=== PATIENT | male | born 1960 | race Caucasian/White ===

== ENCOUNTER → 2016-12-26 | Outpatient (CLI) | payer OTHER ==
[~2016-12-26] MED LIST: ACET325T96 PO; ASPI81TA28 PO; ATOR-26 PO; BUPR150T5 PO; DILT240C51 PO; FLM4 PO; GABA1CAP4 PO; HYDR-5688 PO; INSUINJ12 SQ; LSX40 PO; METF-384 PO; NVLGI SC; OMEP20CA9 PO; ZLF50 PO
[2016-12-26 12:32] LABS: BLOOD UREA NITROGEN 20 mg/dl (7-18); BUN/CREATININE RATIO 15.1 (10-20); CALCIUM 9.4 mg/dl (8.5-10.1); CARBON DIOXIDE 25 mmol/L (21-32); CHLORIDE 99 mmol/L (98-107); GLUCOSE 184 mg/dl (70-99); POTASSIUM 4.2 mmol/L (3.5-5.1); SODIUM 136 mmol/L (136-145)
== END | disposition home or self-care (01) ==
LOC: C.LABBFT 08:48
PROVIDERS: ATTEND Internal Medicine
DX: R79.9 Abnormal finding of blood chemistry, unspecified (principal)

== ENCOUNTER → 2017-02-21 | Outpatient (CLI) | payer OTHER ==
[2017-02-21 12:00] LABS: ESTIMATED AVERAGE GLUCOSE 200 mg/dl; HA1C FLAG Normal (Normal)
[2017-02-21 12:17] LABS: THYROID STIMULATING HORMONE 5.3 uIu/ml (0.300-4.500)
== END | disposition home or self-care (01) ==
LOC: C.LABBFT 09:45
PROVIDERS: ATTEND Internal Medicine
DX: E03.9 Hypothyroidism, unspecified (principal); E11.49 Type 2 diabetes mellitus with other diabetic neurological complication

== ENCOUNTER → 2017-05-22 | Outpatient (CLI) | payer OTHER ==
[2017-05-22 12:59] LABS: BASO % 0.2 %; BASO ABS # 0.02 K/uL (0-0.2); COMPLETE YES; EOS % 2.6 %; HEMATOCRIT 35.8 % (42-52); IG% 0.3 %; LYMPH % 21.8 %; MEAN CELL VOLUME 90.2 fL (80-100); MEAN CORPUSCULAR HGB CONC 33.2 g/dl (32-36); MEAN PLATELET VOLUME 12.1 fL (7.4-10.4); MONO % 6.1 %; PLATELET COUNT 269 K/uL (130-400); RED BLOOD COUNT 3.97 M/uL (4.7-6.1); WHITE BLOOD COUNT 9.16 K/uL (4.8-10.8)
[2017-05-22 13:20] LABS: ESTIMATED AVERAGE GLUCOSE 183 mg/dl; HA1C FLAG Normal (Normal)
[2017-05-22 13:31] LABS: ALT/SGPT 25 U/L (12-78); BLOOD UREA NITROGEN 18 mg/dl (7-18); BUN/CREATININE RATIO 12.2 (10-20); CARBON DIOXIDE 24 mmol/L (21-32); CHLORIDE 103 mmol/L (98-107); CHOLESTEROL 145 mg/dl (0-200); GLUCOSE 199 mg/dl (70-99); POTASSIUM 4.4 mmol/L (3.5-5.1); SODIUM 136 mmol/L (136-145); TRIGLYCERIDES 286 mg/dl (0-150); VERY LOW DENSITY LIPOPROT CALC 57 mg/dl
[2017-05-22 13:35] LABS: RATIO 61.6 mcg/mg (0-30.0); URINE APPEARANCE CLOUDY (CLEAR); URINE BILIRUBIN NEG (NEG); URINE COLOR YELLOW; URINE EPITHELIAL CELL AUTO >30 /lpf (0-5); URINE NITRITE NEG (NEG); URINE PH 8.5 (4.5-7.5); URINE SPECIFIC GRAVITY 1.013 (1.000-1.030); UROBILINOGEN NEG (NEG); ZZURINE CULT IF INDIC CATH YES
[2017-05-22 13:42] LABS: ALB/GLOB RATIO 0.9 (0.9-2); ALKALINE PHOSPHATASE 128 U/L (45-117); AST/SGOT 16 U/L (15-37); HDL CHOLESTEROL 29 mg/dl; LDL CHOLESTEROL CALCULATED 59 mg/dl; PROSTATE SPECIFIC ANTIGEN 0.693 ng/ml (0.000-4.000)
[2017-05-22 13:45] LABS: MANUAL MICROSCOPIC REQUIRED? NO; REVIEW REQ? YES
== END | disposition home or self-care (01) ==
LOC: C.LABBFT 09:37
PROVIDERS: ATTEND Internal Medicine
DX: E11.49 Type 2 diabetes mellitus with other diabetic neurological complication (principal); E78.5 Hyperlipidemia, unspecified; N40.1 Benign prostatic hyperplasia with lower urinary tract symptoms; E03.9 Hypothyroidism, unspecified

== ENCOUNTER → 2017-05-29 | Outpatient (CLI) | payer OTHER ==
[2017-05-29 12:32] LABS: FERRITIN 49.7 ng/ml (8.0-388.0)
--- NOTE | 2017-06-06 12:53 | CODING QUERY MEDICAL NECESSITY ---
CQSUPPORTING DIAGNOSIS NEEDED A supporting diagnosis is required for the test/procedure performed on this patient in order for us to be reimbursed by the patient's insurance. Please provide a supporting diagnosis for the following test/procedure listed below next to the test name along with your signature. *If there is no additional diagnosis for this patient that would support the following test/procedure please document that below next to the test/procedure. Test(s)/Procedure(s) that require a supporting diagnosis: DOS 05/29/17 VITAMIN B12 TEST FOLIC ACID TEST : Provider Signature: Date: Thank you [facility] Information Management Once completed, please kindly fax back to [phone] For questions please call [phone]
== END | disposition home or self-care (01) ==
LOC: C.LABBFT 10:00
PROVIDERS: ATTEND Internal Medicine
DX: D64.9 Anemia, unspecified (principal)

== ENCOUNTER → 2017-08-25 | Outpatient (CLI) | payer OTHER ==
[2017-08-25 12:11] LABS: BASO % 0.7 %; BASO ABS # 0.05 K/uL (0-0.2); COMPLETE YES; EOS % 3.2 %; HEMATOCRIT 36.5 % (42-52); IG% 0.3 %; LYMPH % 22.7 %; LYMPH ABS # 1.72 K/uL (1.2-3.4); MEAN CELL VOLUME 89.2 fL (80-100); MEAN CORPUSCULAR HEMOGLOBIN 28.9 pg (25-34); MEAN CORPUSCULAR HGB CONC 32.3 g/dl (32-36); MEAN PLATELET VOLUME 11.9 fL (7.4-10.4); MONO % 8.3 %; NEUT % 64.8 %; PLATELET COUNT 259 K/uL (130-400); RED BLOOD COUNT 4.09 M/uL (4.7-6.1); WHITE BLOOD COUNT 7.57 K/uL (4.8-10.8)
[2017-08-25 12:29] LABS: ALT/SGPT 19 U/L (12-78); AST/SGOT 10 U/L (15-37); BLOOD UREA NITROGEN 23 mg/dl (7-18); BUN/CREATININE RATIO 16.4 (10-20); CALCIUM 8.9 mg/dl (8.5-10.1); CARBON DIOXIDE 26 mmol/L (21-32); CHLORIDE 98 mmol/L (98-107); CREATININE 1.41 mg/dl (0.60-1.40); GLUCOSE 258 mg/dl (70-99); POTASSIUM 4.3 mmol/L (3.5-5.1); SODIUM 133 mmol/L (136-145)
[2017-08-25 12:32] LABS: ALKALINE PHOSPHATASE 143 U/L (45-117)
[2017-08-25 13:46] LABS: ESTIMATED AVERAGE GLUCOSE 189 mg/dl; HA1C FLAG Normal (Normal)
== END | disposition home or self-care (01) ==
LOC: C.LABBFT 08:54
PROVIDERS: ATTEND Physician Assistant Medical
DX: E11.65 Type 2 diabetes mellitus with hyperglycemia (principal); D64.9 Anemia, unspecified

== ENCOUNTER → 2018-04-30 | Outpatient (CLI) | payer OTHER ==
[~2018-04-30] MED LIST changes: +ACET-1693 PO; -ACET325T96 PO; +GABA-1219 PO; -GABA1CAP4 PO
[2018-04-30 12:35] LABS: BLOOD UREA NITROGEN 17 mg/dl (7-18); CALCIUM 9.3 mg/dl (8.5-10.1); CARBON DIOXIDE 28 mmol/L (21-32); CREATININE 1.44 mg/dl (0.60-1.40); GLUCOSE 195 mg/dl (70-99); POTASSIUM 4.5 mmol/L (3.5-5.1); SODIUM 136 mmol/L (136-145)
== END | disposition home or self-care (01) ==
LOC: C.LABBFT 09:01
PROVIDERS: ATTEND Physician Assistant Medical
DX: E11.65 Type 2 diabetes mellitus with hyperglycemia (principal)

== ENCOUNTER → 2018-05-22 | Outpatient (CLI) | payer OTHER ==
[2018-05-22 17:47] LABS: BLOOD UREA NITROGEN 17 mg/dl (7-18); CALCIUM 9.2 mg/dl (8.5-10.1); CARBON DIOXIDE 23 mmol/L (21-32); CREATININE 1.32 mg/dl (0.60-1.40); GLUCOSE 158 mg/dl (70-99); POTASSIUM 4.4 mmol/L (3.5-5.1); SODIUM 137 mmol/L (136-145)
== END | disposition home or self-care (01) ==
LOC: C.LABBFT 11:18
PROVIDERS: ATTEND Physician Assistant Medical
DX: E11.65 Type 2 diabetes mellitus with hyperglycemia (principal)

== ENCOUNTER 2019-02-03 15:23 | Inpatient (IN) ==
[2019-02-03] MEDS ORDERED: SODIUM CHLORIDE 0.9% 1000ML 1,000 ML IV SCH ×2 (16:15→22:00)
[2019-02-03 16:35] LABS: Basophils # (auto) 0.04 K/uL (0-0.2); Basophils % (auto) 0.3 %; Eosinophils # (auto) 0.23 K/uL (0-0.5); Eosinophils % (auto) 1.6 %; Hematocrit (blood only) 37.8 % (42-52); Hemoglobin 13.1 g/dL (14.0-18.0); Immature Granulocytes # (auto) 0.05 K/uL (0.00-0.02); Immature Granulocytes % (auto) 0.3 %; Lymphocytes # (auto) 1.73 K/uL (1.2-3.4); Lymphocytes % (auto) 11.9 %; Mean Corpuscular Hgb Conc 34.7 g/dL (32-36); Mean Corpuscular Volume 84.8 fL (80-100); Mean Platelet Volume 11.5 fL (7.4-10.4); Monocytes # (auto) 1.07 K/uL (0.11-0.59); Monocytes % (auto) 7.4 %; Neutrophils # (auto) 11.36 K/uL (1.4-6.5); Neutrophils % (auto) 78.5 %; Platelet Count 222 K/uL (130-400); RDW Coefficient of Variation 15.7 % (11.5-14.5); RDW Standard Deviation 48.3 fL (36.4-46.3); Red Blood Count 4.46 M/uL (4.7-6.1); White Blood Count 14.48 K/uL (4.8-10.8)
[2019-02-03 16:52] LABS: BUN Creatinine Ratio 11.1 (10-20); Calcium 9.1 mg/dl (8.5-10.1); Creatinine Clr Calc Pharmacy 94.2 ml/min; Est GFR (African American) 58.6; Est GFR (Non-African American) 50.6; Potassium 4.1 mmol/L (3.5-5.1)
--- NOTE | 2019-02-03 17:13 | CT Scan Report ---
CT SCAN OF THE ABDOMEN AND PELVIS WITHOUT IV CONTRAST CLINICAL HISTORY: Urinary retention. COMPARISON STUDY: Abdominal CT dated 07/23/2018. TECHNIQUE: CT scan of the abdomen and pelvis is performed from the lung bases to the proximal femora. Images are reviewed in the axial, sagittal, and coronal planes. IV contrast was not administered for this examination as per the referring clinician. Note that the examination was performed in suboptim al fashion without oral and IV contrast. The examination is degraded by motion artifact, as well as b y large body habitus and streak artifact from the body wall abutting the CT gantry. A dose lowering t echnique was utilized adhering to the principles of ALARA. CT DOSE: 2400.26 mGy.cm FINDINGS: Lung bases: The heart is normal in size and without pericardial effusion. There are coronary artery c alcifications. The lung bases are clear. There is a small hiatal hernia. Liver: The unenhanced liver is enlarged, measuring 23.3 cm in length. The liver is otherwise normal i n contour and attenuation. There is no intrahepatic biliary ductal dilatation. Gallbladder: There are layering calcified gallstones, with no CT evidence of acute cholecystitis. Spleen: Normal in size and attenuation. Pancreas: The unenhanced pancreas is atrophic and grossly unremarkable. Adrenal glands: Unremarkable. Kidneys: The unenhanced kidneys demonstrate cortical atrophy. There is mild fullness of the right addie al collecting system with no hydronephrosis identified. 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 Mild stranding is seen around the right ur eter as well as the right renal pelvis. There are no renal calculi identified. There is no evidence o f contour deforming renal mass lesion. Abdominal vasculature: The abdominal aorta is normal in course and caliber noting moderate to advance d atherosclerotic calcification. Bowel: There is rectosigmoid fecal retention and moderate constipation. No bowel obstruction is seen. The appendix is well-visualized and normal. Peritoneum: There is no intraperitoneal free air or abdominal ascites. There is laxity of the ventral abdominal wall with diastases of the rectus musculature. Lymphadenopathy: None. Pelvic viscera: The bladder wall is mildly thickened and there is pericystic inflammation. Gas is see n within the bladder lumen. The prostate gland is atrophic, and the seminal vesicles are normal as im aged. Skeletal structures: The skeletal structures are osteopenic. Moderate to advanced lumbar sacral spond ylosis is observed. Large hemangiomas are seen in the bodies of T12, L2, and L5. No lytic or blastic lesions are seen. IMPRESSION: 1. The bladder wall is thickened and there is pericystic inflammation. Correlate clinically and with urinalysis for evidence of cystitis. 2. There is also mild stranding identified around the right ureters and the right renal pelvis. Ascen ding urinary tract infection is not excluded. 3. Gas within the bladder lumen is nonspecific and may be related to recent instrumentation. 4. Cholelithiasis. 5. Hepatomegaly. 6. Additional findings as above. Electronically signed by: Jerome Marquez M.D. 02/03/2019 5:12 PM
[2019-02-03] MEDS ORDERED: CIPROFLOXACIN 400 MG/200 ML BAG IV STA (17:22)
[2019-02-03 18:19] LABS: Appearance Urine Cloudy (Clear); Color Urine Red; Specific Gravity Urine 1.012 (1.000-1.030)
[2019-02-03 18:20] LABS: Bacteria Urine Automated Negative (Negative); Bilirubin Urine Negative (Negative); Blood Urine 3+ (Negative); Epithelial Cell Urine Auto 20-30 /lpf (0-5); Glucose Urine UA Negative (Negative); Ketones Urine Negative (Negative); Leukocyte Esterase Urine 1+ (Negative); Nitrite Urine Negative (Negative); RBC Urine Automated >30 /hpf (0-4); Urobilinogen Urine Negative (Negative)
[2019-02-03 18:23] LABS: Protein Urine 2+ (Negative)
--- NOTE | 2019-02-03 20:19 | History & Physical Report ---
Date of Service February 03, 2019 Assessment & Plan (1) Urinary tract infection: 58 y/o M Hx DM II, PAD, PAF, morbid obesity, HTN, hypothyroidism, BPH with retention and Villasenor since 2006, recurrent UTIs. The pt has his Villasenor changed monthly by his urologist. Over the past day, he has had hematuria and his Villasenor clogged. The Villasenor was successfully replaced in the ER and his urine gradually cleared up. The pt's UA was essentially negative. He did exhibit mild renal impairment and a borderline lactic acid elevation. He has not had fevers, rigors or tachycardia. A CT of the abdomen demonstrated bladder wall thickening, pericystic inflammation, mild stranding identified around the right ureters and the right renal pelvis consistent with ascending urinary tract infection. The pt was admitted with sepsis 07/16 related to Villasenor obstruction and a UTI and was critically ill. The CT findings are new since the prior admission. 1) Urinary retention and UTI - associated with Villasenor blockage. This was replaced in the ER. As he was recently septic and considering his lab and CT findings, we will retain him overnight, treat for a UTI and consult his urologist. Repeat lactic pending following IVF. 2) PAF - Sinus on admission, anticoagulated with Apixaban - we will continue as his hematuria has resolved. Cont Diltiazem, Metoprolol for rate 3) DM - placed on a SS 4) HTN/HLD - cont ARB, Diltiazem, Lasix, Meoprolol, statin 5) Mild renal impairment - Lasix held, IVF provided overnight - trend BMP 6) Hypothyroidism - cont Synthroid Full code, Apixaban prophylaxis Total time for this admit including review of labs, meds, imaging, records - discussion with pt and ER attending - 38 min Present on Admission?: Yes (2) Urinary retention: History of Present Illness Chief Complaint: Clogged Villasenor Primary Care Provider: Joe Walker MD 58 y/o M Hx DM II, PAD, PAF, morbid obesity, HTN, hypothyroidism, BPH with retention and Villasenor since 2006, recurrent UTIs. The pt has his Villasenor changed monthly by his urologist. Over the past day, he has had hematuria and his Villasenor clogged. The Villasenor was successfully replaced in the ER and his urine gradually cleared up. The pt's UA was essentially negative. He did exhibit mild renal impairment and a borderline lactic acid elevation. He has not had fevers, rigors or tachycardia. A CT of the abdomen demonstrated bladder wall thickening, pericystic inflammation, mild stranding identified around the right ureters and the right renal pelvis consistent with ascending urinary tract infection. The pt was admitted with sepsis 07/16 related to Villasenor obstruction and a UTI and was critically ill. The CT findings are new since the prior admission. 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 8) Paroxysmal AF 9) Hypothyroidism Social: The pt does not drink or smoke Family history: Mother to to complications of DM Father at an advanced age following a CVA Allergies Allergy/AdvReac Type Severity Reaction Status Date / Time Penicillins Allergy Severe HIVES, RED Verified 02/03/19 17:10 RASH A CHILD fluticasone [From Flonase] AdvReac Intermediate FELT FUNNY Verified 02/03/19 17:10 IN THE HEAD Home Medications Home Medications Medication Instructions Recorded Confirmed Type albuterol sulfate [Ventolin HFA] 2 puff INHALATION .Q4-6HRS PRN 07/23/18 02/03/19 History atorvastatin 80 mg PO DAILY 07/23/18 02/03/19 History bupropion HCl 150 mg PO BID 07/23/18 02/03/19 History diltiazem HCl 240 mg PO DAILY 07/23/18 02/03/19 History docusate sodium [Colace] 100 mg PO DAILY PRN 07/23/18 02/03/19 History furosemide 40 mg PO DAILY 07/23/18 02/03/19 History gabapentin 300 mg PO HS 07/23/18 02/03/19 History levothyroxine 50 mcg PO DAILY 07/23/18 02/03/19 History pantoprazole 40 mg PO DAILY 07/23/18 02/03/19 History promethazine 25 mg PO Q6H PRN 07/23/18 02/03/19 History apixaban [Eliquis] 5 mg PO BID #60 tab 07/27/18 02/03/19 Rx irbesartan 150 mg PO QAM #30 tab 07/27/18 02/03/19 Rx duloxetine 60 mg PO DAILY 02/03/19 02/03/19 History insulin aspart U-100 [Novolog 50 units SUBCUT ACHS 02/03/19 02/03/19 History Flexpen U-100 Insulin] insulin detemir U-100 [Levemir 100 units SUBCUT BID 02/03/19 02/03/19 History U-100 Insulin] metoprolol tartrate 100 mg PO BID 02/03/19 02/03/19 History Past Med/Surg History Medical History Atrial flutter with rapid ventricular response Regional wall motion abnormality of heart Asthma (Chronic) GERD (gastroesophageal reflux disease) (Chronic) Urinary retention (Acute) Urinary tract infection (Acute) Acute blood loss anemia Acute kidney injury Back injury Blocked urinary catheter Cellulitis Cellulitis of left foot Constipation Diabetic foot ulcer (10/07/13) Fall at home Foot ulcer, right Gas gangrene Hypertension Hyponatremia Surgical History Hx of tonsillectomy Family History Other No pertinent family history in first degree relatives Social History Preferred Language: Irish Communication Ability: Effective Beliefs That Will Affect Care: None marital status: Single Current Living Situation: Significant Other Feels Safe at Home: Yes Smoking Status: Never smoker Hx Alcohol Use: No Hx Substance Use: No Review of Systems Review of Systems: Gen: Denies fevers, night sweats, rigors, fatigue, malaise, weight loss/gain ENT: Denies congestion, throat pain, hearing loss Eyes: Denies acute visual changes CV: Denies CP, palpitations Pulmonary: Denies SOB, cough, wheezing GI: Denies N/V, diarrhea, constipation : Hematuria and some suprapubic pain prior to Villasenor replacement Neuro: Denies acute or unilateral weakness, acute gait impairment, headache or acute visual changes Musculoskeletal: Denies joint pain, inflammation Endocrine: Denies polydipsia, polyuria Skin: Denies acute rashes or ulcers - chronic plantar erythema Physical Exam Physical Exam: General: Morbidly obese, unkempt, middle-aged male, AAO x 3, no distress ENT: No erythema or exudates, no thrush Eyes: EVAN, EOMI Head and neck: Normocephalic, atraumatic, neck is supple. Chest/heart: Nontender, S1,2, RRR, no murmurs, no gallops Lungs: CTAB, no wheezing or crackles Abdomen: Nontender, nondistended, BS+ : Urine in Villasenor bag is clear following replacement Neuro: AAO x 3, speech is clear, no unilateral weakness or loss of sensation, coordination intact Musculoskeletal: No joint inflammation, muscle tenderness, FROM Skin: No acute rashes or ulcers - plantar erythema R Extremities: BL edema - red spots and plantar erythema on R - chronic per pt Results & Data Vital Signs (Past 12 Hours) Vital Signs Temp Pulse Pulse Resp BP BP Pulse Ox 02/03/19 20:04 61 19 139/44 L 96 02/03/19 17:52 68 17 161/60 H 96 02/03/19 16:10 67 18 125/62 97 02/03/19 15:45 98.4 F 78 19 218/[address] abdomen/pelvis 1. The bladder wall is thickened and there is pericystic inflammation. Correlate clinically and with urinalysis for evidence of cystitis. 2. There is also mild stranding identified around the right ureters and the right renal pelvis. Ascending urinary tract infection is not excluded. 3. Gas within the bladder lumen is nonspecific and may be related to recent instrumentation. 4. Cholelithiasis. 5. Hepatomegaly. (1) Urinary tract infection Urinary tract infection type: catheter-associated UTI Indwelling urinary catheter type: indwelling urethral catheter Encounter type: subsequent encounter Qualified Code(s): T83.511D - Infection and inflammatory reaction due to indwelling urethral catheter, subsequent encounter; N39.0 - Urinary tract infection, site not specified
--- NOTE | 2019-02-03 22:54 | Emergency Department Note ---
Entered by Mami Campa acting as a scribe for Deejay Walsh History of Present Illness General Chief complaint: Hematuria Stated complaint: hematuria in catheter Time Seen by Provider: 02/03/19 16:03 Source: patient History of Present Illness Onset (ago): hour(s) (Less than 24) Location: pelvis (Hematuria) Severity: similar to prior episodes Pain Consistency: + other (Sudden) Maximum Pain Intensity: 8 Quality: + other (Hematuria) Associated symptoms: + other (Positive hematuria, inability to urinate. ) Treatments prior to arrival: none The patient is a 58 year old male presenting to the Emergency Department complaining of sudden hematuria starting today. The patient reports that the had a catheter put in at [facility] by a nurse earlier today. He states that since the catheter has been placed he has not been able to urinate. He explains that since his catheter has been placed he has noticed blood in his catheter. He notes that this has happened before. 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 The patient stated Take the catheter out of me. I want it out, I want it out right now! Home Medications Home Medications Medication Instructions Recorded Confirmed Type albuterol sulfate [Ventolin HFA] 2 puff INHALATION .Q4-6HRS PRN 07/23/18 02/03/19 History atorvastatin 80 mg PO DAILY 07/23/18 02/03/19 History bupropion HCl 150 mg PO BID 07/23/18 02/03/19 History diltiazem HCl 240 mg PO DAILY 07/23/18 02/03/19 History docusate sodium [Colace] 100 mg PO DAILY PRN 07/23/18 02/03/19 History furosemide 40 mg PO DAILY 07/23/18 02/03/19 History gabapentin 300 mg PO HS 07/23/18 02/03/19 History levothyroxine 50 mcg PO DAILY 07/23/18 02/03/19 History pantoprazole 40 mg PO DAILY 07/23/18 02/03/19 History promethazine 25 mg PO Q6H PRN 07/23/18 02/03/19 History apixaban [Eliquis] 5 mg PO BID #60 tab 07/27/18 02/03/19 Rx irbesartan 150 mg PO QAM #30 tab 10/29/18 05/08/19 Rx duloxetine 60 mg PO DAILY 02/03/19 02/03/19 History insulin aspart U-100 [Novolog 50 units SUBCUT ACHS 02/03/19 02/03/19 History Flexpen U-100 Insulin] insulin detemir U-100 [Levemir 100 units SUBCUT BID 02/03/19 02/03/19 History U-100 Insulin] metoprolol tartrate 100 mg PO BID 02/03/19 02/03/19 History Allergies Allergy/AdvReac Type Severity Reaction Status Date / Time Penicillins Allergy Severe HIVES, RED Verified 02/03/19 17:10 RASH A CHILD fluticasone [From Flonase] AdvReac Intermediate FELT FUNNY Verified 02/03/19 17:10 IN THE HEAD Past Med/Surg History Medical History Atrial flutter with rapid ventricular response Regional wall motion abnormality of heart Asthma (Chronic) GERD (gastroesophageal reflux disease) (Chronic) Urinary retention (Acute) Urinary tract infection (Acute) Acute blood loss anemia Acute kidney injury Back injury Blocked urinary catheter Cellulitis Cellulitis of left foot Constipation Diabetic foot ulcer (10/07/13) Fall at home Foot ulcer, right Gas gangrene Hypertension Hyponatremia Surgical History Hx of tonsillectomy Family History Other No pertinent family history in first degree relatives Social History Preferred Language: Gabonese Communication Ability: Effective Beliefs That Will Affect Care: None marital status: Single Current Living Situation: Significant Other Feels Safe at Home: Yes Smoking Status: Never smoker Hx Alcohol Use: No Hx Substance Use: No Review of Systems See HPI for pertinent positives & negatives. and A total of 10 systems reviewed and were otherwise negative Physical Exam Vital Signs Vital Signs - 24 hr 02/03/19 15:45 02/03/19 17:52 02/03/19 20:04 Temperature 36.9 C Temperature Source Oral Sepsis Recent Fever Within 48 Hours No Sepsis New/Unexplained Change in Mental Status No Sepsis Action Taken by Nursing No Action Required Pulse Rate 78 Pulse Rate [Right Finger] 68 61 Respiratory Rate 19 17 19 Respiratory Effort / Characteristics Non-Labored Spontaneous Respiratory Depth Normal Respiratory Pattern Regular Blood Pressure 218/134 H Blood Pressure [Right Arm] 161/60 H 139/44 L Blood Pressure Mean 162 Blood Pressure Mean [Right Arm] 93 75 Pulse Oximetry 96 96 96 Oxygen Delivery Method Room Air Room Air Room Air 02/03/19 21:39 Temperature Temperature Source Sepsis Recent Fever Within 48 Hours Sepsis New/Unexplained Change in Mental Status Sepsis Action Taken by Nursing Pulse Rate 62 Pulse Rate [Right Finger] Respiratory Rate 19 Respiratory Effort / Characteristics Respiratory Depth Respiratory Pattern Blood Pressure 158/66 H Blood Pressure [Right Arm] Blood Pressure Mean Blood Pressure Mean [Right Arm] Pulse Oximetry 97 Oxygen Delivery Method Room Air GENERAL: He is oriented to person, place, and time. He appears well-developed and well-nourished. He does not appear distressed. HENT: Exam performed. - Head: Normocephalic and atraumatic. - Right Ear: External ear normal. No mastoid tenderness. - Left Ear: External ear normal. No mastoid tenderness. - Mouth/Throat: The oropharynx is clear and moist. No trismus in the jaw. No dental abscesses or uvula swelling. No oropharyngeal exudate or tonsillar abscesses. EYES: Conjunctivae and EOM are normal. Pupils are equal, round, and reactive to light. Right eye exhibits no discharge. Left eye exhibits no discharge. No scleral icterus. NECK: Normal range of motion. Neck supple. No JVD present. No spinous process tenderness present. No carotid bruit present. No rigidity. No tracheal deviation and normal range of motion present. No Brudzinski's sign and no Kernig's sign noted. CV: Normal rate, regular rhythm, normal heart sounds and intact distal pulses. There is no peripheral edema. Palpable radial pulses bue. PULM/CHEST: Effort normal and breath sounds normal. No respiratory distress. No stridor. He has no wheezes. He has no rales. - Chest Wall: He exhibits no tenderness. ABD: The abdomen is soft. Bowel sounds are normal. He has no distension. No mass is present. Pain on palpation of the RLQ. There is no rebound, no guarding, no Pressley's sign and no tenderness at McBurney's point. Rovsig negative. : Villasenor catheter in place with blood coming from around it. MUSC/SKEL: Normal range of motion. There is no peripheral edema, tenderness or deformity. LYMPH: No cervical adenopathy. NEURO: He is alert and oriented to person, place, and time. He has normal strength. No cranial nerve deficit or sensory deficit. Coordination and gait normal. GCS eye subscore is 4. GCS verbal subscore is 5. GCS motor subscore is 6. Cerebellar tests wnl. SKIN: Skin is warm and dry. He is not diaphoretic. PSYCH: He has a normal mood and affect. Behavior is normal. Judgment and thought content normal. Course 1606: The patient was evaluated in room B12B, and a complete history and physical examination were performed. EMR reviewed. The patient has a history of DM, CAD, HTN, BPH with Villasenor catheter since 2006. The patient has his Villasenor catheter changed monthly by urology. The patient was seen in the ED in June 2018 for a similar episode where he developed hematuria, bladder pain, fever and high heart rate. 1745: Villasenor was replaced. Extremely bloody urine coming from Villasenor. Labs show leukocytosis at 14.8 and lactic acid of 2.1. CT of abdomen showed no nephrolithiasis. Mild streaking of right ureter and right renal pelvis concerning for pyelonephritis. Given patients history of sepsis after Villasenor catheter change, patient will be treated with IV antibiotics and admitted to hospital service. Patient was accepted by Dr. Denise MORENO hospitalist. Administered Medications Discontinued Medications Sodium Chloride (Nss 1000ml) 1,000 mls @ 125 mls/hr IV .Q8H [facility] Stop: 03/05/19 16:14 Last Admin: 02/03/19 17:55 Dose: 125 mls/hr Documented by: [id number] Ciprofloxacin (Cipro) 400 mg in 200 mls @ 200 mls/hr IV NOW STA Stop: 02/03/19 18:21 Last Infusion: 02/03/19 19:58 Dose: 0 mls/hr Documented by: [id number] Admin: 02/03/19 17:54 Dose: 200 mls/hr Documented by: [id number] Medical Decision Making Medical Records Attestation: I reviewed the patient's medical records. Home Medications Current Medication List: was personally reviewed by me Laboratory Data Attestation: I reviewed the patient's lab results. Result diagrams: 02/03/19 16:26 02/03/19 16:26 Lab Results 02/03/19 02/03/19 02/03/19 Range/Units 16:26 16:26 16:26 WBC 14.48 H (4.8-10.8) K/uL RBC 4.46 L (4.7-6.1) M/uL Hgb 13.1 L (14.0-18.0) g/dL Hct 37.8 L (42-52) % MCV 84.8 (80-100) fL MCH 29.4 (25-34) pg MCHC 34.7 (32-36) g/dL RDW Std Deviation 48.3 H (36.4-46.3) fL RDW Coeff of Adi 15.7 H (11.5-14.5) % Plt Count 222 (130-400) K/uL MPV 11.5 H (7.4-10.4) fL Immature Gran % (Auto) 0.3 % Neut % (Auto) 78.5 % Lymph % (Auto) 11.9 % [place] % (Auto) 7.4 % Eos % (Auto) 1.6 % Baso % (Auto) 0.3 % Immature Gran # (Auto) 0.05 H (0.00-0.02) K/uL Neut # (Auto) 11.36 H (1.4-6.5) K/uL Lymph # (Auto) 1.73 (1.2-3.4) K/uL [place] # (Auto) 1.07 H (0.11-0.59) K/uL Eos # (Auto) 0.23 (0-0.5) K/uL Baso # (Auto) 0.04 (0-0.2) K/uL Sodium 134 L (136-145) mmol/L Potassium 4.1 (3.5-5.1) mmol/L Chloride 99 (98-107) mmol/L Carbon Dioxide 28 (21-32) mmol/L Anion Gap 6.0 (3-11) BUN 17 (7-18) mg/dl Creatinine 1.50 H (0.6-1.4) mg/dl Est Cr Clr Drug Dosing 94.2 ml/min Est GFR ( Amer) 58.6 Est GFR (Non-Af Amer) 50.6 BUN/Creatinine Ratio 11.1 (10-20) Glucose 88 (70-99) mg/dl Lactate 2.1 H* (0.4-2.0) mmol/L Calcium 9.1 (8.5-10.1) mg/dl Urine Color Urine Appearance (Clear) Urine pH (4.5-7.5) Ur Specific [place] (1.000-1.030) Urine Protein (Negative) Urine Glucose (UA) (Negative) Urine Ketones (Negative) Urine Blood (Negative) Urine Nitrite (Negative) Urine Bilirubin (Negative) Urine Urobilinogen (Negative) Ur Leukocyte Esterase (Negative) Urine WBC (Auto) (0-5) /hpf Urine RBC (Auto) (0-4) /hpf U Hyaline Cast (Auto) (0-5) /lpf U Epithel Cells (Auto) (0-5) /lpf Urine Bacteria (Auto) (Negative) 02/03/19 02/03/19 Range/Units 17:30 20:58 WBC (4.8-10.8) K/uL RBC (4.7-6.1) M/uL Hgb (14.0-18.0) g/dL Hct (42-52) % MCV (80-100) fL MCH (25-34) pg MCHC (32-36) g/dL RDW Std Deviation (36.4-46.3) fL RDW Coeff of Adi (11.5-14.5) % Plt Count (130-400) K/uL MPV (7.4-10.4) fL Immature Gran % (Auto) % Neut % (Auto) % Lymph % (Auto) % [place] % (Auto) % Eos % (Auto) % Baso % (Auto) % Immature Gran # (Auto) (0.00-0.02) K/uL Neut # (Auto) (1.4-6.5) K/uL Lymph # (Auto) (1.2-3.4) K/uL [place] # (Auto) (0.11-0.59) K/uL Eos # (Auto) (0-0.5) K/uL Baso # (Auto) (0-0.2) K/uL Sodium (136-145) mmol/L Potassium (3.5-5.1) mmol/L Chloride (98-107) mmol/L Carbon Dioxide (21-32) mmol/L Anion Gap (3-11) BUN (7-18) mg/dl Creatinine (0.6-1.4) mg/dl Est Cr Clr Drug Dosing ml/min Est GFR ( Amer) Est GFR (Non-Af Amer) BUN/Creatinine Ratio (10-20) Glucose (70-99) mg/dl Lactate 1.2 (0.4-2.0) mmol/L Calcium (8.5-10.1) mg/dl Urine Color Red Urine Appearance Cloudy A (Clear) Urine pH 8.0 H (4.5-7.5) Ur Specific [place] 1.012 (1.000-1.030) Urine Protein 2+ H (Negative) Urine Glucose (UA) Negative (Negative) Urine Ketones Negative (Negative) Urine Blood 3+ H (Negative) Urine Nitrite Negative (Negative) Urine Bilirubin Negative (Negative) Urine Urobilinogen Negative (Negative) Ur Leukocyte Esterase 1+ H (Negative) Urine WBC (Auto) 5-10 H (0-5) /hpf Urine RBC (Auto) >30 H (0-4) /hpf U Hyaline Cast (Auto) 1-5 (0-5) /lpf U Epithel Cells (Auto) 20-30 H (0-5) /lpf Urine Bacteria (Auto) Negative (Negative) Imaging Data Radiologist's Impression: Radiology results as stated below per my review and the radiologist's interpretation: CT SCAN OF THE ABDOMEN AND PELVIS WITHOUT IV CONTRAST CLINICAL HISTORY: Urinary retention. COMPARISON STUDY: Abdominal CT dated 07/23/2018. TECHNIQUE: CT scan of the abdomen and pelvis is performed from the lung bases to the proximal femora. Images are reviewed in the axial, sagittal, and coronal planes. IV contrast was not administered for this examination as per the referring clinician. Note that the examination was performed in suboptimal fashion without oral and IV contrast. The examination is degraded by motion artifact, as well as by large body habitus and streak artifact from the body wall abutting the CT gantry. A dose lowering technique was utilized adhering to the principles of ALARA. CT DOSE: 2400.26 mGy.cm FINDINGS: Lung bases: The heart is normal in size and without pericardial effusion. There are coronary artery calcifications. The lung bases are clear. There is a small hiatal hernia. Liver: The unenhanced liver is enlarged, measuring 23.3 cm in length. The liver is otherwise normal in contour and attenuation. There is no intrahepatic biliary ductal dilatation. Gallbladder: There are layering calcified gallstones, with no CT evidence of acute cholecystitis. Spleen: Normal in size and attenuation. Pancreas: The unenhanced pancreas is atrophic and grossly unremarkable. Adrenal glands: Unremarkable. Kidneys: The unenhanced kidneys demonstrate cortical atrophy. There is mild fullness of the right renal collecting system with no hydronephrosis identified. 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 Mild stranding is seen around the right ureter as well as the right renal pelvis. There are no renal calculi identified. There is no evidence of contour deforming renal mass lesion. Abdominal vasculature: The abdominal aorta is normal in course and caliber noting moderate to advanced atherosclerotic calcification. Bowel: There is rectosigmoid fecal retention and moderate constipation. No bowel obstruction is seen. The appendix is well-visualized and normal. Peritoneum: There is no intraperitoneal free air or abdominal ascites. There is laxity of the ventral abdominal wall with diastases of the rectus musculature. Lymphadenopathy: None. Pelvic viscera: The bladder wall is mildly thickened and there is pericystic inflammation. Gas is seen within the bladder lumen. The prostate gland is atrophic, and the seminal vesicles are normal as imaged. Skeletal structures: The skeletal structures are osteopenic. Moderate to advanced lumbar sacral spondylosis is observed. Large hemangiomas are seen in the bodies of T12, L2, and L5. No lytic or blastic lesions are seen. IMPRESSION: 1. The bladder wall is thickened and there is pericystic inflammation. Correlate clinically and with urinalysis for evidence of cystitis. 2. There is also mild stranding identified around the right ureters and the right renal pelvis. Ascending urinary tract infection is not excluded. 3. Gas within the bladder lumen is nonspecific and may be related to recent instrumentation. 4. Cholelithiasis. 5. Hepatomegaly. 6. Additional findings as above. Electronically signed by: Jerome Marquez M.D. 02/03/2019 5:12 PM ECG Data Attestation: I personally reviewed and interpreted this ECG as follows: Indication: weakness Rate (beats per minute): 75 Rhythm: sinus rhythm Findings: + other (OH and QTC intervals within normal limits. QRS 136. LVH. ), + PVC and + RBBB; no ST depression and no ST elevation Blood Pressure Blood Pressure Findings: Elevated blood pressure Blood Pressure Disposition: further management by hospitalist LISA Narrative 1606: The patient was evaluated in room B12B, and a complete history and physical examination were performed. EMR reviewed. The patient has a history of DM, CAD, HTN, BPH with Ivllasenor catheter since 2006. The patient has his Villasenor catheter changed monthly by urology. The patient was seen in the ED in June 2018 for a similar episode where he developed hematuria, bladder pain, fever and high heart rate. 1745: Villasenor was replaced. Extremely bloody urine coming from Villasenor. Labs show leukocytosis at 14.8 and lactic acid of 2.1. CT of abdomen showed no nephrol ithiasis. Mild streaking of right ureter and right renal pelvis concerning for pyelonephritis. Given patients history of sepsis after Villasenor catheter change, patient will be treated with IV antibiotics and admitted to hospital service. Patient was accepted by Dr. Denise SOLANO hospitalist. Impression & Plan Pyelonephritis Discharge Plan Visit Data Chief Complaint: Hematuria Stated Complaint: hematuria in catheter ED Provider: Deejay Walsh Discharge Problem: Pyelonephritis Patient Disposition: Being Evaluated by Hospitalist Discharge Instructions Interventions: ED Discharge Assessment Last Done: 02/03/19 21:39 The scribe's documentation has been prepared under my direction and personally reviewed by me in its entirety. I confirm that the note above accurately reflects all work, treatment, procedures, and medical decision making performed by me.
[2019-02-03] MEDS ORDERED: POLYETHYLENE (MIRALAX) 17 GM PACK PO PRN (22:56)
[2019-02-03] MEDS ORDERED: MAGNESIUM HYDROXIDE SUSP 30 ML UDC PO PRN (22:56)
[2019-02-03] MEDS ORDERED: ALBUTEROL HFA 8 GM INHALER INH PRN (22:56)
[2019-02-03] MEDS ORDERED: DOCUSATE SODIUM 100 MG CAP PO PRN (22:56)
[2019-02-03] MEDS ORDERED: ZOLPIDEM TARTRATE 5 MG TAB PO PRN (22:56)
[2019-02-03] MEDS ORDERED: ONDANSETRON INJ 2 MG/ML 2 ML VIAL IV PRN (22:56)
[2019-02-03] MEDS ORDERED: ALUMINUM/MAGNESIUM SUSP 30 ML UDC PO PRN (22:56)
[2019-02-03] MEDS ORDERED: ACETAMINOPHEN 325 MG TAB PO PRN (22:56)
[2019-02-03] MEDS: CEFEPIME 1,000 MG in SYRINGE 0 ML IV SCH (22:57)
[2019-02-03] MEDS ORDERED: INSULIN DETEMIR SC SCH (23:15)
[2019-02-03] MEDS ORDERED: GLUCOSE 10 TABS/TUBE PO PRN (23:15)
[2019-02-03] MEDS ORDERED: DEXTROSE 50% 50 ML SYRINGE IV PRN (23:15)
[2019-02-03] MEDS ORDERED: GLUCOSE 40% GEL 15 GM TUBE PO PRN (23:15)
[2019-02-03] MEDS ORDERED: CARBOHYDRATES FOR HYPOGLYCEMIA PO PRN (23:15)
[2019-02-03] MEDS ORDERED: GLUCAGON FOR INJ 1 MG VIAL IM PRN (23:15)
[2019-02-04] MEDS: APIXABAN 5 MG TABLET PO SCH ×3 (00:03→20:40)
[2019-02-04] MEDS: METOPROLOL TARTRATE 100 MG TAB PO SCH ×3 (00:03→20:38)
[2019-02-04] MEDS: GABAPENTIN 300 MG CAP PO SCH ×2 (00:04→20:39)
[2019-02-04] MEDS: INSULIN DETEMIR SC SCH ×3 (00:04→20:42)
[2019-02-04] MEDS: BuPROPion SR 150 MG TABCR PO SCH ×3 (00:04→20:39)
[2019-02-04 05:51] LABS: Basophils # (auto) 0.02 K/uL (0-0.2); Basophils % (auto) 0.2 %; Eosinophils # (auto) 0.24 K/uL (0-0.5); Eosinophils % (auto) 2.2 %; Hematocrit (blood only) 34.8 % (42-52); Immature Granulocytes # (auto) 0.03 K/uL (0.00-0.02); Immature Granulocytes % (auto) 0.3 %; Lymphocytes % (auto) 15.5 %; Mean Corpuscular Hgb Conc 34.5 g/dL (32-36); Mean Corpuscular Volume 83.9 fL (80-100); Mean Platelet Volume 11.5 fL (7.4-10.4); Monocytes # (auto) 0.81 K/uL (0.11-0.59); Monocytes % (auto) 7.4 %; Neutrophils # (auto) 8.18 K/uL (1.4-6.5); Neutrophils % (auto) 74.4 %; Platelet Count 176 K/uL (130-400); RDW Coefficient of Variation 15.7 % (11.5-14.5); RDW Standard Deviation 48.1 fL (36.4-46.3); Red Blood Count 4.15 M/uL (4.7-6.1); White Blood Count 10.98 K/uL (4.8-10.8)
[2019-02-04] MEDS: CEFEPIME 1,000 MG in SYRINGE 0 ML IV SCH ×3 (06:06→21:45)
[2019-02-04] MEDS: LEVOTHYROXINE SODIUM 50 MCG TABLET PO SCH (06:08)
[2019-02-04 06:25] LABS: BUN Creatinine Ratio 11.6 (10-20); Calcium 8.5 mg/dl (8.5-10.1); Est GFR (African American) 73.8; Est GFR (Non-African American) 63.7; Potassium 4.2 mmol/L (3.5-5.1)
[2019-02-04] MEDS: ATORVASTATIN 40 MG TAB PO SCH (08:40)
[2019-02-04] MEDS: PANTOprazole 40 MG TAB PO SCH (08:40)
[2019-02-04] MEDS: DULOXETINE HCL 60 MG CAP PO SCH (08:41)
[2019-02-04] MEDS: dilTIAZem HCL 240 MG CAPCR PO SCH (08:41)
[2019-02-04] MEDS: IRBESARTAN 150 MG TAB PO SCH (08:42)
--- NOTE | 2019-02-04 19:59 | Urology Consultation ---
Date of Consultation February 04, 2019 Assessment & Plan (1) UTI (urinary tract infection) due to urinary indwelling catheter: Complicated uti due to clot retention after difficult brown cath change in urology office early sepsis responding well to iv abt will hopefully have culture results tomorrow patient motivated to go home understands he will be on abt for 1-2 weeks. plan cysto 02/15 I also asked pt and he agrees to pressure flow test to determine if he is candidate for turp surgery as I think it is dangerous for him to continue with brown. If there is any chance for return of spontaneous voiding he needs to take it. Present on Admission?: Yes (2) Septicemia: History of Present Illness Reason for Consultation: urosepsis Requesting Physician: Dr Walker Attending Physician: Najma Wallace MD History of Present Illness I am asked by Dr Walker to evaluate and treat patient for urosepsis. Patient is with long standing large volume retention who choses to live with brown rather than get workup to see if he is a candidate for turp surgery. He has had a brown for 6 years. It is changed monthly in the [facility] office. He has had increasingly difficult catheter placements including yesterday with proximal urethral resistance to brown passage. There was brisk bleeding after cath placement yesterday which seemed to have resolved prior to leaving clinic. he suffered clot retention about 3 hours after arriving home and came to ER last night in painful retention. His brown was changed and even after the first brown was removed he passed finger sized clots. He is on iv abt coverage based on his prior urosepsis event earlier this year also after a clogged catheter episode. Allergies Allergy/AdvReac Type Severity Reaction Status Date / Time Penicillins Allergy Severe HIVES, RED Verified 02/03/19 17:10 RASH A CHILD fluticasone [From Flonase] AdvReac Intermediate FELT FUNNY Verified 02/03/19 17:10 IN THE HEAD Home Medications Home Medications Medication Instructions Recorded Confirmed Type albuterol sulfate [Ventolin HFA] 2 puff INHALATION .Q4-6HRS PRN 07/23/18 02/03/19 History atorvastatin 80 mg PO DAILY 07/23/18 02/03/19 History bupropion HCl 150 mg PO BID 07/23/18 02/03/19 History diltiazem HCl 240 mg PO DAILY 07/23/18 02/03/19 History docusate sodium [Colace] 100 mg PO DAILY PRN 07/23/18 02/03/19 History furosemide 40 mg PO DAILY 07/23/18 02/03/19 History gabapentin 300 mg PO HS 07/23/18 02/03/19 History levothyroxine 50 mcg PO DAILY 07/23/18 02/03/19 History pantoprazole 40 mg PO DAILY 07/23/18 02/03/19 History promethazine 25 mg PO Q6H PRN 07/23/18 02/03/19 History apixaban [Eliquis] 5 mg PO BID #60 tab 07/27/18 02/03/19 Rx irbesartan 150 mg PO QAM #30 tab 07/27/18 02/03/19 Rx duloxetine 60 mg PO DAILY 02/03/19 02/03/19 History insulin aspart U-100 [Novolog 50 units SUBCUT ACHS 02/03/19 02/03/19 History Flexpen U-100 Insulin] insulin detemir U-100 [Levemir 100 units SUBCUT BID 02/03/19 02/03/19 History U-100 Insulin] metoprolol tartrate 100 mg PO BID 02/03/19 02/03/19 History Patient History Medical History Atrial flutter with rapid ventricular response Regional wall motion abnormality of heart Asthma (Chronic) GERD (gastroesophageal reflux disease) (Chronic) Urinary retention (Acute) Urinary tract infection (Acute) Acute blood loss anemia Acute kidney injury Back injury Blocked urinary catheter Cellulitis Cellulitis of left foot Constipation Diabetic foot ulcer (10/07/13) Fall at home Foot ulcer, right Gas gangrene Hypertension Hyponatremia Surgical History Hx of tonsillectomy Family History Other No pertinent family history in first degree relatives Social History Preferred Language: Croatian Communication Ability: Effective 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 Mom- no cancer ROS- + chills, + fever and sweats at home, no rash, no chest pain, no shortness of breath, bowle slow uses laxatives often, no nausea no emesis, no seizures Physical Exam Constitutional: WD/WN, vitals as above + obese, cooperative and comfortable Respiratory: normal respiratory effort, lungs clear to auscultation Gastrointestinal (Abdomen): Percussion/Palpation: abdomen soft and + hernia; no guarding he is tender in the suprapubic area , Genitourinary: Brown in place draining cloudy but yellow urine, no blood, buried penis Results & Data Vital Signs (Past 12 Hours) Vital Signs Temp Pulse Resp BP Pulse Ox 02/04/19 15:26 36.2 C L 69 18 144/69 H 95
--- NOTE | 2019-02-04 20:32 | Hospitalist Progress Note ---
Date of Service February 04, 2019 Assessment & Plan (1) UTI (urinary tract infection) due to urinary indwelling catheter: This patient is a 58 y/o male with a history of DM II, PAD, PAF, morbid obesity, HTN, hypothyroidism, BPH with retention and Villasenor since 2011, with recurrent UTIs. The pt has his Villasenor changed monthly by his urologist. Over the past day, he has had hematuria and his Villasenor clogged. The Villasenor was successfully replaced in the ER and his urine gradually cleared up. The pt's UA was equivocal for infection, he did exhibit mild renal impairment and a borderline lactic acid elevation. He has not had fevers, rigors or tachycardia. A CT of the abdomen demonstrated bladder wall thickening, pericystic inflammation, mild stranding identified around the right ureters and the right renal pelvis consistent with ascending urinary tract infection. The pt was admitted with septicemia 07/16 related to Villasenor obstruction and a UTI and was critically ill. The CT findings are new since the prior admission. Urinary retention and UTI - associated with Villasenor blockage. This was replaced in the ER. Repeat lactate is now normal. Urine culture collected this morning but was already started on antibiotics unclear if this will be accurate -Continue cefepime and urology recommending 7 to 14 days of antibiotics -Urology has plans for cystoscopy on 02/15 and will perform testing to see if he is a candidate for TURP which she has declined in the past (2) Urinary retention: Secondary to blood clots-now Villasenor catheter changed out and draining well (3) CKD (chronic kidney disease) stage 3, GFR 30-59 ml/min: With acute kidney injury in the setting of CKD stage III secondary to urinary obstruction Creatinine now improved from 1.50 down to 1.24 -Avoid nephrotoxins -Renally dose all medications -Maintain Villasenor catheter (4) HTN (hypertension), benign: Blood pressure stable -Cont ARB, Diltiazem, Lasix, Metoprolol (5) Hypothyroidism: TSH normal at 2.88 in 06/2018 -Continue home levothyroxine (6) DM w/o complication type II, uncontrolled: Hemoglobin A1c higher than previous at 9.3% -Continue Levemir 100 units subcu twice daily -Add on insulin NovoLog sliding scale (7) Morbid obesity: BMI 52.2-needs counseling on weight loss and dietary changes (8) Asthma: Stable, not in acute exacerbation -Continue albuterol as needed (9) GERD (gastroesophageal reflux disease): -Continue pantoprazole (10) Depression: Stable -Continue bupropion, duloxetine (11) Paroxysmal atrial fibrillation: Sinus on admission and remains regular on examination, anticoagulated with Apixaban - we will continue as his hematuria has resolved. Cont Diltiazem, Metoprolol for rate control (12) DVT prophylaxis: Eliquis Disposition-remain in hospital overnight and await urine culture results prior to discharge Subjective Patient feeling much better, no blood in the Villasenor bag. Remains afebrile. Is anxious for discharge to home tomorrow. Denies chest pain or shortness of breath Review of Systems Review of Systems: All systems reviewed & are unremarkable except as noted in HPI & below Physical Exam Constitutional: + morbidly obese; no acute distress Eyes: PERRL, conjunctivae normal, anicteric sclerae Neck: trachea midline, no thyromegaly Respiratory: normal respiratory effort, lungs clear to auscultation Cardiovascular: RRR, no murmur, no edema Gastrointestinal (Abdomen): normal bowel sounds, soft, nontender, no hepatosplenomegaly Villasenor catheter in place with clear yellow urine Musculoskeletal: Extremities: extremities normal to inspection; no cyanosis and no clubbing Skin: no rashes, warm and dry Neurologic: moves all extremities and awake; no focal motor deficits Psychiatric: A+Ox3, euthymic affect Results & Data Vital Signs (Past 12 Hours) Vital Signs Temp Pulse Resp BP Pulse Ox 02/04/19 15:26 36.2 C L 69 18 144/69 H 95 Laboratory Results 02/04/19 02/04/19 02/04/19 Range/Units 16:34 11:33 07:48 WBC (4.8-10.8) K/uL RBC (4.7-6.1) M/uL Hgb (14.0-18.0) g/dL Hct (42-52) % MCV (80-100) fL MCH (25-34) pg MCHC (32-36) g/dL RDW Std Deviation (36.4-46.3) fL RDW Coeff of Adi (11.5-14.5) % Plt Count (130-400) K/uL MPV (7.4-10.4) fL Immature Gran % (Auto) % Neut % (Auto) % Lymph % (Auto) % [place] % (Auto) % Eos % (Auto) % Baso % (Auto) % Immature Gran # (Auto) (0.00-0.02) K/uL Neut # (Auto) (1.4-6.5) K/uL Lymph # (Auto) (1.2-3.4) K/uL [place] # (Auto) (0.11-0.59) K/uL Eos # (Auto) (0-0.5) K/uL Baso # (Auto) (0-0.2) K/uL Sodium (136-145) mmol/L Potassium (3.5-5.1) mmol/L Chloride (98-107) mmol/L Carbon Dioxide (21-32) mmol/L Anion Gap (3-11) BUN (7-18) mg/dl Creatinine (0.6-1.4) mg/dl Est Cr Clr Drug Dosing ml/min Est GFR ( Amer) Est GFR (Non-Af Amer) BUN/Creatinine Ratio (10-20) Glucose (70-99) mg/dl POC Glucose 195 H 218 H 168 H (70-99) Lactate (0.4-2.0) mmol/L Calcium (8.5-10.1) mg/dl Magnesium (1.8-2.4) mg/dl 02/04/19 02/04/19 02/03/19 Range/Units 05:36 05:36 22:57 WBC 10.98 H (4.8-10.8) K/uL RBC 4.15 L (4.7-6.1) M/uL Hgb 12.0 L (14.0-18.0) g/dL Hct 34.8 L (42-52) % MCV 83.9 (80-100) fL MCH 28.9 (25-34) pg MCHC 34.5 (32-36) g/dL RDW Std Deviation 48.1 H (36.4-46.3) fL RDW Coeff of Adi 15.7 H (11.5-14.5) % Plt Count 176 (130-400) K/uL MPV 11.5 H (7.4-10.4) fL Immature Gran % (Auto) 0.3 % Neut % (Auto) 74.4 % Lymph % (Auto) 15.5 % [place] % (Auto) 7.4 % Eos % (Auto) 2.2 % Baso % (Auto) 0.2 % Immature Gran # (Auto) 0.03 H (0.00-0.02) K/uL Neut # (Auto) 8.18 H (1.4-6.5) K/uL Lymph # (Auto) 1.70 (1.2-3.4) K/uL [place] # (Auto) 0.81 H (0.11-0.59) K/uL Eos # (Auto) 0.24 (0-0.5) K/uL Baso # (Auto) 0.02 (0-0.2) K/uL Sodium 136 (136-145) mmol/L Potassium 4.2 (3.5-5.1) mmol/L Chloride 104 (98-107) mmol/L Carbon Dioxide 29 (21-32) mmol/L Anion Gap 3.0 (3-11) BUN 14 (7-18) mg/dl Creatinine 1.24 (0.6-1.4) mg/dl Est Cr Clr Drug Dosing 113.0 ml/min Est GFR ( Amer) 73.8 Est GFR (Non-Af Amer) 63.7 BUN/Creatinine Ratio 11.6 (10-20) Glucose 178 H (70-99) mg/dl POC Glucose 199 H (70-99) Lactate (0.4-2.0) mmol/L Calcium 8.5 (8.5-10.1) mg/dl Magnesium 2.0 (1.8-2.4) mg/dl 02/03/19 Range/Units 20:58 WBC (4.8-10.8) K/uL RBC (4.7-6.1) M/uL Hgb (14.0-18.0) g/dL Hct (42-52) % MCV (80-100) fL MCH (25-34) pg MCHC (32-36) g/dL RDW Std Deviation (36.4-46.3) fL RDW Coeff of Adi (11.5-14.5) % Plt Count (130-400) K/uL MPV (7.4-10.4) fL Immature Gran % (Auto) % Neut % (Auto) % Lymph % (Auto) % [place] % (Auto) % Eos % (Auto) % Baso % (Auto) % Immature Gran # (Auto) (0.00-0.02) K/uL Neut # (Auto) (1.4-6.5) K/uL Lymph # (Auto) (1.2-3.4) K/uL [place] # (Auto) (0.11-0.59) K/uL Eos # (Auto) (0-0.5) K/uL Baso # (Auto) (0-0.2) K/uL Sodium (136-145) mmol/L Potassium (3.5-5.1) mmol/L Chloride (98-107) mmol/L Carbon Dioxide (21-32) mmol/L Anion Gap (3-11) BUN (7-18) mg/dl Creatinine (0.6-1.4) mg/dl Est Cr Clr Drug Dosing ml/min Est GFR ( Amer) Est GFR (Non-Af Amer) BUN/Creatinine Ratio (10-20) Glucose (70-99) mg/dl POC Glucose (70-99) Lactate 1.2 (0.4-2.0) mmol/L Calcium (8.5-10.1) mg/dl Magnesium (1.8-2.4) mg/dl (1) Hypothyroidism Hypothyroidism type: acquired Qualified Code(s): E03.9 - Hypothyroidism, unspecified (2) DM w/o complication type II, uncontrolled Glycemic state: with hyperglycemia Qualified Code(s): E11.65 - Type 2 diabetes mellitus with hyperglycemia
[2019-02-04] MEDS: INSULIN ASPART 100 UNITS/ML 3 ML PEN SC SCH (21:43)
[2019-02-05] MEDS: CEFEPIME 1,000 MG in SYRINGE 0 ML IV SCH ×3 (05:28→22:07)
[2019-02-05] MEDS: LEVOTHYROXINE SODIUM 50 MCG TABLET PO SCH (05:30)
[2019-02-05 08:06] LABS: Basophils # (auto) 0.02 K/uL (0-0.2); Basophils % (auto) 0.2 %; Eosinophils # (auto) 0.27 K/uL (0-0.5); Eosinophils % (auto) 2.9 %; Hematocrit (blood only) 34.8 % (42-52); Immature Granulocytes # (auto) 0.02 K/uL (0.00-0.02); Immature Granulocytes % (auto) 0.2 %; Lymphocytes # (auto) 1.57 K/uL (1.2-3.4); Lymphocytes % (auto) 16.7 %; Mean Corpuscular Hgb Conc 34.5 g/dL (32-36); Mean Corpuscular Volume 84.7 fL (80-100); Mean Platelet Volume 11.6 fL (7.4-10.4); Monocytes # (auto) 1.08 K/uL (0.11-0.59); Monocytes % (auto) 11.5 %; Neutrophils # (auto) 6.43 K/uL (1.4-6.5); Neutrophils % (auto) 68.5 %; Platelet Count 172 K/uL (130-400); RDW Coefficient of Variation 15.9 % (11.5-14.5); RDW Standard Deviation 49.1 fL (36.4-46.3); Red Blood Count 4.11 M/uL (4.7-6.1); White Blood Count 9.39 K/uL (4.8-10.8)
[2019-02-05 08:30] LABS: BUN Creatinine Ratio 12.8 (10-20); Calcium 8.7 mg/dl (8.5-10.1); Creatinine Clr Calc Pharmacy 119.8 ml/min; Est GFR (African American) 79.2; Est GFR (Non-African American) 68.3; Potassium 4.2 mmol/L (3.5-5.1)
[2019-02-05] MEDS: IRBESARTAN 150 MG TAB PO SCH (08:45)
[2019-02-05] MEDS: PANTOprazole 40 MG TAB PO SCH (08:45)
[2019-02-05] MEDS: dilTIAZem HCL 240 MG CAPCR PO SCH (08:45)
[2019-02-05] MEDS: APIXABAN 5 MG TABLET PO SCH ×2 (08:45→21:05)
[2019-02-05] MEDS: DULOXETINE HCL 60 MG CAP PO SCH (08:45)
[2019-02-05] MEDS: ATORVASTATIN 40 MG TAB PO SCH (08:45)
[2019-02-05] MEDS: BuPROPion SR 150 MG TABCR PO SCH ×2 (08:45→20:58)
[2019-02-05] MEDS: METOPROLOL TARTRATE 100 MG TAB PO SCH ×2 (08:46→21:01)
[2019-02-05] MEDS: FINASTERIDE 5 MG TAB PO SCH (08:46)
[2019-02-05] MEDS: INSULIN DETEMIR SC SCH ×2 (08:49→21:01)
[2019-02-05] MEDS: INSULIN ASPART 100 UNITS/ML 3 ML PEN SC SCH ×4 (08:50→20:59)
[2019-02-05] MEDS ORDERED: POLYETHYLENE (MIRALAX) 17 GM PACK PO PRN (10:00)
[2019-02-05] MEDS: DOCUSATE SODIUM 100 MG CAP PO SCH ×2 (10:37→21:05)
--- NOTE | 2019-02-05 11:48 | Urology Progress Note ---
Date of Service February 05, 2019 Assessment & Plan (1) UTI (urinary tract infection) due to urinary indwelling catheter: Complicated uti due to clot retention after difficult brown cath change in urology office early sepsis responding well to iv abt will hopefully have culture results today patient motivated to go home but we need sensitivites to pick an oral abt understands he will be on abt for 1week. plan cysto 02/15 I also asked pt and he agrees to pressure flow test to determine if he is candidate for turp surgery as I think it is dangerous for him to continue with brown. If there is any chance for return of spontaneous voiding he needs to take it. Present on Admission?: Yes Subjective patient feels well. no fevers, no fatigue, appetite fine no blood in urine. he misses his lemon water at home. Review of Systems Review of Systems: All systems reviewed & are unremarkable except as noted in HPI & below Physical Exam Genitourinary: brown ni place with very light yellow urine with no sediment Results & Data Vital Signs (Past 12 Hours) Vital Signs Temp Pulse Resp BP Pulse Ox 02/05/19 07:54 36.6 C 60 20 173/74 H 96 02/05/19 00:06 36.7 C 61 20 148/68 H 95
--- NOTE | 2019-02-05 17:36 | Hospitalist Progress Note ---
Date of Service February 05, 2019 Assessment & Plan (1) UTI (urinary tract infection) due to urinary indwelling catheter: 58 y/o male admitted with recurrent UTIs. history of DM II, PAD, PAF, morbid obesity, HTN, hypothyroidism, BPH with retention and Villasenor since 2011, has his Villasenor changed monthly by his urologist. The Villasenor was successfully replaced in the ER and his urine gradually cleared up. Per report: A CT of the abdomen demonstrated bladder wall thickening, pericystic inflammation, mild stranding identified around the right ureters and the right renal pelvis consistent with ascending urinary tract infection. was admitted with septicemia 07/16 related to Villasenor obstruction and a UTI and was critically ill. The CT findings are new since the prior admission. Urinary retention and UTI associated with Villasenor blockage. Urine culture collected this morning but was already started on antibiotics unclear if this will be accurate have been on cefepime and urology recommending 7 to 14 days of antibiotics, 3/14 days Urology has plans for cystoscopy on 02/15 and will perform testing to see if he is a candidate for TURP which she has declined in the past Per , pt agrees to pressure flow test to determine if he is candidate for turp surgery (2) Urinary retention: Secondary to blood clots Villasenor catheter changed out and draining well (3) CKD (chronic kidney disease) stage 3, GFR 30-59 ml/min: With acute kidney injury in the setting of CKD stage III secondary to urinary obstruction Creatinine now improved from 1.50 down to 1.24, Avoid nephrotoxins, Renally dose all medications (4) HTN (hypertension), benign: Blood pressure stable, 147/66, Cont ARB, Diltiazem, Lasix, Metoprolol (5) Hypothyroidism: TSH normal at 2.88 in 06/2018, Continue home levothyroxine (6) DM w/o complication type II, uncontrolled: Hemoglobin A1c higher than previous at 9.3%, continue Levemir 100 units subcu twice daily, cont insulin NovoLog sliding scale (7) Morbid obesity: BMI 52.2-needs counseling on weight loss and dietary changes (8) Asthma: Stable, not in acute exacerbation -Continue albuterol as needed (9) GERD (gastroesophageal reflux disease): -Continue pantoprazole (10) Depression: Stable, Continue bupropion, duloxetine (11) Paroxysmal atrial fibrillation: Sinus on admission and remains regular on examination, anticoagulated with Apixaban - we will continue as his hematuria has resolved. Cont Diltiazem, Metoprolol for rate control (12) DVT prophylaxis: Eliquis Disposition-remain in hospital overnight and await urine culture results prior to discharge Subjective Doing fair, no complaint, no fever and chill, denies dysuria urgency frequency however no bowel movement for 3 days, will give Colace, Villasenor in place, with clean urine, Review of Systems Review of Systems: All systems reviewed & are unremarkable except as noted in HPI & below Physical Exam Physical Exam: General: Morbidly obese, AAO x 3, no distress ENT: No erythema or exudates, no thrush Eyes: EVAN, EOMI Head and neck: Normocephalic, atraumatic, neck is supple. Chest/heart: Nontender, S1,2, RRR, no murmurs, no gallops Lungs: CTAB, no wheezing or crackles Abdomen: Nontender, nondistended, BS+ : Urine in Villasenor bag is clear following replacement Neuro: AAO x 3, speech is clear, no unilateral weakness or loss of sensation, coordination intact Musculoskeletal: No joint inflammation, muscle tenderness, FROM Skin: No acute rashes or ulcers - plantar erythema R Extremities: BL edema - red spots and plantar erythema on R Results & Data Vital Signs (Past 12 Hours) Vital Signs Temp Pulse Resp BP BP Pulse Ox 02/05/19 15:59 36.6 C 56 L 20 147/66 H 96 02/05/19 13:46 56 L 125/71 02/05/19 07:54 36.6 C 60 20 173/74 H 96 Laboratory Results - last 24 hr 02/04/19 02/05/19 02/05/19 20:37 07:22 07:22 WBC 9.39 RBC 4.11 L Hgb 12.0 L Hct 34.8 L MCV 84.7 MCH 29.2 MCHC 34.5 RDW Std Deviation 49.1 H RDW Coeff of Adi 15.9 H Plt Count 172 MPV 11.6 H Immature Gran % (Auto) 0.2 Neut % (Auto) 68.5 Lymph % (Auto) 16.7 [place]mer[place]da % (Auto) 11.5 Eos % (Auto) 2.9 Baso % (Auto) 0.2 Immature Gran # (Auto) 0.02 Neut # (Auto) 6.43 Lymph # (Auto) 1.57 Esmeralda # (Auto) 1.08 H Eos # (Auto) 0.27 Baso # (Auto) 0.02 Sodium 138 Potassium 4.2 Chloride 105 Carbon Dioxide 26 Anion Gap 7.0 BUN 15 Creatinine 1.17 Est Cr Clr Drug Dosing 119.8 Est GFR ( Amer) 79.2 Est GFR (Non-Af Amer) 68.3 BUN/Creatinine Ratio 12.8 Glucose 136 H POC Glucose 214 H Calcium 8.7 02/05/19 02/05/19 02/05/19 07:32 11:43 16:54 WBC RBC Hgb Hct MCV MCH MCHC RDW Std Deviation RDW Coeff of Adi Plt Count MPV Immature Gran % (Auto) Neut % (Auto) Lymph % (Auto) [place]mer[place]da % (Auto) Eos % (Auto) Baso % (Auto) Immature Gran # (Auto) Neut # (Auto) Lymph # (Auto) [place]mer[place]da # (Auto) Eos # (Auto) Baso # (Auto) Sodium Potassium Chloride Carbon Dioxide Anion Gap BUN Creatinine Est Cr Clr Drug Dosing Est GFR ( Amer) Est GFR (Non-Af Amer) BUN/Creatinine Ratio Glucose POC Glucose 134 H 193 H 185 H Calcium Microbiology 02/04/19 12:15 Urine,Indwelling Cath Urine Culture - Preliminary No growth - Less than 1,000 colonies/mL, Final report to follow. (1) Hypothyroidism Hypothyroidism type: acquired Qualified Code(s): E03.9 - Hypothyroidism, unspecified (2) DM w/o complication type II, uncontrolled Glycemic state: with hyperglycemia Qualified Code(s): E11.65 - Type 2 diabetes mellitus with hyperglycemia
[2019-02-05] MEDS: GABAPENTIN 300 MG CAP PO SCH (20:58)
[2019-02-06] MEDS: CEFEPIME 1,000 MG in SYRINGE 0 ML IV SCH ×3 (06:29→23:33)
[2019-02-06] MEDS: LEVOTHYROXINE SODIUM 50 MCG TABLET PO SCH (06:29)
[2019-02-06 09:02] LABS: Basophils # (auto) 0.03 K/uL (0-0.2); Basophils % (auto) 0.3 %; Eosinophils # (auto) 0.28 K/uL (0-0.5); Hematocrit (blood only) 35.4 % (42-52); Hemoglobin 12.2 g/dL (14.0-18.0); Immature Granulocytes # (auto) 0.02 K/uL (0.00-0.02); Immature Granulocytes % (auto) 0.2 %; Lymphocytes # (auto) 1.41 K/uL (1.2-3.4); Lymphocytes % (auto) 14.9 %; Mean Corpuscular Volume 85.3 fL (80-100); Mean Platelet Volume 11.4 fL (7.4-10.4); Monocytes # (auto) 0.61 K/uL (0.11-0.59); Monocytes % (auto) 6.4 %; Neutrophils # (auto) 7.13 K/uL (1.4-6.5); Neutrophils % (auto) 75.2 %; Platelet Count 199 K/uL (130-400); RDW Coefficient of Variation 15.7 % (11.5-14.5); RDW Standard Deviation 49.5 fL (36.4-46.3); Red Blood Count 4.15 M/uL (4.7-6.1); White Blood Count 9.48 K/uL (4.8-10.8)
[2019-02-06 09:11] LABS: Mean Corpuscular Hgb Conc 34.5 g/dL (32-36)
[2019-02-06] MEDS: DULOXETINE HCL 60 MG CAP PO SCH (09:12)
[2019-02-06] MEDS: BuPROPion SR 150 MG TABCR PO SCH ×2 (09:12→21:35)
[2019-02-06] MEDS: IRBESARTAN 150 MG TAB PO SCH (09:13)
[2019-02-06] MEDS: dilTIAZem HCL 240 MG CAPCR PO SCH (09:13)
[2019-02-06] MEDS: APIXABAN 5 MG TABLET PO SCH ×2 (09:13→21:34)
[2019-02-06] MEDS: INSULIN DETEMIR SC SCH ×2 (09:13→21:34)
[2019-02-06] MEDS: ATORVASTATIN 40 MG TAB PO SCH (09:13)
[2019-02-06] MEDS: PANTOprazole 40 MG TAB PO SCH (09:13)
[2019-02-06] MEDS: METOPROLOL TARTRATE 100 MG TAB PO SCH ×2 (09:13→21:34)
[2019-02-06] MEDS: FINASTERIDE 5 MG TAB PO SCH (09:13)
[2019-02-06] MEDS: INSULIN ASPART 100 UNITS/ML 3 ML PEN SC SCH ×4 (09:15→21:40)
[2019-02-06 09:18] LABS: Albumin Level 3.1 gm/dl (3.4-5.0); BUN Creatinine Ratio 12.9 (10-20); Creatinine Clr Calc Pharmacy 111.2 ml/min; Est GFR (African American) 72.4; Est GFR (Non-African American) 62.5; Magnesium 1.9 mg/dl (1.8-2.4); Potassium 4.5 mmol/L (3.5-5.1)
[2019-02-06] MEDS: DOCUSATE SODIUM 100 MG CAP PO SCH ×2 (09:19→22:31)
[2019-02-06 09:21] LABS: Albumin Globulin Ratio 0.7 (0.9-2); Bilirubin,Total 0.4 mg/dl (0.2-1); Globulin 4.3 gm/dl (2.5-4.0); Phosphorus 3.4 mg/dl (2.5-4.9); Total Protein 7.4 gm/dl (6.4-8.2)
--- NOTE | 2019-02-06 17:22 | Hospitalist Progress Note ---
Date of Service February 06, 2019 Assessment & Plan (1) UTI (urinary tract infection) due to urinary indwelling catheter: 58 y/o male admitted with recurrent UTIs. history of DM II, PAD, PAF, morbid obesity, HTN, hypothyroidism, BPH with retention and Villasenor since 2011, has his Villasenor changed monthly by his urologist. The Villasenor was successfully replaced in the ER and his urine gradually cleared up. Per report: A CT of the abdomen demonstrated bladder wall thickening, pericystic inflammation, mild stranding identified around the right ureters and the right renal pelvis consistent with ascending urinary tract infection. was admitted with septicemia 07/16 related to Villasenor obstruction and a UTI and was critically ill. The CT findings are new since the prior admission. Urinary retention and UTI associated with Villasenor blockage. Urine culture collected In the emergency room but was already started on antibiotics , Therefore the results will not be reliable or accurate have been on cefepime and urology recommending 7 to 14 days of antibiotics, 4/14 days Urology has plans for cystoscopy on 02/15 and will perform testing to see if he is a candidate for TURP which she has declined in the past Per , pt agrees to pressure flow test to determine if he is candidate for turp surgery Patient wanted to be discharged home today, I feel uncomfortable to give him any oral antibiotic to replace of the cefepime without the results of the culture, Other options is we need to figure out to complete total day 7 of 14 days of cefepime and IV treatmentm, or We need to have infectious disease input, Patient is planning to have procedure on February 15, 2019 to do cystoscopy scope and possible TURP, which may be even less comfortable to discharge him home with unreliable oral antibiotic (2) Urinary retention: Secondary to blood clotsUpon admission Villasenor catheter changed out and draining well (3) CKD (chronic kidney disease) stage 3, GFR 30-59 ml/min: With acute kidney injury in the setting of CKD stage III secondary to urinary obstruction Creatinine now improved from 1.50 down to 1.26, Relative to stable, Avoid nephrotoxins, Renally dose all medications (4) HTN (hypertension), benign: Blood pressure stable, 161/77, Cont ARB, Diltiazem, Lasix, Metoprolol, Amlodipine,And adjust as needed (5) Hypothyroidism: TSH normal at 2.88 in 06/2018, Continue home levothyroxine (6) DM w/o complication type II, uncontrolled: Hemoglobin A1c higher than previous at 9.3%, continue Levemir 100 units subcu twice daily, cont insulin NovoLog sliding scale (7) Morbid obesity: BMI 52.2-needs counseling on weight loss and dietary changes (8) Asthma: Stable, not in acute exacerbation -Continue albuterol as needed (9) GERD (gastroesophageal reflux disease): -Continue pantoprazole (10) Depression: Stable, Continue bupropion, duloxetine (11) Paroxysmal atrial fibrillation: Sinus on admission and remains regular on examination, anticoagulated with Apixaban - we will continue as his hematuria has resolved. Cont Diltiazem, Metoprolol for rate control (12) DVT prophylaxis: Eliquis Disposition-remain in hospital overnight and await urine culture results prior to discharge Subjective Report accelerated hypertension, however no other complaint otherwise, requests to go home, Review of Systems Review of Systems: Gen: Denies fevers, night sweats, rigors, fatigue, malaise, weight loss/gain ENT: Denies congestion, throat pain, hearing loss Eyes: Denies acute visual changes CV: Denies CP, palpitations Pulmonary: Denies SOB, cough, wheezing GI: Denies N/V, diarrhea, constipation : Denies hematuria Neuro: Denies acute or unilateral weakness, acute gait impairment, headache or acute visual changes Musculoskeletal: Denies joint pain, inflammation Endocrine: Denies polydipsia, polyuria Skin: Denies acute rashes or ulcers - chronic plantar erythema Physical Exam Physical Exam: General: Morbidly obese, AAO x 3, no distress ENT: No erythema or exudates, no thrush Eyes: EVAN, EOMI Head and neck: Normocephalic, atraumatic, neck is supple. Chest/heart: Nontender, S1,2, RRR, no murmurs, no gallops Lungs: CTAB, no wheezing or crackles Abdomen: Nontender, nondistended, BS+ : Urine in Villasenor bag is clear Neuro: AAO x 3, speech is clear, no unilateral weakness or loss of sensation, coordination intact Musculoskeletal: No joint inflammation, muscle tenderness, FROM Skin: No acute rashes or ulcers - plantar erythema R Extremities: BL edema - right lower ext has red spots and plantar erythema Results & Data Vital Signs (Past 12 Hours) Vital Signs Temp Pulse Resp BP Pulse Ox 02/06/19 15:08 36.5 C 59 L 20 161/72 H 96 02/06/19 07:56 37.0 C 66 20 182/76 H 95 Laboratory Results - last 24 hr 02/05/19 02/06/19 02/06/19 20:00 07:44 08:50 WBC 9.48 RBC 4.15 L Hgb 12.2 L Hct 35.4 L MCV 85.3 MCH 29.4 MCHC 34.5 RDW Std Deviation 49.5 H RDW Coeff of Adi 15.7 H Plt Count 199 MPV 11.4 H Immature Gran % (Auto) 0.2 Neut % (Auto) 75.2 Lymph % (Auto) 14.9 [place] % (Auto) 6.4 Eos % (Auto) 3.0 Baso % (Auto) 0.3 Immature Gran # (Auto) 0.02 Neut # (Auto) 7.13 H Lymph # (Auto) 1.41 [place] # (Auto) 0.61 H Eos # (Auto) 0.28 Baso # (Auto) 0.03 Sodium Potassium Chloride Carbon Dioxide Anion Gap BUN Creatinine Est Cr Clr Drug Dosing Est GFR ( Amer) Est GFR (Non-Af Amer) BUN/Creatinine Ratio Glucose POC Glucose 227 H 185 H Calcium Phosphorus Magnesium Total Bilirubin AST ALT Alkaline Phosphatase Total Protein Albumin Globulin Albumin/Globulin Ratio 02/06/19 02/06/19 02/06/19 08:50 11:31 16:50 WBC RBC Hgb Hct MCV MCH MCHC RDW Std Deviation RDW Coeff of Adi Plt Count MPV Immature Gran % (Auto) Neut % (Auto) Lymph % (Auto) [place] % (Auto) Eos % (Auto) Baso % (Auto) Immature Gran # (Auto) Neut # (Auto) Lymph # (Auto) Travis # (Auto) Eos # (Auto) Baso # (Auto) Sodium 136 Potassium 4.5 Chloride 103 Carbon Dioxide 29 Anion Gap 4.0 BUN 16 Creatinine 1.26 Est Cr Clr Drug Dosing 111.2 Est GFR ( Amer) 72.4 Est GFR (Non-Af Amer) 62.5 BUN/Creatinine Ratio 12.9 Glucose 188 H POC Glucose 218 H 224 H Calcium 9.0 Phosphorus 3.4 Magnesium 1.9 Total Bilirubin 0.4 AST 15 ALT 21 Alkaline Phosphatase 129 H Total Protein 7.4 Albumin 3.1 L Globulin 4.3 H Albumin/Globulin Ratio 0.7 L Microbiology 02/04/19 12:15 Urine,Indwelling Cath Urine Culture - Final No growth - less than 1,000 colonies/mL. (1) Hypothyroidism Hypothyroidism type: acquired Qualified Code(s): E03.9 - Hypothyroidism, unspecified (2) DM w/o complication type II, uncontrolled Glycemic state: with hyperglycemia Qualified Code(s): E11.65 - Type 2 diabetes mellitus with hyperglycemia
[2019-02-06] MEDS: AMLODIPINE BESYLATE 5 MG TAB PO SCH (17:59)
[2019-02-06] MEDS: GABAPENTIN 300 MG CAP PO SCH (21:35)
[2019-02-07 05:51] LABS: Basophils # (auto) 0.02 K/uL (0-0.2); Basophils % (auto) 0.2 %; Eosinophils # (auto) 0.28 K/uL (0-0.5); Eosinophils % (auto) 2.9 %; Hematocrit (blood only) 36.1 % (42-52); Immature Granulocytes # (auto) 0.02 K/uL (0.00-0.02); Immature Granulocytes % (auto) 0.2 %; Lymphocytes # (auto) 1.71 K/uL (1.2-3.4); Lymphocytes % (auto) 17.9 %; Mean Corpuscular Hgb Conc 33.2 g/dL (32-36); Mean Corpuscular Volume 85.3 fL (80-100); Mean Platelet Volume 11.2 fL (7.4-10.4); Monocytes # (auto) 0.85 K/uL (0.11-0.59); Monocytes % (auto) 8.9 %; Neutrophils # (auto) 6.69 K/uL (1.4-6.5); Neutrophils % (auto) 69.9 %; Platelet Count 182 K/uL (130-400); RDW Coefficient of Variation 15.6 % (11.5-14.5); RDW Standard Deviation 48.5 fL (36.4-46.3); Red Blood Count 4.23 M/uL (4.7-6.1); White Blood Count 9.57 K/uL (4.8-10.8)
[2019-02-07] MEDS: CEFEPIME 1,000 MG in SYRINGE 0 ML IV SCH ×2 (06:10→13:50)
[2019-02-07 06:12] LABS: BUN Creatinine Ratio 15.2 (10-20); Calcium 8.7 mg/dl (8.5-10.1); Creatinine Clr Calc Pharmacy 127.4 ml/min; Est GFR (African American) 85.3; Est GFR (Non-African American) 73.6; Potassium 4.1 mmol/L (3.5-5.1)
[2019-02-07] MEDS: LEVOTHYROXINE SODIUM 50 MCG TABLET PO SCH (06:14)
[2019-02-07] MEDS: IRBESARTAN 150 MG TAB PO SCH (07:40)
[2019-02-07] MEDS: PANTOprazole 40 MG TAB PO SCH (07:40)
[2019-02-07] MEDS: dilTIAZem HCL 240 MG CAPCR PO SCH (07:41)
[2019-02-07] MEDS: FINASTERIDE 5 MG TAB PO SCH (07:41)
[2019-02-07] MEDS: AMLODIPINE BESYLATE 5 MG TAB PO SCH (07:42)
[2019-02-07] MEDS: DOCUSATE SODIUM 100 MG CAP PO SCH (07:42)
[2019-02-07] MEDS: APIXABAN 5 MG TABLET PO SCH (07:42)
[2019-02-07] MEDS: METOPROLOL TARTRATE 100 MG TAB PO SCH (07:43)
[2019-02-07] MEDS: DULOXETINE HCL 60 MG CAP PO SCH (07:44)
[2019-02-07] MEDS: ATORVASTATIN 40 MG TAB PO SCH (07:46)
[2019-02-07] MEDS: BuPROPion SR 150 MG TABCR PO SCH (08:12)
[2019-02-07] MEDS: INSULIN ASPART 100 UNITS/ML 3 ML PEN SC SCH ×2 (08:18→12:28)
[2019-02-07] MEDS: INSULIN DETEMIR SC SCH (08:19)
--- NOTE | 2019-02-07 18:18 | Discharge Summary ---
Date of Service February 07, 2019 Admission HPI Per Admitting Provider 58 y/o M Hx DM II, PAD, PAF, morbid obesity, HTN, hypothyroidism, BPH with retention and Mixon since 2006, recurrent UTIs. The pt has his Mixon changed monthly by his urologist. Over the past day, he has had hematuria and his Mixon clogged. The Mixon was successfully replaced in the ER and his urine gradually cleared up. The pt's UA was essentially negative. He did exhibit mild renal impairment and a borderline lactic acid elevation. He has not had fevers, rigors or tachycardia. A CT of the abdomen demonstrated bladder wall thickening, pericystic inflammation, mild stranding identified around the right ureters and the right renal pelvis consistent with ascending urinary tract infection. The pt was admitted with sepsis 07/16 related to Mixon obstruction and a UTI and was critically ill. The CT findings are new since the prior admission. PMH: 1) DM II 2) PAD 3) HTN 4) Morbid obesity 5) BPH - retention - Mixon since 2006 6) GERD 7) Chronic diabetic foot ulcers with amputation of L 4th and 5th toes 8) Paroxysmal AF 9) Hypothyroidism Social: The pt does not drink or smoke Family history: Mother to to complications of DM Father at an advanced age following a CVA Principal Diagnosis UTI, clogged Mixon Discharge Exam Constitutional + morbidly obese; no acute distress Eyes PERRL, conjunctivae normal, anicteric sclerae Neck trachea midline, no thyromegaly Respiratory normal respiratory effort, lungs clear to auscultation Cardiovascular RRR, no murmur, no edema Gastrointestinal (Abdomen) normal bowel sounds, soft, nontender, no hepatosplenomegaly Musculoskeletal Extremities: extremities normal to inspection; no cyanosis and no clubbing Skin no rashes, warm and dry Neurologic moves all extremities and awake; no focal motor deficits Psychiatric A+Ox3, euthymic affect Discharge Data Allergies Allergy/AdvReac Type Severity Reaction Status Date / Time Penicillins Allergy Severe HIVES, RED Verified 02/03/19 17:10 RASH A CHILD fluticasone [From Flonase] AdvReac Intermediate FELT FUNNY Verified 02/03/19 17:10 IN THE HEAD Consultations 02/03/19 17:30 ED Decision to Admit Stat Ordered Studies 02/03/19 16:09 CT abd pelvis wo con Stat Hospital Course (1) UTI (urinary tract infection) due to urinary indwelling catheter: A CT of the abdomen demonstrated bladder wall thickening, pericystic inflammation, mild stranding identified around the right ureters and the right renal pelvis consistent with ascending urinary tract infection. was admitted with septicemia 07/16 related to Mixon obstruction and a UTI and was critically ill. The CT findings are new since the prior admission. - Was on cefepime while inpatient - Switched to ciprofloxacin on discharge x 7 days. Follow up with Dr. Obrien in urology on 02/15/2019. (2) Urinary retention: Secondary to blood clots. Upon admission. Mixon catheter changed out and draining well. (3) CKD (chronic kidney disease) stage 3, GFR 30-59 ml/min: With acute kidney injury in the setting of CKD stage III secondary to urinary obstruction. Creatinine now improved from 1.50 down to 1.26, Relative to stable, Avoid nephrotoxins, Renally dose all medications (4) HTN (hypertension), benign: Blood pressure stable, 161/77,. - Continued ARB, Diltiazem, Lasix, Metoprolol, and amlodipine. (5) Hypothyroidism: TSH normal at 2.88 in 06/2018, Continued home levothyroxine (6) DM w/o complication type II, uncontrolled: Hemoglobin A1c higher than previous at 9.3%, continue Levemir 100 units subcu twice daily, cont insulin NovoLog sliding scale (7) Morbid obesity: BMI 52.2-needs counseling on weight loss and dietary changes (8) Asthma: Stable, not in acute exacerbation -Continue albuterol as needed (9) GERD (gastroesophageal reflux disease): -Continue pantoprazole (10) Depression: Stable, Continue bupropion, duloxetine (11) Paroxysmal atrial fibrillation: Sinus on admission and remains regular on examination, anticoagulated with Apixaban - we will continue as his hematuria has resolved. Cont Diltiazem, Metoprolol for rate control (12) DVT prophylaxis: Eliquis Total Time Total Time Spent Total Time Spent (In Minutes): 35 Total Time Includes: Examination of the Patient, Discharge Planning and Medication Reconciliation Discharge Plan Discharge Items Patient Disposition: Home - Self-Care Reason For Visit: UTI,HEMATURIA,BLOCKED MIXON Discharge Diagnosis: UTI, hematuria Discharge Goals: Decrease discomfort and Prevent disease Activity: Resume your previous activity Non-emergency contact: Primary Care Provider and Urologist Call non-emergency contact if: your symptoms worsen, your pain is not controlled and your temperature is above 100.5 Follow-up/Referrals: Ollie Walker MD [Primary Care Provider] - 02/16/19 3:00 pm (Please, follow up at Dr. Walker's office with his health information assistant, Massiel Spann PA-C on FridayFebruary 16 at 3:00 pm. *If you need to change this appointment, call the office at [phone].) Desiree Obrien MD [Physician] - (Please follow up with Dr. Obrien for your prostate care.) Diet: Regular Addtl Provider Instructions: Mr. Mahan, You were admitted for a urinary tract infection and a clogged Mixon. We have you on antibiotic and will keep this going for the next week until you see Dr. Obrien in her office. We will have you keep your catheter in until you see her as well to prevent any additional urinary retention. We also started a blood pressure medication called amlodipine because your blood pressure was high in the hospital. Please take it one time per day and follow up with your primary doctor, Dr. Walker for a blood pressure check. Prescriptions: New amlodipine 5 mg tablet 5 mg PO DAILY Qty: 30 RF: 0 finasteride 5 mg tablet 5 mg PO DAILY Qty: 30 RF: 0 ciprofloxacin HCl 500 mg tablet 500 mg PO Q12H Qty: 14 RF: 0 Continued metoprolol tartrate 100 mg tablet 100 mg PO BID RF: 0 duloxetine 60 mg capsule,delayed release(DR/EC) 60 mg PO DAILY RF: 0 Novolog Flexpen U-100 Insulin 100 unit/mL insulin pen 50 units SUBCUT ACHS RF: 0 Levemir U-100 Insulin 100 unit/mL solution 100 units SUBCUT BID RF: 0 furosemide 40 mg Tablet 40 mg PO DAILY RF: 0 bupropion HCl 150 mg Tablet Sustained-Release 12 Hr 150 mg PO BID RF: 0 atorvastatin 80 mg Tablet 80 mg PO DAILY RF: 0 diltiazem HCl 240 mg Capsule,Extended Release 24 Hr 240 mg PO DAILY RF: 0 levothyroxine 50 mcg Tablet 50 mcg PO DAILY RF: 0 pantoprazole 40 mg Tablet,Delayed Release (Dr/Ec) 40 mg PO DAILY RF: 0 promethazine 25 mg Tablet 25 mg PO Q6H PRN (Reason: Nausea) RF: 0 docusate sodium [Colace] 100 mg Capsule 100 mg PO DAILY PRN (Reason: Constipation) RF: 0 gabapentin 300 mg Capsule 300 mg PO HS RF: 0 albuterol sulfate [Ventolin HFA] 90 mcg/actuation Hfa Aerosol Inhaler 2 puff INHALATION .Q4-6HRS PRN (Reason: Shortness Of Breath Or Wheezing) RF: 0 Eliquis 5 mg Tablet 5 mg PO BID Qty: 60 RF: 0 irbesartan 150 mg Tablet 150 mg PO QAM Qty: 30 RF: 0 Stand-Alone Forms: [facility] Discharge Orders: Discharge Order (Routine); Ordered 02/07/19 Ordered By: Toy Chamberlain Admission Data Admit Date/Time: 02/03/19 21:04 Attending Provider: Toy Chamberlain Admit Provider: Bigg Walker Primary Care Provider: Ollie Walker Other Providers: Bigg Walker ; Najma Wallace Service: Medical Other Interventions: Discharge Summary Assessment (RN) Last Done: 02/07/19 13:27 DC Date/Time DO NOT enter until pt leaves facility: 02/07/19 14:50
== END 2019-02-07 14:50 | disposition home or self-care (01) | DRG 699 ==
LOC: ED 15:23 → 4E 21:04 → SUATTDRO 21:04 → 4E 21:39

== ENCOUNTER 2021-02-01 13:25 | Inpatient (IN) ==
[2021-02-01] MEDS ORDERED: MEROPENEM CONSULT ACITVE PRN (13:35)
--- NOTE | 2021-02-01 14:01 | Emergency Department Note ---
History of Present Illness General Chief complaint: Wound Stated complaint: FOOT WOUND Time Seen by Provider: 02/01/21 13:28 Source: patient Mode of arrival: EMS Limitations: no limitations History of Present Illness Provider complaint: Foot wound This is a 60-year-old male who presents to the ED with a chief complaint of a foot wound. The patient has had this wound for some time. He is not sure how long. The patient states that a friend saw him and told him he should come to the ED for evaluation. There is a large ulcerated foot wound in the base of the left foot. He has had previous amputation of that foot due to infection in the past. He states that he has seen Dr. Costa for this. The left portion of the foot has been amputated previously. Patient has no other complaints at this time. No fevers, nausea or vomiting. Home Medications Medication Instructions Recorded Confirmed Type docusate sodium [Colace] 100 mg PO DAILY PRN 07/23/18 02/01/21 History duloxetine 60 mg capsule,delayed 60 mg PO QAM #90 cap 02/23/20 02/01/21 Rx release promethazine 25 mg tablet 25 mg PO Q6H PRN #30 tab 03/07/20 02/01/21 Rx albuterol sulfate [Ventolin HFA] 2 puff INHALATION Q4H PRN 05/26/20 02/01/21 History finasteride 5 mg PO QAM 05/26/20 02/01/21 History insulin aspart U-100 100 unit/mL See Rx Instructions SQ TIDM #6 ml 07/03/20 02/01/21 Rx subcutaneous solution tolterodine 4 mg capsule,extended 4 mg PO DAILY PRN #90 cap 07/14/20 02/01/21 Rx release 24 hr insulin detemir U-100 100 unit/mL See Rx Instructions SUBCUT BID #80 07/19/20 02/01/21 Rx subcutaneous solution ml diltiazem HCl 240 mg capsule,24 240 mg PO QAM #30 cap 08/21/20 02/01/21 Rx hr,extended release gabapentin 300 mg capsule 300 mg PO BID #60 cap 09/06/20 02/01/21 Rx nystatin 1 applic TOPICAL BID #30 g 09/30/20 02/01/21 Rx furosemide 40 mg tablet 40 mg PO DAILY #90 tab 10/06/20 02/01/21 Rx pantoprazole 40 mg tablet,delayed 40 mg PO DAILY #90 tab 10/06/20 02/01/21 Rx release apixaban 5 mg tablet 5 mg PO BID #60 tab 10/23/20 02/01/21 Rx metoprolol tartrate 100 mg tablet 100 mg PO BID #60 tab 11/01/20 02/01/21 Rx levothyroxine 50 mcg tablet 50 mcg PO DAILYBB #60 tab 11/08/20 02/01/21 Rx atorvastatin 80 mg tablet 80 mg PO HS #90 tab 12/01/20 02/01/21 Rx bupropion HCl 150 mg 24 hr tablet, 150 mg PO BID #60 tab 12/11/20 02/01/21 Rx extended release metformin 500 mg tablet 500 mg PO BID #60 tab 01/29/21 02/01/21 Rx blood-glucose meter #1 ea 01/30/21 02/01/21 Rx Allergies Allergy/AdvReac Type Severity Reaction Status Date / Time Penicillins Allergy Severe HIVES, RED Verified 02/01/21 14:38 RASH A CHILD fluticasone [From Flonase] AdvReac Intermediate FELT FUNNY Verified 02/01/21 14:38 IN THE HEAD Past Med/Surg History Medical History (Updated 02/01/21 @ 14:32 by Eduardo Cash DO) Acute blood loss anemia Acute kidney injury Asthma Atrial flutter with rapid ventricular response Back injury Blocked urinary catheter Cellulitis Cellulitis of left foot Constipation Diabetic foot ulcer (10/07/13) Fall at home Foot ulcer, right Gas gangrene GERD (gastroesophageal reflux disease) Hypertension Hyponatremia Regional wall motion abnormality of heart Urinary retention Urinary tract infection Surgical History Hx of tonsillectomy Family History Mother Diabetes Heart disease Father Heart disease Other No pertinent family history in first degree relatives Denies family history of Ovarian cancer Prostate cancer Myocardial infarction Breast cancer Colorectal cancer Social History Smoking Status: Never smoker Second Hand Exposure: No; Hx Alcohol Use: No Hx Substance Use: No Preferred Language: Indonesian Communication Ability: Effective Career Services Manager Required: No Beliefs That Will Affect Care: None marital status: Life Partner Current Living Situation: Significant Other Feels Safe at Home: Yes Assistive Devices: Walker Review of Systems A total of 10 systems reviewed and were otherwise negative Physical Exam Vital Signs Vital Signs - 24 hr 02/01/21 13:36 02/01/21 14:11 02/01/21 14:30 Temperature 37.3 C Temperature Source Oral Pulse Rate 89 Pulse Rate [Apical] 67 Respiratory Rate 18 18 Respiratory Effort / Characteristics Non-Labored Non-Labored Respiratory Depth Normal Normal Blood Pressure 155/67 H Blood Pressure [Right Arm] 143/87 H Blood Pressure Mean 96 Blood Pressure Mean [Right Arm] 105 Pulse Oximetry 99 99 Oxygen Delivery Method Room Air Room Air Room Air Sepsis Recent Fever Within 48 Hours No Sepsis New/Unexplained Change in Mental Status No Sepsis Action Taken by Nursing No Action Required 02/01/21 14:36 Temperature Temperature Source Pulse Rate Pulse Rate [Apical] Respiratory Rate Respiratory Effort / Characteristics Non-Labored Respiratory Depth Blood Pressure Blood Pressure [Right Arm] Blood Pressure Mean Blood Pressure Mean [Right Arm] Pulse Oximetry 99 Oxygen Delivery Method Room Air Sepsis Recent Fever Within 48 Hours Sepsis New/Unexplained Change in Mental Status Sepsis Action Taken by Nursing CONSTITUTIONAL/VITAL SIGNS: Reviewed / noted above. GENERAL: Non-toxic in appearance. INTEGUMENTARY: Warm, dry, and [employer]. HEAD: Normocephalic. EYES: without scleral icterus or trauma. ENT/OROPHARYNX: clear and moist. LYMPHADENOPATHY/NECK: Is supple without lymphadenopathy or meningismus. RESPIRATORY: Lungs clear and equal. CARDIOVASCULAR: Regular rate and rhythm. GI/ABDOMEN: Soft and nontender. No organomegaly or pulsatile mass. No rebound or guarding. Normal bowel sounds. EXTREMITIES: Warm and well perfused. Left foot reveals a palm size ulceration of the entire left plantar surface with some foul smell as well as some discharge and surrounding erythema. BACK: No CVA tenderness. NEUROLOGICAL: Intact without focal deficits. PSYCHIATRIC: normal affect. MUSCULOSKELETAL: Normally developed with good muscle tone. TRIAGE NURSING DOCUMENTATION REVIEWED. Course Administered Medications Meropenem 500 mg/ Syringe 10 mls @ 2 mls/min IV Q6H [facility]; Protocol Stop: 02/03/21 13:44 Last Admin: 02/01/21 14:30 Dose: 2 mls/min Documented by: [id number] Medical Decision Making Differential Diagnosis Cellulitis, abscess, MRSA infection, DVT, necrotizing fasciitis, dermatitis, drug eruption, allergic reaction, as well as other pathologies. Medical Records Attestation: I reviewed the patient's medical records. Home Medications Current Medication List: was personally reviewed by me Laboratory Data Attestation: I reviewed the patient's lab results. Result diagrams: 02/01/21 14:03 02/01/21 14:03 Lab Results 02/01/21 02/01/21 02/01/21 Range/Units 14:03 14:03 14:03 WBC 13.03 H (4.8-10.8) K/uL RBC 3.80 L (4.7-6.1) M/uL Hgb 10.6 L (14.0-18.0) g/dL Hct 32.3 L (42-52) % MCV 85.0 (80-100) fL MCH 27.9 (25-34) pg MCHC 32.8 (32-36) g/dL RDW Std Deviation 43.0 (36.4-46.3) fL RDW Coeff of Adi 13.7 (11.5-14.5) % Plt Count 342 (130-400) K/uL MPV 10.3 (7.4-10.4) fL Immature Gran % (Auto) 0.3 % Neut % (Auto) 75.1 % Lymph % (Auto) 13.6 % Gove % (Auto) 9.5 % Eos % (Auto) 1.3 % Baso % (Auto) 0.2 % Neut # (Auto) 9.79 H (1.4-6.5) K/uL Lymph # (Auto) 1.77 (1.2-3.4) K/uL Gove # (Auto) 1.24 H (0.11-0.59) K/uL Eos # (Auto) 0.17 (0-0.5) K/uL Baso # (Auto) 0.02 (0-0.2) K/uL Immature Gran # (Auto) 0.04 H (0.00-0.02) K/uL PT 11.1 (9.0-12.0) Seconds INR 1.1 (0.9-1.1) APTT 31.4 H (21.0-31.0) Seconds PTT Ratio 1.2 Sodium 129 L (136-145) mmol/L Potassium 4.0 (3.5-5.1) mmol/L Chloride 93 L (98-107) mmol/L Carbon Dioxide 28 (21-32) mmol/L Anion Gap 8.0 (3-11) BUN 19 H (7-18) mg/dl Creatinine 1.44 H (0.6-1.4) mg/dl Est Cr Clr Drug Dosing 86.4 ml/min Est GFR ( Amer) 60.7 Est GFR (Non-Af Amer) 52.4 BUN/Creatinine Ratio 13.3 (10-20) Glucose 200 H (70-99) mg/dl Calcium 8.8 (8.5-10.1) mg/dl Total Bilirubin 0.6 (0.2-1) mg/dl AST 21 (15-37) U/L ALT 24 (12-78) U/L Alkaline Phosphatase 125 H (45-117) U/L Total Protein 7.6 (6.4-8.2) gm/dl Albumin 2.4 L (3.4-5.0) gm/dl Globulin 5.2 H (2.5-4.0) gm/dl Albumin/Globulin Ratio 0.5 L (0.9-2) COVID-19 Eval Order 02/01/21 Range/Units 14:04 WBC (4.8-10.8) K/uL RBC (4.7-6.1) M/uL Hgb (14.0-18.0) g/dL Hct (42-52) % MCV (80-100) fL MCH (25-34) pg MCHC (32-36) g/dL RDW Std Deviation (36.4-46.3) fL RDW Coeff of Adi (11.5-14.5) % Plt Count (130-400) K/uL MPV (7.4-10.4) fL Immature Gran % (Auto) % Neut % (Auto) % Lymph % (Auto) % Gove % (Auto) % Eos % (Auto) % Baso % (Auto) % Neut # (Auto) (1.4-6.5) K/uL Lymph # (Auto) (1.2-3.4) K/uL Gove # (Auto) (0.11-0.59) K/uL Eos # (Auto) (0-0.5) K/uL Baso # (Auto) (0-0.2) K/uL Immature Gran # (Auto) (0.00-0.02) K/uL PT (9.0-12.0) Seconds INR (0.9-1.1) APTT (21.0-31.0) Seconds PTT Ratio Sodium (136-145) mmol/L Potassium (3.5-5.1) mmol/L Chloride (98-107) mmol/L Carbon Dioxide (21-32) mmol/L Anion Gap (3-11) BUN (7-18) mg/dl Creatinine (0.6-1.4) mg/dl Est Cr Clr Drug Dosing ml/min Est GFR ( Amer) Est GFR (Non-Af Amer) BUN/Creatinine Ratio (10-20) Glucose (70-99) mg/dl Calcium (8.5-10.1) mg/dl Total Bilirubin (0.2-1) mg/dl AST (15-37) U/L ALT (12-78) U/L Alkaline Phosphatase (45-117) U/L Total Protein (6.4-8.2) gm/dl Albumin (3.4-5.0) gm/dl Globulin (2.5-4.0) gm/dl Albumin/Globulin Ratio (0.9-2) COVID-19 Eval Order CovFluRsv at [facility] Imaging Data Radiologist's Impression: Foot X-Ray 02/01/21 13:35 XR foot LT min 3V routine CLINICAL HISTORY: left foot infection COMPARISON: Left foot radiographs September 19, 2014. FINDINGS: Note is made of postoperative findings consistent with amputation of the fourth and fifth digits. There is extensive bony erosion of the remaining portion of the left fifth metatarsal when compared to radiographs of September 19, 2014. There is periosteal thickening of the third and fourth metatarsals. Multiple locules of soft tissue gas are present. There is extensive soft tissue swelling of the lateral left midfoot. No acute fractures identified. Moderate plantar calcaneal spurring is present. IMPRESSION: 1. Status post left fourth and fifth digit amputations. Extensive bony erosion of the remaining portion of the left fifth metatarsal highly suggestive of acute osteomyelitis. Periosteal thickening of the left third and fourth metatarsals. This also suggests osteomyelitis however may be subacute to chronic. 2. Extensive soft tissue swelling suggestive of cellulitis of the left midfoot with multiple locules of soft tissue gas. This gas could be due to open wound or gas-forming infectious process. ACT 112: Negative or not required by law. Electronically signed by: Pako Gifford M.D. 02/01/2021 2:06 PM MDM Narrative Patient presents with a left foot cellulitis as detailed above. Vital signs reveal hypertension. X-ray suggest osteomyelitis. White blood cell count of 13,000. I did speak with Faby Mancera about the patient. The patient reports that he has seen Dr. Costa in the past for his left foot after Dr. Valenzuela " messed it up". She recommends an arterial ultrasound of the foot and they will consult on the patient tomorrow. Medicine service will be consulted. The patient has been provided IV antibiotic in the form of meropenem. Chemistry panel shows a sodium of 129. Creatinine is 1.44. Impression & Plan Cellulitis and abscess of foot, Osteomyelitis of ankle and foot Discharge Plan Visit Data Chief Complaint: Wound Stated Complaint: FOOT WOUND ED Provider: Eduardo Cash Discharge Problem: Cellulitis and abscess of foot, Osteomyelitis of ankle and foot Patient Disposition: Being Evaluated by Hospitalist Forms Stand Alone Forms: My [facility] Prescriptions Prescriptions: No Action duloxetine 60 mg capsule,delayed release(DR/EC) 60 mg PO QAM Qty: 90 RF: 3 promethazine 25 mg tablet 25 mg PO Q6H PRN (Reason: Nausea) Qty: 30 RF: 3 Novolog U-100 Insulin aspart 100 unit/mL solution See Rx Instructions SQ TIDM Qty: 6 RF: 3 tolterodine 4 mg capsule,extended release 24hr 4 mg PO DAILY PRN (Reason: bladder spasms) Qty: 90 RF: 1 Levemir U-100 Insulin 100 unit/mL solution See Rx Instructions SUBCUT BID Qty: 80 RF: 11 diltiazem HCl 240 mg capsule,extended release 24 hr 240 mg PO QAM Qty: 30 RF: 5 furosemide 40 mg tablet 40 mg PO DAILY Qty: 90 RF: 3 pantoprazole 40 mg tablet,delayed release (DR/EC) 40 mg PO DAILY Qty: 90 RF: 3 Eliquis 5 mg tablet 5 mg PO BID Qty: 60 RF: 5 metoprolol tartrate 100 mg tablet 100 mg PO BID Qty: 60 RF: 5 levothyroxine 50 mcg tablet 50 mcg PO DAILYBB Qty: 60 RF: 1 atorvastatin 80 mg tablet 80 mg PO HS Qty: 90 RF: 1 bupropion HCl [Wellbutrin XL] 150 mg tablet extended release 24 hr 150 mg PO BID Qty: 60 RF: 5 metformin 500 mg tablet 500 mg PO BID Qty: 60 RF: 5 (DME) blood-glucose meter Kit See Rx Instructions .ROUTE .MEDSUPPLY Qty: 1 RF: 0 gabapentin 300 mg capsule 300 mg PO BID Qty: 60 RF: 5 docusate sodium [Colace] 100 mg Capsule 100 mg PO DAILY PRN (Reason: Constipation) RF: 0 albuterol sulfate [Ventolin HFA] 90 mcg/actuation HFA aerosol inhaler 2 puff INHALATION Q4H PRN (Reason: Shortness Of Breath Or Wheezing) RF: 0 finasteride 5 mg tablet 5 mg PO QAM RF: 0 nystatin 100,000 unit/gram cream 1 applic topical BID Qty: 30 RF: 0 Referrals Referrals: Ollie Walker MD [Primary Care Provider] -
--- NOTE | 2021-02-01 14:08 | XRay Report ---
XR foot LT min 3V routine CLINICAL HISTORY: left foot infection COMPARISON: Left foot radiographs September 19, 2014. FINDINGS: Note is made of postoperative findings consistent with amputation of the fourth and fifth digits. There is extensive bony erosion of the remaining portion of the left fifth metatarsal when co mpared to radiographs of September 19, 2014. There is periosteal thickening of the third and fourth me tatarsals. Multiple locules of soft tissue gas are present. There is extensive soft tissue swelling o f the lateral left midfoot. No acute fractures identified. Moderate plantar calcaneal spurring is pre sent. IMPRESSION: 1. Status post left fourth and fifth digit amputations. Extensive bony erosion of the remaining porti on of the left fifth metatarsal highly suggestive of acute osteomyelitis. Periosteal thickening of th e left third and fourth metatarsals. This also suggests osteomyelitis however may be subacute to washcoat wiper manas. 2. Extensive soft tissue swelling suggestive of cellulitis of the left midfoot with multiple locules of soft tissue gas. This gas could be due to open wound or gas-forming infectious process. ACT 112: Negative or not required by law. Electronically signed by: Pako Gifford M.D. 02/01/2021 2:06 PM
[2021-02-01 14:14] LABS: Basophils # (auto) 0.02 K/uL (0-0.2); Basophils % (auto) 0.2 %; Eosinophils # (auto) 0.17 K/uL (0-0.5); Eosinophils % (auto) 1.3 %; Hematocrit (blood only) 32.3 % (42-52); Hemoglobin 10.6 g/dL (14.0-18.0); Immature Granulocytes # (auto) 0.04 K/uL (0.00-0.02); Immature Granulocytes % (auto) 0.3 %; Lymphocytes # (auto) 1.77 K/uL (1.2-3.4); Lymphocytes % (auto) 13.6 %; Mean Corpuscular Hemoglobin 27.9 pg (25-34); Mean Corpuscular Hgb Conc 32.8 g/dL (32-36); Mean Platelet Volume 10.3 fL (7.4-10.4); Monocytes # (auto) 1.24 K/uL (0.11-0.59); Monocytes % (auto) 9.5 %; Neutrophils # (auto) 9.79 K/uL (1.4-6.5); Neutrophils % (auto) 75.1 %; Platelet Count 342 K/uL (130-400); RDW Coefficient of Variation 13.7 % (11.5-14.5); White Blood Count 13.03 K/uL (4.8-10.8)
[2021-02-01 14:23] LABS: INR 1.1 (0.9-1.1); Partial Thromboplastin Ratio 1.2; Partial Thromboplastin Time 31.4 Seconds (21.0-31.0); Prothrombin Time 11.1 Seconds (9.0-12.0)
[2021-02-01] MEDS: MEROPENEM 500 MG in SYRINGE 0 ML IV SCH ×2 (14:30→20:57)
[2021-02-01 14:38] LABS: Albumin Level 2.4 gm/dl (3.4-5.0); BUN Creatinine Ratio 13.3 (10-20); Calcium 8.8 mg/dl (8.5-10.1); Creatinine Clr Calc Pharmacy 86.4 ml/min; Est GFR (African American) 60.7; Est GFR (Non-African American) 52.4
[2021-02-01 14:40] LABS: Albumin Globulin Ratio 0.5 (0.9-2); Bilirubin,Total 0.6 mg/dl (0.2-1); Globulin 5.2 gm/dl (2.5-4.0); Total Protein 7.6 gm/dl (6.4-8.2)
--- NOTE | 2021-02-01 14:52 | History & Physical Report ---
Date of Service February 01, 2021 Assessment & Plan (1) Osteomyelitis of foot, acute: With evidence of OM of left foot 3rd-5th MT, with overlying cellulitis and abscess with purulent drainage ESR 96, CRP 10, afebrile, with leukocytosis With h/o DMII, previous 4th and 5th toe amputations Arterial Doppler normal and with strong pedal pulses -admit to med with tele given h/o rapid atrial flutter -continue IV abx with Meropenem, and add Dapto for MRSA coverage, check MRSA swab; add clinda for gas on xray for anti-toxin effect -pt requests Dr. Costa who did his previous amputations-consulted and discussed care with Faby Reyna PA-C on phone-recommends NPO after midnight in case can have surgery tomorrow and HOLD Eliquis -wound culture ordered and collected, BCxs pending -NPO after midnight, Vascular Surgery to see in AM and decide if can have surgery tomorrow at least for I&D if not further amputation of MT -follow CBC, CMP, ESR, CRP. 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, is at 1.44 here -Avoid nephrotoxins -renally dose meds when appropriate -follow BMP (4) Depression: stable, with some recent personal issues exacerbating his anxiety continue wellbutrin, duloxetine (5) DM w/o complication type II, uncontrolled: HgbA1C 9.7% in 04/2020, uncontrolled, with DM ulcers -continue Levemir 100 units bid and usually takes Novolog 80 units tid at home- use CF 1:10 and CR 1:4, adjust as needed here, range 110-140 as per Phrmacy recs check A1C in AM ADA diet Glycemic consult placed -hold home metformin (6) GERD (gastroesophageal reflux disease): no acute issues continue PPI (7) HTN (hypertension), benign: BPs controlled continue home metoprolol tart 100mg bid, diltaiazem 240mg daily, and lasix 40mg daily (8) Hypothyroidism: TSH normal over 1 year ago -check TSH in AM continue home LT4 for now (9) Morbid obesity: BMI 49.7, needs weight loss counseling and diet control (10) Urinary retention: chronic, with indwelling Villasenor for over 10 years overdue for recent change out of Villasenor with Urology -changed out in ER with 16F Coude on 02/01/21 -continue prn tolterodine for bladder spasms (11) Hyponatremia: Na+ corrected for hyperglycemia is 131 likely some volume overload -continue lasix check Ur Na+ and Ur Osm, Serum Osm follow BMP (12) Atrial flutter: history of paroxysmal AF, here in NSR on tele check ECG now for preop purposes no current issues HOLD Elqiuis for possible surgery continue metoprolol, diltiazem does not follow with Cardio as outpt routinely monitor on tele (13) Anemia: chronic, mild, normocytic check Fe studies, B12, folate probably chronic disease follow CBC (14) Asthma: no acute issues albuterol HFA prn (15) DVT prophylaxis: Eliquis, but on hold Dispo-admit to med with tele History of Present Illness Chief Complaint: Foot infection Primary Care Provider: Joe Walker MD This patient is a 60-year-old male with a history of urinary retention with chronic Villasenor catheter for the last 10 years, paroxysmal atrial flutter on Eliquis, HTN, uncontrolled DM2 with history of diabetic gangrenous ulcerations requiring amputation of left fourth and fifth toes, depression/anxiety, CKD stage III, GERD, dependent edema, asthma, and hypothyroidism, who presents to the ER with approximately 2 weeks of worsening left foot wound with drainage. He is vague on the history as he wasn't really aware it was present. Not much pain. He was encouraged by a friend to come into the hospital for evaluation. He denies any fever/chills, no nausea or vomiting.Has a lot of anxiety lately regarding some personal issues, but denies SOB. Has some chest pains occasi onally when he feels anxious, but nothing with exertion and typically can walk from his apartment out to the mailbox and back without difficulty with CP, but does have chronic ORTIZ. Allergies Allergy/AdvReac Type Severity Reaction Status Date / Time Penicillins Allergy Severe HIVES, RED Verified 02/01/21 14:38 RASH A CHILD fluticasone [From Flonase] AdvReac Intermediate FELT FUNNY Verified 02/01/21 14:38 IN THE HEAD Home Medications Medication Instructions Recorded Confirmed Type docusate sodium [Colace] 100 mg PO DAILY PRN 07/23/18 02/01/21 History duloxetine 60 mg capsule,delayed 60 mg PO QAM #90 cap 02/23/20 02/01/21 Rx release promethazine 25 mg tablet 25 mg PO Q6H PRN #30 tab 03/07/20 02/01/21 Rx albuterol sulfate [Ventolin HFA] 2 puff INHALATION Q4H PRN 05/26/20 02/01/21 History finasteride 5 mg PO QAM 05/26/20 02/01/21 History insulin aspart U-100 100 unit/mL See Rx Instructions SQ TIDM #6 ml 07/03/20 02/01/21 Rx subcutaneous solution tolterodine 4 mg capsule,extended 4 mg PO DAILY PRN #90 cap 07/14/20 02/01/21 Rx release 24 hr insulin detemir U-100 100 unit/mL See Rx Instructions SUBCUT BID #80 07/19/20 02/01/21 Rx subcutaneous solution ml diltiazem HCl 240 mg capsule,24 240 mg PO QAM #30 cap 08/21/20 02/01/21 Rx hr,extended release gabapentin 300 mg capsule 300 mg PO BID #60 cap 09/06/20 02/01/21 Rx nystatin 1 applic TOPICAL BID #30 g 09/30/20 02/01/21 Rx furosemide 40 mg tablet 40 mg PO DAILY #90 tab 10/06/20 02/01/21 Rx pantoprazole 40 mg tablet,delayed 40 mg PO DAILY #90 tab 10/06/20 02/01/21 Rx release apixaban 5 mg tablet 5 mg PO BID #60 tab 10/23/20 02/01/21 Rx metoprolol tartrate 100 mg tablet 100 mg PO BID #60 tab 11/01/20 02/01/21 Rx levothyroxine 50 mcg tablet 50 mcg PO DAILYBB #60 tab 11/08/20 02/01/21 Rx atorvastatin 80 mg tablet 80 mg PO HS #90 tab 12/01/20 02/01/21 Rx bupropion HCl 150 mg 24 hr tablet, 150 mg PO BID #60 tab 12/11/20 02/01/21 Rx extended release metformin 500 mg tablet 500 mg PO BID #60 tab 01/29/21 02/01/21 Rx blood-glucose meter #1 ea 01/30/21 02/01/21 Rx Past Med/Surg History Medical History (Updated 02/01/21 @ 23:00 by Najma Wallace MD) Acute kidney injury Anemia Asthma Atrial flutter Atrial flutter with rapid ventricular response Back injury Blocked urinary catheter Cellulitis Cellulitis of left foot Constipation Diabetic foot ulcer (10/07/13) Fall at home Foot ulcer, right Gas gangrene GERD (gastroesophageal reflux disease) Hypertension Hyponatremia Regional wall motion abnormality of heart Urinary retention Urinary tract infection Surgical History (Updated 02/01/21 @ 15:01 by Najma Wallace MD) History of amputation of toe Hx of tonsillectomy Family History Mother Diabetes Heart disease Father Heart disease Other No pertinent family history in first degree relatives Denies family history of Ovarian cancer Prostate cancer Myocardial infarction Breast cancer Colorectal cancer Social History Smoking Status: Never smoker Second Hand Exposure: No; Hx Alcohol Use: No Hx Substance Use: No Preferred Language: Russian Communication Ability: Effective Food Preparer Required: No Beliefs That Will Affect Care: None marital status: Life Partner Current Living Situation: Other Current Living Situation Comment: Friend Feels Safe at Home: Yes Safety Concerns: Feels Safe At This Time Assistive Devices: Walker Review of Systems Review of Systems: All systems reviewed & are unremarkable except as noted in HPI & below Physical Exam Constitutional: WD/WN, vitals as above + morbidly obese Eyes: + anicteric sclerae ENMT: external ear and nose normal, oropharynx normal Neck: trachea midline, no thyromegaly Respiratory: normal respiratory effort, lungs clear to auscultation Cardiovascular: Rate/Rhythm: regular rate and regular rhythm Heart Sounds: no murmur Vessels: dorsalis pedis pulses present (2+ bilat) Extremities: + edema (trace edema bilat legs) Chest (Breasts): Chest: normal inspection of chest Gastrointestinal (Abdomen): normal bowel sounds, soft, nontender, no hepatosplenomegaly (obese) Musculoskeletal: Extremities: + extremities abnormal to inspection (left foot with absent 4-5th toes and part of 5th MT), no cyanosis and no clubbing Skin: left foot with large amount of edema laterally with plantar lateral mid and forefoot with large ulceration approximately 5 x 6 cm, necrotic appearing, foul smelling, with purulent drainage dripping out onto the floor, mild erythema of lateral foot Neurologic: moves all extremities and awake; no focal motor deficits Psychiatric: A+Ox3, euthymic affect Genitourinary: Villasenor bag with cloudy yellow urine Results & Data Results & Data ([facility]) Vital Signs (Past 12 Hours) Vital Signs Temp Pulse Pulse Resp BP BP Pulse Ox 02/01/21 14:36 99 02/01/21 14:30 67 18 143/87 H 99 02/01/21 13:36 37.3 C 89 18 155/67 H 99 Laboratory Results 02/01/21 02/01/21 02/01/21 Range/Units 14:04 14:04 14:03 WBC (4.8-10.8) K/uL RBC (4.7-6.1) M/uL Hgb (14.0-18.0) g/dL Hct (42-52) % MCV (80-100) fL MCH (25-34) pg MCHC (32-36) g/dL RDW Std Deviation (36.4-46.3) fL RDW Coeff of Adi (11.5-14.5) % Plt Count (130-400) K/uL MPV (7.4-10.4) fL Immature Gran % (Auto) % Neut % (Auto) % Lymph % (Auto) % Forrest % (Auto) % Eos % (Auto) % Baso % (Auto) % Neut # (Auto) (1.4-6.5) K/uL Lymph # (Auto) (1.2-3.4) K/uL Forrest # (Auto) (0.11-0.59) K/uL Eos # (Auto) (0-0.5) K/uL Baso # (Auto) (0-0.2) K/uL Immature Gran # (Auto) (0.00-0.02) K/uL PT (9.0-12.0) Seconds INR (0.9-1.1) APTT (21.0-31.0) Seconds PTT Ratio Sodium 129 L (136-145) mmol/L Potassium 4.0 (3.5-5.1) mmol/L Chloride 93 L (98-107) mmol/L Carbon Dioxide 28 (21-32) mmol/L Anion Gap 8.0 (3-11) BUN 19 H (7-18) mg/dl Creatinine 1.44 H (0.6-1.4) mg/dl Est Cr Clr Drug Dosing 86.4 ml/min Est GFR ( Amer) 60.7 Est GFR (Non-Af Amer) 52.4 BUN/Creatinine Ratio 13.3 (10-20) Glucose 200 H (70-99) mg/dl Calcium 8.8 (8.5-10.1) mg/dl Total Bilirubin 0.6 (0.2-1) mg/dl AST 21 (15-37) U/L ALT 24 (12-78) U/L Alkaline Phosphatase 125 H (45-117) U/L Total Protein 7.6 (6.4-8.2) gm/dl Albumin 2.4 L (3.4-5.0) gm/dl Globulin 5.2 H (2.5-4.0) gm/dl Albumin/Globulin Ratio 0.5 L (0.9-2) Procalcitonin (0-0.5) ng/ml COVID-19 Eval Order CovFluRsv at [facility] SARS-CoV-2 (PCR) Pending Influenza Type A (PCR) Pending Influenza Type B (PCR) Pending RSV (RT-PCR) Pending 02/01/21 02/01/21 02/01/21 Range/Units 14:03 14:03 14:03 WBC 13.03 H (4.8-10.8) K/uL RBC 3.80 L (4.7-6.1) M/uL Hgb 10.6 L (14.0-18.0) g/dL Hct 32.3 L (42-52) % MCV 85.0 (80-100) fL MCH 27.9 (25-34) pg MCHC 32.8 (32-36) g/dL RDW Std Deviation 43.0 (36.4-46.3) fL RDW Coeff of Adi 13.7 (11.5-14.5) % Plt Count 342 (130-400) K/uL MPV 10.3 (7.4-10.4) fL Immature Gran % (Auto) 0.3 % Neut % (Auto) 75.1 % Lymph % (Auto) 13.6 % Forrest % (Auto) 9.5 % Eos % (Auto) 1.3 % Baso % (Auto) 0.2 % Neut # (Auto) 9.79 H (1.4-6.5) K/uL Lymph # (Auto) 1.77 (1.2-3.4) K/uL Forrest # (Auto) 1.24 H (0.11-0.59) K/uL Eos # (Auto) 0.17 (0-0.5) K/uL Baso # (Auto) 0.02 (0-0.2) K/uL Immature Gran # (Auto) 0.04 H (0.00-0.02) K/uL PT 11.1 (9.0-12.0) Seconds INR 1.1 (0.9-1.1) APTT 31.4 H (21.0-31.0) Seconds PTT Ratio 1.2 Sodium (136-145) mmol/L Potassium (3.5-5.1) mmol/L Chloride (98-107) mmol/L Carbon Dioxide (21-32) mmol/L Anion Gap (3-11) BUN (7-18) mg/dl Creatinine (0.6-1.4) mg/dl Est Cr Clr Drug Dosing ml/min Est GFR ( Amer) Est GFR (Non-Af Amer) BUN/Creatinine Ratio (10-20) Glucose (70-99) mg/dl Calcium (8.5-10.1) mg/dl Total Bilirubin (0.2-1) mg/dl AST (15-37) U/L ALT (12-78) U/L Alkaline Phosphatase (45-117) U/L Total Protein (6.4-8.2) gm/dl Albumin (3.4-5.0) gm/dl Globulin (2.5-4.0) gm/dl Albumin/Globulin Ratio (0.9-2) Procalcitonin 0.05 (0-0.5) ng/ml COVID-19 Eval Order SARS-CoV-2 (PCR) Influenza Type A (PCR) Influenza Type B (PCR) RSV (RT-PCR) Diagnostic Findings Foot X-Ray 02/01/21 13:35 XR foot LT min 3V routine CLINICAL HISTORY: left foot infection COMPARISON: Left foot radiographs September 19, 2014. FINDINGS: Note is made of postoperative findings consistent with amputation of the fourth and fifth digits. There is extensive bony erosion of the remaining portion of the left fifth metatarsal when compared to radiographs of September 19, 2014. There is periosteal thickening of the third and fourth metatarsals. Multiple locules of soft tissue gas are present. There is extensive soft tissue swelling of the lateral left midfoot. No acute fractures identified. Moderate plantar calcaneal spurring is present. IMPRESSION: 1. Status post left fourth and fifth digit amputations. Extensive bony erosion of the remaining portion of the left fifth metatarsal highly suggestive of acute osteomyelitis. Periosteal thickening of the left third and fourth metatarsals. This also suggests osteomyelitis however may be subacute to chronic. 2. Extensive soft tissue swelling suggestive of cellulitis of the left midfoot with multiple locules of soft tissue gas. This gas could be due to open wound or gas-forming infectious process. ACT 112: Negative or not required by law. Electronically signed by: Pako Gifford M.D. 02/01/2021 2:06 PM Chest X-Ray 02/01/21 13:50 XR chest 1V portable CLINICAL HISTORY: Cough and shortness of breath. Sx c/w COVID-19 COMPARISON STUDY: 07/19/2019 FINDINGS: Heart is enlarged. There is no failure. There is no focal pulmonary consolidation. There are no pleural effusions.[ IMPRESSION: Mild cardiomegaly. No acute findings. ACT 112: Negative or not required by law. Electronically signed by: Zev Tobias M.D. 02/01/2021 2:55 PM ECG Additional Comments: No ECG performed Code Status & VTE Plan Code Status FULL CODE VTE Prophylaxis Plan VTE Prophylaxis will be ordered: Yes PG Care Time/CCT Total # of Minutes Spent Total Time Spent with Patient: Total time spent is greater than 50% in coordination of care (as documented) at patient's floor/unit and/or counseling patient: Coding Level of Care Code 32521 Initial Inpt Care Lvl 3 Diagnoses Osteomyelitis of foot, acute M86.179 Cellulitis and abscess of foot L03.119; L02.619 CKD (chronic kidney disease) stage 3, GFR 30-59 ml/min N18.3 Depression F32.9 DM w/o complication type II, uncontrolled E11.65 Glycemic state: with hyperglycemia GERD (gastroesophageal reflux disease) K21.9 HTN (hypertension), benign I10 Hypothyroidism E03.9 Hypothyroidism type: acquired Morbid obesity E66.01 Urinary retention R33.9 Hyponatremia E87.1 Atrial flutter I48.92 Anemia D64.9 Asthma J45.909 DVT prophylaxis Z29.9 (1) Hypothyroidism Hypothyroidism type: acquired Qualified Code(s): E03.9 - Hypothyroidism, unspecified (2) DM w/o complication type II, uncontrolled Glycemic state: with hyperglycemia Qualified Code(s): E11.65 - Type 2 diabetes mellitus with hyperglycemia
--- NOTE | 2021-02-01 14:57 | XRay Report ---
XR chest 1V portable CLINICAL HISTORY: Cough and shortness of breath. Sx c/w COVID-19 COMPARISON STUDY: 07/19/2019 FINDINGS: Heart is enlarged. There is no failure. There is no focal pulmonary consolidation. There ar e no pleural effusions.[ IMPRESSION: Mild cardiomegaly. No acute findings. ACT 112: Negative or not required by law. Electronically signed by: Zev Tobias M.D. 02/01/2021 2:55 PM
[2021-02-01 15:08] LABS: Influenza A virus by PCR Negative (Neg); Influenza B virus by PCR Negative (Neg); RSV by PCR Negative (Neg); SARS CoV2 RNA(COVID-19) InHosp NEGATIVE (Negative)
[2021-02-01] MEDS ORDERED: PHARMACY GLYCEMIC MGMT CONSULT STA (15:18)
[2021-02-01] MEDS ORDERED: DAPTOmycin 675 MG in SYRINGE 0 ML IV ONE (15:18)
[2021-02-01 15:50] LABS: C Reactive Protein 10.4 mg/dl (0-0.29)
[2021-02-01] MEDS ORDERED: ACETAMINOPHEN 325 MG TAB PO STA ×2 (16:19→16:21)
[2021-02-01] MEDS ORDERED: INSULIN ASPART 100 UNITS/ML 3 ML PEN SC SCH (16:30)
[2021-02-01] MEDS: CLINDAMYCIN 600 MG in DEXTROSE 5% 50 ML IV SCH ×2 (17:10→23:38)
--- NOTE | 2021-02-01 17:19 | Ultrasound Report ---
LEFT LOWER EXTREMITY ARTERIAL DOPPLER ULTRASOUND CLINICAL HISTORY: osteomyelitis foot COMPARISON STUDY: Bilateral lower extremity venous Doppler ultrasound September 28, 2014. TECHNIQUE: Grayscale, color and duplex Doppler sonography of the arterial system of the left lower ex tremity was performed. Ankle to brachial indices could not be obtained due to pain. FINDINGS: Exam was compromised by suboptimal penetration. No elevated velocities were identified with in the left lower extremity. Note was made of triphasic flow within the left common femoral and super ficial femoral arteries. There is biphasic flow within the left popliteal artery. Biphasic flow was s hown within the left posterior tibial artery as well. There was biphasic flow within the left anterio r tibial and dorsalis pedis vessels. Left peroneal artery was not visualized. IMPRESSION: 1. No evidence for a hemodynamically significant stenosis within the left lower extremity. Biphasic a nd triphasic flow within the left lower extremity. 2. Nonvisualization of flow within the left peroneal artery which could be due to suboptimal penetrat ion or vessel occlusion. Evaluation of the calf vessels compromised by suboptimal penetration. ACT 112: Negative or not required by law. Electronically signed by: Pako Gifford M.D. 02/01/2021 5:18 PM
[2021-02-01] MEDS ORDERED: GLUCAGON FOR INJ 1 MG VIAL SQ PRN (18:54)
[2021-02-01] MEDS ORDERED: ALBUTEROL HFA 8 GM INHALER INH PRN (18:54)
[2021-02-01] MEDS ORDERED: TOLTERODINE TARTRATE LA 4 MG CAPCR PO PRN (18:54)
[2021-02-01] MEDS ORDERED: DOCUSATE SODIUM 100 MG CAP PO PRN (18:54)
[2021-02-01] MEDS ORDERED: ACETAMINOPHEN 325 MG TAB PO PRN (18:54)
[2021-02-01] MEDS ORDERED: CARBOHYDRATES FOR HYPOGLYCEMIA PO PRN (18:54)
[2021-02-01] MEDS ORDERED: DEXTROSE 50% 50 ML SYRINGE IV PRN (18:54)
[2021-02-01] MEDS ORDERED: ONDANSETRON INJ 2 MG/ML 2 ML VIAL IV PRN (18:54)
[2021-02-01] MEDS ORDERED: GLUCOSE 40% GEL 15 GM TUBE PO PRN (18:54)
[2021-02-01] MEDS ORDERED: GLUCOSE 10 TABS/TUBE PO PRN (18:54)
[2021-02-01] MEDS ORDERED: PHARMACY GLYCEMIC MGMT CONSULT PRN (19:23)
[2021-02-01] MEDS: buPROPion XL 150 MG TABCR PO SCH (21:00)
[2021-02-01] MEDS: GABAPENTIN 300 MG CAP PO SCH (21:00)
[2021-02-01] MEDS ORDERED: INSULIN DETEMIR SC SCH (21:00)
[2021-02-01] MEDS: NYSTATIN CR 15 GM TUBE EXT SCH (21:01)
[2021-02-01] MEDS: METOPROLOL TARTRATE 100 MG TAB PO SCH (21:01)
[2021-02-01] MEDS: INSULIN ASPART 100 UNITS/ML VIAL SC SCH (21:07)
[2021-02-02] MEDS: INSULIN ASPART 100 UNITS/ML VIAL SC SCH ×5 (00:41→20:40)
[2021-02-02] MEDS: MEROPENEM 500 MG in SYRINGE 0 ML IV SCH ×4 (02:33→20:31)
[2021-02-02] MEDS: LEVOTHYROXINE SODIUM 50 MCG TABLET PO SCH (06:31)
[2021-02-02 07:16] LABS: Basophils # (auto) 0.01 K/uL (0-0.2); Basophils % (auto) 0.1 %; Eosinophils # (auto) 0.23 K/uL (0-0.5); Eosinophils % (auto) 2.7 %; Hematocrit (blood only) 32.4 % (42-52); Hemoglobin 10.5 g/dL (14.0-18.0); Immature Granulocytes # (auto) 0.02 K/uL (0.00-0.02); Immature Granulocytes % (auto) 0.2 %; Lymphocytes # (auto) 1.25 K/uL (1.2-3.4); Lymphocytes % (auto) 14.5 %; Mean Corpuscular Hemoglobin 27.7 pg (25-34); Mean Corpuscular Hgb Conc 32.4 g/dL (32-36); Mean Corpuscular Volume 85.5 fL (80-100); Mean Platelet Volume 10.5 fL (7.4-10.4); Monocytes % (auto) 11.6 %; Neutrophils # (auto) 6.11 K/uL (1.4-6.5); Neutrophils % (auto) 70.9 %; Platelet Count 340 K/uL (130-400); RDW Coefficient of Variation 13.8 % (11.5-14.5); RDW Standard Deviation 43.4 fL (36.4-46.3); Red Blood Count 3.79 M/uL (4.7-6.1); White Blood Count 8.62 K/uL (4.8-10.8)
[2021-02-02 07:45] LABS: Albumin Level 2.4 gm/dl (3.4-5.0); BUN Creatinine Ratio 12.9 (10-20); Calcium 8.4 mg/dl (8.5-10.1); Creatinine Clr Calc Pharmacy 110.3 ml/min; Est GFR (African American) 78.9; Est GFR (Non-African American) 68.1; Potassium 3.9 mmol/L (3.5-5.1)
[2021-02-02 07:54] LABS: Albumin Globulin Ratio 0.5 (0.9-2); Bilirubin,Total 0.5 mg/dl (0.2-1); C Reactive Protein 13.6 mg/dl (0-0.29); Ferritin 205.4 ng/ml (8-388); Globulin 5.1 gm/dl (2.5-4.0); Thyroid Stimulating Hormone 2.23 uIu/ml (0.300-4.500); Total Protein 7.5 gm/dl (6.4-8.2)
[2021-02-02 07:59] LABS: Folate (Folic Acid) 10.7 ng/ml (>5.38)
[2021-02-02] MEDS: FINASTERIDE 5 MG TAB PO SCH (08:12)
[2021-02-02] MEDS: METOPROLOL TARTRATE 100 MG TAB PO SCH ×2 (08:12→20:32)
[2021-02-02] MEDS: DULoxetine HCL 60 MG CAP PO SCH (08:13)
[2021-02-02] MEDS: PANTOprazole 40 MG TAB PO SCH (08:13)
[2021-02-02] MEDS: buPROPion XL 150 MG TABCR PO SCH ×2 (08:14→20:31)
[2021-02-02] MEDS: dilTIAZem HCL 240 MG CAPCR PO SCH (08:14)
[2021-02-02] MEDS: FUROSEMIDE 40 MG TAB PO SCH (08:14)
[2021-02-02] MEDS: GABAPENTIN 300 MG CAP PO SCH ×2 (08:14→20:31)
[2021-02-02 08:43] LABS: Estimated Average Glucose 240 mg/dl
[2021-02-02] MEDS: CLINDAMYCIN 600 MG in DEXTROSE 5% 50 ML IV SCH ×3 (08:50→23:25)
--- NOTE | 2021-02-02 09:25 | Consultation ---
Date of Consultation February 02, 2021 Assessment & Plan (1) PAD (peripheral artery disease): Pt with mild PAD and easily palpable pulses in BLE. Does not require vascular surgical intervention at this time. Recommend orthopedic eval d/t severity and location of infection for possible limb salvage. Will attempt to contact primary service to discuss. History of Present Illness Reason for Consultation: L foot osteomyelitis Attending Physician: Logan Lee History of Present Illness 60 yo m with hx of atrial flutter, CKD, HTN, PAD, GERD, asthma, DMII, hypothyroidism, morbid obesity, admitted with osteomyelitis of L foot, seen in consultation for same at pt request. Pt previously known to Dr Costa for L 4th and 5th TMA back in 2014, but never had arterial intervention and was eventually lost to follow up. He states he developed this wound to L lateral foot about 2 weeks ago, and this worsened despite taking care of it at home. Denies pain. Denies claudication sx, as he does not walk much. Does admit some nausea 3 days ago, but none since. Denies fever, chest pain, SOB, chills, abd pain, N/V, rest pain, other complaints. Foot x-ray demonstrates osteomyelitis, and significant soft tissue edema with gas formation Arterial US demonstrates mild PAD without focal stenosis. Allergies Allergy/AdvReac Type Severity Reaction Status Date / Time Penicillins Allergy Severe HIVES, RED Verified 02/01/21 14:38 RASH A CHILD fluticasone [From Flonase] AdvReac Intermediate FELT FUNNY Verified 02/01/21 14:38 IN THE HEAD Home Medications Medication Instructions Recorded Confirmed Type docusate sodium [Colace] 100 mg PO DAILY PRN 07/23/18 02/01/21 History duloxetine 60 mg capsule,delayed 60 mg PO QAM #90 cap 02/23/20 02/01/21 Rx release promethazine 25 mg tablet 25 mg PO Q6H PRN #30 tab 03/07/20 02/01/21 Rx albuterol sulfate [Ventolin HFA] 2 puff INHALATION Q4H PRN 05/26/20 02/01/21 History finasteride 5 mg PO QAM 05/26/20 02/01/21 History insulin aspart U-100 100 unit/mL See Rx Instructions SQ TIDM #6 ml 07/03/20 02/01/21 Rx subcutaneous solution tolterodine 4 mg capsule,extended 4 mg PO DAILY PRN #90 cap 07/14/20 02/01/21 Rx release 24 hr insulin detemir U-100 100 unit/mL See Rx Instructions SUBCUT BID #80 07/19/20 02/01/21 Rx subcutaneous solution ml diltiazem HCl 240 mg capsule,24 240 mg PO QAM #30 cap 08/21/20 02/01/21 Rx hr,extended release gabapentin 300 mg capsule 300 mg PO BID #60 cap 09/06/20 02/01/21 Rx nystatin 1 applic TOPICAL BID #30 g 09/30/20 02/01/21 Rx furosemide 40 mg tablet 40 mg PO DAILY #90 tab 10/06/20 02/01/21 Rx pantoprazole 40 mg tablet,delayed 40 mg PO DAILY #90 tab 10/06/20 02/01/21 Rx release apixaban 5 mg tablet 5 mg PO BID #60 tab 10/23/20 02/01/21 Rx metoprolol tartrate 100 mg tablet 100 mg PO BID #60 tab 11/01/20 02/01/21 Rx levothyroxine 50 mcg tablet 50 mcg PO DAILYBB #60 tab 11/08/20 02/01/21 Rx atorvastatin 80 mg tablet 80 mg PO HS #90 tab 12/01/20 02/01/21 Rx bupropion HCl 150 mg 24 hr tablet, 150 mg PO BID #60 tab 12/11/20 02/01/21 Rx extended release metformin 500 mg tablet 500 mg PO BID #60 tab 01/29/21 02/01/21 Rx blood-glucose meter #1 ea 01/30/21 02/01/21 Rx Patient History Medical History Acute kidney injury Anemia Asthma Atrial flutter Atrial flutter with rapid ventricular response Back injury Blocked urinary catheter Cellulitis Cellulitis of left foot Constipation Diabetic foot ulcer (10/07/13) Fall at home Foot ulcer, right Gas gangrene GERD (gastroesophageal reflux disease) Hypertension Hyponatremia Regional wall motion abnormality of heart Urinary retention Urinary tract infection Surgical History History of amputation of toe Hx of tonsillectomy Family History Mother Diabetes Heart disease Father Heart disease Other No pertinent family history in first degree relatives Denies family history of Ovarian cancer Prostate cancer Myocardial infarction Breast cancer Colorectal cancer Social History Smoking Status: Never smoker Second Hand Exposure: No; Hx Alcohol Use: No Hx Substance Use: No Preferred Language: Chilean Communication Ability: Effective Section Forest Fire Warden Required: No Beliefs That Will Affect Care: None marital status: Life Partner Current Living Situation: Other Current Living Situation Comment: Friend Feels Safe at Home: Yes Safety Concerns: Feels Safe At This Time Assistive Devices: Walker Review of Systems Review of Systems: All systems reviewed & are unremarkable except as noted in HPI & below Physical Exam Constitutional: WD/WN, vitals as above + morbidly obese, + disheveled, cooperative and comfortable; not in distress Eyes: PERRL, conjunctivae normal, anicteric sclerae ENMT: Ears: no hearing impairment Neck: trachea midline Respiratory: normal respiratory effort, lungs clear to auscultation Auscultation: + diminished lung sounds Cardiovascular: Rate/Rhythm: regular rate and regular rhythm Vessels: femoral pulses present, posterior tibial pulses present (+2), dorsalis pedis pulses present (+2), brachial pulses present and radial pulses present; + abnormal peripheral pulses Extremities: normal capillary refill and + edema Gastrointestinal (Abdomen): normal bowel sounds, soft, nontender, no hepatosplenomegaly Musculoskeletal: no cyanosis or clubbing, extremities motor strength 5/5 Skin: + induration and + eschar (L foot +erythema edema purulent discharge odor) Neurologic: moves all extremities; no focal motor deficits and not confused Psychiatric: A+Ox3, euthymic affect Results & Data ([facility]) Vital Signs (Past 12 Hours) Vital Signs Temp Pulse Pulse Resp BP BP Pulse Ox 02/02/21 07:30 36.9 C 75 22 146/74 H 95 02/02/21 07:08 72 02/02/21 03:21 36.8 C 67 18 171/74 H 93 02/01/21 23:55 83 02/01/21 23:13 36.7 C 74 20 168/84 H 98
--- NOTE | 2021-02-02 09:28 | Electrocardiogram Report ---
Test Reason : Blood Pressure : / mmHG Vent. Rate : 075 BPM Atrial Rate : 075 BPM P-R Int : 132 ms QRS Dur : 136 ms QT Int : 428 ms P-R-T Axes : 009 -38 019 degrees QTc Int : 477 ms Poor data quality, interpretation may be adversely affected Sinus rhythm with Premature supraventricular complexes Left axis deviation Right bundle branch block Voltage criteria for left ventricular hypertrophy Borderline Criteria for Septal infarct Abnormal ECG When compared with ECG of 19-JUL-2019 07:17, Premature supraventricular complexes are now Present OR interval has decreased Right bundle branch block is now Present Confirmed by Paresh Hicks ([id number]) on 02/02/2021 9:28:20 AM Referred By: REFERRED SELF Confirmed By:Paresh Hicks
[2021-02-02] MEDS: INSULIN DETEMIR SC SCH ×2 (09:53→20:40)
--- NOTE | 2021-02-02 10:36 | Pharmacy Report ---
Pharmacy Glycemic Short Note 2 - Date of Service February 02, 2021 - Glycemic Short BSG Results (Last 24 hours): 02/01/21 02/01/21 02/01/21 14:03 17:51 19:27 Glucose 200 H POC Glucose 222 H 228 H 02/02/21 02/02/21 02/02/21 00:19 06:30 06:40 Glucose 181 H POC Glucose 227 H 211 H 02/02/21 07:34 Glucose POC Glucose 182 H OUTPATIENT ANTIDIABETIC REGIMEN: * Levemir 100 units SQ BID * Novolog 80 units SQ TID with meals * Metformin 500mg PO BID * HbA1c: 10% (02/02/21) ASSESSMENT: * Mr Mahan is a 60yo diabetic male admitted last evening with L foot wound/osteomyelitis/gangrene. * Pt is familiar to pharmacy glycemic service from past admission(s). * Pt is NPO currently for likely OR procedure later today, and is currently receiving Daptomycin/Meropenem/Clindamycin. * Pharmacy will continue to follow and adjust insulin regimen as required. Would prefer patient to have tight glycemic control to promote wound healing and discourage infection. PLAN FOR INPATIENT GLYCEMIC CONTROL: * Hold outpatient oral diabetes medications * Basal insulin * Levemir 100 units SQ BID * Bolus insulin * NovoLog per scale ACHS or Q6hrs while NPO * Goal Range: Low 110 mg/dL - High 140 mg/dL * Correction Factor: 8 mg/dL/unit * Nutritional / Prandial insulin per carb ratio of 1 unit per 2 grams CHO consumed PLAN FOR DISCHARGE: * A1c: 10% * This indicates sub-optimal glycemic control. Target A1c for this patient would be <7%. * Anticipate that patient may require adjustment in insulin regimen for discharge. More to follow as admission progresses. * Recommend prompt f/u with outpt provider after discharge to work toward optimizing A1c.
[2021-02-02] MEDS: NYSTATIN CR 15 GM TUBE EXT SCH ×2 (12:54→20:34)
--- NOTE | 2021-02-02 15:49 | Orthopedic Consultation ---
Date of Service February 02, 2021 Assessment & Plan (1) Osteomyelitis of foot, acute: I talked to him about diagnosis and treatment options at bedside. Oftentimes in the situation I would recommend a below-knee amputation. However, due to his large size and his ability to still ambulate, I think an amputation would result in a very high morbidity for him. He has good vascular flow all the way down to the foot. He might do well with a limb salvage procedure. His hemoglobin A1c is 10.0 and he understands he needs to work at keeping that down. I talked about this case with the hospitalist. I think would be better treated by an expert in foot and ankle or limb salvage procedures. I recommended transfer to a tertiary facility and I am happy to speak with the orthopedist there. He is currently on multiple IV antibiotics. His white blood cell count is normal and he is afebrile. He does not appear to be septic or bacteremic. History of Present Illness Reason for Consultation: Left diabetic foot infection. Requesting Physician: . Attending Physician: Logan Alas is a pleasant 60-year-old male who is an uncontrolled diabetic and deal with a left diabetic foot infection. He initially had his 2 smaller toes removed by Dr. Valenzuela in 2013. He also had a procedure done by Dr. Costa to help open up the vascular flow. He has done fairly well over the past 7 years. Unfortunately, over the last 2 weeks he began noticing redness and drainage from a wound on the plantar aspect of his left foot. He came to the emergency room and was admitted to the hospitalist service. The vascular service was initially consulted and Doppler studies showed adequate blood flow. He currently lives in a home with his female friend. It is a two-story home. He needs to be able to walk around and go up and down stairs. Orthopedics was consulted for possible salvage procedure of his left leg.. Allergies Allergy/AdvReac Type Severity Reaction Status Date / Time Penicillins Allergy Severe HIVES, RED Verified 02/01/21 14:38 RASH A CHILD fluticasone [From Flonase] AdvReac Intermediate FELT FUNNY Verified 02/01/21 14:38 IN THE HEAD Home Medications Medication Instructions Recorded Confirmed Type docusate sodium [Colace] 100 mg PO DAILY PRN 07/23/18 02/01/21 History duloxetine 60 mg capsule,delayed 60 mg PO QAM #90 cap 02/23/20 02/01/21 Rx release promethazine 25 mg tablet 25 mg PO Q6H PRN #30 tab 03/07/20 02/01/21 Rx albuterol sulfate [Ventolin HFA] 2 puff INHALATION Q4H PRN 05/26/20 02/01/21 History finasteride 5 mg PO QAM 05/26/20 02/01/21 History insulin aspart U-100 100 unit/mL See Rx Instructions SQ TIDM #6 ml 07/03/20 02/01/21 Rx subcutaneous solution tolterodine 4 mg capsule,extended 4 mg PO DAILY PRN #90 cap 07/14/20 02/01/21 Rx release 24 hr insulin detemir U-100 100 unit/mL See Rx Instructions SUBCUT BID #80 07/19/20 02/01/21 Rx subcutaneous solution ml diltiazem HCl 240 mg capsule,24 240 mg PO QAM #30 cap 08/21/20 02/01/21 Rx hr,extended release gabapentin 300 mg capsule 300 mg PO BID #60 cap 09/06/20 02/01/21 Rx nystatin 1 applic TOPICAL BID #30 g 09/30/20 02/01/21 Rx furosemide 40 mg tablet 40 mg PO DAILY #90 tab 10/06/20 02/01/21 Rx pantoprazole 40 mg tablet,delayed 40 mg PO DAILY #90 tab 10/06/20 02/01/21 Rx release apixaban 5 mg tablet 5 mg PO BID #60 tab 10/23/20 02/01/21 Rx metoprolol tartrate 100 mg tablet 100 mg PO BID #60 tab 11/01/20 02/01/21 Rx levothyroxine 50 mcg tablet 50 mcg PO DAILYBB #60 tab 11/08/20 02/01/21 Rx atorvastatin 80 mg tablet 80 mg PO HS #90 tab 12/01/20 02/01/21 Rx bupropion HCl 150 mg 24 hr tablet, 150 mg PO BID #60 tab 12/11/20 02/01/21 Rx extended release metformin 500 mg tablet 500 mg PO BID #60 tab 01/29/21 02/01/21 Rx blood-glucose meter #1 ea 01/30/21 02/01/21 Rx Past Med/Surg History Medical History Acute kidney injury Anemia Asthma Atrial flutter Atrial flutter with rapid ventricular response Back injury Blocked urinary catheter Cellulitis Cellulitis of left foot Constipation Diabetic foot ulcer (10/07/13) Fall at home Foot ulcer, right Gas gangrene GERD (gastroesophageal reflux disease) Hypertension Hyponatremia Regional wall motion abnormality of heart Urinary retention Urinary tract infection Surgical History History of amputation of toe Hx of tonsillectomy Family History Mother Diabetes Heart disease Father Heart disease Other No pertinent family history in first degree relatives Denies family history of Ovarian cancer Prostate cancer Myocardial infarction Breast cancer Colorectal cancer Social History Smoking Status: Never smoker Second Hand Exposure: No; Hx Alcohol Use: No Hx Substance Use: No Preferred Language: Mohawk Communication Ability: Effective Cytopathology Technologist Required: No Beliefs That Will Affect Care: None marital status: Life Partner Current Living Situation: Other Current Living Situation Comment: Friend Feels Safe at Home: Yes Safety Concerns: Feels Safe At This Time Assistive Devices: None Review of Systems All systems reviewed & are unremarkable except as noted in HPI & below. Physical Exam On physical examination of his left foot, there is a large plantar eschar. There is an area of erythema and some purulent discharge from a tracking fistula that goes into the lateral aspect of the foot. I do not see any tracking erythema. I do not see any signs of infection echo superior to the ankle. The rest of his leg actually looks pretty good.. Constitutional WD/WN, vitals as above Eyes PERRL, conjunctivae normal, anicteric sclerae ENMT external ear and nose normal, oropharynx normal Neck trachea midline, no thyromegaly Respiratory normal respiratory effort Cardiovascular RRR, no murmur, no edema Gastrointestinal (Abdomen) normal bowel sounds, soft, nontender, no hepatosplenomegaly Psychiatric A+Ox3, euthymic affect Results & Data Results & Data Laboratory Results . Diagnostic Findings X-rays of his foot were reviewed and there is some concern for osteomyelitis. He has a previous partial metatarsal resection of the fourth and fifth metatarsals. PG Care Time/CCT Total # of Minutes Spent Total Time Spent with Patient: Total time spent is greater than 50% in coordination of care (as documented) at patient's floor/unit and/or counseling patient: Coding Level of Care Code 38675 Inpt Consult Level 4 Diagnoses Osteomyelitis of foot, acute M86.179
[2021-02-02] MEDS ORDERED: Nursing to Pharmacy Communication SCH ×2 (16:15)
[2021-02-02] MEDS: DAPTOmycin 675 MG in SYRINGE 0 ML IV SCH (16:21)
--- NOTE | 2021-02-02 22:45 | Hospitalist Progress Note ---
Date of Service February 02, 2021 Assessment & Plan (1) Osteomyelitis of foot, acute: With evidence of OM of left foot 3rd-5th MT, with overlying cellulitis and abscess with purulent drainage ESR 96, CRP 10, afebrile, with leukocytosis With h/o DMII, previous 4th and 5th toe amputations Arterial Doppler normal and with strong pedal pulses -admit to med with tele given h/o rapid atrial flutter -continue IV abx with Meropenem, and add Dapto for MRSA coverage, check MRSA swab; add clinda for gas on xray for anti-toxin effect -pt requests Dr. Costa who did his previous amputations-consulted and discussed care with Faby Reyna PA-C on phone-recommends NPO after midnight in case can have surgery tomorrow and HOLD Eliquis -wound culture ordered and collected, BCxs pending -NPO after midnight, Vascular Surgery to see in AM and decide if can have surgery tomorrow at least for I&D if not further amputation of MT -follow CBC, CMP, ESR, CRP. Check CPOK as baseline given Dapto use On 01/03 D/W Dr. Costa who recommended ortho. D/W Ortho who recommends transfer. Called [facility] and obtained bed. Patient was agreeable to transfer. Continued antibiotics. Once bed was available at 8pm, patient refused transfer. Had extensive discussion with patient, but he wanted to discuss case with Dr. Mitchell osorio. 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.4-1.5, is at 1.44 here -Avoid nephrotoxins -renally dose meds when appropriate -follow BMP (4) Depression: stable, with some recent personal issues exacerbating his anxiety continue wellbutrin, duloxetine (5) DM w/o complication type II, uncontrolled: HgbA1C 9.7% in 04/2020, uncontrolled, with DM ulcers -continue Levemir 100 units bid and usually takes Novolog 80 units tid at home- use CF 1:10 and CR 1:4, adjust as needed here, range 110-140 as per Phrmacy recs check A1C in AM ADA diet Glycemic consult placed -hold home metformin (6) GERD (gastroesophageal reflux disease): no acute issues continue PPI (7) HTN (hypertension), benign: BPs controlled continue home metoprolol tart 100mg bid, diltaiazem 240mg daily, and lasix 40mg daily (8) Hypothyroidism: TSH normal over 1 year ago -check TSH in AM continue home LT4 for now (9) Morbid obesity: BMI 49.7, needs weight loss counseling and diet control (10) Urinary retention: chronic, with indwelling [place] for over 10 years overdue for recent change out of [place] with Urology -changed out in ER with 16F Coude on 02/01/21 -continue prn tolterodine for bladder spasms (11) Hyponatremia: Na+ corrected for hyperglycemia is 131 likely some volume overload -continue lasix check Ur Na+ and Ur Osm, Serum Osm follow BMP (12) Atrial flutter: history of paroxysmal AF, here in NSR on tele check ECG now for preop purposes no current issues HOLD Elqiuis for possible surgery continue metoprolol, diltiazem does not follow with Cardio as outpt routinely monitor on tele (13) Anemia: chronic, mild, normocytic check Fe studies, B12, folate probably chronic disease follow CBC (14) Asthma: no acute issues albuterol HFA prn (15) DVT prophylaxis: Eliquis, but on hold Dispo-admit to med with tele Admission and Anticipated Discharge Date Admission Date: February 01, 2021 Subjective Patient reports no new symptoms. Patient initally agreeable for transfer to [facility]. Later refused at 20:00 for transfer. Had extensive conversation, wants to be evaluated by Dr. Valenzuela on 02/03 Explained to patient that he should be transferred. Patient continued to refuse transfer. Review of Systems Review of Systems: All systems reviewed & are unremarkable except as noted in HPI & below Physical Exam Physical Exam: Constitutional: WD/WN, vitals as above + morbidly obese Eyes: + anicteric sclerae ENMT: external ear and nose normal, oropharynx normal Neck: trachea midline, no thyromegaly Respiratory: normal respiratory effort, lungs clear to auscultation Cardiovascular: Rate/Rhythm: regular rate and regular rhythm Heart Sounds: no murmur Vessels: dorsalis pedis pulses present (2+ bilat) Extremities: + edema (trace edema bilat legs) Chest (Breasts): Chest: normal inspection of chest Gastrointestinal (Abdomen): normal bowel sounds, soft, nontender, no hepatosplenomegaly (obese) Musculoskeletal: Extremities: + extremities abnormal to inspection (left foot with absent 4-5th toes and part of 5th MT), no cyanosis and no clubbing Skin: left foot with large amount of edema laterally with plantar lateral mid and forefoot with large ulceration approximately 5 x 6 cm, necrotic appearing, foul smelling, with purulent drainage dripping out onto the floor, mild erythema of lateral foot Neurologic: moves all extremities and awake; no focal motor deficits Psychiatric: A+Ox3, euthymic affect Results & Data Results & Data ([facility]) Vital Signs (Past 12 Hours) Vital Signs Temp Pulse Pulse Resp BP BP Pulse Ox 02/02/21 19:06 36.8 C 71 18 121/71 95 02/02/21 15:00 62 02/02/21 14:54 36.9 C 63 20 136/76 95 02/02/21 11:26 37.3 C 66 22 124/62 94 PG Care Time/CCT Total # of Minutes Spent Total Time Spent with Patient: Total time spent is greater than 50% in c oordination of care (as documented) at patient's floor/unit and/or counseling patient: Prolonged Care Time Prolonged Care Time: Yes Total Prolonged Care Time: 90 8:20 to 8:45 12:00 to 12:25 18:10 to 18:20 19:30 to 20:00 Coding Level of Care Code 45767 Subseq Hosp Care Lvl 3 Diagnoses Osteomyelitis of foot, acute M86.179 Cellulitis and abscess of foot L03.119; L02.619 CKD (chronic kidney disease) stage 3, GFR 30-59 ml/min N18.3 Depression F32.9 DM w/o complication type II, uncontrolled E11.65 Glycemic state: with hyperglycemia GERD (gastroesophageal reflux disease) K21.9 HTN (hypertension), benign I10 Hypothyroidism E03.9 Hypothyroidism type: acquired Morbid obesity E66.01 Urinary retention R33.9 Hyponatremia E87.1 Atrial flutter I48.92 Anemia D64.9 Asthma J45.909 DVT prophylaxis Z29.9 Additional Codes Prolonged Care Time - Prolonged Care Time: Yes ([id number]) Time Spent (min) 90 (1) Hypothyroidism Hypothyroidism type: acquired Qualified Code(s): E03.9 - Hypothyroidism, unspecified (2) DM w/o complication type II, uncontrolled Glycemic state: with hyperglycemia Qualified Code(s): E11.65 - Type 2 diabetes mellitus with hyperglycemia
[2021-02-03] MEDS: MEROPENEM 500 MG in SYRINGE 0 ML IV SCH ×2 (02:17→07:46)
[2021-02-03] MEDS: LEVOTHYROXINE SODIUM 50 MCG TABLET PO SCH (05:40)
[2021-02-03] MEDS: CLINDAMYCIN 600 MG in DEXTROSE 5% 50 ML IV SCH ×2 (07:44→15:04)
[2021-02-03] MEDS: INSULIN ASPART 100 UNITS/ML VIAL SC SCH ×3 (07:45→17:31)
[2021-02-03] MEDS: dilTIAZem HCL 240 MG CAPCR PO SCH (07:46)
[2021-02-03] MEDS: FUROSEMIDE 40 MG TAB PO SCH (07:48)
[2021-02-03] MEDS: METOPROLOL TARTRATE 100 MG TAB PO SCH (07:49)
[2021-02-03] MEDS: DULoxetine HCL 60 MG CAP PO SCH (08:03)
[2021-02-03] MEDS: PANTOprazole 40 MG TAB PO SCH (08:03)
[2021-02-03] MEDS: FINASTERIDE 5 MG TAB PO SCH (08:03)
[2021-02-03] MEDS: GABAPENTIN 300 MG CAP PO SCH (08:03)
[2021-02-03] MEDS: buPROPion XL 150 MG TABCR PO SCH (08:03)
--- NOTE | 2021-02-03 08:46 | Orthopedic Progress Note ---
Date of Service February 03, 2021 Assessment & Plan (1) Osteomyelitis of foot, acute: I talked about the diagnosis and treatment options with Bishop again at the bedside. He has a bad infection of his foot and he already has a partial amputation. In my hands this would be a below-knee amputation. However, given his good vascular flow and his younger age, I think it would be worth trying a limb salvage procedure. I spoke with the orthopedist at [facility] last night. They seemed willing to accept him in transfer when a bed becomes available. We do want to get an MRI of his left foot to help expedite care when he is transferred to [facility]. He is currently n.p.o. in anticipation of possible I&D later today. Subjective Bishop was seen and examined at bedside this morning. He is a foot wound seems to be stable. He is currently n.p.o. He does not have any fevers or any signs of acute illness.. Review of Systems All systems reviewed & are unremarkable except as noted in HPI & below. Physical Exam On physical examination of his left foot, it is currently wrapped. He was just recently changed by the nurse. The foot wound is essentially unchanged from where it was last night.. Results & Data Results & Data Laboratory Results . Diagnostic Findings . PG Care Time/CCT Total # of Minutes Spent Total Time Spent with Patient: Total time spent is greater than 50% in coordination of care (as documented) at patient's floor/unit and/or counseling patient: Coding Level of Care Code 96834 Subseq Hosp Care Lvl 1 Diagnoses Osteomyelitis of foot, acute M86.179
[2021-02-03] MEDS: NYSTATIN CR 15 GM TUBE EXT SCH (09:00)
[2021-02-03] MEDS ORDERED: INSULIN DETEMIR SC ONE (09:00)
[2021-02-03 09:55] LABS: Basophils # (auto) 0.02 K/uL (0-0.2); Basophils % (auto) 0.2 %; Eosinophils # (auto) 0.31 K/uL (0-0.5); Eosinophils % (auto) 3.1 %; Hematocrit (blood only) 32.7 % (42-52); Hemoglobin 10.8 g/dL (14.0-18.0); Lymphocytes # (auto) 1.56 K/uL (1.2-3.4); Lymphocytes % (auto) 15.4 %; Mean Corpuscular Hemoglobin 29.1 pg (25-34); Mean Corpuscular Volume 88.1 fL (80-100); Mean Platelet Volume 10.1 fL (7.4-10.4); Monocytes # (auto) 1.11 K/uL (0.11-0.59); Monocytes % (auto) 10.9 %; Neutrophils # (auto) 7.14 K/uL (1.4-6.5); Neutrophils % (auto) 70.4 %; Platelet Count 345 K/uL (130-400); RDW Coefficient of Variation 14.1 % (11.5-14.5); RDW Standard Deviation 45.9 fL (36.4-46.3); Red Blood Count 3.71 M/uL (4.7-6.1); White Blood Count 10.14 K/uL (4.8-10.8)
[2021-02-03 10:19] LABS: BUN Creatinine Ratio 13.2 (10-20); Calcium 8.5 mg/dl (8.5-10.1); Creatinine Clr Calc Pharmacy 94.3 ml/min; Est GFR (African American) 65.7; Est GFR (Non-African American) 56.7; Potassium 4.2 mmol/L (3.5-5.1)
[2021-02-03] MEDS ORDERED: GADOBUTROL 10ML VIAL IV ONE (11:19)
--- NOTE | 2021-02-03 11:57 | Magnetic Resonance Report ---
MR foot LT wo/w con CLINICAL HISTORY: osteomyelitis COMPARISON STUDY: MRI of the left foot September 18, 2014. Left foot radiograph February 01, 2021. TECHNIQUE: Utilizing 1.5 Danielle magnet and dedicated coil, multiplanar, multi echo imaging of the left forefoot foot was performed pre and postcontrast administration. Intravenous injection of Gadavist w as uneventful. FINDINGS: Note is made of postoperative findings consistent with amputation of the fourth and fifth d igits. Note is made of marked marrow edema with diminished T1 signal within remaining portions of the fourth and fifth metatarsals. There is associated enhancement. This is consistent with acute osteomy elitis. In addition, there is abnormal marrow signal within visualized portions of the cuboid, partia lly imaged on this exam. This is also consistent with acute osteomyelitis. There is increased fluid w ithin the articulation between the cuboid and bases of the fourth and fifth metatarsals. Note is made of an large overlying wound along the plantar lateral aspect of the left midfoot. Hypointense foci r eflect soft tissue gas. There is extensive associated enhancement consistent with cellulitis. No rim- enhancing fluid collection is identified to suggest an abscess. There is no evidence for acute osteom yelitis within the left first, second or third digits. The wound and cellulitis as well as osteomyeli tis of the cuboid are partially imaged on this examination. IMPRESSION: 1. Large wound of the plantar lateral aspect of the left midfoot with multiple locules of soft tissue gas and associated soft tissue edema and enhancement consistent with cellulitis, partially imaged on this exam. No abscess identified. 2. Adjacent extensive marrow signal abnormality within the left cuboid as well as remaining portions of the fourth and fifth metatarsals consistent with acute osteomyelitis. Suspected septic arthritis a t the articulation between the cuboid and the bases of the fourth and fifth metatarsals. ACT 112: Negative or not required by law. Electronically signed by: Pako Gifford M.D. 02/03/2021 11:55 AM
[2021-02-03] MEDS: DAPTOmycin 675 MG in SYRINGE 0 ML IV SCH (17:26)
[2021-02-03] MEDS ORDERED: INSULIN DETEMIR SC SCH (21:00)
--- NOTE | 2021-02-07 17:33 | Pharmacy Report ---
ED Pharmacist Culture FollowUP - Culture Follow Up Note Date of Service: February 07, 2021 Notes:: Received patient's blood culture from 02/01. Results updated since patient was transferred to [facility] on 02/03. Called and spoke with patient's nurse, Cuca, results were faxed per request to [phone], read back x 1, with receipt of successful fax email.
--- NOTE | 2021-02-11 10:39 | Discharge Summary ---
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 He is vague on the history as he wasn't really aware it was present. Not much pain. He was encouraged by a friend to come into the hospital for evaluation. He denies any fever/chills, no nausea or vomiting.Has a lot of anxiety lately regarding some personal issues, but denies SOB. Has some chest pains occasionally when he feels anxious, but nothing with exertion and typically can walk from his apartment out to the mailbox and back without difficulty with CP, but does have chronic ORTIZ. Principal Diagnosis Osteomyelitis of left foot Discharge Exam Constitutional: WD/WN, vitals as above + morbidly obese Eyes: + anicteric sclerae ENMT: external ear and nose normal, oropharynx normal Neck: trachea midline, no thyromegaly Respiratory: normal respiratory effort, lungs clear to auscultation Cardiovascular: Rate/Rhythm: regular rate and regular rhythm Heart Sounds: no murmur Vessels: dorsalis pedis pulses present (2+ bilat) Extremities: + edema (trace edema bilat legs) Chest (Breasts): Chest: normal inspection of chest Gastrointestinal (Abdomen): normal bowel sounds, soft, nontender, no hepatosplenomegaly (obese) Musculoskeletal: Extremities: + extremities abnormal to inspection (left foot with absent 4-5th toes and part of 5th MT), no cyanosis and no clubbing Skin: left foot with large amount of edema laterally with plantar lateral mid and forefoot with large ulceration approximately 5 x 6 cm, necrotic appearing, foul smelling, with purulent drainage dripping out onto the floor, mild erythema of lateral foot Neurologic: moves all extremities and awake; no focal motor deficits Psychiatric: A+Ox3, euthymic affect Discharge Data Allergies Allergy/AdvReac Type Severity Reaction Status Date / Time Penicillins Allergy Severe HIVES, RED Verified 02/01/21 14:38 RASH A CHILD fluticasone [From Flonase] AdvReac Intermediate FELT FUNNY Verified 02/01/21 14:38 IN THE HEAD Consultations 02/01/21 14:26 ED Decision to Admit Stat 02/01/21 15:18 Consult Vascular Surgery Routine 02/02/21 10:02 Consult Orthopedic Surgery Routine 02/02/21 19:39 Burn CD for patient Stat 02/03/21 07:35 Consult Orthopedic Surgery Routine 02/03/21 11:42 Burn CD for patient Stat Ordered Studies 02/01/21 14:39 US arterial duplex LE LT Stat 02/03/21 09:20 MR foot LT wo/w con Urgent Hospital Course (1) Osteomyelitis of foot, acute: With evidence of OM of left foot 3rd-5th MT, with overlying cellulitis and abscess with purulent drainage ESR 96, CRP 10, afebrile, with leukocytosis With h/o DMII, previous 4th and 5th toe amputations Arterial Doppler normal and with strong pedal pulses -admit to med with tele given h/o rapid atrial flutter -continue IV abx with Meropenem, and add Dapto for MRSA coverage, check MRSA swab; add clinda for gas on xray for anti-toxin effect -pt requests Dr. Costa who did his previous amputations-consulted and discussed care with Faby Reyna PA-C on phone-recommends NPO after midnight in case can have surgery tomorrow and HOLD Eliquis -wound culture ordered and collected, BCxs pending -NPO after midnight, Vascular Surgery to see in AM and decide if can have surgery tomorrow at least for I&D if not further amputation of MT -follow CBC, CMP, ESR, CRP. Check CPOK as baseline given Dapto use On 01/03 D/W Dr. Costa who recommended ortho. D/W Ortho who recommends transfer. Called [facility] and obtained bed. Patient was agreeable to transfer. Continued antibiotics. Once bed was available at 8pm, patient refused transfer. Had extensive discussion with patient, but he wanted to discuss case with Dr. Valenzuela. On 01/04 Patient is now agreeable to transfer. Will discharge today. 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.5, is at 1.44 here -Avoid nephrotoxins -renally dose meds when appropriate -follow BMP (4) Depression: stable, with some recent personal issues exacerbating his anxiety continue wellbutrin, duloxetine (5) DM w/o complication type II, uncontrolled: HgbA1C 9.7% in 04/2020, uncontrolled, with DM ulcers -continue Levemir 100 units bid and usually takes Novolog 80 units tid at home- use CF 1:10 and CR 1:4, adjust as needed here, range 110-140 as per Phrmacy recs check A1C in AM ADA diet Glycemic consult placed -hold home metformin (6) GERD (gastroesophageal reflux disease): no acute issues continue PPI (7) HTN (hypertension), benign: BPs controlled continue home metoprolol tart 100mg bid, diltaiazem 240mg daily, and lasix 40mg daily (8) Hypothyroidism: TSH normal over 1 year ago -check TSH in AM continue home LT4 for now (9) Morbid obesity: BMI 49.7, needs weight loss counseling and diet control (10) Urinary retention: chronic, with indwelling Villasenor for over 10 years overdue for recent change out of Villasenor with Urology -changed out in ER with 16F Coude on 02/01/21 -continue prn tolterodine for bladder spasms (11) Hyponatremia: Na+ corrected for hyperglycemia is 131 likely some volume overload -continue lasix check Ur Na+ and Ur Osm, Serum Osm follow BMP (12) Atrial flutter: history of paroxysmal AF, here in NSR on tele check ECG now for preop purposes no current issues HOLD [facility] for possible surgery continue metoprolol, diltiazem does not follow with Cardio as outpt routinely monitor on tele (13) Anemia: chronic, mild, normocytic check Fe studies, B12, folate probably chronic disease follow CBC (14) Asthma: no acute issues albuterol HFA prn (15) DVT prophylaxis: Eliquis, but on hold Dispo-admit to med with tele Total Time Total Time Spent Total Time Spent (In Minutes): 32 Total Time Includes: Examination of the Patient, Discharge Planning and Medication Reconciliation Discharge Plan Discharge Items Patient Disposition: Transfer Acute Care Hospital Reason For Visit: FOOT OM Discharge Diagnosis: FOOT OM Activity: As commented below Activity Comment: transferred Non-emergency contact: Primary Care Provider Call non-emergency contact if: you have any medication questions Follow-up/Referrals: Ollie Walker MD [Primary Care Provider] - Diet: Carb Consistent or DM2 Addtl Attending Provider Instructions: tranferred to [facility] Pending Studies at Discharge: No Stand-Alone Forms: My [facility] Skilled Items Patient informed of condition?: No DNR: No Discharge Level of Care: Skilled Communicable Disease: No Discharge Prognosis: Stable Lines: None Urinary Catheter: No Medications and DC Order Prescriptions: Continued duloxetine 60 mg capsule,delayed release(DR/EC) 60 mg PO QAM Qty: 90 RF: 3 promethazine 25 mg tablet 25 mg PO Q6H PRN (Reason: Nausea) Qty: 30 RF: 3 Novolog U-100 Insulin aspart 100 unit/mL solution See Rx Instructions SQ TIDM Qty: 6 RF: 3 tolterodine 4 mg capsule,extended release 24hr 4 mg PO DAILY PRN (Reason: bladder spasms) Qty: 90 RF: 1 Levemir U-100 Insulin 100 unit/mL solution See Rx Instructions SUBCUT BID Qty: 80 RF: 11 diltiazem HCl 240 mg capsule,extended release 24 hr 240 mg PO QAM Qty: 30 RF: 5 furosemide 40 mg tablet 40 mg PO DAILY Qty: 90 RF: 3 pantoprazole 40 mg tablet,delayed release (DR/EC) 40 mg PO DAILY Qty: 90 RF: 3 Eliquis 5 mg tablet 5 mg PO BID Qty: 60 RF: 5 metoprolol tartrate 100 mg tablet 100 mg PO BID Qty: 60 RF: 5 levothyroxine 50 mcg tablet 50 mcg PO DAILYBB Qty: 60 RF: 1 atorvastatin 80 mg tablet 80 mg PO HS Qty: 90 RF: 1 bupropion HCl [Wellbutrin XL] 150 mg tablet extended release 24 hr 150 mg PO BID Qty: 60 RF: 5 metformin 500 mg tablet 500 mg PO BID Qty: 60 RF: 5 (DME) blood-glucose meter Kit See Rx Instructions .ROUTE .MEDSUPPLY Qty: 1 RF: 0 gabapentin 300 mg capsule 300 mg PO BID Qty: 60 RF: 5 docusate sodium [Colace] 100 mg Capsule 100 mg PO DAILY PRN (Reason: Constipation) RF: 0 albuterol sulfate [Ventolin HFA] 90 mcg/actuation HFA aerosol inhaler 2 puff INHALATION Q4H PRN (Reason: Shortness Of Breath Or Wheezing) RF: 0 finasteride 5 mg tablet 5 mg PO QAM RF: 0 nystatin 100,000 unit/gram cream 1 applic topical BID Qty: 30 RF: 0 Discharge Orders: Discharge Order (Routine); Ordered 02/03/21 Ordered By: Logan Lee Admission Data Admit Date/Time: 02/01/21 15:18 Attending Provider: Logan Lee Admit Provider: Najma Wallace Primary Care Provider: Ollie Walker Other Providers: Brent Costa ; Najma Wallace ; Sridhar Negron ; [facility] ; Ra Valenzuela Other Interventions: Discharge Summary Assessment (RN) Last Done: 02/03/21 20:30 Coding Level of Care Code D/C Day Management >30 mins Diagnoses Osteomyelitis of foot, acute M86.179 Cellulitis and abscess of foot L03.119; L02.619 CKD (chronic kidney disease) stage 3, GFR 30-59 ml/min N18.3 Depression F32.9 DM w/o complication type II, uncontrolled E11.65 Glycemic state: with hyperglycemia GERD (gastroesophageal reflux disease) K21.9 HTN (hypertension), benign I10 Hypothyroidism E03.9 Hypothyroidism type: acquired Morbid obesity E66.01 Urinary retention R33.9 Hyponatremia E87.1 Atrial flutter I48.92 Anemia D64.9 Asthma J45.909 DVT prophylaxis Z29.9
== END 2021-02-03 20:05 | disposition short-term general hospital (02) | DRG 638 ==
LOC: ED 13:25 → 2N 15:18 → SUATTDRO 15:18 → 2N 16:47

== ENCOUNTER 2021-03-30 10:56 | Inpatient (IN) ==
--- NOTE | 2021-03-30 11:26 | Emergency Department Note ---
Impression & Plan Urinary tract infection, Weakness, Physical deconditioning, Hyponatremia ED Provider Note NAME: ENIO BLACKBURN AGE: 61 SEX: M : 1960 ARRIVES VIA: Ambulance INFORMANT: Patient, ED PROVIDER(S): Rakesh Bateman DO CHIEF COMPLAINT: Malfunctioning Villasenor catheter HPI: The patient is a 61-year-old male who presented to the emergency department with multiple complaints. The patient states he has been having decreased p.o. intake. He is having significant difficulty at home managing his ADLs. The patient also has a Villasenor catheter that has been in place for many months. He has had to come to our facility multiple times to have a Villasenor catheter change. The patient states he has no help at home. He sometimes has visiting nurses but they are unable to manage his Villasenor catheter. He has been having difficulty ambulating as well as difficulty with his ADLs. 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 The patient states he is try to be compliant with all of his outpatient medications. He denies having any fever or chills. He does complain of significant abdominal discomfort and swelling becau se of the Villasenor catheter not working. He is very concerned about being able to go home. He does not feel that he is managing his condition at home well. ROS: See above HPI for pertinent positives & negatives. A total of 10 systems reviewed and were otherwise negative. PAST MEDICAL HISTORY: See Below PAST SURGICAL HISTORY: See Below FAMILY HISTORY: See Below SOCIAL HISTORY: See Below HOME MEDICATIONS: See Below ALLERGIES: See Below VITALS: See Below PHYSICAL EXAMINATION: GENERAL: The patient is awake and alert. He appears disheveled. EYES: The conjunctivae are clear. The pupils are round and reactive. EARS, NOSE, MOUTH AND THROAT: The nose is without any evidence of any deformity. NECK: The neck is nontender and supple. RESPIRATORY: Normal respiratory effort is noted there is no evidence of wheezing rhonchi or rales CARDIOVASCULAR: Regular rate and rhythm noted there no murmurs rubs or gallops normal S1 normal S2. GASTROINTESTINAL: The abdomen is moderately distended. There is diffuse tenderness to palpation but no guarding rigidity. MUSCULOSKELETAL/EXTREMITIES: There is no evidence of gross deformity full range of motion is noted in the hips and shoulders. Wound dressing and walking boot are on the left foot. SKIN: Pedal edema was noted bilaterally. NEUROLOGIC: Patient is awake alert and oriented x3. MEDICAL DECISION MAKING: The patient is a 61-year-old male who presented to the emergency department for an evaluation of a malfunctioning Villasenor catheter. The patient has a history of sunken penis syndrome and has very difficult time with urinating. He has a chronic indwelling Villasenor. From time to time the Villasenor does not work. He presented to the emergency department in urinary retention. Villasenor catheter was replaced in the emergency department. I discussed the patient's laboratory and radiographic studies with him. He was started on an antibiotic for urinary tract infection. Ultimately the patient has very severe deconditioning and is not comfortable being managed at home by himself. I discussed this with the family preservation caseworker. We tried to have the patient [facility] but at this time they were unable to place the patient so for this reason I discussed his case with the on-call [facility] hospitalist. They have agreed to evaluate the patient in the emergency department for further management and disposition. Triage Nursing notes reviewed. Prior medical records reviewed Vital Signs: reviewed and remarkable for elevated blood pressure. Differential diagnosis: Infection, dehydration, metabolic abnormality, hypo/hyperglycemia, electrolyte disturbance, anemia, hypoxia, cardiac sources, intracerebral event, toxicologic, neurologic, as well as other pathologies. ER treatment provided: See below Diagnostics interpreted by me: ECG: none Laboratory studies: As stated above and show below. Imaging studies: See below Consultation(s): Dr. Wallace with the [facility]ist group was notified about the patient. They will evaluate the patient in the emergency department. Past Med/Surg History Medical History Acute kidney injury Anemia Asthma Atrial flutter Atrial flutter with rapid ventricular response Back injury Blocked urinary catheter Cellulitis Cellulitis of left foot Constipation Diabetic foot ulcer (10/07/13) Fall at home Foot ulcer, right Gas gangrene GERD (gastroesophageal reflux disease) Hypertension Hyponatremia Regional wall motion abnormality of heart Urinary retention Urinary tract infection Surgical History History of amputation of toe Hx of tonsillectomy Family History Mother Diabetes Heart disease Father Heart disease Other No pertinent family history in first degree relatives Denies family history of Ovarian cancer Prostate cancer Myocardial infarction Breast cancer Colorectal cancer Social History Smoking Status: Never smoker Second Hand Exposure: No; Hx Alcohol Use: No Hx Substance Use: No Preferred Language: Nepali Communication Ability: Effective Erp Specialist Required: No Beliefs That Will Affect Care: None marital status: Life Partner Current Living Situation: Other Current Living Situation Comment: Friend Feels Safe at Home: Yes Assistive Devices: Cane and Glasses Allergies Allergies Allergy/AdvReac Type Severity Reaction Status Date / Time Penicillins Allergy Severe HIVES, RED Verified 03/30/21 13:30 RASH A CHILD ferrous sulfate AdvReac Intermediate Gastrointestinal Unverified 03/30/21 13:39 Upset fluticasone [From Flonase] AdvReac Intermediate FELT FUNNY Verified 03/30/21 13:30 IN THE HEAD Home Meds Home Medications Medication Instructions Recorded Confirmed albuterol sulfate [Ventolin HFA] 2 puff INHALATION Q4H PRN 05/26/20 03/30/21 finasteride 5 mg PO QAM 05/26/20 03/30/21 docusate sodium 100 mg capsule 500 mg PO DAILY PRN cap 02/13/21 03/30/21 atorvastatin 80 mg PO QDD 03/30/21 03/30/21 furosemide 40 mg PO QAM 03/30/21 03/30/21 levothyroxine 75 mcg PO DAILYBB 03/30/21 03/30/21 pantoprazole 40 mg PO DAILYBB 03/30/21 03/30/21 polyethylene glycol 3350 [Miralax] 17 g PO BID PRN 03/30/21 03/30/21 Previous Rx's Medication Instructions Recorded duloxetine 60 mg capsule,delayed 60 mg PO QAM #90 cap 02/23/20 release gabapentin 300 mg capsule 300 mg PO BID #60 cap 09/06/20 apixaban 5 mg tablet 5 mg PO BID #60 tab 10/23/20 metoprolol tartrate 100 mg tablet 100 mg PO BID #60 tab 11/01/20 bupropion HCl 150 mg 24 hr tablet, 150 mg PO BID #60 tab 12/11/20 extended release blood-glucose meter #1 ea 01/30/21 metformin 500 mg tablet 1,000 mg PO BID #60 tab 02/13/21 promethazine 25 mg tablet 25 mg PO Q6H PRN #30 tab 03/21/21 ciprofloxacin HCl 500 mg tablet 500 mg PO Q12H #14 tab 03/26/21 diltiazem HCl 240 mg capsule,24 240 mg PO QAM #30 cap 03/26/21 hr,extended release insulin aspart U-100 100 unit/mL 80 unit SQ TIDM #6 ml 03/26/21 subcutaneous solution insulin detemir U-100 100 unit/mL 100 unit SUBCUT AMPM #80 ml 03/26/21 subcutaneous solution phenazopyridine 95 mg tablet 190 mg PO TID #12 tab 03/29/21 Results & Data (ED) Vital Signs Vital Signs - 24 hr 03/30/21 11:06 03/30/21 12:24 03/30/21 12:30 Temperature 37.4 C Temperature Source Oral Pulse Rate 71 Pulse Rate [Right Finger] 70 Respiratory Rate 16 16 Respiratory Effort / Characteristics Non-Labored Spontaneous Non-Labored Spontaneous Respiratory Depth Normal Normal Blood Pressure 168/74 H Blood Pressure [Right Arm] 138/67 Blood Pressure Mean 105 Blood Pressure Mean [Right Arm] 90 Pulse Oximetry 99 98 99 Oxygen Delivery Method Room Air Room Air Room Air Sepsis Recent Fever Within 48 Hours No Sepsis New/Unexplained Change in Mental Status No Sepsis Action Taken by Nursing No Action Required 03/30/21 15:14 03/30/21 17:28 Temperature Temperature Source Pulse Rate Pulse Rate [Right Finger] 80 82 Respiratory Rate 16 16 Respiratory Effort / Characteristics Non-Labored Spontaneous Non-Labored Spontaneous Respiratory Depth Normal Normal Blood Pressure Blood Pressure [Right Arm] 141/103 H 141/63 H Blood Pressure Mean Blood Pressure Mean [Right Arm] 115 89 Pulse Oximetry 98 98 Oxygen Delivery Method Room Air Room Air Sepsis Recent Fever Within 48 Hours Sepsis New/Unexplained Change in Mental Status Sepsis Action Taken by [facility] Medications Current Medication List: was personally reviewed by me Laboratory Data Attestation: I reviewed the patient's lab results. Result diagrams: 03/30/21 12:04 03/30/21 12:04 Lab Results 03/30/21 03/30/21 03/30/21 Range/Units 12:04 12:04 12:04 WBC 9.36 (4.8-10.8) K/uL RBC 4.66 L (4.7-6.1) M/uL Hgb 13.4 L (14.0-18.0) g/dL Hct 40.9 L (42-52) % MCV 87.8 (80-100) fL MCH 28.8 (25-34) pg MCHC 32.8 (32-36) g/dL RDW Std Deviation 50.5 H (36.4-46.3) fL RDW Coeff of Adi 15.7 H (11.5-14.5) % Plt Count 342 (130-400) K/uL MPV 10.9 H (7.4-10.4) fL Immature Gran % (Auto) 0.2 % Neut % (Auto) 69.4 % Lymph % (Auto) 15.2 % [place] % (Auto) 11.9 % Eos % (Auto) 2.9 % Baso % (Auto) 0.4 % Neut # (Auto) 6.50 (1.4-6.5) K/uL Lymph # (Auto) 1.42 (1.2-3.4) K/uL R[place] # (Auto) 1.11 H (0.11-0.59) K/uL Eos # (Auto) 0.27 (0-0.5) K/uL Baso # (Auto) 0.04 (0-0.2) K/uL Immature Gran # (Auto) 0.02 (0.00-0.02) K/uL PT 10.4 (9.0-12.0) Seconds INR 1.0 (0.9-1.1) APTT 28.0 (21.0-31.0) Seconds PTT Ratio 1.1 Sodium 129 L (136-145) mmol/L Potassium 4.3 (3.5-5.1) mmol/L Chloride 97 L (98-107) mmol/L Carbon Dioxide 28 (21-32) mmol/L Anion Gap 4.0 (3-11) BUN 13 (7-18) mg/dl Creatinine 1.15 (0.6-1.4) mg/dl Est Cr Clr Drug Dosing 105.7 ml/min Est GFR ( Amer) 79.2 ml/min Est GFR (Non-Af Amer) 68.3 ml/min BUN/Creatinine Ratio 11.0 (10-20) Glucose 207 H (70-99) mg/dl Calcium 8.8 (8.5-10.1) mg/dl Magnesium 2.0 (1.8-2.4) mg/dl Total Bilirubin 0.3 (0.2-1) mg/dl AST 15 (15-37) U/L ALT 21 (12-78) U/L Alkaline Phosphatase 143 H (45-117) U/L Total Protein 7.8 (6.4-8.2) gm/dl Albumin 3.0 L (3.4-5.0) gm/dl Globulin 4.8 H (2.5-4.0) gm/dl Albumin/Globulin Ratio 0.6 L (0.9-2) TSH 3.460 (0.300-4.500) uIu/ml Specimen Hemolysis Urine Color Urine Appearance (Clear) Urine pH (4.5-7.5) Ur Specific [place] (1.000-1.030) Urine Protein (Negative) Urine Glucose (UA) (Negative) Urine Ketones (Negative) Urine Blood (Negative) Urine Nitrite (Negative) Urine Bilirubin (Negative) Urine Urobilinogen (Negative) Ur Leukocyte Esterase (Negative) Urine WBC (Auto) (0-5) /hpf Urine RBC (Auto) (0-4) /hpf U Hyaline Cast (Auto) (0-5) /lpf U Epithel Cells (Auto) (0-5) /lpf Urine Bacteria (Auto) (Negative) Urine Yeast (None Prsent) COVID-19 Eval Order SARS-CoV-2 (PCR) (Negative) 03/30/21 03/30/21 03/30/21 Range/Units 12:04 12:04 12:04 WBC (4.8-10.8) K/uL RBC (4.7-6.1) M/uL Hgb (14.0-18.0) g/dL Hct (42-52) % MCV (80-100) fL MCH (25-34) pg MCHC (32-36) g/dL RDW Std Deviation (36.4-46.3) fL RDW Coeff of Adi (11.5-14.5) % Plt Count (130-400) K/uL MPV (7.4-10.4) fL Immature Gran % (Auto) % Neut % (Auto) % Lymph % (Auto) % [place] % (Auto) % Eos % (Auto) % Baso % (Auto) % Neut # (Auto) (1.4-6.5) K/uL Lymph # (Auto) (1.2-3.4) K/uL [place] # (Auto) (0.11-0.59) K/uL Eos # (Auto) (0-0.5) K/uL Baso # (Auto) (0-0.2) K/uL Immature Gran # (Auto) (0.00-0.02) K/uL PT (9.0-12.0) Seconds INR (0.9-1.1) APTT (21.0-31.0) Seconds PTT Ratio Sodium (136-145) mmol/L Potassium (3.5-5.1) mmol/L Chloride (98-107) mmol/L Carbon Dioxide (21-32) mmol/L Anion Gap (3-11) BUN (7-18) mg/dl Creatinine (0.6-1.4) mg/dl Est Cr Clr Drug Dosing ml/min Est GFR ( Amer) ml/min Est GFR (Non-Af Amer) ml/min BUN/Creatinine Ratio (10-20) Glucose (70-99) mg/dl Calcium (8.5-10.1) mg/dl Magnesium (1.8-2.4) mg/dl Total Bilirubin (0.2-1) mg/dl AST (15-37) U/L ALT (12-78) U/L Alkaline Phosphatase (45-117) U/L Total Protein (6.4-8.2) gm/dl Albumin (3.4-5.0) gm/dl Globulin (2.5-4.0) gm/dl Albumin/Globulin Ratio (0.9-2) TSH (0.300-4.500) uIu/ml Specimen Hemolysis Urine Color Yellow Urine Appearance Cloudy A (Clear) Urine pH 6.5 (4.5-7.5) Ur Specific [place] 1.009 (1.000-1.030) Urine Protein Trace H (Negative) Urine Glucose (UA) Trace H (Negative) Urine Ketones Negative (Negative) Urine Blood Trace H (Negative) Urine Nitrite Negative (Negative) Urine Bilirubin Negative (Negative) Urine Urobilinogen Negative (Negative) Ur Leukocyte Esterase 3+ H (Negative) Urine WBC (Auto) >30 H (0-5) /hpf Urine RBC (Auto) 0-4 (0-4) /hpf U Hyaline Cast (Auto) 5-10 H (0-5) /lpf U Epithel Cells (Auto) 0-5 (0-5) /lpf Urine Bacteria (Auto) Negative (Negative) Urine Yeast Budding w/ Hyphae A (None Prsent) COVID-19 Eval Order Covid19 at [facility] SARS-CoV-2 (PCR) POSITIVE A* (Negative) Administered Medications Discontinued Medications Cefdinir (Cefdinir 300 Mg Cap) 600 mg PO ONE STA Stop: 03/30/21 13:54 Last Admin: 03/30/21 15:06 Dose: 600 mg Documented by: [id number] Sodium Chloride (Nss) 500 mls @ 999 mls/hr IV .Q31M GEOVANNA Stop: 03/30/21 12:00 Last Admin: 03/30/21 13:23 Dose: Not Given Documented by: [id number] Imaging Data Radiologist's Impression: Chest X-Ray 03/30/21 16:07 XR chest 1V portable CLINICAL HISTORY: COVID 19 COMPARISON STUDY: Chest radiograph February 01, 2021. FINDINGS: Lung volumes are normal. Lungs are clear. There is no pneumothorax or pleural effusion. Cardiomegaly is unchanged. Mediastinal contours are normal. There is no evidence for pulmonary edema. A greenwood projects over the right chest. IMPRESSION: No acute cardiopulmonary findings. Cardiomegaly. ACT 112: Negative or not required by law. Electronically signed by: Pako Gifford M.D. 03/30/2021 4:40 PM Discharge Plan Visit Data Chief Complaint: Catheter Replacement Stated Complaint: AB PAIN, CATHETER ISSUES ED Provider: Rakesh Bateman Discharge Problem: Urinary tract infection, Weakness, Physical deconditioning, Hyponatremia Patient Disposition: Being Evaluated by Hospitalist Condition: Good Forms Stand Alone Forms: My [facility] [employer]Feeder Prescriptions Prescriptions: No Action duloxetine 60 mg capsule,delayed release(DR/EC) 60 mg PO QAM Qty: 90 RF: 3 Eliquis 5 mg tablet 5 mg PO BID Qty: 60 RF: 5 metoprolol tartrate 100 mg tablet 100 mg PO BID Qty: 60 RF: 5 bupropion HCl [Wellbutrin XL] 150 mg tablet extended release 24 hr 150 mg PO BID Qty: 60 RF: 5 (DME) blood-glucose meter Kit See Rx Instructions .ROUTE .MEDSUPPLY Qty: 1 RF: 0 docusate sodium [Colace] 100 mg capsule 500 mg PO DAILY PRN (Reason: Constipation) RF: 0 metformin 500 mg tablet 1,000 mg PO BID Qty: 60 RF: 5 promethazine 25 mg tablet 25 mg PO Q6H PRN (Reason: Nausea) Qty: 30 RF: 3 ciprofloxacin HCl [Cipro] 500 mg tablet 500 mg PO Q12H Qty: 14 RF: 0 diltiazem HCl 240 mg capsule,extended release 24 hr 240 mg PO QAM Qty: 30 RF: 5 insulin aspart U-100 [Novolog U-100 Insulin aspart] 100 unit/mL solution 80 unit SQ TIDM Qty: 6 RF: 1 Levemir U-100 Insulin 100 unit/mL solution 100 unit SUBCUT AMPM Qty: 80 RF: 3 phenazopyridine 95 mg tablet 190 mg PO TID Qty: 12 RF: 0 gabapentin 300 mg capsule 300 mg PO BID Qty: 60 RF: 5 albuterol sulfate [Ventolin HFA] 90 mcg/actuation HFA aerosol inhaler 2 puff INHALATION Q4H PRN (Reason: Shortness Of Breath Or Wheezing) RF: 0 finasteride 5 mg tablet 5 mg PO QAM RF: 0 furosemide 40 mg tablet 40 mg PO QAM RF: 0 atorvastatin 80 mg tablet 80 mg PO QDD RF: 0 polyethylene glycol 3350 [Miralax] 17 gram powder in packet 17 g PO BID PRN (Reason: Constipation) RF: 0 pantoprazole 40 mg tablet,delayed release (DR/EC) 40 mg PO DAILYBB RF: 0 levothyroxine 75 mcg capsule 75 mcg PO DAILYBB RF: 0 Referrals Referrals: Ollie Walker MD [Primary Care Provider] - Discharge Problem: Urinary tract infection Qualifiers: Urinary tract infection type: site unspecified Hematuria presence: without hematuria Qualified Code(s): N39.0 - Urinary tract infection, site not specified
[2021-03-30] MEDS ORDERED: SODIUM CHLORIDE 0.9% 500 ML IV SCH (11:30)
[2021-03-30 12:20] LABS: Basophils # (auto) 0.04 K/uL (0-0.2); Basophils % (auto) 0.4 %; Eosinophils # (auto) 0.27 K/uL (0-0.5); Eosinophils % (auto) 2.9 %; Hematocrit (blood only) 40.9 % (42-52); Hemoglobin 13.4 g/dL (14.0-18.0); Immature Granulocytes # (auto) 0.02 K/uL (0.00-0.02); Immature Granulocytes % (auto) 0.2 %; Lymphocytes # (auto) 1.42 K/uL (1.2-3.4); Lymphocytes % (auto) 15.2 %; Mean Corpuscular Hemoglobin 28.8 pg (25-34); Mean Corpuscular Hgb Conc 32.8 g/dL (32-36); Mean Corpuscular Volume 87.8 fL (80-100); Mean Platelet Volume 10.9 fL (7.4-10.4); Monocytes # (auto) 1.11 K/uL (0.11-0.59); Monocytes % (auto) 11.9 %; Neutrophils % (auto) 69.4 %; Platelet Count 342 K/uL (130-400); RDW Coefficient of Variation 15.7 % (11.5-14.5); RDW Standard Deviation 50.5 fL (36.4-46.3); Red Blood Count 4.66 M/uL (4.7-6.1); White Blood Count 9.36 K/uL (4.8-10.8)
[2021-03-30 12:32] LABS: Appearance Urine Cloudy (Clear); Bacteria Urine Automated Negative (Negative); Bilirubin Urine Negative (Negative); Blood Urine Trace (Negative); Color Urine Yellow; Epithelial Cell Urine Auto 0-5 /lpf (0-5); Glucose Urine UA Trace (Negative); Ketones Urine Negative (Negative); Leukocyte Esterase Urine 3+ (Negative); Nitrite Urine Negative (Negative); Protein Urine Trace (Negative); RBC Urine Automated 0-4 /hpf (0-4); Specific Gravity Urine 1.009 (1.000-1.030); Urobilinogen Urine Negative (Negative); WBC Urine Automated >30 /hpf (0-5); pH Urine 6.5 (4.5-7.5)
[2021-03-30 12:38] LABS: Partial Thromboplastin Ratio 1.1; Prothrombin Time 10.4 Seconds (9.0-12.0)
[2021-03-30 12:48] LABS: Calcium 8.8 mg/dl (8.5-10.1); Creatinine Clr Calc Pharmacy 105.7 ml/min; Est GFR (African American) 79.2 ml/min; Est GFR (Non-African American) 68.3 ml/min; Potassium 4.3 mmol/L (3.5-5.1)
[2021-03-30 13:06] LABS: Albumin Globulin Ratio 0.6 (0.9-2); Bilirubin,Total 0.3 mg/dl (0.2-1); Globulin 4.8 gm/dl (2.5-4.0); Thyroid Stimulating Hormone 3.46 uIu/ml (0.300-4.500); Total Protein 7.8 gm/dl (6.4-8.2)
[2021-03-30] MEDS ORDERED: CEFDINIR 300 MG CAP PO STA (13:53)
--- NOTE | 2021-03-30 15:52 | History & Physical Report ---
Date of Service March 30, 2021 Assessment & Plan (1) UTI (urinary tract infection) due to urinary indwelling catheter: acute on chronic- given dose of Cefdinir in ER, however will continue with ciprofloxacin - Pending culture and sensitivities- adjust therapy as warrented - Villasenor exchanged (2) COVID-19: Unsure of disease onset, but patient has not been vaccinated - Asymptomatic and he is unsure of where he would contract this - His CXR is negative for acute changes - He is not on any oxygen and denies fevers, chills, body aches - Follow his clinical course (3) Foot ulcer: Chronic left plantar surface wound, healing well with good granulation and surrounding tissue without errythema or sloughing - Continue TID wet to dry dressing changes - Patient has ambulatory boot (4) Hyponatremia: mild at 129 with hypochloremia-- corrected for hypoglycemia 132 - likely hypovolemic in the setting of continued diuretics - will replace with LR at 100ml/hr (5) Atrial flutter: Rate controlled - Continue diltiazem - Continue Metoprolol - Continue Apixaban (6) HTN (hypertension), benign: Well controlled Continue lasix (7) Hypothyroidism: Continue Synthroid (8) DM w/o complication type II, uncontrolled: Continue Lantus - aspart sliding scale CF: 20, carb ration 1:15 - Goal <180 (9) Asthma: Continue albuterol PRN (10) Obesity: Chronic obesity and chronic health problems and frequent infection - Difficult for him to continue with exercise and rehab goals History of Present Illness Primary Care Provider: Joe Walker MD 61 YOM with past medical history of Afib/flutter on Apixaban, chronic urinary retention secondary to BPH requiring chronic indwelling Villasenor catheter, DM II on insulin, diabetic foot wound with osteomyelitis. Patient was recently admitted in January for his left foot ulceration with osteomyelitis and bacteremia as well as urinary tract infection. His urine had Klebsiella pneumoniae and group B beta strep. With his foot infection it was felt that he could have a limb salvage amputation secondary to having good arterial flow and his ambulation ability and was transferred to [facility] for evaluation. He refused an amputation and was sent to [facility] for rehab and IV antibiotics. Patient completed his outpatient course of ABX and had his PICC line removed. He comes in today for urinary complaints and changing of his Villasenor catheter. He was also noted to sandeep WHELAN 19 without symptoms and is not on oxygen therapy. Patient will be admitted for PT/OT evaluation and likely need rehab placement for his chronic needs. Will continue his Ciprofloxacin as was sensitive on culture from and has no evidence of continued sepsis. Allergies Allergy/AdvReac Type Severity Reaction Status Date / Time Penicillins Allergy Severe HIVES, RED Verified 03/30/21 13:30 RASH A CHILD ferrous sulfate AdvReac Intermediate Gastrointestinal Unverified 03/30/21 13:39 Upset fluticasone [From Flonase] AdvReac Intermediate FELT FUNNY Verified 03/30/21 13:30 IN THE HEAD Home Medications Medication Instructions Recorded Confirmed Type duloxetine 60 mg capsule,delayed 60 mg PO QAM #90 cap 02/23/20 03/30/21 Rx release albuterol sulfate [Ventolin HFA] 2 puff INHALATION Q4H PRN 05/26/20 03/30/21 History finasteride 5 mg PO QAM 05/26/20 03/30/21 History gabapentin 300 mg capsule 300 mg PO BID #60 cap 09/06/20 03/30/21 Rx apixaban 5 mg tablet 5 mg PO BID #60 tab 10/23/20 03/30/21 Rx metoprolol tartrate 100 mg tablet 100 mg PO BID #60 tab 11/01/20 03/30/21 Rx bupropion HCl 150 mg 24 hr tablet, 150 mg PO BID #60 tab 12/11/20 03/30/21 Rx extended release blood-glucose meter #1 ea 01/30/21 03/30/21 Rx docusate sodium 100 mg capsule 500 mg PO DAILY PRN cap 02/13/21 03/30/21 History metformin 500 mg tablet 1,000 mg PO BID #60 tab 02/13/21 03/30/21 Rx promethazine 25 mg tablet 25 mg PO Q6H PRN #30 tab 03/21/21 03/30/21 Rx ciprofloxacin HCl 500 mg tablet 500 mg PO Q12H #14 tab 03/26/21 03/30/21 Rx diltiazem HCl 240 mg capsule,24 240 mg PO QAM #30 cap 03/26/21 03/30/21 Rx hr,extended release insulin aspart U-100 100 unit/mL 80 unit SQ TIDM #6 ml 03/26/21 03/30/21 Rx subcutaneous solution insulin detemir U-100 100 unit/mL 100 unit SUBCUT AMPM #80 ml 03/26/21 03/30/21 Rx subcutaneous solution phenazopyridine 95 mg tablet 190 mg PO TID #12 tab 03/29/21 03/30/21 Rx atorvastatin 80 mg PO QDD 03/30/21 03/30/21 History furosemide 40 mg PO QAM 03/30/21 03/30/21 History levothyroxine 75 mcg PO DAILYBB 03/30/21 03/30/21 History pantoprazole 40 mg PO DAILYBB 03/30/21 03/30/21 History polyethylene glycol 3350 [Miralax] 17 g PO BID PRN 03/30/21 03/30/21 History Past Med/Surg History Medical History Acute kidney injury Anemia Asthma Atrial flutter Atrial flutter with rapid ventricular response Back injury Blocked urinary catheter Cellulitis Cellulitis of left foot Constipation Diabetic foot ulcer (10/07/13) Fall at home Foot ulcer, right Gas gangrene GERD (gastroesophageal reflux disease) Hypertension Hyponatremia Regional wall motion abnormality of heart Urinary retention Urinary tract infection Surgical History History of amputation of toe Hx of tonsillectomy Family History Mother Diabetes Heart disease Father Heart disease Other No pertinent family history in first degree relatives Denies family history of Ovarian cancer Prostate cancer Myocardial infarction Breast cancer Colorectal cancer Social History Smoking Status: Never smoker Second Hand Exposure: No; Do You Dip or Chew Tobacco: Yes (occasionally); Hx Alcohol Use: Yes Alcohol type: beer Hx Substance Use: No Preferred Language: Polish Communication Ability: Effective On Air Personality Required: No Beliefs That Will Affect Care: None marital status: Life Partner Current Living Situation: Other Current Living Situation Comment: lives with friend Yvette Other Information That Helps Us Care for You: No Feels Safe at Home: Yes Safety Concerns: Feels Safe At This Time Assistive Devices: Cane, Glasses, Walker and Wheelchair Review of Systems Review of Systems: REVIEW OF SYSTEMS: Constitutional: No fever, sweats or chills Eyes: No diplopia, no worsening or blurred vision ENT: normal hearing, no trouble swallowing Respiratory: No cough, sputum, dyspnea at rest or on exertion Cardiovascular: No chest pain, tightness or palpitations Abdomen: No pain, nausea, vomiting, diarrhea or constipation : Pain with urination and Villasenor exchange Musculoskeletal: (+) left toe amputation, No joint pain, calf pain, swelling Neurologic: (+) walks with cane, walker and wheelchair. Psychiatric: No anxiety or depression Skin: (+) wound left plantar surface foot Physical Exam Physical Exam: PHYSICAL EXAM: General: awake, alert, no apparent distress Head: Normocephalic, atraumatic ENT: PERRL, EOMI, no pharyngeal exudate, mucous membranes moist Neuro: AAO x 3, speech clear and appropriate, strength intact bilaterally 5/5, sensation intact and equal all extremities and dermatomes, no pronator drift Chest: equal rise and fall of the chest, no accessory muscle use, no heaves or thrills, Clear to auscultation, on room air, Cardiac: Regular rate and rhythm, telemetry reviewed, skin warm dry, cap refill <3 seconds, peripheral pulses +2 no JVD, no murmur, no JVD, no edema GI: NABS x 4 quadrants, soft, nontender to palpation, no rebound, guarding or tenderness : Villasenor replaced, draining light dilute urine Extremities: Normal inspection, no peripheral edema or erythema, calfs nontender to palpation Psych: Normal mood and affect Skin: no rash or erythema Results & Data Results & Data ([facility]) Vital Signs (Past 12 Hours) Vital Signs Temp Pulse Pulse Resp BP BP Pulse Ox 03/30/21 15:14 80 16 141/103 H 98 03/30/21 12:30 70 16 138/67 99 03/30/21 12:24 98 03/30/21 11:06 37.4 C 71 16 168/74 H 99 Laboratory Results Abnormal lab results 03/30/21 03/30/21 03/30/21 Range/Units 12:04 12:04 12:04 RBC 4.66 L (4.7-6.1) M/uL Hgb 13.4 L (14.0-18.0) g/dL Hct 40.9 L (42-52) % RDW Std Deviation 50.5 H (36.4-46.3) fL RDW Coeff of Adi 15.7 H (11.5-14.5) % MPV 10.9 H (7.4-10.4) fL Dixon # (Auto) 1.11 H (0.11-0.59) K/uL Sodium 129 L (136-145) mmol/L Chloride 97 L (98-107) mmol/L Glucose 207 H (70-99) mg/dl Alkaline Phosphatase 143 H (45-117) U/L Albumin 3.0 L (3.4-5.0) gm/dl Globulin 4.8 H (2.5-4.0) gm/dl Albumin/Globulin Ratio 0.6 L (0.9-2) Urine Appearance Cloudy A (Clear) Urine Protein Trace H (Negative) Urine Glucose (UA) Trace H (Negative) Urine Blood Trace H (Negative) Ur Leukocyte Esterase 3+ H (Negative) Urine WBC (Auto) >30 H (0-5) /hpf U Hyaline Cast (Auto) 5-10 H (0-5) /lpf Urine Yeast Budding w/ Hyphae A (None Prsent) SARS-CoV-2 (PCR) (Negative) 03/30/21 Range/Units 12:04 RBC (4.7-6.1) M/uL Hgb (14.0-18.0) g/dL Hct (42-52) % RDW Std Deviation (36.4-46.3) fL RDW Coeff of Adi (11.5-14.5) % MPV (7.4-10.4) fL Dixon # (Auto) (0.11-0.59) K/uL Sodium (136-145) mmol/L Chloride (98-107) mmol/L Glucose (70-99) mg/dl Alkaline Phosphatase (45-117) U/L Albumin (3.4-5.0) gm/dl Globulin (2.5-4.0) gm/dl Albumin/Globulin Ratio (0.9-2) Urine Appearance (Clear) Urine Protein (Negative) Urine Glucose (UA) (Negative) Urine Blood (Negative) Ur Leukocyte Esterase (Negative) Urine WBC (Auto) (0-5) /hpf U Hyaline Cast (Auto) (0-5) /lpf Urine Yeast (None Prsent) SARS-CoV-2 (PCR) POSITIVE A* (Negative) Diagnostic Findings CXR pending on admission Medications Administered Discontinued Medications Cefdinir (Cefdinir 300 Mg Cap) 600 mg PO ONE STA Stop: 03/30/21 13:54 Last Admin: 03/30/21 15:06 Dose: 600 mg Documented by: [id number] Sodium Chloride (Nss) 500 mls @ 999 mls/hr IV .Q31M GEOVANNA Stop: 03/30/21 12:00 Last Admin: 03/30/21 13:23 Dose: Not Given Documented by: [id number] ECG Additional Comments: Pending on admission Code Status & VTE Plan Code Status CODE: FULL VTE: SCDs, Apixaban VTE Prophylaxis Plan VTE Prophylaxis will be ordered: Yes Supervising Physician Co-Signing Physician 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 His Villasenor catheter exchanged in the ER and had improvement, however noted that he was having significant difficulties at home with taking care of himself and generalized decline. He also was noted to be positive for Covid which would perhaps limit his home caretakers. History and ROS reviewed as above Vitals reviewed Gen:NAD, alert awake oriented x3 obese HEENT: Anicteric sclerae, EOMI CV: RRR no mgr nl S1S2 Pulm: CTAB no wcr Abd: +BS soft NT ND no masses or hernias Ext: No edema, left foot with dressing in place hold down and with white exudate on dressing, no surrounding erythema lateral portion of foot, left fourth and fifth toes amputated Skin: No rashes, warm/dry Neuro: Full strength throughout Laboratory values reviewed Chest x-ray reviewed 61-year-old male here with multiple medical problems historically, but with generalized decline and inability care for self along with asymptomatic Covid-19 infection and requiring Villasenor catheter exchange --Continue wound care -PT/OT consults and hope for rehab placement tomorrow Continue Cipro for Villasenor catheter associated UTI PG Care Time/CCT Total # of Minutes Spent Total Time Spent with Patient: Total time spent is greater than 50% in coordination of care (as documented) at patient's floor/unit and/or counseling patient: Coding Level of Care Code 86119 OBS Care - Level 3 Diagnoses UTI (urinary tract infection) due to urinary indwelling catheter T83.511A; N39.0 Encounter type: initial encounter Indwelling urinary catheter type: indwelling urethral catheter COVID-19 U07.1 Foot ulcer L97.529 Laterality: left Non-pressure ulcer stage: unspecified non-pressure ulcer stage Hyponatremia E87.1 Atrial flutter I48.92 Atrial flutter type: unspecified HTN (hypertension), benign I10 Hypothyroidism E03.9 Hypothyroidism type: acquired DM w/o complication type II, uncontrolled E11.65 Glycemic state: with hyperglycemia Asthma J45.909 Asthma complication type: unspecified Asthma persistence: unspecified Asthma severity: unspecified severity Obesity E66.01; Z68.42 Body mass index: BMI 45.0-49.9 Obesity classification: adult class 3 (BMI >= 40) Obesity type: due to excess calories Serious obesity comorbidity presence: unspecified whether serious comorbidity present (1) Foot ulcer Laterality: left Non-pressure ulcer stage: unspecified non-pressure ulcer stage Qualified Code(s): L97.529 - Non-pressure chronic ulcer of other part of left foot with unspecified severity (2) Atrial flutter Atrial flutter type: unspecified Qualified Code(s): I48.92 - Unspecified atrial flutter (3) UTI (urinary tract infection) due to urinary indwelling catheter Encounter type: initial encounter Indwelling urinary catheter type: indwelling urethral catheter Qualified Code(s): T83.511A - Infection and inflammatory reaction due to indwelling urethral catheter, initial encounter; N39.0 - Urinary tract infection, site not specified (4) Hypothyroidism Hypothyroidism type: acquired Qualified Code(s): E03.9 - Hypothyroidism, unspecified (5) Obesity Body mass index: BMI 45.0-49.9 Obesity classification: adult class 3 (BMI >= 40) Obesity type: due to excess calories Serious obesity comorbidity presence: unspecified whether serious comorbidity present Qualified Code(s): E66.01 - Morbid (severe) obesity due to excess calories; Z68.42 - Body mass index [BMI] 45.0-49.9, adult (6) Asthma Asthma complication type: unspecified Asthma persistence: unspecified Asthma severity: unspecified severity Qualified Code(s): J45.909 - Unspecified asthma, uncomplicated (7) DM w/o complication type II, uncontrolled Glycemic state: with hyperglycemia Qualified Code(s): E11.65 - Type 2 diabetes mellitus with hyperglycemia
--- NOTE | 2021-03-30 16:41 | XRay Report ---
XR chest 1V portable CLINICAL HISTORY: COVID 19 COMPARISON STUDY: Chest radiograph February 01, 2021. FINDINGS: Lung volumes are normal. Lungs are clear. There is no pneumothorax or pleural effusion. Car diomegaly is unchanged. Mediastinal contours are normal. There is no evidence for pulmonary edema. A greenwood projects over the right chest. IMPRESSION: No acute cardiopulmonary findings. Cardiomegaly. ACT 112: Negative or not required by law. Electronically signed by: Pako Gifford M.D. 03/30/2021 4:40 PM
[2021-03-30] MEDS ORDERED: ALBUTEROL HFA 8 GM INHALER INH PRN (18:27)
[2021-03-30] MEDS ORDERED: CARBOHYDRATES FOR HYPOGLYCEMIA PO PRN (18:27)
[2021-03-30] MEDS ORDERED: GLUCAGON FOR INJ 1 MG VIAL SQ PRN (18:27)
[2021-03-30] MEDS ORDERED: POLYETHYLENE (MIRALAX) 17 GM PACK PO PRN (18:27)
[2021-03-30] MEDS ORDERED: GLUCOSE 40% GEL 15 GM TUBE PO PRN (18:27)
[2021-03-30] MEDS ORDERED: DEXTROSE 50% 50 ML SYRINGE IV PRN (18:27)
[2021-03-30] MEDS ORDERED: ACETAMINOPHEN 325 MG TAB PO PRN (18:27)
[2021-03-30] MEDS ORDERED: DOCUSATE SODIUM 100 MG CAP PO PRN (18:27)
[2021-03-30] MEDS ORDERED: GLUCOSE 10 TABS/TUBE PO PRN (18:27)
[2021-03-30] MEDS: buPROPion XL 150 MG TABCR PO SCH (20:50)
[2021-03-30] MEDS: GABAPENTIN 300 MG CAP PO SCH (20:50)
[2021-03-30] MEDS: CIPROFLOXACIN 500 MG TAB PO SCH (20:50)
[2021-03-30] MEDS: ATORVASTATIN 40 MG TAB PO SCH (20:53)
[2021-03-30] MEDS: METOPROLOL TARTRATE 100 MG TAB PO SCH (20:53)
[2021-03-30] MEDS: APIXABAN 5 MG TABLET PO SCH (20:54)
[2021-03-30] MEDS: LACTATED RINGER'S 1,000 ML IV SCH (20:54)
[2021-03-30] MEDS: INSULIN DETEMIR SC SCH (21:25)
[2021-03-30] MEDS: INSULIN ASPART 100 UNITS/ML 3 ML PEN SC SCH ×2 (21:25→21:26)
[2021-03-31] MEDS: LACTATED RINGER'S 1,000 ML IV SCH ×2 (05:40→15:46)
[2021-03-31] MEDS: PANTOprazole 40 MG TAB PO SCH (05:42)
[2021-03-31] MEDS: LEVOTHYROXINE SODIUM 75 MCG TABLET PO SCH (05:42)
[2021-03-31 08:43] LABS: BUN Creatinine Ratio 9.7 (10-20); C Reactive Protein 1.29 mg/dl (0-0.29); Calcium 8.5 mg/dl (8.5-10.1); Creatinine Clr Calc Pharmacy 99.9 ml/min; Magnesium 1.9 mg/dl (1.8-2.4); Potassium 3.9 mmol/L (3.5-5.1)
[2021-03-31] MEDS ORDERED: FUROSEMIDE 40 MG TAB PO SCH (09:00)
[2021-03-31] MEDS: GABAPENTIN 300 MG CAP PO SCH ×2 (09:30→20:34)
[2021-03-31] MEDS: buPROPion XL 150 MG TABCR PO SCH ×2 (09:30→20:34)
[2021-03-31] MEDS: METOPROLOL TARTRATE 100 MG TAB PO SCH ×2 (09:30→20:34)
[2021-03-31] MEDS: dilTIAZem HCL 240 MG CAPCR PO SCH (09:30)
[2021-03-31] MEDS: APIXABAN 5 MG TABLET PO SCH ×2 (09:30→20:34)
[2021-03-31] MEDS: CIPROFLOXACIN 500 MG TAB PO SCH ×2 (09:30→20:34)
[2021-03-31] MEDS: DULoxetine HCL 60 MG CAP PO SCH (09:31)
[2021-03-31] MEDS: INSULIN DETEMIR SC SCH ×2 (09:48→20:59)
[2021-03-31] MEDS: INSULIN ASPART 100 UNITS/ML 3 ML PEN SC SCH ×4 (09:49→20:58)
[2021-03-31] MEDS: ATORVASTATIN 40 MG TAB PO SCH (18:12)
--- NOTE | 2021-03-31 18:24 | Hospitalist Progress Note ---
Date of Service March 31, 2021 Assessment & Plan (1) UTI (urinary tract infection) due to urinary indwelling catheter: with ESBL Klebsiella on Ur cx from 03/26 -continue with ciprofloxacin x 10 day course Villasenor exchanged on 03/30-day of admission With chronic indwelling Villasenor catheter due to urinary retention and buried penis (2) COVID-19: Unsure of disease onset, but patient has not been vaccinated - Asymptomatic and he is unsure of where he would contract this - His CXR is negative for acute changes - He is not on any oxygen and denies fevers, chills, body aches - Follow his clinical course No indication for treatment with steroids or remdesivir (3) Foot ulcer: Chronic left plantar surface wound, healing well with good granulation and surrounding tissue without errythema or sloughing - Continue TID wet to dry dressing changes - Patient has ambulatory boot (4) Hyponatremia: mild at 132 on admission when corrected for hyperglycemia Now improved today up to 135 after volume replacement with LR x24 hours - likely hypovolemic in the setting of continued diuretics -Now discontinued LR -Restart home Lasix tomorrow He is tolerating p.o. (5) Atrial flutter: Rate controlled - Continue diltiazem - Continue Metoprolol - Continue Apixaban (6) HTN (hypertension), benign: Well controlled Restart home lasix (7) Hypothyroidism: Continue Synthroid TSH normal at 3.46 (8) DM w/o complication type II, uncontrolled: With significant hyperglycemia here Continue Lantus 100 units twice daily which is home dose Lower goal glucose 100-140, decrease correction factor and carb ratio Hemoglobin A1c significantly elevated 10.0 in 01/2021 Needs improved control (9) Asthma: Continue albuterol PRN No acute issues (10) Obesity: BMI is 56.6 Chronic obesity and chronic health problems and frequent infection - Difficult for him to continue with exercise and rehab goals (11) DVT prophylaxis: Patient with general inability to care for himself requiring home caregivers, however now testing positive for COVID-19 and would not have access to these caregivers Needs senior living facility or rehab placement Appreciate case management input Awaiting PT/OT consultations Disposition-continued stay until placement is found, however he is medically stable for discharge at this time Admission and Anticipated Discharge Date Admission Date: March 31, 2021 Subjective Patient reports he had a blood clot in his Villasenor catheter today but there is no trouble with drainage of the urine. He feels a little bit nauseated at times and abdominal fullness but no abdominal pain. He is eating well. He is moving his bowels. He denies chest pain or shortness of breath. He has not been out of bed with PT but did get out of bed to the chair today as per nursing. Review of Systems Review of Systems: All systems reviewed & are unremarkable except as noted in HPI & below Physical Exam Constitutional: WD/WN, vitals as above + morbidly obese Eyes: + anicteric sclerae Neck: trachea midline, no thyromegaly Respiratory: normal respiratory effort, lungs clear to auscultation Cardiovascular: RRR, no murmur, no edema Chest (Breasts): Chest: normal inspection of chest Gastrointestinal (Abdomen): normal bowel sounds, soft, nontender, no hepatosplenomegaly Musculoskeletal: Extremities: extremities normal to inspection; no cyanosis and no clubbing Skin: no rashes, warm and dry Neurologic: moves all extremities and awake; no focal motor deficits Psychiatric: A+Ox3, euthymic affect Genitourinary: Villasenor catheter bag with clear yellow urine Lymphatic: no lymphedema Results & Data Results & Data ([facility]) Vital Signs (Past 12 Hours) Vital Signs Temp Pulse Resp BP Pulse Ox 03/31/21 15:49 36.9 C 62 17 133/77 96 03/31/21 08:49 36.9 C 80 18 153/73 H 95 Laboratory Results 03/31/21 03/31/21 03/31/21 Range/Units 20:36 17:31 13:09 Sodium (136-145) mmol/L Potassium (3.5-5.1) mmol/L Chloride (98-107) mmol/L Carbon Dioxide (21-32) mmol/L Anion Gap (3-11) BUN (7-18) mg/dl Creatinine (0.6-1.4) mg/dl Est Cr Clr Drug Dosing ml/min Est GFR ( Amer) ml/min Est GFR (Non-Af Amer) ml/min BUN/Creatinine Ratio (10-20) Glucose (70-99) mg/dl POC Glucose 293 H 242 H 242 H (70-99) mg/dl Calcium (8.5-10.1) mg/dl Magnesium (1.8-2.4) mg/dl C-Reactive Protein (0-0.29) mg/dl 03/31/21 03/31/21 Range/Units 08:43 07:59 Sodium 135 L (136-145) mmol/L Potassium 3.9 (3.5-5.1) mmol/L Chloride 101 (98-107) mmol/L Carbon Dioxide 28 (21-32) mmol/L Anion Gap 6.0 (3-11) BUN 12 (7-18) mg/dl Creatinine 1.23 (0.6-1.4) mg/dl Est Cr Clr Drug Dosing 99.9 ml/min Est GFR ( Amer) 73.0 ml/min Est GFR (Non-Af Amer) 63.0 ml/min BUN/Creatinine Ratio 9.7 L (10-20) Glucose 147 H (70-99) mg/dl POC Glucose 158 H (70-99) mg/dl Calcium 8.5 (8.5-10.1) mg/dl Magnesium 1.9 (1.8-2.4) mg/dl C-Reactive Protein 1.29 H (0-0.29) mg/dl PG Care Time/CCT Total # of Minutes Spent Total Time Spent with Patient: Total time spent is greater than 50% in coordination of care (as documented) at patient's floor/unit and/or counseling patient: Coding Level of Care Code 88839 Subseq Hosp Care Lvl 2 Diagnoses UTI (urinary tract infection) due to urinary indwelling catheter T83.511A; N39.0 Encounter type: initial encounter Indwelling urinary catheter type: indwelling urethral catheter COVID-19 U07.1 Foot ulcer L97.529 Laterality: left Non-pressure ulcer stage: unspecified non-pressure ulcer stage Hyponatremia E87.1 Atrial flutter I48.92 Atrial flutter type: unspecified HTN (hypertension), benign I10 Hypothyroidism E03.9 Hypothyroidism type: acquired DM w/o complication type II, uncontrolled E11.65 Glycemic state: with hyperglycemia Asthma J45.909 Asthma complication type: unspecified Asthma persistence: unspecified Asthma severity: unspecified severity Obesity E66.01; Z68.42 Body mass index: BMI 45.0-49.9 Obesity classification: adult class 3 (BMI >= 40) Obesity type: due to excess calories Serious obesity comorbidity presence: unspecified whether serious comorbidity present DVT prophylaxis Z29.9 (1) Foot ulcer Laterality: left Non-pressure ulcer stage: unspecified non-pressure ulcer stage Qualified Code(s): L97.529 - Non-pressure chronic ulcer of other part of left foot with unspecified severity (2) Atrial flutter Atrial flutter type: unspecified Qualified Code(s): I48.92 - Unspecified atrial flutter (3) UTI (urinary tract infection) due to urinary indwelling catheter Encounter type: initial encounter Indwelling urinary catheter type: indwelling urethral catheter Qualified Code(s): T83.511A - Infection and inflammatory reaction due to indwelling urethral catheter, initial encounter; N39.0 - Urinary tract infection, site not specified (4) Hypothyroidism Hypothyroidism type: acquired Qualified Code(s): E03.9 - Hypothyroidism, unspecified (5) Obesity Body mass index: BMI 45.0-49.9 Obesity classification: adult class 3 (BMI >= 40) Obesity type: due to excess calories Serious obesity comorbidity presence: unspecified whether serious comorbidity present Qualified Code(s): E66.01 - Morbid (severe) obesity due to excess calories; Z68.42 - Body mass index [BMI] 45.0-49.9, adult (6) Asthma Asthma complication type: unspecified Asthma persistence: unspecified Asthma severity: unspecified severity Qualified Code(s): J45.909 - Unspecified asthma, uncomplicated (7) DM w/o complication type II, uncontrolled Glycemic state: with hyperglycemia Qualified Code(s): E11.65 - Type 2 diabetes mellitus with hyperglycemia
[2021-04-01] MEDS: PANTOprazole 40 MG TAB PO SCH (05:31)
[2021-04-01] MEDS: LEVOTHYROXINE SODIUM 75 MCG TABLET PO SCH (05:31)
[2021-04-01] MEDS: INSULIN ASPART 100 UNITS/ML 3 ML PEN SC SCH ×4 (10:00→21:04)
[2021-04-01] MEDS: dilTIAZem HCL 240 MG CAPCR PO SCH (10:17)
[2021-04-01] MEDS: APIXABAN 5 MG TABLET PO SCH ×2 (10:17→20:49)
[2021-04-01] MEDS: CIPROFLOXACIN 500 MG TAB PO SCH ×2 (10:17→20:48)
[2021-04-01] MEDS: METOPROLOL TARTRATE 100 MG TAB PO SCH ×2 (10:17→20:48)
[2021-04-01] MEDS: GABAPENTIN 300 MG CAP PO SCH ×2 (10:17→20:49)
[2021-04-01] MEDS: buPROPion XL 150 MG TABCR PO SCH ×2 (10:17→20:48)
[2021-04-01] MEDS: DULoxetine HCL 60 MG CAP PO SCH (10:18)
[2021-04-01] MEDS: FUROSEMIDE 40 MG TAB PO SCH (10:18)
[2021-04-01] MEDS: INSULIN DETEMIR SC SCH ×2 (10:58→21:04)
[2021-04-01] MEDS: ATORVASTATIN 40 MG TAB PO SCH (17:47)
--- NOTE | 2021-04-01 19:26 | Hospitalist Progress Note ---
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 Pt wishes to inquire with urology about placing a suprapubic catheter (2) COVID-19: Unsure of disease onset, but patient has not been vaccinated - Asymptomatic and he is unsure of where he would contract this - His CXR is negative for acute changes - He is not on any oxygen and denies fevers, chills, body aches - Follow his clinical course No indication for treatment with steroids or remdesivir Unfortunately, this is prevented him from getting to rehab at this point (3) Foot ulcer: Chronic left plantar surface wound, healing well with good granulation and surrounding tissue without erythema or sloughing - Continue TID wet to dry dressing changes - Patient has ambulatory boot (4) Hyponatremia: mild at 132 on admission when corrected for hyperglycemia Now improved today up to 135 after volume replacement with LR x24 hours - likely hypovolemic in the setting of continued diuretics -Now discontinued LR -Continue home p.o. Lasix He is tolerating p.o. (5) Atrial flutter: Rate controlled - Continue diltiazem - Continue Metoprolol - Continue Apixaban (6) HTN (hypertension), benign: Well controlled Continue home lasix (7) Hypothyroidism: Continue Synthroid TSH normal at 3.46 (8) DM w/o complication type II, uncontrolled: With significant hyperglycemia here which is now improving with tighten down NovoLog Continue Lantus 100 units twice daily which is home dose Hemoglobin A1c significantly elevated 10.0 in 01/2021 Needs improved control as an outpatient (9) Asthma: Continue albuterol PRN No acute issues (10) Obesity: BMI is 56.6 Chronic obesity and chronic health problems and frequent infection - Difficult for him to continue with exercise and rehab goals (11) DVT prophylaxis: Patient with general inability to care for himself requiring home caregivers, however now testing positive for COVID-19 and would not have access to these caregivers Needs jail facility or rehab placement Appreciate case management input Awaiting PT/OT consultations Disposition-continued stay until placement is found, however he is medically stable for discharge at this time. community marketing manager to look into referrals on Friday as admissions was not open over the weekend for jail facilities Admission and Anticipated Discharge Date Admission Date: March 31, 2021 Subjective Patient denies any shortness of breath or cough. No new symptoms. He was out of bed to the bathroom and got himself washed up today with assistance as per nursing staff. He is eating and drinking Review of Systems Review of Systems: All systems reviewed & are unremarkable except as noted in HPI & below Physical Exam Constitutional: WD/WN, vitals as above + morbidly obese Eyes: + anicteric sclerae Neck: trachea midline, no thyromegaly Respiratory: normal respiratory effort, lungs clear to auscultation Cardiovascular: RRR, no murmur, no edema Chest (Breasts): Chest: normal inspection of chest Gastrointestinal (Abdomen): normal bowel sounds, soft, nontender, no hepatosplenomegaly Musculoskeletal: Extremities: extremities normal to inspection; no cyanosis and no clubbing Skin: no rashes, warm and dry Neurologic: moves all extremities and awake; no focal motor deficits Psychiatric: A+Ox3, euthymic affect Lymphatic: no lymphedema Results & Data Results & Data ([facility]) Vital Signs (Past 12 Hours) Vital Signs Temp Pulse Resp BP Pulse Ox 04/01/21 09:27 37.0 C 69 18 134/81 95 Laboratory Results 04/01/21 04/01/21 04/01/21 Range/Units 17:40 13:38 09:17 POC Glucose 182 H 197 H 181 H (70-99) mg/dl 03/31/21 Range/Units 20:36 POC Glucose 293 H (70-99) mg/dl PG Care Time/CCT Total # of Minutes Spent Total Time Spent with Patient: Total time spent is greater than 50% in coordination of care (as documented) at patient's floor/unit and/or counseling patient: Coding Level of Care Code 49943 Subseq Hosp Care Lvl 2 Diagnoses UTI (urinary tract infection) due to urinary indwelling catheter T83.511A; N39.0 Encounter type: initial encounter Indwelling urinary catheter type: indwelling urethral catheter COVID-19 U07.1 Foot ulcer L97.529 Laterality: left Non-pressure ulcer stage: unspecified non-pressure ulcer stage Hyponatremia E87.1 Atrial flutter I48.92 Atrial flutter type: unspecified HTN (hypertension), benign I10 Hypothyroidism E03.9 Hypothyroidism type: acquired DM w/o complication type II, uncontrolled E11.65 Glycemic state: with hyperglycemia Asthma J45.909 Asthma severity: unspecified severity Asthma persistence: unspecified Asthma complication type: unspecified Obesity E66.01; Z68.42 Obesity type: due to excess calories Obesity classification: adult class 3 (BMI >= 40) Serious obesity comorbidity presence: unspecified whether serious comorbidity present Body mass index: BMI 45.0-49.9 DVT prophylaxis Z29.9 (1) UTI (urinary tract infection) due to urinary indwelling catheter Encounter type: initial encounter Indwelling urinary catheter type: indwelling urethral catheter Qualified Code(s): T83.511A - Infection and inflammatory reaction due to indwelling urethral catheter, initial encounter; N39.0 - Urinary tract infection, site not specified (2) Foot ulcer Laterality: left Non-pressure ulcer stage: unspecified non-pressure ulcer stage Qualified Code(s): L97.529 - Non-pressure chronic ulcer of other part of left foot with unspecified severity (3) Atrial flutter Atrial flutter type: unspecified Qualified Code(s): I48.92 - Unspecified atrial flutter (4) Hypothyroidism Hypothyroidism type: acquired Qualified Code(s): E03.9 - Hypothyroidism, unspecified (5) DM w/o complication type II, uncontrolled Glycemic state: with hyperglycemia Qualified Code(s): E11.65 - Type 2 diabetes mellitus with hyperglycemia (6) Asthma Asthma severity: unspecified severity Asthma persistence: unspecified Asthma complication type: unspecified Qualified Code(s): J45.909 - Unspecified asthma, uncomplicated (7) Obesity Obesity type: due to excess calories Obesity classification: adult class 3 (BMI >= 40) Serious obesity comorbidity presence: unspecified whether serious comorbidity present Body mass index: BMI 45.0-49.9 Qualified Code(s): E66.01 - Morbid (severe) obesity due to excess calories; Z68.42 - Body mass index [BMI] 45.0-49.9, adult
[2021-04-02] MEDS: PANTOprazole 40 MG TAB PO SCH (05:30)
[2021-04-02] MEDS: LEVOTHYROXINE SODIUM 75 MCG TABLET PO SCH (05:30)
[2021-04-02] MEDS: INSULIN ASPART 100 UNITS/ML 3 ML PEN SC SCH ×4 (09:18→21:33)
[2021-04-02] MEDS: INSULIN DETEMIR SC SCH (09:23)
[2021-04-02] MEDS: buPROPion XL 150 MG TABCR PO SCH ×2 (09:33→21:26)
[2021-04-02] MEDS: METOPROLOL TARTRATE 100 MG TAB PO SCH ×2 (09:34→21:26)
[2021-04-02] MEDS: APIXABAN 5 MG TABLET PO SCH ×2 (09:34→21:25)
[2021-04-02] MEDS: GABAPENTIN 300 MG CAP PO SCH ×2 (09:34→21:26)
[2021-04-02] MEDS: dilTIAZem HCL 240 MG CAPCR PO SCH (09:35)
[2021-04-02] MEDS: CIPROFLOXACIN 500 MG TAB PO SCH ×2 (09:35→21:25)
[2021-04-02] MEDS: DULoxetine HCL 60 MG CAP PO SCH (09:36)
[2021-04-02] MEDS: FUROSEMIDE 40 MG TAB PO SCH (09:36)
[2021-04-02] MEDS ORDERED: PHARMACY GLYCEMIC MGMT CONSULT PRN (16:46)
--- NOTE | 2021-04-02 16:47 | Hospitalist Progress Note ---
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 (2) COVID-19: Unsure of disease onset, but patient has not been vaccinated - Asymptomatic and he is unsure of where he would contract this - His CXR is negative for acute changes - He is not on any oxygen and denies fevers, chills, body aches - Follow his clinical course No indication for treatment with steroids or remdesivir Unfortunately, this is prevented him from getting to rehab at this point (3) Foot ulcer: Chronic left plantar surface wound, healing well with good granulation and surrounding tissue without erythema or sloughing - Continue TID wet to dry dressing changes - Patient has ambulatory boot (4) Hyponatremia: mild at 132 on admission when corrected for hyperglycemia Now improved today up to 135 after volume replacement with LR x24 hours - likely hypovolemic in the setting of continued diuretics -Now discontinued LR -Continue home p.o. Lasix He is tolerating p.o. (5) Atrial flutter: Rate controlled - Continue diltiazem - Continue Metoprolol - Continue Apixaban (6) HTN (hypertension), benign: Well controlled Continue home lasix (7) Hypothyroidism: Continue Synthroid TSH normal at 3.46 (8) DM w/o complication type II, uncontrolled: With significant hyperglycemia here which is now improving with tighten down NovoLog Continue Lantus 100 units twice daily which is home dose Hemoglobin A1c significantly elevated 10.0 in 01/2021 Needs improved control as an outpatient Consult pharmacy for glycemic control (9) Asthma: Continue albuterol PRN No acute issues (10) Obesity: BMI is 56.6 Chronic obesity and chronic health problems and frequent infection - Difficult for him to continue with exercise and rehab goals (11) DVT prophylaxis: Patient with general inability to care for himself requiring home caregivers, however now testing positive for COVID-19 and would not have access to these caregivers Needs senior care facility or rehab placement Appreciate case management input Awaiting PT/OT consultations Patient is medically stable for discharge Admission and Anticipated Discharge Date Admission Date: March 31, 2021 Subjective Villasenor cath in place and draining well. He is fed up of being on isolation precautions and feels he does not have COVID-19. Wishes to go for rehab but if it will be faster he wants to enquire about going home. Awaiting PT/OT evals. Updated his sister in law over the phone. Review of Systems Review of Systems: All systems reviewed & are unremarkable except as noted in HPI & below Physical Exam Constitutional: well developed and + morbidly obese; + not well nourished and no acute distress Respiratory: normal respiratory effort, lungs clear to auscultation Cardiovascular: Rate/Rhythm: regular rate and regular rhythm Heart Sounds: no murmur Extremities: normal capillary refill and + pedal edema (trace pre- tibial b/l equal) Gastrointestinal (Abdomen): normal bowel sounds, soft, nontender, no hepatosplenomegaly Skin: no rashes, warm and dry Neurologic: moves all extremities and awake; not confused Psychiatric: A+Ox3, euthymic affect Genitourinary: no CVA tenderness Results & Data Results & Data ([facility]) Vital Signs (Past 12 Hours) Vital Signs Temp Pulse Resp BP Pulse Ox 04/02/21 08:48 37.3 C 61 18 119/54 L 96 04/02/21 05:24 36.7 C 55 L 16 134/73 95 PG Care Time/CCT Total # of Minutes Spent Total Time Spent with Patient: Total time spent is greater than 50% in coordination of care (as documented) at patient's floor/unit and/or counseling patient: Coding Level of Care Code 10495 Subseq Hosp Care Lvl 1 Diagnoses UTI (urinary tract infection) due to urinary indwelling catheter T83.511A; N39.0 Encounter type: initial encounter Indwelling urinary catheter type: indwelling urethral catheter COVID-19 U07.1 Foot ulcer L97.529 Laterality: left Non-pressure ulcer stage: unspecified non-pressure ulcer stage Hyponatremia E87.1 Atrial flutter I48.92 Atrial flutter type: unspecified HTN (hypertension), benign I10 Hypothyroidism E03.9 Hypothyroidism type: acquired DM w/o complication type II, uncontrolled E11.65 Glycemic state: with hyperglycemia Asthma J45.909 Asthma complication type: unspecified Asthma persistence: unspecified Asthma severity: unspecified severity Obesity E66.01; Z68.42 Body mass index: BMI 45.0-49.9 Obesity classification: adult class 3 (BMI >= 40) Obesity type: due to excess calories Serious obesity comorbidity presence: unspecified whether serious comorbidity present DVT prophylaxis Z29.9 (1) Foot ulcer Laterality: left Non-pressure ulcer stage: unspecified non-pressure ulcer stage Qualified Code(s): L97.529 - Non-pressure chronic ulcer of other part of left foot with unspecified severity (2) Atrial flutter Atrial flutter type: unspecified Qualified Code(s): I48.92 - Unspecified atrial flutter (3) UTI (urinary tract infection) due to urinary indwelling catheter Encounter type: initial encounter Indwelling urinary catheter type: indwelling urethral catheter Qualified Code(s): T83.511A - Infection and inflammatory reaction due to indwelling urethral catheter, initial encounter; N39.0 - Urinary tract infection, site not specified (4) Hypothyroidism Hypothyroidism type: acquired Qualified Code(s): E03.9 - Hypothyroidism, unspecified (5) Obesity Body mass index: BMI 45.0-49.9 Obesity classification: adult class 3 (BMI >= 40) Obesity type: due to excess calories Serious obesity comorbidity presence: unspecified whether serious comorbidity present Qualified Code(s): E66.01 - Morbid (severe) obesity due to excess calories; Z68.42 - Body mass index [BMI] 45.0-49.9, adult (6) Asthma Asthma complication type: unspecified Asthma persistence: unspecified Asthma severity: unspecified severity Qualified Code(s): J45.909 - Unspecified asthma, uncomplicated (7) DM w/o complication type II, uncontrolled Glycemic state: with hyperglycemia Qualified Code(s): E11.65 - Type 2 diabetes mellitus with hyperglycemia
[2021-04-02] MEDS: ATORVASTATIN 40 MG TAB PO SCH (18:01)
--- NOTE | 2021-04-02 19:17 | Pharmacy Report ---
Pharmacy Glycemic Short Note 2 - Date of Service April 02, 2021 - Glycemic Short BSG Results (Last 24 hours): 04/01/21 04/02/21 04/02/21 20:47 08:41 12:32 POC Glucose 207 H 182 H 200 H 04/02/21 17:15 POC Glucose 152 H OUTPATIENT ANTIDIABETIC REGIMEN: * Levemir 100 units SC BID * Novolog 80 units SC TIDM * Metformin 1000 mg PO BIDM * HbA1c: 10% (02/02/21) ASSESSMENT: * NATHANIEL is a 61 year old male admitted on 03/30/21 with presumed catheter-associated UTI * BSGs have been somewhat elevated during this admission, pharmacy consulted the evening of 04/02/21 * Has been receiving Levemir 100 units SC BID and Novolog with correction factor of 12 and carb ratio of 4 * BSG at dinnertime is now 152 mg/dL * Will tighten Novolog parameters, may need to consider decreasing basal insulin, as regimen is very basal heavy at this time PLAN FOR INPATIENT GLYCEMIC CONTROL: * Hold outpatient oral diabetes medications * Basal insulin * Currently ordered Levemir 100 units SC BID * Will reassess this evening - still awaiting BSG * Bolus insulin * NovoLog per scale ACHS or Q6hrs while NPO * Goal Range: Low 110 mg/dL - High 140 mg/dL * Correction Factor: 10 mg/dL/unit * Nutritional / Prandial insulin per carb ratio of 1 unit per 3 grams CHO consumed PLAN FOR DISCHARGE: * tbd
[2021-04-02] MEDS ORDERED: INSULIN DETEMIR SC ONE (21:30)
[2021-04-03] MEDS: LEVOTHYROXINE SODIUM 75 MCG TABLET PO SCH (05:57)
[2021-04-03] MEDS: PANTOprazole 40 MG TAB PO SCH (05:57)
[2021-04-03 07:39] LABS: Basophils # (auto) 0.03 K/uL (0-0.2); Basophils % (auto) 0.3 %; Eosinophils # (auto) 0.38 K/uL (0-0.5); Eosinophils % (auto) 3.4 %; Hematocrit (blood only) 33.9 % (42-52); Hemoglobin 11.3 g/dL (14.0-18.0); Immature Granulocytes # (auto) 0.02 K/uL (0.00-0.02); Immature Granulocytes % (auto) 0.2 %; Lymphocytes # (auto) 1.88 K/uL (1.2-3.4); Mean Corpuscular Hgb Conc 33.3 g/dL (32-36); Mean Corpuscular Volume 87.1 fL (80-100); Mean Platelet Volume 10.5 fL (7.4-10.4); Monocytes # (auto) 1.06 K/uL (0.11-0.59); Monocytes % (auto) 9.6 %; Neutrophils # (auto) 7.68 K/uL (1.4-6.5); Neutrophils % (auto) 69.5 %; Platelet Count 298 K/uL (130-400); RDW Coefficient of Variation 15.4 % (11.5-14.5); RDW Standard Deviation 49.8 fL (36.4-46.3); Red Blood Count 3.89 M/uL (4.7-6.1); White Blood Count 11.05 K/uL (4.8-10.8)
[2021-04-03 08:16] LABS: BUN Creatinine Ratio 11.8 (10-20); Calcium 8.6 mg/dl (8.5-10.1); Creatinine Clr Calc Pharmacy 122.9 ml/min; Est GFR (African American) 93.7 ml/min; Est GFR (Non-African American) 80.9 ml/min; Potassium 3.7 mmol/L (3.5-5.1)
[2021-04-03] MEDS: GABAPENTIN 300 MG CAP PO SCH ×2 (08:48→21:32)
[2021-04-03] MEDS: APIXABAN 5 MG TABLET PO SCH ×2 (08:48→21:31)
[2021-04-03] MEDS: CIPROFLOXACIN 500 MG TAB PO SCH ×2 (08:49→21:28)
[2021-04-03] MEDS: buPROPion XL 150 MG TABCR PO SCH ×2 (08:49→21:30)
[2021-04-03] MEDS: FUROSEMIDE 40 MG TAB PO SCH (08:49)
[2021-04-03] MEDS: dilTIAZem HCL 240 MG CAPCR PO SCH (08:50)
[2021-04-03] MEDS: METOPROLOL TARTRATE 100 MG TAB PO SCH ×2 (08:50→21:29)
[2021-04-03] MEDS: DULoxetine HCL 60 MG CAP PO SCH (08:50)
[2021-04-03] MEDS: INSULIN ASPART 100 UNITS/ML 3 ML PEN SC SCH ×4 (09:23→21:58)
[2021-04-03] MEDS: INSULIN DETEMIR SC SCH ×2 (09:24→21:59)
--- NOTE | 2021-04-03 10:56 | Pharmacy Report ---
Pharmacy Glycemic Short Note 2 - Date of Service April 03, 2021 - Glycemic Short BSG Results (Last 24 hours): 04/02/21 04/02/21 04/02/21 12:32 17:15 21:13 Glucose POC Glucose 200 H 152 H 192 H 04/03/21 04/03/21 07:23 08:36 Glucose 158 H POC Glucose 179 H OUTPATIENT ANTIDIABETIC REGIMEN: * Levemir 100 units SC BID * Novolog 80 units SC TIDM * Metformin 1000 mg PO BIDM * HbA1c: 10% (02/02/21) ASSESSMENT: 04/03 * Pt has received 257 units of insulin over the past 24hrs * 175 units of basal with Levemir * 82 units of bolus with NovoLog * BSGs [id number] mg/dl * Regimen is very basal heavy - putting patient at risk for hypo if PO status changes. Will try to re-distribute to a more 50:50% distribution of basal to prandial insulin 04/02 * NATHANIEL is a 61 year old male admitted on 03/30/21 with presumed catheter-associated UTI * BSGs have been somewhat elevated during this admission, pharmacy consulted the evening of 04/02/21 * Has been receiving Levemir 100 units SC BID and Novolog with correction factor of 12 and carb ratio of 4 * BSG at dinnertime is now 152 mg/dL * Will tighten Novolog parameters, may need to consider decreasing basal insulin, as regimen is very basal heavy at this time PLAN FOR INPATIENT GLYCEMIC CONTROL: * Hold outpatient oral diabetes medications * Basal insulin * Change Levemir to dosing scale based on BSG * 50 units for BSG < 120 * 75 units for BSG 120-180 * 100 units for BSG > 180 * Bolus insulin * NovoLog per scale ACHS or Q6hrs while NPO * Goal Range: Low 110 mg/dL - High 140 mg/dL * Correction Factor: 10 mg/dL/unit * Nutritional / Prandial insulin per carb ratio of 1 unit per 2 grams CHO consumed PLAN FOR DISCHARGE: * tbd; A1c pending for 04/03/21
[2021-04-03 11:20] LABS: Estimated Average Glucose 214 mg/dl; Hemoglobin A1C 9.1 % (4.5-5.6)
[2021-04-03] MEDS ORDERED: ONDANSETRON 4 MG OD TAB PO PRN (12:49)
--- NOTE | 2021-04-03 13:14 | Hospitalist Progress Note ---
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 (2) COVID-19: Unsure of disease onset, but patient has not been vaccinated - Asymptomatic and he is unsure of where he would contract this - His CXR is negative for acute changes - He is not on any oxygen and denies fevers, chills, body aches - Follow his clinical course No indication for treatment with steroids or remdesivir Unfortunately, this is preventing him from getting to rehab at this point (3) Foot ulcer: Chronic left plantar surface wound, healing well with good granulation and surrounding tissue without erythema or sloughing - Continue TID wet to dry dressing changes - Patient has ambulatory boot (4) Hyponatremia: mild at 132 on admission when corrected for hyperglycemia Now improved today up to 135 after volume replacement with LR x24 hours - likely hypovolemic in the setting of continued diuretics -Now discontinued LR -Continue home p.o. Lasix He is tolerating p.o. (5) Atrial flutter: Rate controlled - Continue diltiazem - Continue Metoprolol - Continue Apixaban (6) HTN (hypertension), benign: Well controlled Continue home lasix (7) Hypothyroidism: Continue Synthroid TSH normal at 3.46 (8) DM w/o complication type II, uncontrolled: With significant hyperglycemia here which is now improving with tighten down NovoLog Continue Lantus 100 units twice daily which is home dose Hemoglobin A1c significantly elevated 10.0 in 01/2021 Needs improved control as an outpatient Appreciate pharmacy management for glycemic control (9) Asthma: Continue albuterol PRN No acute issues (10) Obesity: BMI is 56.6 Chronic obesity and chronic health problems and frequent infection - Difficult for him to continue with exercise and rehab goals (11) DVT prophylaxis: Patient with general inability to care for himself requiring home caregivers, however now testing positive for COVID-19 and would not have access to these caregivers Needs jail facility or rehab placement Appreciate case management input PT/OT at baseline Patient is medically stable for discharge Admission and Anticipated Discharge Date Admission Date: March 31, 2021 Subjective No acute events overnight. On discussion on discharge he now feels he is unable to manage at home and wishes to be discharged for inpatient rehabilitation / catheter management. Discussed this would mean waiting until he is off of isolation precautions and he is aware of this. No shortness of breath or chest pain. Villasenor catheter draining well and not getting blocked. Review of Systems Review of Systems: All systems reviewed & are unremarkable except as noted in HPI & below Physical Exam Constitutional: well developed and + morbidly obese; + not well nourished and no acute distress Respiratory: normal respiratory effort Cardiovascular: Rate/Rhythm: regular rate and regular rhythm Heart Sounds: no murmur Gastrointestinal (Abdomen): Inspection/Auscultation: normal bowel sounds Percussion/Palpation: abdomen soft; abdomen nontender Skin: no rashes, warm and dry Neurologic: moves all extremities and awake; not confused Psychiatric: A+Ox3, euthymic affect Results & Data Results & Data ([facility]) Vital Signs (Past 12 Hours) Vital Signs Temp Pulse Resp BP Pulse Ox 04/03/21 08:32 36.9 C 59 L 18 126/64 97 PG Care Time/CCT Total # of Minutes Spent Total Time Spent with Patient: Total time spent is greater than 50% in coordina tion of care (as documented) at patient's floor/unit and/or counseling patient: Coding Level of Care Code 43598 Subseq Hosp Care Lvl 1 Diagnoses UTI (urinary tract infection) due to urinary indwelling catheter T83.511A; N39.0 Encounter type: initial encounter Indwelling urinary catheter type: indwelling urethral catheter COVID-19 U07.1 Foot ulcer L97.529 Laterality: left Non-pressure ulcer stage: unspecified non-pressure ulcer stage Hyponatremia E87.1 Atrial flutter I48.92 Atrial flutter type: unspecified HTN (hypertension), benign I10 Hypothyroidism E03.9 Hypothyroidism type: acquired DM w/o complication type II, uncontrolled E11.65 Glycemic state: with hyperglycemia Asthma J45.909 Asthma complication type: unspecified Asthma persistence: unspecified Asthma severity: unspecified severity Obesity E66.01; Z68.42 Body mass index: BMI 45.0-49.9 Obesity classification: adult class 3 (BMI >= 40) Obesity type: due to excess calories Serious obesity comorbidity presence: unspecified whether serious comorbidity present DVT prophylaxis Z29.9 (1) Foot ulcer Laterality: left Non-pressure ulcer stage: unspecified non-pressure ulcer stage Qualified Code(s): L97.529 - Non-pressure chronic ulcer of other part of left foot with unspecified severity (2) Atrial flutter Atrial flutter type: unspecified Qualified Code(s): I48.92 - Unspecified atrial flutter (3) UTI (urinary tract infection) due to urinary indwelling catheter Encounter type: initial encounter Indwelling urinary catheter type: indwelling urethral catheter Qualified Code(s): T83.511A - Infection and inflammatory reaction due to indwelling urethral catheter, initial encounter; N39.0 - Urinary tract infection, site not specified (4) Hypothyroidism Hypothyroidism type: acquired Qualified Code(s): E03.9 - Hypothyroidism, unspecified (5) Obesity Body mass index: BMI 45.0-49.9 Obesity classification: adult class 3 (BMI >= 40) Obesity type: due to excess calories Serious obesity comorbidity presence: unspecified whether serious comorbidity present Qualified Code(s): E66.01 - Morbid (severe) obesity due to excess calories; Z68.42 - Body mass index [BMI] 45.0-49.9, adult (6) Asthma Asthma complication type: unspecified Asthma persistence: unspecified Asthma severity: unspecified severity Qualified Code(s): J45.909 - Unspecified asthma, uncomplicated (7) DM w/o complication type II, uncontrolled Glycemic state: with hyperglycemia Qualified Code(s): E11.65 - Type 2 diabetes mellitus with hyperglycemia
[2021-04-03] MEDS: ATORVASTATIN 40 MG TAB PO SCH (17:48)
[2021-04-04] MEDS: INSULIN ASPART 100 UNITS/ML 3 ML PEN SC SCH ×6 (00:55→21:37)
[2021-04-04] MEDS: LEVOTHYROXINE SODIUM 75 MCG TABLET PO SCH (05:58)
[2021-04-04] MEDS: PANTOprazole 40 MG TAB PO SCH (05:58)
[2021-04-04] MEDS: INSULIN DETEMIR SC SCH ×2 (09:30→21:38)
[2021-04-04] MEDS: DULoxetine HCL 60 MG CAP PO SCH (09:37)
[2021-04-04] MEDS: buPROPion XL 150 MG TABCR PO SCH ×2 (09:37→20:06)
[2021-04-04] MEDS: GABAPENTIN 300 MG CAP PO SCH ×2 (09:37→20:06)
[2021-04-04] MEDS: APIXABAN 5 MG TABLET PO SCH ×2 (09:37→20:05)
[2021-04-04] MEDS: dilTIAZem HCL 240 MG CAPCR PO SCH (09:37)
[2021-04-04] MEDS: METOPROLOL TARTRATE 100 MG TAB PO SCH ×2 (09:38→20:05)
[2021-04-04] MEDS: FUROSEMIDE 40 MG TAB PO SCH (09:38)
[2021-04-04] MEDS: CIPROFLOXACIN 500 MG TAB PO SCH ×2 (09:44→21:41)
--- NOTE | 2021-04-04 10:38 | Pharmacy Report ---
Pharmacy Glycemic Short Note 2 - Date of Service April 04, 2021 - Glycemic Short BSG Results (Last 24 hours): 04/03/21 04/03/21 04/03/21 12:26 12:27 16:31 POC Glucose 309 H* 296 H 235 H 04/03/21 04/04/21 04/04/21 21:16 00:31 04:12 POC Glucose 175 H 207 H 195 H 04/04/21 08:41 POC Glucose 195 H OUTPATIENT ANTIDIABETIC REGIMEN: * Levemir 100 units SC BID * Novolog 80 units SC TIDM * Metformin 1000 mg PO BIDM * HbA1c: 10% (02/02/21) ASSESSMENT: 04/04 * Pt has received 275 units of insulin over the past 24hrs * 175 units of basal with Levemir * 100 units of bolus with NovoLog * All BSGs above goal range. Will increase Levemir and tighten CF/CR 04/03 * Pt has received 257 units of insulin over the past 24hrs * 175 units of basal with Levemir * 82 units of bolus with NovoLog * BSGs [phone] mg/dl * Regimen is very basal heavy - putting patient at risk for hypo if PO status changes. Will try to re-distribute to a more 50:50% distribution of basal to prandial insulin 04/02 * NATHANIEL is a 61 year old male admitted on 03/30/21 with presumed catheter-associated UTI * BSGs have been somewhat elevated during this admission, pharmacy consulted the evening of 04/02/21 * Has been receiving Levemir 100 units SC BID and Novolog with correction factor of 12 and carb ratio of 4 * BSG at dinnertime is now 152 mg/dL * Will tighten Novolog parameters, may need to consider decreasing basal insulin, as regimen is very basal heavy at this time PLAN FOR INPATIENT GLYCEMIC CONTROL: * Hold outpatient oral diabetes medications * Basal insulin * Change Levemir to dosing scale based on BSG * 100 units for BSG below 160 * 125 units for BSG 160 or above * Bolus insulin * NovoLog per scale ACHS or Q6hrs while NPO * Goal Range: Low 110 mg/dL - High 140 mg/dL * Correction Factor: 9 mg/dL/unit * Nutritional / Prandial insulin per carb ratio of 1 unit per 1.5 grams CHO consumed PLAN FOR DISCHARGE: * A1c = 9.1% on 04/03/21 * Goal A1c likely below 8% based on age/co-morbidities. * Will need to continue to titrate insulin to achieve goal BSGs. May consider changing Levemir to TID (DM Educator discussed this with patient and he is agreeable) vs changing to concentrated insulin (U-500?). * Will update dose increase recs closer to DC
--- NOTE | 2021-04-04 16:27 | Communication Note ---
Date of Service: April 04, 2021 Urology consulted for intermittent catheter blockage and possible suprapubic catheter placement. Reviewed case with Dr. Sharma, on-call urologist. Per chart review, Patient with a chronic Villasenor catheter which was exchanged on 03/30 on admission. Patient requested to speak with urology regarding placement of a suprapubic catheter. Given his current isolation status/Covid diagnosis and that his current Villasenor catheter is working fine and draining adequately, we will plan to see him as an outpatient to discuss possible SPT placement. We will arrange an outpatient follow-up once he is medically stable and recovered from Covid.
--- NOTE | 2021-04-04 17:24 | Hospitalist Progress Note ---
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 (2) COVID-19: Unsure of disease onset, but patient has not been vaccinated - Asymptomatic and he is unsure of where he would contract this - His CXR is negative for acute changes - He is not on any oxygen and denies fevers, chills, body aches - Follow his clinical course No indication for treatment with steroids or remdesivir (3) Foot ulcer: Chronic left plantar surface wound, healing well with good granulation and surrounding tissue without erythema or sloughing - Continue TID wet to dry dressing changes - Patient has ambulatory boot (4) Hyponatremia: mild at 132 on admission when corrected for hyperglycemia Now improved today up to 135 after volume replacement with LR x24 hours - likely hypovolemic in the setting of continued diuretics -Now discontinued LR -Continue home p.o. Lasix He is tolerating p.o. (5) Atrial flutter: Rate controlled - Continue diltiazem - Continue Metoprolol - Continue Apixaban (6) HTN (hypertension), benign: Well controlled Continue home lasix (7) Hypothyroidism: Continue Synthroid TSH normal at 3.46 (8) DM w/o complication type II, uncontrolled: With significant hyperglycemia here which is now improving with tighten down NovoLog Continue Lantus 100 units twice daily which is home dose Hemoglobin A1c significantly elevated 10.0 in 01/2021 Needs improved control as an outpatient Appreciate pharmacy management for glycemic control (9) Asthma: Continue albuterol PRN No acute issues (10) Obesity: BMI is 56.6 Chronic obesity and chronic health problems and frequent infection - Difficult for him to continue with exercise and rehab goals (11) DVT prophylaxis: Patient with general inability to care for himself requiring home caregivers, however now testing positive for COVID-19 and would not have access to these caregivers Needs nursing home facility or rehab placement Appreciate case management input PT/OT at baseline Patient is medically stable for discharge, will attempt to discuss discharge with his half sister again tomorrow. Admission and Anticipated Discharge Date Admission Date: March 31, 2021 Subjective Villasenor catheter draining well and not getting blocked. Discussed PT/OT assessed him as being independent therefore plan on discharging home. He reports a multitude of ongoing concerns. Feels I am not taking him seriously. Reports burning sensation for the past 2 weeks which we have not addressed. Other issues appear to be more chronic and he feels have not been dealt with as he refers to him not knowing even why he needs the catheter despite having it since 2012. He wishes to discuss suprapubic catheter with urology. He wishes to appeal any discharge. Tried calling his half sister to discuss discharge plans but no answer at number provided on two separate occasions. Review of Systems Review of Systems: All systems reviewed & are unremarkable except as noted in HPI & below Physical Exam Constitutional: well developed and + morbidly obese; + not well nourished and no acute distress Respiratory: normal respiratory effort Cardiovascular: Rate/Rhythm: regular rate and regular rhythm Heart Sounds: no murmur Extremities: + pedal edema (trace pre-tibial b/l equal) Neurologic: moves all extremities and awake; not confused Psychiatric: A+Ox3, euthymic affect Genitourinary: no CVA tenderness Results & Data Results & Data ([facility]) Vital Signs (Past 12 Hours) Vital Signs Temp Pulse Resp BP BP Pulse Ox 04/04/21 14:32 36.8 C 58 L 18 98/50 L 95 04/04/21 08:36 36.4 C L 64 18 165/79 H 97 PG Care Time/CCT Total # of Minutes Spent Total Time Spent with Patient: Total time spent is greater than 50% in coordination of care (as documented) at patient's floor/unit and/or counseling patient: Coding Level of Care Code 26641 Subseq Hosp Care Lvl 1 Diagnoses UTI (urinary tract infection) due to urinary indwelling catheter T83.511A; N39.0 Encounter type: initial encounter Indwelling urinary catheter type: indwelling urethral catheter COVID-19 U07.1 Foot ulcer L97.529 Laterality: left Non-pressure ulcer stage: unspecified non-pressure ulcer stage Hyponatremia E87.1 Atrial flutter I48.92 Atrial flutter type: unspecified HTN (hypertension), benign I10 Hypothyroidism E03.9 Hypothyroidism type: acquired DM w/o complication type II, uncontrolled E11.65 Glycemic state: with hyperglycemia Asthma J45.909 Asthma complication type: unspecified Asthma persistence: unspecified Asthma severity: unspecified severity Obesity E66.01; Z68.42 Body mass index: BMI 45.0-49.9 Obesity classification: adult class 3 (BMI >= 40) Obesity type: due to excess calories Serious obesity comorbidity presence: unspecified whether serious comorbidity present DVT prophylaxis Z29.9 (1) Foot ulcer Laterality: left Non-pressure ulcer stage: unspecified non-pressure ulcer stage Qualified Code(s): L97.529 - Non-pressure chronic ulcer of other part of left foot with unspecified severity (2) Atrial flutter Atrial flutter type: unspecified Qualified Code(s): I48.92 - Unspecified a trial flutter (3) UTI (urinary tract infection) due to urinary indwelling catheter Encounter type: initial encounter Indwelling urinary catheter type: indwelling urethral catheter Qualified Code(s): T83.511A - Infection and inflammatory reaction due to indwelling urethral catheter, initial encounter; N39.0 - Urinary tract infection, site not specified (4) Hypothyroidism Hypothyroidism type: acquired Qualified Code(s): E03.9 - Hypothyroidism, unspecified (5) Obesity Body mass index: BMI 45.0-49.9 Obesity classification: adult class 3 (BMI >= 40) Obesity type: due to excess calories Serious obesity comorbidity presence: unspecified whether serious comorbidity present Qualified Code(s): E66.01 - Morbid (severe) obesity due to excess calories; Z68.42 - Body mass index [BMI] 45.0-49.9, adult (6) Asthma Asthma complication type: unspecified Asthma persistence: unspecified Asthma severity: unspecified severity Qualified Code(s): J45.909 - Unspecified asthma, uncomplicated (7) DM w/o complication type II, uncontrolled Glycemic state: with hyperglycemia Qualified Code(s): E11.65 - Type 2 diabetes mellitus with hyperglycemia
[2021-04-04] MEDS: ATORVASTATIN 40 MG TAB PO SCH (18:12)
[2021-04-04] MEDS: FLUCONAZOLE 100 MG TAB PO SCH (20:04)
[2021-04-05] MEDS: LEVOTHYROXINE SODIUM 75 MCG TABLET PO SCH (05:31)
[2021-04-05] MEDS: PANTOprazole 40 MG TAB PO SCH (05:31)
[2021-04-05 05:58] LABS: Basophils # (auto) 0.04 K/uL (0-0.2); Basophils % (auto) 0.4 %; Eosinophils # (auto) 0.45 K/uL (0-0.5); Eosinophils % (auto) 4.9 %; Hematocrit (blood only) 34.5 % (42-52); Hemoglobin 11.1 g/dL (14.0-18.0); Immature Granulocytes # (auto) 0.02 K/uL (0.00-0.02); Immature Granulocytes % (auto) 0.2 %; Lymphocytes # (auto) 2.32 K/uL (1.2-3.4); Mean Corpuscular Hemoglobin 28.5 pg (25-34); Mean Corpuscular Hgb Conc 32.2 g/dL (32-36); Mean Corpuscular Volume 88.5 fL (80-100); Mean Platelet Volume 11.1 fL (7.4-10.4); Monocytes # (auto) 0.91 K/uL (0.11-0.59); Monocytes % (auto) 9.8 %; Neutrophils # (auto) 5.53 K/uL (1.4-6.5); Neutrophils % (auto) 59.7 %; Platelet Count 300 K/uL (130-400); RDW Coefficient of Variation 15.7 % (11.5-14.5); RDW Standard Deviation 50.9 fL (36.4-46.3); White Blood Count 9.27 K/uL (4.8-10.8)
[2021-04-05 06:40] LABS: BUN Creatinine Ratio 13.1 (10-20); Calcium 8.5 mg/dl (8.5-10.1); Est GFR (African American) 69.5 ml/min; Potassium 4.3 mmol/L (3.5-5.1)
[2021-04-05] MEDS: METOPROLOL TARTRATE 100 MG TAB PO SCH ×2 (08:35→20:08)
[2021-04-05] MEDS: APIXABAN 5 MG TABLET PO SCH ×2 (08:36→20:09)
[2021-04-05] MEDS: FUROSEMIDE 40 MG TAB PO SCH (08:36)
[2021-04-05] MEDS: CIPROFLOXACIN 500 MG TAB PO SCH (08:36)
[2021-04-05] MEDS: buPROPion XL 150 MG TABCR PO SCH ×2 (08:37→20:08)
[2021-04-05] MEDS: DULoxetine HCL 60 MG CAP PO SCH (08:37)
[2021-04-05] MEDS: FLUCONAZOLE 100 MG TAB PO SCH (08:37)
[2021-04-05] MEDS: GABAPENTIN 300 MG CAP PO SCH ×2 (08:37→20:09)
[2021-04-05] MEDS: dilTIAZem HCL 120 MG CAPCR PO SCH (08:37)
[2021-04-05] MEDS: INSULIN ASPART 100 UNITS/ML 3 ML PEN SC SCH ×4 (09:52→21:18)
[2021-04-05] MEDS: INSULIN DETEMIR SC SCH ×2 (09:52→21:18)
--- NOTE | 2021-04-05 10:42 | Pharmacy Report ---
Pharmacy Glycemic Short Note 2 - Date of Service April 05, 2021 - Glycemic Short BSG Results (Last 24 hours): 04/04/21 04/04/21 04/04/21 11:41 18:09 20:50 Glucose POC Glucose 279 H 109 H 114 H 04/05/21 04/05/21 05:45 08:27 Glucose 216 H POC Glucose 232 H OUTPATIENT ANTIDIABETIC REGIMEN: * Levemir 100 units SC BID * Novolog 80 units SC TIDM * Metformin 1000 mg PO BIDM * HbA1c: 10% (02/02/21) ASSESSMENT: 04/05 * Pt has received 350 units of insulin over the past 24hrs * 225 units of basal with Levemir * 125 units of bolus with NovoLog * BSGs [phone] mg/dl * AM fasting BSG is still elevated this morning at 232 mg/dl. Pt received 125 units yesterday morning + 100 units last evening. Will increase to 125 units SQ BID for better AM fasting control * Regimen is already basal heavy and increasing basal further today. BSG drops significantly when both CF+CR insulin are given prior to meals. Will loosen CF since basal insulin is being increased. 04/04 * Pt has received 275 units of insulin over the past 24hrs * 175 units of basal with Levemir * 100 units of bolus with NovoLog * All BSGs above goal range. Will increase Levemir and tighten CF/CR 04/03 * Pt has received 257 units of insulin over the past 24hrs * 175 units of basal with Levemir * 82 units of bolus with NovoLog * BSGs 549-151-329-192-179 mg/dl * Regimen is very basal heavy - putting patient at risk for hypo if PO status changes. Will try to re-distribute to a more 50:50% distribution of basal to prandial insulin 04/02 * NATHANIEL is a 61 year old male admitted on 03/30/21 with presumed catheter-associated UTI * BSGs have been somewhat elevated during this admission, pharmacy consulted the evening of 04/02/21 * Has been receiving Levemir 100 units SC BID and Novolog with correction factor of 12 and carb ratio of 4 * BSG at dinnertime is now 152 mg/dL * Will tighten Novolog parameters, may need to consider decreasing basal insulin, as regimen is very basal heavy at this time PLAN FOR INPATIENT GLYCEMIC CONTROL: * Hold outpatient oral diabetes medications * Basal insulin: increase * Change Levemir 125 units SQ BID * Bolus insulin: loosen CF * NovoLog per scale ACHS or Q6hrs while NPO * Goal Range: Low 110 mg/dL - High 140 mg/dL * Correction Factor: 12 mg/dL/unit * Nutritional / Prandial insulin per carb ratio of 1 unit per 1.5 grams CHO consumed PLAN FOR DISCHARGE: * A1c = 9.1% on 04/03/21 * Goal A1c likely below 8% based on age/co-morbidities. * Will need to continue to titrate insulin to achieve goal BSGs. May consider c hanging Levemir to TID (DM Educator discussed this with patient and he is agreeable) vs changing to concentrated insulin (U-500?). * Will update dose increase recs closer to DC
--- NOTE | 2021-04-05 10:43 | Hospitalist Progress Note ---
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 Follow up with urology as outpatient per recommendation in communication note (2) COVID-19: Unsure of disease onset, but patient has not been vaccinated - Asymptomatic - Isolation recommended for 10 days - Discussed diagnosis with his half sister who is willing to look after him at home. (3) Foot ulcer: Chronic left plantar surface wound, healing well with good granulation and surrounding tissue without erythema or sloughing - Continue TID wet to dry dressing changes - Patient has ambulatory boot (4) Hyponatremia: mild at 132 on admission when corrected for hyperglycemia - likely hypovolemic in the setting of continued diuretics, now stopped IV fluids -Continue home p.o. Lasix (5) Atrial flutter: Rate controlled - Continue diltiazem - Continue Metoprolol - Continue Apixaban (6) HTN (hypertension), benign: Well controlled Continue home lasix (7) Hypothyroidism: Continue Synthroid TSH normal at 3.46 (8) DM w/o complication type II, uncontrolled: With significant hyperglycemia here which is now improving with tighten down NovoLog Continue Lantus 125 units twice daily Hemoglobin A1c 9.1 Appreciate pharmacy management for glycemic control Appreciate hospice educator - consider Levemir TID or U-500 as outpatient (9) Asthma: Continue albuterol PRN No acute issues (10) Obesity: BMI is 56.6 Chronic obesity and chronic health problems and frequent infection - Difficult for him to continue with exercise and rehab goals (11) DVT prophylaxis: Patient with general inability to care for himself requiring home caregivers, however now testing positive for COVID-19 and would not have access to these caregivers Needs alf facility or rehab placement Appreciate case management input PT/OT at baseline Multiple complaints today but I explained to him that his chronic problems should be dealt with as an outpatient Patient is medically stable for discharge - difficulty arranging transport today given SARS-COV-2 diagnosis, will be discharged tomorrow. Admission and Anticipated Discharge Date Admission Date: March 31, 2021 Subjective Currently now concerned about his heart pounding. No chest pain or shortness of breath. Reports this has probably been going on since he was born. Reports previously started on blood thinners for this problem. From review of notes I suspect he is having paroxysmal atrial flutter. Complaining of chest pressure, started this morning 8:30am-9:30am. Happens quite regularly. Feels like elephant sitting on his chest. Worse on deep inspiration. On and off since 2019. Inhaler helps quite a bit with this. He is unsure if he has been diagnosed with asthma. He continues to complain about having a brown catheter and needing a suprapubic which I have explained to him on multiple occasions he should follow up with urology regarding this and he has had this since 2013. No acute problems illicited. Initially planned to go to [facility] but determined to be close to baseline per PT/OT. After discussion with his half sister over the phone and the patient again he is now willing to go home and does not wish a retirement placement. Review of Systems Constitutional: no fever and no chills Respiratory: no cough and no hemoptysis Cardiovascular: as per Subjective / HPI; no chest pain with activity, no paroxysmal nocturnal dyspnea, no edema and no calf pain Physical Exam Constitutional: well developed and + morbidly obese; + not well nourished and no acute distress Respiratory: normal respiratory effort, lungs clear to auscultation Cardiovascular: Rate/Rhythm: regular rate and regular rhythm Heart Sounds: no murmur Extremities: + pedal edema (trace pre-tibial b/l equal) Gastrointestinal (Abdomen): Inspection/Auscultation: normal bowel sounds Percussion/Palpation: abdomen soft; abdomen nontender Skin: no rashes, warm and dry Neurologic: moves all extremities and awake; not confused Psychiatric: A+Ox3, euthymic affect Results & Data Results & Data ([facility]) Vital Signs (Past 12 Hours) Vital Signs Temp Pulse Resp BP Pulse Ox 04/05/21 08:34 36.7 C 64 18 110/53 L 96 04/04/21 23:01 36.5 C 63 16 112/72 95 PG Care Time/CCT Total # of Minutes Spent Total Time Spent with Patient: Total time spent is greater than 50% in coordination of care (as documented) at patient's floor/unit and/or counseling patient: Coding Level of Care Code 95721 Subs Hosp Care Lvl 1 Diagnoses UTI (urinary tract infection) due to urinary indwelling catheter T83.511A; N39.0 Encounter type: initial encounter Indwelling urinary catheter type: indwelling urethral catheter COVID-19 U07.1 Foot ulcer L97.529 Laterality: left Non-pressure ulcer stage: unspecified non-pressure ulcer stage Hyponatremia E87.1 Atrial flutter I48.92 Atrial flutter type: unspecified HTN (hypertension), benign I10 Hypothyroidism E03.9 Hypothyroidism type: acquired DM w/o complication type II, uncontrolled E11.65 Glycemic state: with hyperglycemia Asthma J45.909 Asthma complication type: unspecified Asthma persistence: unspecified Asthma severity: unspecified severity Obesity E66.01; Z68.42 Body mass index: BMI 45.0-49.9 Obesity classification: adult class 3 (BMI >= 40) Obesity type: due to excess calories Serious obesity comorbidity presence: unspecified whether serious comorbidity present DVT prophylaxis Z29.9 (1) Foot ulcer Laterality: left Non-pressure ulcer stage: unspecified non-pressure ulcer stage Qualified Code(s): L97.529 - Non-pressure chronic ulcer of other part of left foot with unspecified severity (2) Atrial flutter Atrial flutter type: unspecified Qualified Code(s): I48.92 - Unspecified atrial flutter (3) UTI (urinary tract infection) due to urinary indwelling catheter Encounter type: initial encounter Indwelling urinary catheter type: indwelling urethral catheter Qualified Code(s): T83.511A - Infection and inflammatory reaction due to indwelling urethral catheter, initial encounter; N39.0 - Urinary tract infection, site not specified (4) Hypothyroidism Hypothyroidism type: acquired Qualified Code(s): E03.9 - Hypothyroidism, unspecified (5) Obesity Body mass index: BMI 45.0-49.9 Obesity classification: adult class 3 (BMI >= 40) Obesity type: due to excess calories Serious obesity comorbidity presence: unspecified whether serious comorbidity present Qualified Code(s): E66.01 - Morbid (severe) obesity due to excess calories; Z68.42 - Body mass index [BMI] 45.0-49.9, adult (6) Asthma Asthma complication type: unspecified Asthma persistence: unspecified Asthma severity: unspecified severity Qualified Code(s): J45.909 - Unspecified asthma, uncomplicated (7) DM w/o complication type II, uncontrolled Glycemic state: with hyperglycemia Qualified Code(s): E11.65 - Type 2 diabetes mellitus with hyperglycemia
[2021-04-05] MEDS: ATORVASTATIN 40 MG TAB PO SCH (18:28)
[2021-04-06] MEDS: LEVOTHYROXINE SODIUM 75 MCG TABLET PO SCH (05:45)
[2021-04-06] MEDS: PANTOprazole 40 MG TAB PO SCH (05:45)
[2021-04-06] MEDS: dilTIAZem HCL 120 MG CAPCR PO SCH (09:23)
[2021-04-06] MEDS: METOPROLOL TARTRATE 100 MG TAB PO SCH (09:24)
[2021-04-06] MEDS: FLUCONAZOLE 100 MG TAB PO SCH (09:24)
[2021-04-06] MEDS: FUROSEMIDE 40 MG TAB PO SCH (09:24)
[2021-04-06] MEDS: DULoxetine HCL 60 MG CAP PO SCH (09:24)
[2021-04-06] MEDS: buPROPion XL 150 MG TABCR PO SCH (09:25)
[2021-04-06] MEDS: APIXABAN 5 MG TABLET PO SCH (09:25)
[2021-04-06] MEDS: GABAPENTIN 300 MG CAP PO SCH (09:25)
--- NOTE | 2021-04-06 09:34 | Pharmacy Report ---
Pharmacy Glycemic Short Note 2 - Date of Service April 06, 2021 - Glycemic Short BSG Results (Last 24 hours): 04/05/21 04/05/21 04/05/21 12:51 17:21 20:39 POC Glucose 180 H 132 H 114 H 04/06/21 09:10 POC Glucose 165 H OUTPATIENT ANTIDIABETIC REGIMEN: * Levemir 100 units SC BID * Novolog 80 units SC TIDM * Metformin 1000 mg PO BIDM * HbA1c: 10% (02/02/21) ASSESSMENT: 04/06 * Pt has received 367 units of insulin over the past 24hrs * 250 units of basal with Levemir * 117 units of bolus with NovoLog * BSGs [id number] mg/dl * AM fasting BSG is still slightly above goal range (BG <140) however trending downwards and dose increase just made yesterday; will continue 125 units SQ BID and re-evaluate tomorrow. * Post-prandial BSGs high in the morning and in range for dinner and HS. Higher dose of Levemir should help to bring down BSGs. No change today- re-eval tomorrow. 04/05 * Pt has received 350 units of insulin over the past 24hrs * 225 units of basal with Levemir * 125 units of bolus with NovoLog * BSGs 055-984-240-109-114-232 mg/dl * AM fasting BSG is still elevated this morning at 232 mg/dl. Pt received 125 units yesterday morning + 100 units last evening. Will increase to 125 units SQ BID for better AM fasting control * Regimen is already basal heavy and increasing basal further today. BSG drops significantly when both CF+CR insulin are given prior to meals. Will loosen CF since basal insulin is being increased. 04/04 * Pt has received 275 units of insulin over the past 24hrs * 175 units of basal with Levemir * 100 units of bolus with NovoLog * All BSGs above goal range. Will increase Levemir and tighten CF/CR 04/03 * Pt has received 257 units of insulin over the past 24hrs * 175 units of basal with Levemir * 82 units of bolus with NovoLog * BSGs [phone] mg/dl * Regimen is very basal heavy - putting patient at risk for hypo if PO status changes. Will try to re-distribute to a more 50:50% distribution of basal to prandial insulin 04/02 * NATHANIEL is a 61 year old male admitted on 03/30/21 with presumed catheter-associated UTI * BSGs have been somewhat elevated during this admission, pharmacy consulted the evening of 04/02/21 * Has been receiving Levemir 100 units SC BID and Novolog with correction factor of 12 and carb ratio of 4 * BSG at dinnertime is now 152 mg/dL * Will tighten Novolog parameters, may need to consider decreasing basal insulin, as regimen is very basal heavy at this time PLAN FOR INPATIENT GLYCEMIC CONTROL: no change needed today * Hold outpatient oral diabetes medications * Basal insulin: * Continue Levemir 125 units SQ BID * Bolus insulin: * NovoLog per scale ACHS or Q6hrs while NPO * Goal Range: Low 110 mg/dL - High 140 mg/dL * Correction Factor: 12 mg/dL/unit * Nutritional / Prandial insulin per carb ratio of 1 unit per 1.5 grams CHO consumed PLAN FOR DISCHARGE: * A1c = 9.1% on 04/03/21 * Goal A1c likely below 8% based on age/co-morbidities. * Will need to continue to titrate insulin to achieve goal BSGs. May consider changing Levemir to TID (DM Educator discussed this with patient and he is agreeable) vs changing to concentrated insulin (U-500?). * Will update dose increase recs closer to DC
[2021-04-06] MEDS: INSULIN DETEMIR SC SCH (10:58)
[2021-04-06] MEDS: INSULIN ASPART 100 UNITS/ML 3 ML PEN SC SCH (11:00)
--- NOTE | 2021-04-06 13:05 | Discharge Summary ---
Date of Service April 06, 2021 Admission HPI Per Admitting Provider 61 YOM with past medical history of Afib/flutter on Apixaban, chronic urinary retention secondary to BPH requiring chronic indwelling Villasenor catheter, DM II on insulin, diabetic foot wound with osteomyelitis. Patient was recently admitted in January for his left foot ulceration with osteomyelitis and bacteremia as well as urinary tract infection. His urine had Klebsiella pneumoniae and group B beta strep. With his foot infection it was felt that he could have a limb salvage amputation secondary to having good arterial flow and his ambulation ability and was transferred to [facility] for evaluation. He refused an amputation and was sent to [facility] for rehab and IV antibiotics. Patient completed his outpatient course of ABX and had his PICC line removed. He comes in today for urinary complaints and changing of his Villasenor catheter. He was also noted to have COVID 19 without symptoms and is not on oxygen therapy. Patient will be admitted for PT/OT evaluation and likely need rehab placement for his chronic n eeds. Will continue his Ciprofloxacin as was sensitive on culture from [id number] and has no evidence of continued sepsis. Admission Exam Per Admitting Provider General: awake, alert, no apparent distress Head: Normocephalic, atraumatic ENT: PERRL, EOMI, no pharyngeal exudate, mucous membranes moist Neuro: AAO x 3, speech clear and appropriate, strength intact bilaterally 5/5, sensation intact and equal all extremities and dermatomes, no pronator drift Chest: equal rise and fall of the chest, no accessory muscle use, no heaves or thrills, Clear to auscultation, on room air, Cardiac: Regular rate and rhythm, telemetry reviewed, skin warm dry, cap refill <3 seconds, peripheral pulses +2 no JVD, no murmur, no JVD, no edema GI: NABS x 4 quadrants, soft, nontender to palpation, no rebound, guarding or tenderness : Villasenor replaced, draining light dilute urine Extremities: Normal inspection, no peripheral edema or erythema, calfs nontender to palpation Psych: Normal mood and affect Skin: no rash or erythema Principal Diagnosis Urinary retention UTI SARS-COV-2 positive Discharge Exam Constitutional well developed and + morbidly obese; + not well nourished and no acute distress Respiratory normal respiratory effort, lungs clear to auscultation normal respiratory effort Cardiovascular Rate/Rhythm: regular rate and regular rhythm Heart Sounds: no murmur Extremities: + pedal edema (trace pre-tibial b/l equal) Gastrointestinal (Abdomen) normal bowel sounds, soft, nontender, no hepatosplenomegaly Inspection/Auscultation: normal bowel sounds Percussion/Palpation: abdomen soft; abdomen nontender Skin no rashes, warm and dry Neurologic moves all extremities and awake; not confused Psychiatric A+Ox3, euthymic affect Genitourinary no CVA tenderness Discharge Data Allergies Allergy/AdvReac Type Severity Reaction Status Date / Time Penicillins Allergy Severe HIVES, RED Verified 03/30/21 13:30 RASH A CHILD ferrous sulfate AdvReac Intermediate Gastrointestinal Unverified 03/30/21 13:39 Upset fluticasone [From Flonase] AdvReac Intermediate FELT FUNNY Verified 03/30/21 13:30 IN THE HEAD Consultations 03/30/21 15:25 ED Decision to Admit Stat 04/04/21 15:15 Consult Urology Routine Diabetes Follow up Diabetes Follow-up Needed for HgbA1c >9% Hospital Course (1) UTI (urinary tract infection) due to urinary indwelling catheter: Bishop Mahan is a 61 year old male admitted to [facility] from March 30 - 2020 due to urinary tract infection with an indwelling urinary catheter and urine retention. This was diagnosed as an outpatient with ESBL Klebsiella pneumoniae growing from urine culture on March 23. Repeat urine culture during this admission showed mixed organisms. This was treated with continuing his oral ciprofloxacin. Despite this he continued to have dysuria therefore recommend treating yeast also shown on urinalysis with fluconazole for 2 weeks. Villasenor catheter was changed in the emergency room. His case was discussed with urology and recommend following up as an outpatient with the phone number below. He was incidentally noted to have a SARS-CoV-2 PCR nasal swab positive. He was asymptomatic with this throughout the course of his illness. However recommend completing isolation for total of 10 days from test date (March 30). HbA1c was also noted to be elevated at 9.1. No changes to insulin regimen were made at this time. Recommended following up with his outpatient primary care physician for ongoing management of this. Discussion with the certified diabetes educator recommend possibly changing Levemir to 3 times a day versus switching to U-500 (more concentrated insulin) given high insulin requirements. His stay was prolonged as he had multiple chronic/acute concerns daily and was concerned about coping at home. PT/OT mago felt he was close to his baseline therefore did not qualify for rehabilitation. (2) COVID-19: (3) Foot ulcer: (4) Hyponatremia: (5) Atrial flutter: (6) HTN (hypertension), benign: (7) Hypothyroidism: (8) DM w/o complication type II, uncontrolled: (9) Asthma: (10) Obesity: (11) DVT prophylaxis: Total Time Total Time Spent Total Time Spent (In Minutes): 55 Discharge Plan Discharge Items Patient Disposition: Home - Home Health Services Reason For Visit: UTI, COVID Discharge Diagnosis: Urinary retention UTI SARS-COV-2 positive Condition on Discharge: Good Activity: Resume your previous activity Non-emergency contact: Primary Care Provider and Urologist Call non-emergency contact if: you have any medication questions and your symptoms worsen Follow-up/Referrals: Ollie Walker MD [Primary Care Provider] - 04/10/21 1:30 pm (VIRTUAL VISIT DUE TO +COVID) Ollie Perez MD [Physician] - (1-2 weeks after discharge; THE OFFICE WILL CALL PATIENT WITH HOSPITAL F/U VISIT DUE TO +COVID) Diet: Carb Consistent or DM2 Addtl Attending Provider Instructions: You were admitted to [facility] from March 30 - 2020 due to urinary tract infection with an indwelling urinary catheter and urine retention. This was diagnosed as an outpatient with ESBL Klebsiella pneumoniae growing from urine culture on March 23. Repeat urine culture during this admission s howed mixed organisms. This was treated with continuing your oral ciprofloxacin (antibiotic). Despite this you continue to have dysuria therefore recommend treating yeast this was also seen on urinalysis on admission. For this recommend completing a course of fluconazole for 2 weeks. Villasenor catheter was changed in the emergency room. Your case was discussed with urology and recommend following up as an outpatient with the phone number above. You were incidentally noted to have a SARS-CoV-2 PCR nasal swab positive. This is the virus that causes COVID-19 pneumonia however you appear to have an asymptomatic infection of this as you are not having any signs or symptoms to suggest active infection. However recommend completing isolation for total of 10 days from test date (March 30). Regarding your diabetes your HbA1c was noted to be elevated at 9.1. No changes to insulin regimen were made at this time. Recommend following up with your outpatient primary care physician for ongoing management of this. Discussion with the certified diabetes educator recommend possibly changing Levemir to 3 times a day versus switching to U-500 (more concentrated insulin) given high insulin requirements. You were reviewed by Physical and Occupational Therapy and determined to be close to baseline. Therefore you are determined to be medically stable for discharge at this time. Pending Studies at Discharge: No Stand-Alone Forms: My [facility], Smoking Cessation Medications and DC Order Prescriptions: Continued duloxetine 60 mg capsule,delayed release(DR/EC) 60 mg PO QAM Qty: 90 RF: 3 Eliquis 5 mg tablet 5 mg PO BID Qty: 60 RF: 5 metoprolol tartrate 100 mg tablet 100 mg PO BID Qty: 60 RF: 5 bupropion HCl [Wellbutrin XL] 150 mg tablet extended release 24 hr 150 mg PO BID Qty: 60 RF: 5 (DME) blood-glucose meter Kit See Rx Instructions .ROUTE .MEDSUPPLY Qty: 1 RF: 0 docusate sodium [Colace] 100 mg capsule 500 mg PO DAILY PRN (Reason: Constipation) RF: 0 metformin 500 mg tablet 1,000 mg PO BID Qty: 60 RF: 5 promethazine 25 mg tablet 25 mg PO Q6H PRN (Reason: Nausea) Qty: 30 RF: 3 diltiazem HCl 240 mg capsule,extended release 24 hr 240 mg PO QAM Qty: 30 RF: 5 insulin aspart U-100 [Novolog U-100 Insulin aspart] 100 unit/mL solution 80 unit SQ TIDM Qty: 6 RF: 1 Levemir U-100 Insulin 100 unit/mL solution 100 unit SUBCUT AMPM Qty: 80 RF: 3 albuterol sulfate [Ventolin HFA] 90 mcg/actuation HFA aerosol inhaler 2 puff INHALATION Q4H PRN (Reason: Shortness Of Breath Or Wheezing) RF: 0 furosemide 40 mg tablet 40 mg PO QAM RF: 0 atorvastatin 80 mg tablet 80 mg PO QDD RF: 0 polyethylene glycol 3350 [Miralax] 17 gram powder in packet 17 g PO BID PRN (Reason: Constipation) RF: 0 pantoprazole 40 mg tablet,delayed release (DR/EC) 40 mg PO DAILYBB RF: 0 levothyroxine 75 mcg capsule 75 mcg PO DAILYBB RF: 0 Changed phenazopyridine 95 mg tablet 190 mg PO TID PRN (Reason: Burning urine pain) Qty: 12 RF: 0 Discontinued ciprofloxacin HCl [Cipro] 500 mg tablet 500 mg PO Q12H Qty: 14 RF: 0 No Action finasteride 5 mg tablet 5 mg PO QAM 90 Days Qty: 90 RF: 2 gabapentin 300 mg capsule 300 mg PO BID Qty: 60 RF: 5 Discharge Orders: Discharge Order (Routine); Ordered 04/06/21 Ordered By: Vicente Bennett/Other Patient Handouts: Wound Care Admission Data Admit Date/Time: 03/31/21 10:17 Attending Provider: Vicente Perry Admit Provider: Adolfo Belcher Primary Care Provider: Ollie Walker Other Interventions: Discharge Summary Assessment (RN) Last Done: 04/06/21 12:03 Coding Level of Care Code D/C DAY MANAGEMENT >30 MINS Diagnoses UTI (urinary tract infection) due to urinary indwelling catheter T83.511A; N39.0 Encounter type: initial encounter Indwelling urinary catheter type: indwelling urethral catheter COVID-19 U07.1 Foot ulcer L97.529 Laterality: left Non-pressure ulcer stage: unspecified non-pressure ulcer stage Hyponatremia E87.1 Atrial flutter I48.92 Atrial flutter type: unspecified HTN (hypertension), benign I10 Hypothyroidism E03.9 Hypothyroidism type: acquired DM w/o complication type II, uncontrolled E11.65 Glycemic state: with hyperglycemia Asthma J45.909 Asthma complication type: unspecified Asthma persistence: unspecified Asthma severity: unspecified severity Obesity E66.01; Z68.42 Body mass index: BMI 45.0-49.9 Obesity classification: adult class 3 (BMI >= 40) Obesity type: due to excess calories Serious obesity comorbidity presence: unspecified whether serious comorbidity present DVT prophylaxis Z29.9
== END 2021-04-06 16:22 | disposition home health service (06) | DRG 699 ==
LOC: ED 10:56 → 3N 10:56 → SUATTDRO 03-31 10:17
DX: L97.909 Non-pressure chronic ulcer of unspecified part of unspecified lower leg with unspecified severity; I48.92 Unspecified atrial flutter; J45.909 Unspecified asthma, uncomplicated; Z88.0 Allergy status to penicillin; E66.9 Obesity, unspecified; E03.9 Hypothyroidism, unspecified; B96.1 Klebsiella pneumoniae [K. pneumoniae] as the cause of diseases classified elsewhere; T83.511A Infection and inflammatory reaction due to indwelling urethral catheter, initial encounter; Z68.43 Body mass index [BMI] 50.0-59.9, adult; Y82.8 Other medical devices associated with adverse incidents; N39.0 Urinary tract infection, site not specified; E87.1 Hypo-osmolality and hyponatremia; I10 Essential (primary) hypertension; E11.9 Type 2 diabetes mellitus without complications

== ENCOUNTER 2021-06-01 16:09 | Observation (INO) ==
[2021-06-01] MEDS ORDERED: CEFEPIME 2,000 MG/20 ML VIAL IV STA (17:44)
[2021-06-01] MEDS ORDERED: SODIUM CHLORIDE 0.9% 1000ML 1,000 ML IV SCH (17:45)
--- NOTE | 2021-06-01 17:46 | Emergency Department Note ---
Impression & Plan Acute osteomyelitis of left foot, Cellulitis of left foot, Acute UTI, Leukocytosis ED Provider Note NAME: ENIO BLACKBURN AGE: 61 SEX: M : 1960 ARRIVES VIA: Ambulance INFORMANT: [Patient] ED PROVIDER(S): [Jerome Laws MD] CHIEF COMPLAINT: Fever, unable to void HISTORY OF PRESENT ILLNESS: The patient is a 61-year-old male who has a chronic indwelling Villasenor catheter. The catheter was last changed about 2 weeks ago. A recent urine culture grew multiple organisms. The patient states that his catheter is not draining properly. It seems to be getting clogged. The urine is cloudy. He is concerned he may have infection that requires antibiotic treatment. The patient had a fever of 101 this a.m. Some chills and vomiting. The patient also has a wound that is healing on the left foot. He is to see the wound center in the upcoming. He had surgical work on this for gangrene. He has been somewhat short of breath, no cough or congestion. No abdominal pain or vomiting. His shortness of breath is mainly exertional. The patient does not feel he is able to function at home with everything happening today. He presents by ambulance. REVIEW OF SYSTEMS: See HPI for pertinent positives and negatives. A total of ten systems were reviewed and were otherwise negative. PMHx/PSHx: See Below SOCIAL HISTORY: See Below. PHYSICAL EXAM: GENERAL: Patient is in no acute distress. HEENT: No acute trauma, normocephalic atraumatic, mucous membranes moist, no nasal congestion, no scleral icterus. NECK: No stridor, no adenopathy, no meningismus, trachea is midline. LUNGS: Clear to auscultation bilaterally, no wheeze, no rhonchi, breath sounds equal. HEART: Without murmurs gallops or rubs, regular rate and rhythm. Heart tones are quite distant. ABDOMEN: Soft, nontender, bowel sounds positive, obese, no peritonitis. EXTREMITIES: No cyanosis. The patient has a dressing on the left foot. There is some drainage on the dressing. The lateral aspect of the distal foot has been surgically removed. There is a healing wound in this area and there is some surrounding erythema and warmth. NEUROLOGIC: Oriented x 3, no acute motor or sensory deficits, no focal weakness. SKIN: No rash, no jaundice, no diaphoresis. Groin: There is a Villasenor catheter in place, no scrotal erythema. DIFFERENTIAL DIAGNOSIS: Sepsis, UTI, pneumonia, metabolic abnormality, electrolyte abnormalities, COVID- 19, urinary retention, osteomyelitis, cardiac sources, cellulitis, bacteremia, intracerebral event, toxicologic etiology, neurologic event, as well as other pathologies. EMERGENCY DEPARTMENT COURSE/PROCEDURES: ECG: Indication was shortness of breath. The ECG shows what appears to be a sinus rhythm with poor baseline. LVH is present. The rate is in the 70s. There is no ST elevation, no PVCs. The QTc is 274. Continuous Cardiac Monitoring: An order was placed for continuous cardiac monitoring. The monitor shows a rate of 64 with normal sinus rhythm. MEDICAL DECISION MAKING: There is a mild leukocytosis, this would be consistent with infection. The patient does have a mild anemia with a hemoglobin of 11, this is baseline looking back at previous testing. There is a normal platelet count. No coagulopathy. Patient does have some mild acute kidney injury with a creatinine of 1.57. Sodium is low but this is baseline looking back at previous testing. Lactic acid level is not elevated making severe sepsis less likely. There is no concerning liver enzyme elevation. Urinalysis is consistent with infection. Covid testing is negative. Chest x-ray does not show pneumonia or CHF. Left foot CT does show evidence for osteomyelitis. ECG shows a sinus rhythm, there is no acute ischemic change. Cardiac enzyme testing x1 is not consistent with acute cardiac injury. The patient presents with fever, some vomiting, some chills. He has been short of breath. He has a UTI and a left foot osteomyelitis/cellulitis. The patient was given IV cefepime and IV daptomycin. He was given IV saline for hydration. His Villasenor catheter was removed and a new catheter was placed. I spoke to the patient and case management. The patient is in need of a hospital stay. The on-call hospitalist has been consulted. Past Med/Surg History Medical History Acute kidney injury Anemia Asthma Atrial flutter Atrial flutter with rapid ventricular response Back injury Blocked urinary catheter Cellulitis Cellulitis of left foot Constipation Diabetic foot ulcer (10/07/13) Fall at home Foot ulcer, right Gas gangrene GERD (gastroesophageal reflux disease) Hypertension Hyponatremia Regional wall motion abnormality of heart Urinary retention Urinary tract infection Surgical History History of amputation of toe Hx of tonsillectomy Family History Mother Diabetes Heart disease Father Heart disease Other No pertinent family history in first degree relatives Denies family history of Ovarian cancer Prostate cancer Myocardial infarction Breast cancer Colorectal cancer Social History Smoking Status: Never smoker Second Hand Exposure: No; Hx Alcohol Use: Yes Alcohol type: beer Hx Substance Use: No Preferred Language: Arabic Communication Ability: Effective Golf Cart Attendant Required: No Beliefs That Will Affect Care: None marital status: Life Partner Current Living Situation: Other Current Living Situation Comment: lives with friend Yvette Feels Safe at Home: Yes Assistive Devices: Special Shoe Allergies Allergies Allergy/AdvReac Type Severity Reaction Status Date / Time Penicillins Allergy Severe HIVES, RED Verified 06/01/21 18:46 RASH A CHILD ferrous sulfate AdvReac Intermediate Gastrointestinal Unverified 06/01/21 18:46 Upset fluticasone [From Flonase] AdvReac Intermediate FELT FUNNY Verified 06/01/21 18:46 IN THE HEAD Home Meds Home Medications Medication Instructions Recorded Confirmed albuterol sulfate 90 mcg/actuation 2 puff INHALATION Q4H PRN 05/26/20 06/01/21 aerosol inhaler (Ventolin HFA) docusate sodium 100 mg capsule 500 mg PO DAILY PRN cap 02/13/21 06/01/21 (Colace) atorvastatin 80 mg tablet 80 mg PO QDD 03/30/21 06/01/21 furosemide 40 mg tablet 40 mg PO QAM 03/30/21 06/01/21 pantoprazole 40 mg tablet,delayed 40 mg PO DAILYBB 03/30/21 06/01/21 release Previous Rx's Medication Instructions Recorded apixaban 5 mg tablet (Eliquis) 5 mg PO BID #60 tab 10/23/20 metoprolol tartrate 100 mg tablet 100 mg PO BID #60 tab 11/01/20 bupropion HCl 150 mg 24 hr tablet, 150 mg PO BID #60 tab 03/15/21 extended release (Wellbutrin XL) blood-glucose meter #1 ea 01/30/21 metformin 500 mg tablet 1,000 mg PO BID #60 tab 02/13/21 diltiazem HCl 240 mg capsule,24 240 mg PO QAM #30 cap 03/26/21 hr,extended release insulin detemir U-100 100 unit/mL 100 unit SUBCUT AMPM #80 ml 03/26/21 subcutaneous solution (Levemir U-100 Insulin) gabapentin 300 mg capsule 300 mg PO BID #60 cap 04/17/21 blood sugar diagnostic (OneTouch #100 ea 05/16/21 Verio test strips) levothyroxine 75 mcg capsule 75 mcg PO DAILY #90 cap 05/16/21 insulin aspart U-100 100 unit/mL 80 unit SQ TIDM #6 ml 05/31/21 subcutaneous solution (Novolog U-100 Insulin aspart) Results & Data (ED) Vital Signs Vital Signs - 24 hr 06/01/21 16:24 06/01/21 17:41 06/01/21 17:46 Temperature 36.2 C L Temperature Source Temporal Artery Scan Pulse Rate 69 Pulse Rate [Left] 64 Pulse Rhythm Regular Pulse Rhythm [Left] Regular Pulse Strength [Left] Normal Respiratory Rate 18 22 18 Respiratory Effort / Characteristics Non-Labored Spontaneous Non-Labored Non-Labored Respiratory Depth Normal Normal Respiratory Pattern Regular Regular Blood Pressure 138/67 Blood Pressure [Right Arm] 131/48 L Blood Pressure Mean 90 Blood Pressure Mean [Right Arm] 75 Blood Pressure Position [Right Arm] Lying Pulse Oximetry 97 98 98 Oxygen Delivery Method Room Air Room Air Room Air Sepsis Recent Fever Within 48 Hours No Sepsis New/Unexplained Change in Mental Status No Sepsis Action Taken by Nursing No Action Required 06/01/21 18:47 06/01/21 19:00 06/01/21 19:41 Temperature Temperature Source Pulse Rate Pulse Rate [Left] 62 62 Pulse Rhythm Pulse Rhythm [Left] Regular Regular Pulse Strength [Left] Normal Normal Respiratory Rate 18 18 18 Respiratory Effort / Characteristics Non-Labored Non-Labored Spontaneous Non-Labored Spontaneous Respiratory Depth Normal Normal Respiratory Pattern Regular Regular Blood Pressure Blood Pressure [Right Arm] 152/69 H 149/63 H Blood Pressure Mean Blood Pressure Mean [Right Arm] 96 91 Blood Pressure Position [Right Arm] Lying Pulse Oximetry 98 98 98 Oxygen Delivery Method Room Air Room Air Room Air Sepsis Recent Fever Within 48 Hours Sepsis New/Unexplained Change in Mental Status Sepsis Action Taken by Nursing 06/01/21 20:30 06/01/21 20:33 06/01/21 21:00 Temperature Temperature Source Pulse Rate Pulse Rate [Left] 62 Pulse Rhythm Pulse Rhythm [Left] Regular Pulse Strength [Left] Normal Respiratory Rate 20 20 20 Respiratory Effort / Characteristics Non-Labored Spontaneous Non-Labored Spontaneous Non-Labored Spontaneous Respiratory Depth Normal Respiratory Pattern Regular Blood Pressure Blood Pressure [Right Arm] 125/83 Blood Pressure Mean Blood Pressure Mean [Right Arm] 97 Blood Pressure Position [Right Arm] Pulse Oximetry 98 98 98 Oxygen Delivery Method Room Air Room Air Room Air Sepsis Recent Fever Within 48 Hours Sepsis New/Unexplained Change in Mental Status Sepsis Action Taken by [facility] Medications Current Medication List: was personally reviewed by me Laboratory Data Attestation: I reviewed the patient's lab results. Result diagrams: 06/01/21 18:34 06/01/21 18:34 Lab Results 06/01/21 06/01/21 06/01/21 Range/Units 17:58 17:58 18:00 WBC (4.8-10.8) K/uL RBC (4.7-6.1) M/uL Hgb (14.0-18.0) g/dL Hct (42-52) % MCV (80-100) fL MCH (25-34) pg MCHC (32-36) g/dL RDW Std Deviation (36.4-46.3) fL RDW Coeff of Adi (11.5-14.5) % Plt Count (130-400) K/uL MPV (7.4-10.4) fL Immature Gran % (Auto) % Neut % (Auto) % Lymph % (Auto) % Kern % (Auto) % Eos % (Auto) % Baso % (Auto) % Neut # (Auto) (1.4-6.5) K/uL Lymph # (Auto) (1.2-3.4) K/uL Kern # (Auto) (0.11-0.59) K/uL Eos # (Auto) (0-0.5) K/uL Baso # (Auto) (0-0.2) K/uL Immature Gran # (Auto) (0.00-0.02) K/uL PT (9.0-12.0) Seconds INR (0.9-1.1) APTT (21.0-31.0) Seconds PTT Ratio Sodium (136-145) mmol/L Potassium (3.5-5.1) mmol/L Chloride (98-107) mmol/L Carbon Dioxide (21-32) mmol/L Anion Gap (3-11) BUN (7-18) mg/dl Creatinine (0.6-1.4) mg/dl Est Cr Clr Drug Dosing ml/min Est GFR ( Amer) ml/min Est GFR (Non-Af Amer) ml/min BUN/Creatinine Ratio (10-20) Glucose (70-99) mg/dl Lactate (0.4-2.0) mmol/L Calcium (8.5-10.1) mg/dl Magnesium (1.8-2.4) mg/dl Total Bilirubin (0.2-1) mg/dl AST (15-37) U/L ALT (12-78) U/L Alkaline Phosphatase (45-117) U/L Troponin I (0-0.045) ng/ml Total Protein (6.4-8.2) gm/dl Albumin (3.4-5.0) gm/dl Globulin (2.5-4.0) gm/dl Albumin/Globulin Ratio (0.9-2) Procalcitonin (0-0.5) ng/ml Urine Color Yellow Urine Appearance Cloudy A (Clear) Urine pH 6.5 (4.5-7.5) Ur Specific Mackay 1.009 (1.000-1.030) Urine Protein Negative (Negative) Urine Glucose (UA) Negative (Negative) Urine Ketones Negative (Negative) Urine Blood Trace H (Negative) Urine Nitrite Negative (Negative) Urine Bilirubin Negative (Negative) Urine Urobilinogen Negative (Negative) Ur Leukocyte Esterase 3+ H (Negative) Urine WBC (Auto) >30 H (0-5) /hpf Urine RBC (Auto) 0-4 (0-4) /hpf U Hyaline Cast (Auto) 1-5 (0-5) /lpf U Epithel Cells (Auto) 5-10 H (0-5) /lpf Urine Bacteria (Auto) 4+ H (Negative) COVID-19 Eval Order Covid19 at [facility] SARS-CoV-2 (PCR) NEGATIVE (Negative) 06/01/21 06/01/21 06/01/21 Range/Units 18:34 18:34 18:34 WBC 12.21 H (4.8-10.8) K/uL RBC 4.06 L (4.7-6.1) M/uL Hgb 11.3 L (14.0-18.0) g/dL Hct 34.3 L (42-52) % MCV 84.5 (80-100) fL MCH 27.8 (25-34) pg MCHC 32.9 (32-36) g/dL RDW Std Deviation 47.3 H (36.4-46.3) fL RDW Coeff of Adi 15.3 H (11.5-14.5) % Plt Count 357 (130-400) K/uL MPV 10.2 (7.4-10.4) fL Immature Gran % (Auto) 0.2 % Neut % (Auto) 73.4 % Lymph % (Auto) 14.4 % Kern % (Auto) 9.7 % Eos % (Auto) 2.0 % Baso % (Auto) 0.3 % Neut # (Auto) 8.95 H (1.4-6.5) K/uL Lymph # (Auto) 1.76 (1.2-3.4) K/uL Kern # (Auto) 1.18 H (0.11-0.59) K/uL Eos # (Auto) 0.25 (0-0.5) K/uL Baso # (Auto) 0.04 (0-0.2) K/uL Immature Gran # (Auto) 0.03 H (0.00-0.02) K/uL PT 11.0 (9.0-12.0) Seconds INR 1.1 (0.9-1.1) APTT 28.0 (21.0-31.0) Seconds PTT Ratio 1.1 Sodium 132 L (136-145) mmol/L Potassium 4.4 (3.5-5.1) mmol/L Chloride 100 (98-107) mmol/L Carbon Dioxide 26 (21-32) mmol/L Anion Gap 6.0 (3-11) BUN 19 H (7-18) mg/dl Creatinine 1.57 H (0.6-1.4) mg/dl Est Cr Clr Drug Dosing 79.3 ml/min Est GFR ( Amer) 54.3 ml/min Est GFR (Non-Af Amer) 46.9 ml/min BUN/Creatinine Ratio 12.0 (10-20) Glucose 178 H (70-99) mg/dl Lactate (0.4-2.0) mmol/L Calcium 9.0 (8.5-10.1) mg/dl Magnesium 2.1 (1.8-2.4) mg/dl Total Bilirubin 0.4 (0.2-1) mg/dl AST 11 L (15-37) U/L ALT 18 (12-78) U/L Alkaline Phosphatase 117 (45-117) U/L Troponin I < 0.015 (0-0.045) ng/ml Total Protein 7.7 (6.4-8.2) gm/dl Albumin 2.6 L (3.4-5.0) gm/dl Globulin 5.1 H (2.5-4.0) gm/dl Albumin/Globulin Ratio 0.5 L (0.9-2) Procalcitonin (0-0.5) ng/ml Urine Color Urine Appearance (Clear) Urine pH (4.5-7.5) Ur Specific Mackay (1.000-1.030) Urine Protein (Negative) Urine Glucose (UA) (Negative) Urine Ketones (Negative) Urine Blood (Negative) Urine Nitrite (Negative) Urine Bilirubin (Negative) Urine Urobilinogen (Negative) Ur Leukocyte Esterase (Negative) Urine WBC (Auto) (0-5) /hpf Urine RBC (Auto) (0-4) /hpf U Hyaline Cast (Auto) (0-5) /lpf U Epithel Cells (Auto) (0-5) /lpf Urine Bacteria (Auto) (Negative) COVID-19 Eval Order SARS-CoV-2 (PCR) (Negative) 06/01/21 06/01/21 Range/Units 18:34 18:34 WBC (4.8-10.8) K/uL RBC (4.7-6.1) M/uL Hgb (14.0-18.0) g/dL Hct (42-52) % MCV (80-100) fL MCH (25-34) pg MCHC (32-36) g/dL RDW Std Deviation (36.4-46.3) fL RDW Coeff of Adi (11.5-14.5) % Plt Count (130-400) K/uL MPV (7.4-10.4) fL Immature Gran % (Auto) % Neut % (Auto) % Lymph % (Auto) % Kern % (Auto) % Eos % (Auto) % Baso % (Auto) % Neut # (Auto) (1.4-6.5) K/uL Lymph # (Auto) (1.2-3.4) K/uL Kern # (Auto) (0.11-0.59) K/uL Eos # (Auto) (0-0.5) K/uL Baso # (Auto) (0-0.2) K/uL Immature Gran # (Auto) (0.00-0.02) K/uL PT (9.0-12.0) Seconds INR (0.9-1.1) APTT (21.0-31.0) Seconds PTT Ratio Sodium (136-145) mmol/L Potassium (3.5-5.1) mmol/L Chloride (98-107) mmol/L Carbon Dioxide (21-32) mmol/L Anion Gap (3-11) BUN (7-18) mg/dl Creatinine (0.6-1.4) mg/dl Est Cr Clr Drug Dosing ml/min Est GFR ( Amer) ml/min Est GFR (Non-Af Amer) ml/min BUN/Creatinine Ratio (10-20) Glucose (70-99) mg/dl Lactate 1.5 (0.4-2.0) mmol/L Calcium (8.5-10.1) mg/dl Magnesium (1.8-2.4) mg/dl Total Bilirubin (0.2-1) mg/dl AST (15-37) U/L ALT (12-78) U/L Alkaline Phosphatase (45-117) U/L Troponin I (0-0.045) ng/ml Total Protein (6.4-8.2) gm/dl Albumin (3.4-5.0) gm/dl Globulin (2.5-4.0) gm/dl Albumin/Globulin Ratio (0.9-2) Procalcitonin < 0.05 (0-0.5) ng/ml Urine Color Urine Appearance (Clear) Urine pH (4.5-7.5) Ur Specific Mackay (1.000-1.030) Urine Protein (Negative) Urine Glucose (UA) (Negative) Urine Ketones (Negative) Urine Blood (Negative) Urine Nitrite (Negative) Urine Bilirubin (Negative) Urine Urobilinogen (Negative) Ur Leukocyte Esterase (Negative) Urine WBC (Auto) (0-5) /hpf Urine RBC (Auto) (0-4) /hpf U Hyaline Cast (Auto) (0-5) /lpf U Epithel Cells (Auto) (0-5) /lpf Urine Bacteria (Auto) (Negative) COVID-19 Eval Order SARS-CoV-2 (PCR) (Negative) Administered Medications Discontinued Medications Sodium Chloride (Nss 1000ml) 1,000 mls @ 999 mls/hr IV .[id number] GEOVANNA Stop: 06/01/21 18:45 Last Infusion: 06/01/21 20:19 Dose: 0 mls/hr Documented by: [id number] Admin: 06/01/21 18:46 Dose: 999 mls/hr Documented by: [id number] Cefepime HCl (Maxipime) 2,000 mg in 20 mls @ 5 mls/min IV NOW STA; Protocol Stop: 06/01/21 17:47 Last Admin: 06/01/21 18:45 Dose: 5 mls/min Documented by: [id number] Daptomycin 675 mg/ Syringe 13.5 mls @ 6.75 mls/min IV NOW ONE; Protocol Stop: 06/01/21 21:01 Last Admin: 06/01/21 21:36 Dose: 6.75 mls/min Documented by: [id number] Imaging Data Radiologist's Impression: Chest X-Ray 06/01/21 17:41 XR chest 1V portable CLINICAL HISTORY: SEPSIS COMPARISON STUDY: Chest radiograph March 30, 2021. FINDINGS: Lung volumes are normal. Lungs are clear. There is no pneumothorax or pleural effusion. Cardiomegaly is unchanged. Mediastinal contours are normal. There is no evidence for pulmonary edema. IMPRESSION: No acute cardiopulmonary findings. Cardiomegaly. ACT 112: Negative or not required by law. Electronically signed by: Pako Gifford M.D. 06/01/2021 7:[address] 09/03/21 17:41 CT foot LT wo con CLINICAL HISTORY: Left foot pain. Wound. Possible osteomyelitis. COMPARISON STUDY: Left foot radiographs February 01, 2021. MRI of the left foot February 03, 2021. TECHNIQUE: Axial images of the left foot were obtained without IV contrast. Sagittal and coronal reconstructions were viewed. Automated exposure control was utilized for the study. A dose lowering technique was utilized adhering to the principles of ALARA. FINDINGS: A wound of the plantar lateral aspect of the left midfoot is noted. There is adjacent fluid and infiltration consistent with cellulitis. Sensitivity for detection of an abscess is diminished on this unenhanced exam but no well- defined fluid collection is noted. There are postoperative findings consistent with amputation of the fourth and fifth digits. Note is made of bony erosion of the base and proximal shaft of the remaining portion of the left fourth metatarsal consistent with osteomyelitis. There is also erosion of the plantar aspect of the cuboid. No acute fracture is identified on this examination but there is nonspecific periosteal thickening of the distal shaft of the left fibula, incompletely imaged on this examination. This exam is mildly compromised by motion artifact. IMPRESSION: 1. Wound of the plantar lateral aspect of the left midfoot with associated cellulitis. Adjacent erosion of the base and proximal shaft of the left fourth metatarsal as well as the plantar aspect of the cuboid highly suggestive of osteomyelitis. 2. Status post left fourth and fifth digit amputations. 3. Exam compromised by motion artifact. 4. Left foot and left ankle edema. ACT 112: Negative or not required by law. Electronically signed by: Pako Gifford M.D. 06/01/2021 8:44 PM Discharge Plan Visit Data Chief Complaint: Unable to Void ED Provider: Jerome Laws Discharge Problem: Acute osteomyelitis of left foot, Cellulitis of left foot, Acute UTI, Leukocytosis Patient Disposition: Admitted As Inpatient Condition: Fair Forms Stand Alone Forms: My [facility] [employer] Prescriptions Prescriptions: No Action Eliquis 5 mg tablet 5 mg PO BID Qty: 60 RF: 5 metoprolol tartrate 100 mg tablet 100 mg PO BID Qty: 60 RF: 5 bupropion HCl [Wellbutrin XL] 150 mg tablet extended release 24 hr 150 mg PO BID Qty: 60 RF: 5 (DME) blood-glucose meter Kit See Rx Instructions .ROUTE .MEDSUPPLY Qty: 1 RF: 0 docusate sodium [Colace] 100 mg capsule 500 mg PO DAILY PRN (Reason: Constipation) RF: 0 metformin 500 mg tablet 1,000 mg PO BID Qty: 60 RF: 5 diltiazem HCl 240 mg capsule,extended release 24 hr 240 mg PO QAM Qty: 30 RF: 5 Levemir U-100 Insulin 100 unit/mL solution 100 unit SUBCUT AMPM Qty: 80 RF: 3 gabapentin 300 mg capsule 300 mg PO BID Qty: 60 RF: 5 levothyroxine 75 mcg capsule 75 mcg PO DAILY Qty: 90 RF: 1 (DME) OneTouch Verio test strips Strip See Rx Instructions .Route Qty: 100 RF: 4 insulin aspart U-100 [Novolog U-100 Insulin aspart] 100 unit/mL solution 80 unit SQ TIDM Qty: 6 RF: 1 albuterol sulfate [Ventolin HFA] 90 mcg/actuation HFA aerosol inhaler 2 puff INHALATION Q4H PRN (Reason: Shortness Of Breath Or Wheezing) RF: 0 furosemide 40 mg tablet 40 mg PO QAM RF: 0 atorvastatin 80 mg tablet 80 mg PO QDD RF: 0 pantoprazole 40 mg tablet,delayed release (DR/EC) 40 mg PO DAILYBB RF: 0 Referrals Referrals: Ollie Walker MD [Primary Care Provider] -
[2021-06-01 18:22] LABS: Appearance Urine Cloudy (Clear); Bacteria Urine Automated 4+ (Negative); Bilirubin Urine Negative (Negative); Blood Urine Trace (Negative); Color Urine Yellow; Glucose Urine UA Negative (Negative); Ketones Urine Negative (Negative); Leukocyte Esterase Urine 3+ (Negative); Nitrite Urine Negative (Negative); Protein Urine Negative (Negative); RBC Urine Automated 0-4 /hpf (0-4); Specific Gravity Urine 1.009 (1.000-1.030); Urobilinogen Urine Negative (Negative); WBC Urine Automated >30 /hpf (0-5); pH Urine 6.5 (4.5-7.5)
[2021-06-01 18:50] LABS: Basophils # (auto) 0.04 K/uL (0-0.2); Basophils % (auto) 0.3 %; Eosinophils # (auto) 0.25 K/uL (0-0.5); Hematocrit (blood only) 34.3 % (42-52); Hemoglobin 11.3 g/dL (14.0-18.0); Immature Granulocytes # (auto) 0.03 K/uL (0.00-0.02); Immature Granulocytes % (auto) 0.2 %; Lymphocytes # (auto) 1.76 K/uL (1.2-3.4); Lymphocytes % (auto) 14.4 %; Mean Corpuscular Hemoglobin 27.8 pg (25-34); Mean Corpuscular Hgb Conc 32.9 g/dL (32-36); Mean Corpuscular Volume 84.5 fL (80-100); Mean Platelet Volume 10.2 fL (7.4-10.4); Monocytes # (auto) 1.18 K/uL (0.11-0.59); Monocytes % (auto) 9.7 %; Neutrophils # (auto) 8.95 K/uL (1.4-6.5); Neutrophils % (auto) 73.4 %; Platelet Count 357 K/uL (130-400); RDW Coefficient of Variation 15.3 % (11.5-14.5); RDW Standard Deviation 47.3 fL (36.4-46.3); Red Blood Count 4.06 M/uL (4.7-6.1); White Blood Count 12.21 K/uL (4.8-10.8)
[2021-06-01 19:06] LABS: INR 1.1 (0.9-1.1); Partial Thromboplastin Ratio 1.1
--- NOTE | 2021-06-01 19:10 | XRay Report ---
XR chest 1V portable CLINICAL HISTORY: SEPSIS COMPARISON STUDY: Chest radiograph March 30, 2021. FINDINGS: Lung volumes are normal. Lungs are clear. There is no pneumothorax or pleural effusion. Car diomegaly is unchanged. Mediastinal contours are normal. There is no evidence for pulmonary edema. IMPRESSION: No acute cardiopulmonary findings. Cardiomegaly. ACT 112: Negative or not required by law. Electronically signed by: Pako Gifford M.D. 06/01/2021 7:09 PM
[2021-06-01 19:11] LABS: Alanine Aminotransferase 18 U/L (12-78); Albumin Level 2.6 gm/dl (3.4-5.0); Aspartate Aminotransferase 11 U/L (15-37); Blood Urea Nitrogen 19 mg/dl (7-18); Carbon Dioxide 26 mmol/L (21-32); Chloride 100 mmol/L (98-107); Creatinine Clr Calc Pharmacy 79.3 ml/min; Est GFR (African American) 54.3 ml/min; Est GFR (Non-African American) 46.9 ml/min; Glucose 178 mg/dl (70-99); Magnesium 2.1 mg/dl (1.8-2.4); Potassium 4.4 mmol/L (3.5-5.1); Sodium 132 mmol/L (136-145)
[2021-06-01 19:16] LABS: Albumin Globulin Ratio 0.5 (0.9-2); Alkaline Phosphatase 117 U/L (45-117); Bilirubin,Total 0.4 mg/dl (0.2-1); Globulin 5.1 gm/dl (2.5-4.0); Total Protein 7.7 gm/dl (6.4-8.2); Troponin I < 0.015 ng/ml (0-0.045)
--- NOTE | 2021-06-01 20:45 | CT Scan Report ---
CT foot LT wo con CLINICAL HISTORY: Left foot pain. Wound. Possible osteomyelitis. COMPARISON STUDY: Left foot radiographs February 01, 2021. MRI of the left foot February 03, 2021. TECHNIQUE: Axial images of the left foot were obtained without IV contrast. Sagittal and coronal keith nstructions were viewed. Automated exposure control was utilized for the study. A dose lowering tech nique was utilized adhering to the principles of ALARA. FINDINGS: A wound of the plantar lateral aspect of the left midfoot is noted. There is adjacent fluid and infiltration consistent with cellulitis. Sensitivity for detection of an abscess is diminished o n this unenhanced exam but no well-defined fluid collection is noted. There are postoperative finding s consistent with amputation of the fourth and fifth digits. Note is made of bony erosion of the base and proximal shaft of the remaining portion of the left fourth metatarsal consistent with osteomyeli tis. There is also erosion of the plantar aspect of the cuboid. No acute fracture is identified on th is examination but there is nonspecific periosteal thickening of the distal shaft of the left fibula, incompletely imaged on this examination. This exam is mildly compromised by motion artifact. IMPRESSION: 1. Wound of the plantar lateral aspect of the left midfoot with associated cellulitis. Adjacent erosi on of the base and proximal shaft of the left fourth metatarsal as well as the plantar aspect of the cuboid highly suggestive of osteomyelitis. 2. Status post left fourth and fifth digit amputations. 3. Exam compromised by motion artifact. 4. Left foot and left ankle edema. ACT 112: Negative or not required by law. Electronically signed by: Pako Gifford M.D. 06/01/2021 8:44 PM
[2021-06-01] MEDS ORDERED: DAPTOmycin 675 MG in SYRINGE 0 ML IV ONE (21:00)
--- NOTE | 2021-06-01 23:05 | History & Physical Report ---
Date of Service June 01, 2021 Assessment & Plan (1) Dysuria: Plan: Mr. Mahan is a 61 yo gentleman with a PMHx of a chronic indwelling brown catheter who prestented for difficulty voiding. - on arrival, Mr. Mahan endorsed dysuria, however after brown catheter was exchanged in the ED, he denied any further urinary discomfort - UA on admission showing neg nitrite, 3+ LE, 4+ bacteria, > 30 WBCs - Urine culture from 05/30/21 with > 3 organisms all with high counts, suspect inventory representative of contamination - Urine culture redrawn on admission - Patient afebrile. WBC mildly elevated to 12. Procal not elevated. - history of e.coli ESBL - although I am not entirely convinced he has an acute UTI, I will continue Cefepime + Daptomycin in the setting possible acute on chronic osteomyelitis (2) Osteomyelitis of left foot: Plan: - MRI of left foot in January 2021 showed evidence of osteomyelitis - subsequently debridement at [facility] and treated with 4 weeks of IV antibiotics - Foot CT on admission showing continued evidence of bony changes consistent in appearance with osteomyelitis - unfortunately, we do not have any imaging in our system that may have been obtained following 4 weeks of antimicrobial treatment (ie to distinguish if this represent an acute on chronic, or simply chronic osteomyelitis) - HIM records request placed - continue IV cefepime (pseudomonal coverage recommended given diabetes comorbidit) and Dapto, as patient is at high risk for resistant bacteria due to recent hospital/inpatient rehab stay - consider ortho consult in am for bone biospy/review of imaging (3) Anemia: Plan: - Hgb 11.3, MCV 84 - normocytic anemia - etiology uncertain - trend CBC (4) CKD (chronic kidney disease) stage 3, GFR 30-59 ml/min: Plan: - Cr at 1.57 on admission, baseline ~ 1.2 - 1 liter of IVF given in ED - repeat BMP in am (5) DM w/o complication type II, uncontrolled: Plan: - HbA1c 9.1 in 04/03/21, down from 10 in January 2021 - continue home insulin regimen; hold metformin while inpatient - continue high intensity statin - not on an SYED/ARB - diabetic diet (6) Atrial flutter: Plan: - history of - on anticoagulation with Eliquis - on rate control with diltiazem + metoprolol (7) GERD (gastroesophageal reflux disease): Plan: - continue home dose pantroprazole (8) Hypothyroidism: Plan: - continue home dose levothyroxine (9) Depression: Plan: - continue home dose wellbutrin DVT ppx: On eliquis Diet: Carb consistent, heart healthy Code: Full Dispo: Med/Surg. PT/OT ordered History of Present Illness Primary Care Provider: Joe Walker MD Mr. Mahan is a 61 yo male with a chronic indwelling brown catheter who presented for evaluation of difficulty voiding. He follows with [facility] - his catheter was changed 2 weeks ago in the office. Over the past few days, he has noticed improper drainage. A urine culture was collected on 05/30/21 - this grew out > 3 organisms, all in high counts. This morning, he developed fever of 101 with chills, vomiting and exertional dyspnea. Of note, he has a PMHx of uncontrolled type II diabetes mellitus. He has a known left foot ulcer - this was infected in January 2021 - an MRI obtained at [facility] showed concern for osteomyelitis. He was transferred to [facility] in [place] for further care - he states he underwent surgery/debridement of the infected bone while at [place]. A PICC line was placed and he received ~ 4 weeks of IV antibiotic therapy (he cannot recall the name of the specific drug). The PICC line was later removed in February 2021. He did a 2 week inpatient rehab stay at [facility] following this admission to [facility]. He apparently progressed to full weight bearing by the end of rehab. Since being home, he states his foot has felt great. He admits he is afraid to bear weight on it - he has spent most of his time in the recliner - only walking several feet to the bedside commode each day. His hesitancy toward ambulation is not because he has increased pain when he walks on his foot - instead it is because he is afraid of it getting reinjured. He denies any increased drainage or odor. His has a visit scheduled with the wound care clinic in the near future (but has not yet been seen by this group). Social Hx: he lives at home - has a friend Yvette who takes care of him, along with other home jordin aids. Transportation is apparently an issue. In the ED, he was afebrile, with normal HR, BP and breathing. His WBC was 12, Hgb 11.3, MCV 84. Coags WNL. Na 132, electrolytes otherwise WNL. Creatinine 1.57, BUN 19. Liver enzymes WNL. Lactate not elevated. Procal not elevated. UA neg for nitrites, 3+ LE, 4+ bacteria, > 30 WBCs. Urine and blood cultures pending. COVID 19 neg. EKG showing sinus, evidence of LVH, no st segment changes. CXR showed no active disease. Foot CT showing wound on plantar aspect of left foot with surrounding cellulitis. Adjacent areas of 4th metatarsal and cuboid suspicious for osteomyelitis. His brown was exchanged in the ED. HE was started on 1 liter of NSS, Cefepime and Daptomycin. Allergies Allergy/AdvReac Type Severity Reaction Status Date / Time Penicillins Allergy Severe HIVES, RED Verified 06/01/21 18:46 RASH A CHILD ferrous sulfate AdvReac Intermediate Gastrointestinal Unverified 06/01/21 18:46 Upset fluticasone [From Flonase] AdvReac Intermediate FELT FUNNY Verified 06/01/21 18:46 IN THE HEAD Home Medications Medication Instructions Recorded Confirmed Type albuterol sulfate 90 mcg/actuation 2 puff INHALATION Q4H PRN 05/26/20 06/01/21 History aerosol inhaler (Ventolin HFA) metoprolol tartrate 100 mg tablet 100 mg PO BID #60 tab 11/01/20 06/01/21 Rx bupropion HCl 150 mg 24 hr tablet, 150 mg PO BID #60 tab 12/11/20 06/01/21 Rx extended release (Wellbutrin XL) blood-glucose meter #1 ea 01/30/21 06/01/21 Rx docusate sodium 100 mg capsule 500 mg PO DAILY PRN cap 02/13/21 06/01/21 History (Colace) metformin 500 mg tablet 1,000 mg PO BID #60 tab 02/13/21 06/01/21 Rx diltiazem HCl 240 mg capsule,24 240 mg PO QAM #30 cap 03/26/21 06/01/21 Rx hr,extended release insulin detemir U-100 100 unit/mL 100 unit SUBCUT AMPM #80 ml 03/26/21 06/01/21 Rx subcutaneous solution (Levemir U-100 Insulin) atorvastatin 80 mg tablet 80 mg PO QDD 03/30/21 06/01/21 History furosemide 40 mg tablet 40 mg PO QAM 03/30/21 06/01/21 History pantoprazole 40 mg tablet,delayed 40 mg PO DAILYBB 03/30/21 06/01/21 History release gabapentin 300 mg capsule 300 mg PO BID #60 cap 04/17/21 06/01/21 Rx blood sugar diagnostic (OneTouch #100 ea 05/16/21 06/01/21 Rx Verio test strips) levothyroxine 75 mcg capsule 75 mcg PO DAILY #90 cap 05/16/21 06/01/21 Rx insulin aspart U-100 100 unit/mL 80 unit SQ TIDM #6 ml 05/31/21 06/01/21 Rx subcutaneous solution (Novolog U-100 Insulin aspart) cefepime 2 gram solution for 1 g IV Q12H #10 ea 06/02/21 Rx injection daptomycin 500 mg intravenous 500 mg IV DAILY #10 ea 06/02/21 Rx solution Past Med/Surg History Medical History Acute kidney injury Anemia Asthma Atrial flutter Atrial flutter with rapid ventricular response Back injury Blocked urinary catheter Cellulitis Cellulitis of left foot Constipation Diabetic foot ulcer (10/07/13) Fall at home Foot ulcer, right Gas gangrene GERD (gastroesophageal reflux disease) Hypertension Hyponatremia Regional wall motion abnormality of heart Urinary retention Urinary tract infection Surgical History History of amputation of toe Hx of tonsillectomy Family History Mother Diabetes Heart disease Father Heart disease Other No pertinent family history in first degree relatives Denies family history of Ovarian cancer Prostate cancer Myocardial infarction Breast cancer Colorectal cancer Social History Smoking Status: Never smoker Second Hand Exposure: No; Hx Alcohol Use: Yes Alcohol type: beer Hx Substance Use: No Preferred Language: Urdu Communication Ability: Effective Lab Rn Required: No Beliefs That Will Affect Care: None marital status: Life Partner Current Living Situation: Other Current Living Situation Comment: friend- Yvette Feels Safe at Home: Yes Assistive Devices: Walker Review of Systems Review of Systems: All systems reviewed & are unremarkable except as noted in HPI & below Physical Exam Constitutional: WD/WN, vitals as above + obese and cooperative; no acute distress Eyes: + anicteric sclerae ENMT: external ear and nose normal, oropharynx normal Neck: normal visual inspection and trachea midline Respiratory: normal respiratory effort, lungs clear to auscultation Cardiovascular: RRR, no murmur, no edema Heart Sounds: normal S1 and normal S2 Extremities: no pedal edema Gastrointestinal (Abdomen): normal bowel sounds, soft, nontender, no hepatosplenomegaly Musculoskeletal: Head/Neck/Chest: normocephalic and head atraumatic Skin: no rashes, warm and dry + wound (On plantar aspect of left foot) Wound was freshly dressed prior to my exam - I did not un-do the bandage. I did not see any surrounding erythema - the foot was not warm to the touch. The dressing was dry. Neurologic: moves all extremities Psychiatric: A+Ox3, euthymic affect Apperance: + inappropriately groomed Genitourinary: + penis abnormality ("hidden" ) Brown catheter in place, draining cloudy, yellow urine without visible blood clots Results & Data Results & Data ([facility]) Vital Signs (Past 12 Hours) Vital Signs Temp Pulse Pulse Resp BP BP Pulse Ox 06/01/21 23:03 61 18 141/49 H 97 06/01/21 21:00 20 98 06/01/21 20:33 62 20 125/83 98 06/01/21 20:30 20 98 06/01/21 19:41 18 98 06/01/21 19:00 62 18 149/63 H 98 06/01/21 18:47 62 18 152/69 H 98 06/01/21 17:46 64 18 131/48 L 98 06/01/21 17:41 22 98 06/01/21 16:24 36.2 C L 69 18 138/67 97 Supervising Physician Co-Signing Physician Notes Attending addendum: I have physically seen this patient, have supervised the medical residents activities, and agree with the H&P unless as otherwise noted. Assessment and Plan: Catheter associated urinary tract infection- Follow urine culture and sensitivity result after recollected, since 05/30/2021 is contaminated History of ESBL E. coli UTI Osteomyelitis of left foot- Noted on MRI January 2021 Status post debridement at [facility] and then 4 weeks of IV antibiotics. Unclear follow-up imaging performed post treatment Likely chronic osteomyelitis partially treated IV cefepime and daptomycin as begun in the ED Consult orthopedic surgery Remaining orders and notations as noted Resident Activity Tracking Resident Involvement: Resident Care Provided Care Provided: Adult Hospital Medicine (1) Atrial flutter Atrial flutter type: unspecified Qualified Code(s): I48.92 - Unspecified atrial flutter (2) Hypothyroidism Hypothyroidism type: acquired Qualified Code(s): E03.9 - Hypothyroidism, unspecified (3) DM w/o complication type II, uncontrolled Glycemic state: with hyperglycemia Qualified Code(s): E11.65 - Type 2 diabetes mellitus with hyperglycemia
[2021-06-01] MEDS ORDERED: ACETAMINOPHEN 325 MG TAB PO PRN (23:49)
[2021-06-01] MEDS ORDERED: DOCUSATE SODIUM 100 MG CAP PO PRN (23:49)
[2021-06-01] MEDS ORDERED: ALBUTEROL HFA 8 GM INHALER INH PRN (23:49)
[2021-06-01] MEDS ORDERED: ONDANSETRON INJ 2 MG/ML 2 ML VIAL IV PRN (23:49)
[2021-06-01] MEDS ORDERED: POLYETHYLENE (MIRALAX) 17 GM PACK PO PRN (23:49)
[2021-06-02] MEDS: INSULIN DETEMIR SC SCH ×2 (01:24→09:46)
[2021-06-02] MEDS ORDERED: LEVOTHYROXINE SODIUM 75 MCG TABLET PO SCH (06:30)
[2021-06-02] MEDS ORDERED: PANTOprazole 40 MG TAB PO SCH (06:30)
[2021-06-02 06:32] LABS: Basophils # (auto) 0.04 K/uL (0-0.2); Basophils % (auto) 0.5 %; Eosinophils # (auto) 0.37 K/uL (0-0.5); Eosinophils % (auto) 4.6 %; Hematocrit (blood only) 31.7 % (42-52); Hemoglobin 10.1 g/dL (14.0-18.0); Immature Granulocytes # (auto) 0.01 K/uL (0.00-0.02); Immature Granulocytes % (auto) 0.1 %; Lymphocytes # (auto) 1.88 K/uL (1.2-3.4); Lymphocytes % (auto) 23.3 %; Mean Corpuscular Hemoglobin 26.9 pg (25-34); Mean Corpuscular Hgb Conc 31.9 g/dL (32-36); Mean Corpuscular Volume 84.3 fL (80-100); Mean Platelet Volume 10.8 fL (7.4-10.4); Monocytes # (auto) 1.05 K/uL (0.11-0.59); Neutrophils # (auto) 4.72 K/uL (1.4-6.5); Neutrophils % (auto) 58.5 %; Platelet Count 308 K/uL (130-400); RDW Coefficient of Variation 15.4 % (11.5-14.5); RDW Standard Deviation 47.3 fL (36.4-46.3); Red Blood Count 3.76 M/uL (4.7-6.1); White Blood Count 8.07 K/uL (4.8-10.8)
[2021-06-02 07:07] LABS: BUN Creatinine Ratio 14.2 (10-20); Calcium 8.6 mg/dl (8.5-10.1); Creatinine Clr Calc Pharmacy 95.2 ml/min; Est GFR (African American) 67.6 ml/min; Est GFR (Non-African American) 58.3 ml/min
[2021-06-02] MEDS ORDERED: FUROSEMIDE 40 MG TAB PO SCH (09:00)
[2021-06-02] MEDS ORDERED: METOPROLOL TARTRATE 100 MG TAB PO SCH (09:00)
[2021-06-02] MEDS ORDERED: GABAPENTIN 300 MG CAP PO SCH (09:00)
[2021-06-02] MEDS ORDERED: APIXABAN 5 MG TABLET PO SCH (09:00)
[2021-06-02] MEDS ORDERED: dilTIAZem HCL 240 MG CAPCR PO SCH (09:00)
[2021-06-02] MEDS ORDERED: buPROPion XL 150 MG TABCR PO SCH (09:00)
[2021-06-02] MEDS: INSULIN ASPART 100 UNITS/ML 3 ML PEN SC SCH ×3 (09:35→17:29)
--- NOTE | 2021-06-02 12:12 | Electrocardiogram Report ---
Test Reason : Blood Pressure : / mmHG Vent. Rate : 070 BPM Atrial Rate : 070 BPM P-R Int : 110 ms QRS Dur : 032 ms QT Int : 190 ms P-R-T Axes : 000 232 -62 degrees QTc Int : 205 ms Poor data quality, interpretation may be adversely affected Sinus rhythm probable right bundle branch block Left axis deviation Possible Inferior infarct , age undetermined Abnormal ECG When compared with ECG of 02-FEB-2021 08:34, Vent. rate has increased BY 50 BPM Confirmed by Joe Devi ([id number]) on 06/02/2021 12:12:21 PM Referred By: REFERRED SELF Confirmed By:Oziel Devi
[2021-06-02] MEDS ORDERED: CEFEPIME 2,000 MG in SYRINGE 0 ML IV SCH (12:15)
--- NOTE | 2021-06-02 12:16 | Hospitalist Progress Note ---
Date of Service June 02, 2021 Assessment & Plan (1) Osteomyelitis of left foot: Plan: -This appears to be an acute on chronic issue -Patient with osteomyelitis hospitalization January 2021. At that time, recommendation by our orthopedist were for as amputation (BKA); however, patient adamantly refused at that time. -He was noted to have adequate vascular supply on arterial duplex and at patient's request, he was transferred to [facility] for an attempt of limb salvage. -Per his record, it was recommended by them that he have a BKA as well; however, they obliged to his request to trial of IV antibiotic therapy -Patient completed 4 weeks of IV (? Rocephin) followed by oral antibiotic therapy X 2 weeks -At this time, I cannot confirm that he does or does not have an active urinary tract infection (he does have gram-negative bacillus seen on his preliminary urine culture; however, has a chronic indwelling Villasenor and may just be a colonized specimen) -Given the ongoing wound on the bottom of his foot with some mild purulent drainage, his uptrending inflammatory markers, leukocytosis, and general ill complaints along with persistent osteomyelitis seen on CT scan, I am more concerned for ongoing osteomyelitis -I have voiced my concerns with patient (nurse was at bedside) and I explained that he needs to have surgical intervention at this time (a BKA). -We will continue empiric antibiotic therapy with cefepime and daptomycin -Blood cultures and wound cultures obtained -Offered orthopedic consult; however, patient adamantly refused and requesting to be transferred to [place] as he does not believe our orthopods are reputable. I explained that orthopods at [place] wanted to proceed with similar treatment; however, attempt at limb salvage was done. Patient has failed this and the next step would be a BKA. I explained that in medicine, we cannot do what he wants but rather what he needs and risk of NOT treating this osteomyelitis effectively can lead to bacteremia, sepsis, and . He voices understanding. Furthermore, I explained that if he truly does not want to proceed with what is recommended, hospice would be the next step. He does not want this either. He requests trial of IV antibiotic therapy for which I expla ined this was tried and he failed. -I have reached out to [facility] and spoke to Dr. Son (orthopedist who actually is familiar with this patient from his last hospitalization) and Dr. Carias (hospitalist) and they are agreeable to take patient when a bed becomes available. They voiced beds are limited but agreeable to take patient as this is his request (2) Acute UTI: Plan: -Not overly convinced that patient has an active UTI. May be colonization -On daptomycin/cefepime which should provide adequate treatment (3) Leukocytosis: Plan: -Resolved. Will follow Plan: -Transferred to [facility] when a bed becomes available Admission and Anticipated Discharge Date Admission Date: June 01, 2021 Subjective Patient seen on daily rounds today. He is a 61-year-old white male with a past medical history of atrial flutter, hypothyroidism, diabetes mellitus type 2, chronic anemia on anticoagulation therapy, and neurogenic bladder with indwellin g Villasenor catheter (since 2012). He is a vague historian but was hospitalized with concerns for urinary tract infection. Came to the ED because he noticed that his Villasenor catheter just "was not working". When asked what this meant, he said there was decreased urine in his catheter bag. In the ED, catheter changed and noticed to be questionably infected (was cloudy and leukocyte esterase positive but nitrite negative). He had mild leukocytosis of 12.21 on overall vocalizes he just has felt "crappy" over the past several days. Reports subjective fevers and chills, body aches, increased pain in his left lower extremity, and nausea/vomiting. Patient does have known osteomyelitis of his left lower extremity. In fact, was hospitalized here January 2021 and seen by 3 different antenna specialist who all suggested BKA. Patient was opposed and requested an opinion at [place]. He had an arterial Doppler that showed adequate flow and was transferred to [place] to discuss limb salvage. Per patient, [place] orthopod recommended BKA but was willing to trial limb salvage due to his refusal for amputation. He was discharged on IV Rocephin X 4 weeks for which he completed. In the ED, a CT of the lower extremity does show persistent/progressive osteomyelitis with con current cellulitis. I have drawn some inflammatory markers and his ESR is up trending and is currently >130 (was 103 in February) and his CRP is also uptrending and is currently 3.71 (was 1.2 in February). Review of Systems Review of Systems: All systems reviewed and are unremarkable except as noted in HPI and below Denies headache, nasal congestion, sore throat, cough, chest pain, shortness of breath, abdominal pain, dysuria, hematuria, frequency, skin lesions or rashes. Physical Exam Physical Exam: General: Resting comfortably in his hospital bed. Does not appear ill or toxic. NAD. Neck: No JVD. Negative hepatojugular reflex Cardiac: Currently in a normal sinus rhythm with 1/6 to 2/6 RILEY but distant heart sounds Lungs: CTA without W/R/R Abdomen: Normoactive X4. Soft and nontender in all quadrants. Extremities: No peripheral clubbing cyanosis or edema Neuro: A&O X4 cranial nerves II through XII are grossly intact no focal neuro deficits Skin: Left lower extremity s/p amputation of the fourth and fifth toes. No obvi ous cellulitic changes anteriorly. Along the arch of the foot, there is a large granulomatous mass that seems friable with some purulent drainage from below (culture obtained) Results & Data Results & Data ([facility]) Vital Signs (Past 12 Hours) Vital Signs Temp Pulse Resp BP Pulse Ox 06/02/21 09:48 78 147/76 H 96 06/02/21 07:06 37.3 C 73 16 123/71 95 06/02/21 00:17 36.7 C 86 20 148/87 H 97 Laboratory Results 06/02/21 06:08 06/02/21 06:08 Diagnostic Findings ESR: 96 (02/16) --> 103 (5/7) --> today >130 CRP: 10.4 (5) --> 1.29 (1.29) --> today 3.71 PG Care Time/CCT Total # of Minutes Spent Total Time Spent with Patient: Total time spent is greater than 50% in coordination of care (as documented) at patient's floor/unit and/or counseling patient: Coding [place] [address] Subseq Hosp Care Lvl 3 Patient Type Established Diagnoses Osteomyelitis of left foot M86.9 Acute UTI N39.0 Leukocytosis D72.829 Leukocytosis type: unspecified (1) Leukocytosis Leukocytosis type: unspecified Qualified Code(s): D72.829 - Elevated white blood cell count, unspecified
[2021-06-02] MEDS ORDERED: ATORVASTATIN 40 MG TAB PO SCH (16:30)
[2021-06-02] MEDS ORDERED: HYDROmorphone INJ 0.5 MG/0.5 ML SYR IV PRN (16:42)
[2021-06-02] MEDS ORDERED: traMADol HCL 50 MG TABLET PO PRN ×2 (16:42)
[2021-06-02] MEDS ORDERED: COUGH DROP (SUGAR FREE) LOZ 24 LOZ/1 BOX BUCCAL ONE (16:51)
--- NOTE | 2021-06-02 17:04 | Discharge Summary ---
Date of Service June 02, 2021 Admission HPI Per Admitting Provider Mr. Mahan is a 61 yo male with a chronic indwelling brown catheter who presented for evaluation of difficulty voiding. He follows with [facility] - his catheter was changed 2 weeks ago in the office. Over the past few days, he has noticed improper drainage. A urine culture was collected on 05/30/21 - this grew out > 3 organisms, all in high counts. This morning, he developed fever of 101 with chills, vomiting and exertional dyspnea. Of note, he has a PMHx of uncontrolled type II diabetes mellitus. He has a known left foot ulcer - this was infected in January 2021 - an MRI obtained at [facility] showed concern for osteomyelitis. He was transferred to [facility] in [place] for further care - he states he underwent surgery/debridement of the infected bone while at [place]. A PICC line was placed and he received ~ 4 weeks of IV antibiotic therapy (he cannot recall the name of the specific drug). The PICC line was later removed in February 2021. He did a 2 week inpatient rehab stay at [facility] following this admission to [facility]. He apparently progressed to full weight bearing by the end of rehab. Since being home, he states his foot has felt great. He admits he is afraid to bear weight on it - he has spent most of his time in the recliner - only walking several feet to the bedside commode each day. His hesitancy toward ambulation is not because he has increased pain when he walks on his foot - instead it is because he is afraid of it getting reinjured. He denies any increased drainage or odor. His has a visit scheduled with the wound care clinic in the near future (but has not yet been seen by this group). Social Hx: he lives at home - has a friend Yvette who takes care of him, along with other home jordin aids. Transportation is apparently an issue. In the ED, he was afebrile, with normal HR, BP and breathing. His WBC was 12, Hgb 11.3, MCV 84. Coags WNL. Na 132, electrolytes otherwise WNL. Creatinine 1.57, BUN 19. Liver enzymes WNL. Lactate not elevated. Procal not elevated. UA neg for nitrites, 3+ LE, 4+ bacteria, > 30 WBCs. Urine and blood cultures pending. COVID 19 neg. EKG showing sinus, evidence of LVH, no st segment changes. CXR showed no active disease. Foot CT showing wound on plantar aspect of left foot with surrounding cellulitis. Adjacent areas of 4th metatarsal and cuboid suspicious for osteomyelitis. His brown was exchanged in the ED. HE was started on 1 liter of NSS, Cefepime and Daptomycin. Principal Diagnosis 1. Osteomyelitis 2. Leukocytoisis 3. Elevated inflammatory marker (ESR/CRP) Discharge Exam General: Resting comfortably in his hospital bed. Does not appear ill or toxic. NAD. Neck: No JVD. Negative hepatojugular reflex Cardiac: Currently in a normal sinus rhythm with 1/6 to 2/6 RILEY but distant heart sounds Lungs: CTA without W/R/R Abdomen: Normoactive X4. Soft and nontender in all quadrants. Extremities: No peripheral clubbing cyanosis or edema Neuro: A&O X4 cranial nerves II through XII are grossly intact no focal neuro deficits Skin: Left lower extremity s/p amputation of the fourth and fifth toes. No obvious cellulitic changes anteriorly. Along the arch of the foot, there is a large granulomatous mass that seems friable with some purulent drainage from below (culture obtained) Discharge Data Allergies Allergy/AdvReac Type Severity Reaction Status Date / Time Penicillins Allergy Severe HIVES, RED Verified 06/01/21 18:46 RASH A CHILD ferrous sulfate AdvReac Intermediate Gastrointestinal Unverified 06/01/21 18:46 Upset fluticasone [From Flonase] AdvReac Intermediate FELT FUNNY Verified 06/01/21 18:46 IN THE HEAD Consultations 06/01/21 21:01 ED Decision to Admit Stat 06/01/21 23:06 Consult Health Information Management Routine 06/02/21 16:53 Burn CD for patient Stat Ordered Studies 06/01/21 17:41 CXR: IMPRESSION: No acute cardiopulmonary findings. Cardiomegaly. CT foot LT wo con Stat IMPRESSION: 1. Wound of the plantar lateral aspect of the left midfoot with associated cellulitis. Adjacent erosion of the base and proximal shaft of the left fourth metatarsal as well as the plantar aspect of the cuboid highly suggestive of osteomyelitis. 2. Status post left fourth and fifth digit amputations. 3. Exam compromised by motion artifact. 4. Left foot and left ankle edema. Hospital Course (1) Osteomyelitis of left foot: -This appears to be an acute on chronic issue -Patient with osteomyelitis hospitalization January 2021. At that time, recommendation by our orthopedist were for as amputation (BKA); however, patient adamantly refused at that time. -He was noted to have adequate vascular supply on arterial duplex and at patient's request, he was transferred to [facility] for an attempt of limb salvage. -Per his record, it was recommended by them that he have a BKA as well; however, they obliged to his request to trial of IV antibiotic therapy -Patient completed 4 weeks of IV (? Rocephin) followed by oral antibiotic the rapy X 2 weeks -At this time, I cannot confirm that he does or does not have an active urinary tract infection (he does have gram-negative bacillus seen on his preliminary urine culture; however, has a chronic indwelling Brown and may just be a colonized specimen) -Given the ongoing wound on the bottom of his foot with some mild purulent drainage, his uptrending inflammatory markers, leukocytosis, and general ill complaints along with persistent osteomyelitis seen on CT scan, I am more concerned for ongoing osteomyelitis -I have voiced my concerns with patient (nurse was at bedside) and I explained that he needs to have surgical intervention at this time (a BKA). -We will continue empiric antibiotic therapy with cefepime and daptomycin -Blood cultures and wound cultures obtained -Offered orthopedic consult; however, patient adamantly refused and requesting to be transferred to [place] as he does not believe our orthopods are reputable. I explained that orthopods at [place] wanted to proceed with similar treatment; however, attempt at limb salvage was done. Patient has failed this and the next step would be a BKA. I explained that in medicine, we cannot do what he wants but rather what he needs and risk of NOT treating this osteomyelitis effectively can lead to bacteremia, sepsis, and . He voices understanding. Furthermore, I explained that if he truly does not want to proceed with what is recommended, hospice would be the next step. He does not want this either. He requests trial of IV antibiotic therapy for which I explained this was tried and he failed. -I have reached out to [facility] and spoke to Dr. Son (orthopedist who actually is familiar with this patient from his last hospitalization) and Dr. Carias (hospitalist) and they are agreeable to take patient when a bed becomes available. They voiced beds are limited but agreeable to take patient as this is his request -ordered ultram for pain (as patient requesting "something not too strong" with dilaudid for breakthrough) (2) Acute UTI: -Not overly convinced that patient has an active UTI. May be colonization -On daptomycin/cefepime which should provide adequate treatment (3) Leukocytosis: -Resolved. Will follow -Transfer to [facility] under the care of Dr. Carias Total Time Total Time Spent Total Time Spent (In Minutes): 90 Discharge Plan Discharge Items Patient Disposition: Transfer Acute Care Hospital Reason For Visit: OSTEOMYELITIS Discharge Diagnosis: 1. Osteomyelitis 2. Leukocytosis 3. Subjective fever 4. left leg pain and wound Condition on Discharge: Fair Activity: Resume your previous activity Non-emergency contact: Surgeon Call non-emergency contact if: you have any medication questions Follow-up/Referrals: Ollie Walker MD [Primary Care Provider] - Diet: Carb Consistent or DM2 Addtl Attending Provider Instructions: -patient was hospitalized with leukocytosis and subjective fever. He thought it was potentially related to a UTI as he a chronic indwelling brown catheter and is prone -He did have leukocytosis but this didn't seem convincingly from a UTI (does have growth of GNB-- ? colonization). I am more concerned with ongoing osteomyelitis -known osteo-- failing IV abx therapy -pt refused allowing out orthopedist to see him and is requesting transfer to [place]. Pending Studies at Discharge: Yes Studies:: blood cultures, wound culture and final urine culture Stand-Alone Forms: My [facility] Skilled Items Patient informed of condition?: Yes DNR: No Discharge Level of Care: Other Communicable Disease: No Discharge Prognosis: Stable Lines: Peripheral IV Urinary Catheter: Yes Medications and DC Order Prescriptions: New daptomycin 500 mg recon soln 500 mg IV DAILY Qty: 10 RF: 0 cefepime 2 gram recon soln 1 g IV Q12H Qty: 10 RF: 0 Continued metoprolol tartrate 100 mg tablet 100 mg PO BID Qty: 60 RF: 5 bupropion HCl [Wellbutrin XL] 150 mg tablet extended release 24 hr 150 mg PO BID Qty: 60 RF: 5 (DME) blood-glucose meter Kit See Rx Instructions .ROUTE .MEDSUPPLY Qty: 1 RF: 0 docusate sodium [Colace] 100 mg capsule 500 mg PO DAILY PRN (Reason: Constipation) RF: 0 metformin 500 mg tablet 1,000 mg PO BID Qty: 60 RF: 5 diltiazem HCl 240 mg capsule,extended release 24 hr 240 mg PO QAM Qty: 30 RF: 5 Levemir U-100 Insulin 100 unit/mL solution 100 unit SUBCUT AMPM Qty: 80 RF: 3 gabapentin 300 mg capsule 300 mg PO BID Qty: 60 RF: 5 levothyroxine 75 mcg capsule 75 mcg PO DAILY Qty: 90 RF: 1 (DME) OneTouch Verio test strips Strip See Rx Instructions .Route Qty: 100 RF: 4 insulin aspart U-100 [Novolog U-100 Insulin aspart] 100 unit/mL solution 80 unit SQ TIDM Qty: 6 RF: 1 albuterol sulfate [Ventolin HFA] 90 mcg/actuation HFA aerosol inhaler 2 puff INHALATION Q4H PRN (Reason: Shortness Of Breath Or Wheezing) RF: 0 furosemide 40 mg tablet 40 mg PO QAM RF: 0 atorvastatin 80 mg tablet 80 mg PO QDD RF: 0 pantoprazole 40 mg tablet,delayed release (DR/EC) 40 mg PO DAILYBB RF: 0 Discontinued Eliquis 5 mg tablet 5 mg PO BID Qty: 60 RF: 5 Discharge Orders: Discharge Order (Routine); Ordered 06/02/21 Ordered By: Desiree Browne Admission Data Admit Date/Time: 06/01/21 22:59 Attending Provider: Toy Chamberlain Admit Provider: Katie Pineda Primary Care Provider: Ollie Walker Other Providers: oTy Chamberlain Other Interventions: Discharge Summary Assessment (RN) Last Done: 06/02/21 17:09 Supervising Physician Co-Signing Physician Notes I supervised Desiree Browne PA-C on the care of this patient. The plan is as written in her note except for any following changes/exceptions: None Patient with chronic foot infection. Will likely need amputation, but he prefers to be seen by [facility] surgeons. Transfer arranged. Coding Level of Care Code D/C DAY MANAGEMENT >30 MINS Diagnoses Osteomyelitis of left foot M86.9 Acute UTI N39.0 Leukocytosis D72.829 Leukocytosis type: unspecified Time Spent (min) 90
[2021-06-02] MEDS ORDERED: DAPTOmycin 675 MG in SYRINGE 0 ML IV SCH (21:00)
--- NOTE | 2021-06-03 00:19 | Billing Data ---
Date of Service June 03, 2021 Coding Level of Care Code INT OBSERVATION CARE 70M LVL 3
== END 2021-06-02 18:00 | disposition short-term general hospital (02) ==
LOC: ED 16:09 → 3N 16:09 → SUATTDRO 22:59 → 3N 23:19

== ENCOUNTER 2021-07-02 14:22 | Inpatient (IN) ==
[2021-07-02] MEDS ORDERED: SODIUM CHLORIDE 0.9% 1000ML 1,000 ML IV SCH (15:00)
[2021-07-02] MEDS ORDERED: ACETAMINOPHEN 1,000 MG/100 ML VIAL IV STA (15:00)
--- NOTE | 2021-07-02 15:53 | XRay Report ---
XR chest 1V portable INDICATION: MN ^SEPSIS . TECHNIQUE: Single frontal radiograph of the chest was obtained. Comparison: Comparison is made to chest one view 06/01/2021 FINDINGS: No lines and tubes are seen. The cardiomediastinal silhouette is normal. Lungs are underinflated. No evidence of pleural effusion or pneumothorax. IMPRESSION: No acute chest disease. ACT 112: Negative or not required by law. Electronically signed by: Jefferson Kim M.D. 07/02/2021 3:51 PM
--- NOTE | 2021-07-02 15:54 | XRay Report ---
XR foot LT min 3V routine HISTORY: 61 years-old Male foot ulcer redness febrile tachy septic ro osteo chronic left foot pain w ith possible osteomyelitis COMPARISON: Left foot radiographs 02/01/2021, CT left foot 06/01/2021 TECHNIQUE: 3 views of the left foot FINDINGS: Limited study secondary to positioning of the patient. Chronic ulcer of the lateral midfoot and foref oot distribution redemonstrated. Prior partial amputation of the third digit at the mid shaft third m etatarsal with surgically absent fourth digit. Osseous erosions are again noted involving the base an d proximal shaft of the fourth metatarsal and plantar aspect of the cuboid. Diffuse soft tissue edema with arterial calcifications. Mild to moderate multifocal osteoarthritis. IMPRESSION: 1. Moderate diffuse soft tissue swelling with chronic soft tissue ulcer of the lateral midfoot and fo refoot. 2. Prior fourth and fifth digit amputation. 3. Osseous erosions involving the base of the fourth metatarsal and plantar aspect of the cuboid are redemonstrated suspicious for osteomyelitis. ACT 112: Negative or not required by law. The above report was generated using voice recognition software. It may contain grammatical, syntax o r spelling errors. Electronically signed by: Ajith Nelson M.D. 07/02/2021 3:52 PM
[2021-07-02 16:12] LABS: Influenza A virus by PCR Negative (Negative); Influenza B virus by PCR Negative (Negative)
[2021-07-02] MEDS ORDERED: VANCOMYCIN CONSULT ACTIVE PRN ×3 (16:22→22:44)
[2021-07-02] MEDS ORDERED: VANCOMYCIN HCL 2,750 MG in SODIUM CHLORIDE 0.9% 500 ML IV ONE (16:22)
[2021-07-02 16:29] LABS: Basophils # (auto) 0.01 K/uL (0-0.2); Basophils % (auto) 0.1 %; Hematocrit (blood only) 32.4 % (42-52); Hemoglobin 10.5 g/dL (14.0-18.0); Immature Granulocytes # (auto) 0.04 K/uL (0.00-0.02); Immature Granulocytes % (auto) 0.2 %; Lymphocytes # (auto) 0.71 K/uL (1.2-3.4); Lymphocytes % (auto) 4.3 %; Mean Corpuscular Hemoglobin 26.9 pg (25-34); Mean Corpuscular Hgb Conc 32.4 g/dL (32-36); Mean Corpuscular Volume 83.1 fL (80-100); Mean Platelet Volume 10.6 fL (7.4-10.4); Monocytes # (auto) 1.43 K/uL (0.11-0.59); Monocytes % (auto) 8.7 %; Neutrophils # (auto) 14.29 K/uL (1.4-6.5); Neutrophils % (auto) 86.7 %; Platelet Count 371 K/uL (130-400); RDW Coefficient of Variation 15.8 % (11.5-14.5); White Blood Count 16.48 K/uL (4.8-10.8)
[2021-07-02 16:43] LABS: Alanine Aminotransferase 11 U/L (12-78); Albumin Level 2.3 gm/dl (3.4-5.0); Aspartate Aminotransferase 9 U/L (15-37); BUN Creatinine Ratio 7.8 (10-20); Blood Urea Nitrogen 11 mg/dl (7-18); Calcium 9.2 mg/dl (8.5-10.1); Carbon Dioxide 25 mmol/L (21-32); Chloride 96 mmol/L (98-107); Creatinine Clr Calc Pharmacy 89.7 ml/min; Est GFR (African American) 60.8 ml/min; Est GFR (Non-African American) 52.5 ml/min; Glucose 260 mg/dl (70-99); Magnesium 2.1 mg/dl (1.8-2.4); Potassium 3.4 mmol/L (3.5-5.1); Sodium 132 mmol/L (136-145)
[2021-07-02 16:45] LABS: INR 1.1 (0.9-1.1); Partial Thromboplastin Ratio 1.3; Partial Thromboplastin Time 35.1 Seconds (21.0-31.0); Prothrombin Time 10.9 Seconds (9.0-12.0)
[2021-07-02 16:48] LABS: Albumin Globulin Ratio 0.4 (0.9-2); Alkaline Phosphatase 115 U/L (45-117); Bilirubin,Total 0.9 mg/dl (0.2-1); Globulin 5.9 gm/dl (2.5-4.0); Total Protein 8.2 gm/dl (6.4-8.2); Troponin I < 0.015 ng/ml (0-0.045)
[2021-07-02] MEDS ORDERED: SODIUM CHLORIDE 0.9% 1000ML 1,000 ML IV ONE (17:28)
[2021-07-02] MEDS ORDERED: SODIUM CHLORIDE 0.9% 1000ML 500 ML IV ONE (17:28)
[2021-07-02] MEDS ORDERED: PIPERACILLIN/TAZOBACTAM 4.5 GM in DEXTROSE 5% 100 ML IV ONE (17:33)
[2021-07-02] MEDS ORDERED: PIPERACILL/TAZOBAC CONSULT ACTIVE PRN ×2 (17:33→22:44)
--- NOTE | 2021-07-02 18:23 | Emergency Department Note ---
History of Present Illness General Chief complaint: Fever Time Seen by Provider: 07/02/21 14:47 History of Present Illness Provider complaint: Fever Onset (ago): day(s) 2 Maximum Pain Intensity: 6 Associated symptoms: + fever/chills, + malaise and + weakness; no chest pain, no cough, no headaches, no nausea/vomiting or no shortness of breath 61-year-old male presents emergency department for fever. Patient reports he has been having fever for the last 2 days. He reports generalized malaise and body aches. Patient states he is vaccine gets COVID-19. Patient states he does not feel like he can take care of himself at home because he feels too ill. Patient states that he has not had any falls. Patient states he feels extremely weak. No chest pain or difficulty breathing. No abdominal pain nausea vomiting or diarrhea. Home Medications Medication Instructions Recorded Confirmed Type albuterol sulfate 90 mcg/actuation 2 puff INHALATION Q4H PRN 05/26/20 07/02/21 History aerosol inhaler (Ventolin HFA) bupropion HCl 150 mg 24 hr tablet, 150 mg PO BID #60 tab 12/11/20 07/02/21 Rx extended release (Wellbutrin XL) blood-glucose meter #1 ea 01/30/21 06/28/21 Rx diltiazem HCl 240 mg capsule,24 240 mg PO QAM #30 cap 03/26/21 07/02/21 Rx hr,extended release insulin detemir U-100 100 unit/mL 100 unit SUBCUT AMPM #80 ml 03/26/21 07/02/21 Rx subcutaneous solution (Levemir U-100 Insulin) atorvastatin 80 mg tablet 80 mg PO QDD 03/30/21 07/02/21 History furosemide 40 mg tablet 40 mg PO QAM 03/30/21 07/02/21 History pantoprazole 40 mg tablet,delayed 40 mg PO DAILYBB 03/30/21 07/02/21 History release gabapentin 300 mg capsule 300 mg PO BID #60 cap 04/17/21 07/02/21 Rx blood sugar diagnostic (OneTouch #100 ea 05/16/21 06/28/21 Rx Verio test strips) levothyroxine 75 mcg capsule 75 mcg PO DAILY #90 cap 05/16/21 07/02/21 Rx insulin aspart U-100 100 unit/mL 80 unit SQ TIDM #6 ml 05/31/21 07/02/21 Rx subcutaneous solution (Novolog U-100 Insulin aspart) sodium hypochlorite 0.25 % 1 applic TOPICAL DAILY #473 ml 06/07/21 07/02/21 Rx solution (Dakin's Solution) apixaban 5 mg tablet (Eliquis) 5 mg PO BID #60 tab 06/15/21 07/02/21 Rx metoprolol tartrate 100 mg tablet 100 mg PO BID #60 tab 06/15/21 07/02/21 Rx metformin 500 mg tablet 500 mg PO BID 07/02/21 07/02/21 History Allergies Allergy/AdvReac Type Severity Reaction Status Date / Time Penicillins Allergy Severe HIVES, RED Verified 07/02/21 16:06 RASH A CHILD ferrous sulfate AdvReac Intermediate Gastrointestinal Verified 07/02/21 16:06 Upset fluticasone [From Flonase] AdvReac Intermediate FELT FUNNY Verified 07/02/21 16:06 IN THE HEAD Past Med/Surg History Medical History Acute kidney injury Anemia Asthma Atrial flutter Atrial flutter with rapid ventricular response Back injury Blocked urinary catheter Cellulitis Cellulitis of left foot Constipation Diabetic foot ulcer (10/07/13) Fall at home Foot ulcer, right Gas gangrene GERD (gastroesophageal reflux disease) Hypertension Hyponatremia Regional wall motion abnormality of heart Urinary retention Urinary tract infection Surgical History History of amputation of toe Hx of tonsillectomy Family History Mother Diabetes Heart disease Father Heart disease Other No pertinent family history in first degree relatives Denies family history of Ovarian cancer Prostate cancer Myocardial infarction Breast cancer Colorectal cancer Social History Smoking Status: Never smoker Tobacco Type: Smokeless Tobacco (Dip or Chew) Second Hand Exposure: No; Hx Alcohol Use: Yes Alcohol type: beer Hx Substance Use: No Preferred Language: Mongolian Communication Ability: Effective Visual Impairment: Limited Hearing Ability: Normal Social Service Assistant Required: No Beliefs That Will Affect Care: None marital status: Life Partner Current Living Situation: Other Current Living Situation Comment: friend- Yvette current occupational status: disabled Feels Safe at Home: Yes Assistive Devices: Walker Review of Systems A total of 10 systems reviewed and were otherwise negative Physical Exam Vital Signs Vital Signs - 24 hr 07/02/21 14:35 07/02/21 14:38 07/02/21 15:00 Temperature 39.6 C H Temperature Source Oral Pulse Rate 121 H 120 H 121 H Pulse Rate from SpO2 Sensor 119 H 123 H Respiratory Rate 23 26 H 24 Respiratory Effort / Characteristics Spontaneous Labored Blood Pressure 198/77 H 198/77 H 170/56 H Blood Pressure Mean 117 117 94 Blood Pressure Position Standing Pulse Oximetry 99 99 98 Oxygen Delivery Method Room Air Sepsis Recent Fever Within 48 Hours Yes Sepsis New/Unexplained Change in Mental Status No Sepsis Action Taken by Nursing Physician Notified 07/02/21 16:00 07/02/21 17:00 07/02/21 17:30 Temperature Temperature Source Pulse Rate 125 H 122 H 115 H Pulse Rate from SpO2 Sensor 126 H 121 H 116 H Respiratory Rate 22 23 22 Respiratory Effort / Characteristics Blood Pressure 169/131 H 166/85 H 155/91 H Blood Pressure Mean 143 112 112 Blood Pressure Position Pulse Oximetry 96 95 94 Oxygen Delivery Method Sepsis Recent Fever Within 48 Hours Sepsis New/Unexplained Change in Mental Status Sepsis Action Taken by Nursing 07/02/21 18:00 07/02/21 18:09 Temperature 37.9 C H Temperature Source Oral Pulse Rate 113 H Pulse Rate from SpO2 Sensor 113 H Respiratory Rate 23 Respiratory Effort / Characteristics Blood Pressure 144/63 H Blood Pressure Mean 90 Blood Pressure Position Pulse Oximetry 94 Oxygen Delivery Method Sepsis Recent Fever Within 48 Hours Sepsis New/Unexplained Change in Mental Status Sepsis Action Taken by Nursing Physical Exam HENT: Exam performed. - Head: Normocephalic and atraumatic. - Right Ear: External ear normal. No mastoid tenderness. - Left Ear: External ear normal. No mastoid tenderness. - Mouth/Throat: The oropharynx is clear and moist. No trismus in the jaw. No dental abscesses or uvula swelling. No oropharyngeal exudate or tonsillar abscesses. EYES: Conjunctivae and EOM are normal. Pupils are equal, round, and reactive to light. Right eye exhibits no discharge. Left eye exhibits no discharge. No scleral icterus. NECK: Normal range of motion. Neck supple. No JVD present. No spinous process tenderness present. No carotid bruit present. No rigidity. No tracheal deviation and normal range of motion present. No Brudzinski's sign and no Kernig's sign noted. CV: Tachycardic rate, regular rhythm, normal heart sounds and intact distal pulses. There is no peripheral edema. Palpable radial pulses bue. PULM/CHEST: Effort normal and breath sounds normal. No respiratory distress. No stridor. He has no wheezes. He has no rales. - Chest Wall: He exhibits no tenderness. ABD: The abdomen is soft morbidly obese. Bowel sounds are normal. He has no distension. No mass is present. There is no tenderness. There is no rebound, no guarding, no Pressley's sign and no tenderness at McBurney's point. Rovsig negative. MUSC/SKEL: Bandage over the left lower extremity. Left foot has a large ulcer o n it with foul-smelling purulent discharge coming from it. There are multiple toes missing from his left foot. NEURO: He is alert and oriented to person, place, and time. He has normal strength. No cranial nerve deficit or sensory deficit. Course Course 1447: The patient was evaluated in room B. A complete history and physical exam was performed Cardiac monitoring: An order was placed for continuous cardiac monitoring. The monitor shows a rate of 130 with sinus tachycardia rhythm Patient febrile and tachycardic on arrival to the emergency department. Sepsis protocols initiated. IV fluids and antipyretics ordered for the patient. 1735: Vital signs improved with IV fluids. Labs show leukocytosis of 16. Imagi ng is concerning for osteomyelitis. Lactic acid is 4.1. Vancomycin ordered for the patient. Patient will be admitted to the [facility] hospitalist team Dr. Lee's team will be notified. Administered Medications Vancomycin HCl 2,750 mg/ (Sodium Chloride) 555 mls @ 200 mls/hr IV NOW ONE Stop: 07/02/21 19:08 Last Admin: 07/02/21 17:14 Dose: 200 mls/hr Documented by: [id number] Discontinued Medications Sodium Chloride (Nss 1000ml) 1,000 mls @ 999 mls/hr IV .Q1H1M GEOVANNA Stop: 07/02/21 16:00 Last Infusion: 07/02/21 18:09 Dose: 0 mls/hr Documented by: [id number] Admin: 07/02/21 16:36 Dose: 999 mls/hr Documented by: [id number] Acetaminophen (Ofirmev) 1,000 mg in 100 mls @ 400 mls/hr IV NOW STA Stop: 07/02/21 15:14 Last Infusion: 07/02/21 16:53 Dose: 0 mls/hr Documented by: [id number] Admin: 07/02/21 16:36 Dose: 400 mls/hr Documented by: [id number] Sodium Chloride (Nss 1000ml) 1,000 mls @ 999 mls/hr IV .Q1H1M ONE Stop: 07/02/21 18:28 Last Admin: 07/02/21 18:03 Dose: 999 mls/hr Documented by: [id number] Sodium Chloride (Nss 1000ml) 500 mls @ 999 mls/hr IV .Q31M ONE Stop: 07/02/21 17:58 Last Admin: 07/02/21 18:04 Dose: 999 mls/hr Documented by: [id number] Critical Care Time Critical Care Time: Yes Total Critical Care Time: 47 I have personally spent greater than 47 minutes of critical care time in the direct management of this patient. This includes bedside care, interpretation of diagnostic studies, and testing, discussion with consultants, patient, and family members, and other required patient management activities. This 47 minutes is in excess of all separately billable procedures. Medical Decision Making Laboratory Data Result diagrams: 07/02/21 16:15 07/02/21 16:15 Lab Results 07/02/21 07/02/21 07/02/21 Range/Units 15:43 15:43 15:43 WBC (4.8-10.8) K/uL RBC (4.7-6.1) M/uL Hgb (14.0-18.0) g/dL Hct (42-52) % MCV (80-100) fL MCH (25-34) pg MCHC (32-36) g/dL RDW Std Deviation (36.4-46.3) fL RDW Coeff of Adi (11.5-14.5) % Plt Count (130-400) K/uL MPV (7.4-10.4) fL Immature Gran % (Auto) % Neut % (Auto) % Lymph % (Auto) % [place] % (Auto) % Eos % (Auto) % Baso % (Auto) % Neut # (Auto) (1.4-6.5) K/uL Lymph # (Auto) (1.2-3.4) K/uL [place] # (Auto) (0.11-0.59) K/uL Eos # (Auto) (0-0.5) K/uL Baso # (Auto) (0-0.2) K/uL Immature Gran # (Auto) (0.00-0.02) K/uL PT (9.0-12.0) Seconds INR (0.9-1.1) APTT (21.0-31.0) Seconds PTT Ratio Sodium (136-145) mmol/L Potassium (3.5-5.1) mmol/L Chloride (98-107) mmol/L Carbon Dioxide (21-32) mmol/L Anion Gap (3-11) BUN (7-18) mg/dl Creatinine (0.6-1.4) mg/dl Est Cr Clr Drug Dosing ml/min Est GFR ( Amer) ml/min Est GFR (Non-Af Amer) ml/min BUN/Creatinine Ratio (10-20) Glucose (70-99) mg/dl POC Glucose 281 H (70-99) mg/dl Lactate (0.4-2.0) mmol/L Calcium (8.5-10.1) mg/dl Magnesium (1.8-2.4) mg/dl Total Bilirubin (0.2-1) mg/dl AST (15-37) U/L ALT (12-78) U/L Alkaline Phosphatase (45-117) U/L Troponin I (0-0.045) ng/ml Total Protein (6.4-8.2) gm/dl Albumin (3.4-5.0) gm/dl Globulin (2.5-4.0) gm/dl Albumin/Globulin Ratio (0.9-2) Procalcitonin (0-0.5) ng/ml COVID-19 Eval Order Covid19 at [facility] SARS-CoV-2 (PCR) (Negative) Influ A Molecular Assay Negative (Negative) Influ B Molecular Assay Negative (Negative) 07/02/21 07/02/21 07/02/21 Range/Units 15:43 16:15 16:15 WBC 16.48 H (4.8-10.8) K/uL RBC 3.90 L (4.7-6.1) M/uL Hgb 10.5 L (14.0-18.0) g/dL Hct 32.4 L (42-52) % MCV 83.1 (80-100) fL MCH 26.9 (25-34) pg MCHC 32.4 (32-36) g/dL RDW Std Deviation 48.0 H (36.4-46.3) fL RDW Coeff of Adi 15.8 H (11.5-14.5) % Plt Count 371 (130-400) K/uL MPV 10.6 H (7.4-10.4) fL Immature Gran % (Auto) 0.2 % Neut % (Auto) 86.7 % Lymph % (Auto) 4.3 % [place] % (Auto) 8.7 % Eos % (Auto) 0.0 % Baso % (Auto) 0.1 % Neut # (Auto) 14.29 H (1.4-6.5) K/uL Lymph # (Auto) 0.71 L (1.2-3.4) K/uL [place] # (Auto) 1.43 H (0.11-0.59) K/uL Eos # (Auto) 0.00 (0-0.5) K/uL Baso # (Auto) 0.01 (0-0.2) K/uL Immature Gran # (Auto) 0.04 H (0.00-0.02) K/uL PT 10.9 (9.0-12.0) Seconds INR 1.1 (0.9-1.1) APTT 35.1 H (21.0-31.0) Seconds PTT Ratio 1.3 Sodium (136-145) mmol/L Potassium (3.5-5.1) mmol/L Chloride (98-107) mmol/L Carbon Dioxide (21-32) mmol/L Anion Gap (3-11) BUN (7-18) mg/dl Creatinine (0.6-1.4) mg/dl Est Cr Clr Drug Dosing ml/min Est GFR ( Amer) ml/min Est GFR (Non-Af Amer) ml/min BUN/Creatinine Ratio (10-20) Glucose (70-99) mg/dl POC Glucose (70-99) mg/dl Lactate (0.4-2.0) mmol/L Calcium (8.5-10.1) mg/dl Magnesium (1.8-2.4) mg/dl Total Bilirubin (0.2-1) mg/dl AST (15-37) U/L ALT (12-78) U/L Alkaline Phosphatase (45-117) U/L Troponin I (0-0.045) ng/ml Total Protein (6.4-8.2) gm/dl Albumin (3.4-5.0) gm/dl Globulin (2.5-4.0) gm/dl Albumin/Globulin Ratio (0.9-2) Procalcitonin (0-0.5) ng/ml COVID-19 Eval Order SARS-CoV-2 (PCR) NEGATIVE (Negative) Influ A Molecular Assay (Negative) Influ B Molecular Assay (Negative) 07/02/21 07/02/21 07/02/21 Range/Units 16:15 16:15 16:15 WBC (4.8-10.8) K/uL RBC (4.7-6.1) M/uL Hgb (14.0-18.0) g/dL Hct (42-52) % MCV (80-100) fL MCH (25-34) pg MCHC (32-36) g/dL RDW Std Deviation (36.4-46.3) fL RDW Coeff of Adi (11.5-14.5) % Plt Count (130-400) K/uL MPV (7.4-10.4) fL Immature Gran % (Auto) % Neut % (Auto) % Lymph % (Auto) % [place] % (Auto) % Eos % (Auto) % Baso % (Auto) % Neut # (Auto) (1.4-6.5) K/uL Lymph # (Auto) (1.2-3.4) K/uL [place] # (Auto) (0.11-0.59) K/uL Eos # (Auto) (0-0.5) K/uL Baso # (Auto) (0-0.2) K/uL Immature Gran # (Auto) (0.00-0.02) K/uL PT (9.0-12.0) Seconds INR (0.9-1.1) APTT (21.0-31.0) Seconds PTT Ratio Sodium 132 L (136-145) mmol/L Potassium 3.4 L (3.5-5.1) mmol/L Chloride 96 L (98-107) mmol/L Carbon Dioxide 25 (21-32) mmol/L Anion Gap 11.0 (3-11) BUN 11 (7-18) mg/dl Creatinine 1.43 H (0.6-1.4) mg/dl Est Cr Clr Drug Dosing 89.7 ml/min Est GFR ( Amer) 60.8 ml/min Est GFR (Non-Af Amer) 52.5 ml/min BUN/Creatinine Ratio 7.8 L (10-20) Glucose 260 H (70-99) mg/dl POC Glucose (70-99) mg/dl Lactate 4.1 H* (0.4-2.0) mmol/L Calcium 9.2 (8.5-10.1) mg/dl Magnesium 2.1 (1.8-2.4) mg/dl Total Bilirubin 0.9 (0.2-1) mg/dl AST 9 L (15-37) U/L ALT 11 L (12-78) U/L Alkaline Phosphatase 115 (45-117) U/L Troponin I < 0.015 (0-0.045) ng/ml Total Protein 8.2 (6.4-8.2) gm/dl Albumin 2.3 L (3.4-5.0) gm/dl Globulin 5.9 H (2.5-4.0) gm/dl Albumin/Globulin Ratio 0.4 L (0.9-2) Procalcitonin 0.20 (0-0.5) ng/ml COVID-19 Eval Order SARS-CoV-2 (PCR) (Negative) Influ A Molecular Assay (Negative) Influ B Molecular Assay (Negative) 07/02/21 Range/Units 18:06 WBC (4.8-10.8) K/uL RBC (4.7-6.1) M/uL Hgb (14.0-18.0) g/dL Hct (42-52) % MCV (80-100) fL MCH (25-34) pg MCHC (32-36) g/dL RDW Std Deviation (36.4-46.3) fL RDW Coeff of Adi (11.5-14.5) % Plt Count (130-400) K/uL MPV (7.4-10.4) fL Immature Gran % (Auto) % Neut % (Auto) % Lymph % (Auto) % [place] % (Auto) % Eos % (Auto) % Baso % (Auto) % Neut # (Auto) (1.4-6.5) K/uL Lymph # (Auto) (1.2-3.4) K/uL [place] # (Auto) (0.11-0.59) K/uL Eos # (Auto) (0-0.5) K/uL Baso # (Auto) (0-0.2) K/uL Immature Gran # (Auto) (0.00-0.02) K/uL PT (9.0-12.0) Seconds INR (0.9-1.1) APTT (21.0-31.0) Seconds PTT Ratio Sodium (136-145) mmol/L Potassium (3.5-5.1) mmol/L Chloride (98-107) mmol/L Carbon Dioxide (21-32) mmol/L Anion Gap (3-11) BUN (7-18) mg/dl Creatinine (0.6-1.4) mg/dl Est Cr Clr Drug Dosing ml/min Est GFR ( Amer) ml/min Est GFR (Non-Af Amer) ml/min BUN/Creatinine Ratio (10-20) Glucose (70-99) mg/dl POC Glucose (70-99) mg/dl Lactate 1.6 (0.4-2.0) mmol/L Calcium (8.5-10.1) mg/dl Magnesium (1.8-2.4) mg/dl Total Bilirubin (0.2-1) mg/dl AST (15-37) U/L ALT (12-78) U/L Alkaline Phosphatase (45-117) U/L Troponin I (0-0.045) ng/ml Total Protein (6.4-8.2) gm/dl Albumin (3.4-5.0) gm/dl Globulin (2.5-4.0) gm/dl Albumin/Globulin Ratio (0.9-2) Procalcitonin (0-0.5) ng/ml COVID-19 Eval Order SARS-CoV-2 (PCR) (Negative) Influ A Molecular Assay (Negative) Influ B Molecular Assay (Negative) Imaging Data Radiologist's Impression: Chest X-Ray 07/02/21 14:47 XR chest 1V portable INDICATION: [place] ^SEPSIS . TECHNIQUE: Single frontal radiograph of the chest was obtained. Comparison: Comparison is made to chest one view 06/01/2021 FINDINGS: No lines and tubes are seen. The cardiomediastinal silhouette is normal. Lungs are underinflated. No evidence of pleural effusion or pneumothorax. IMPRESSION: No acute chest disease. ACT 112: Negative or not required by law. Electronically signed by: Jefferson Kim M.D. 07/02/2021 3:51 PM Foot X-Ray 07/02/21 14:59 XR foot LT min 3V routine HISTORY: 61 years-old Male foot ulcer redness febrile tachy septic ro osteo chronic left foot pain with possible osteomyelitis COMPARISON: Left foot radiographs 02/01/2021, CT left foot 06/01/2021 TECHNIQUE: 3 views of the left foot FINDINGS: Limited study secondary to positioning of the patient. Chronic ulcer of the lateral midfoot and forefoot distribution redemonstrated. Prior partial amputation of the third digit at the mid shaft third metatarsal with surgically absent fourth digit. Osseous erosions are again noted involving the base and proximal shaft of the fourth metatarsal and plantar aspect of the cuboid. Diffu se soft tissue edema with arterial calcifications. Mild to moderate multifocal osteoarthritis. IMPRESSION: 1. Moderate diffuse soft tissue swelling with chronic soft tissue ulcer of the lateral midfoot and forefoot. 2. Prior fourth and fifth digit amputation. 3. Osseous erosions involving the base of the fourth metatarsal and plantar a spect of the cuboid are redemonstrated suspicious for osteomyelitis. ACT 112: Negative or not required by law. The above report was generated using voice recognition software. It may contain grammatical, syntax or spelling errors. Electronically signed by: Ajith Nelson M.D. 07/02/2021 3:52 PM ECG Data Indication: + other (sepsis) Rate (beats per minute): 125 Rhythm: + sinus tachycardia ECG Intervals/blocks: + Left bundle branch block, + Right Bundle branch block, + Normal [place] and + Normal QT-c ECG ST segments: + Normal ST segments [facility] Narrative 1447: The patient was evaluated in room B. A complete history and physical exam was performed Cardiac monitoring: An order was placed for continuous cardiac monitoring. The monitor shows a rate of 130 with sinus tachycardia rhythm Patient febrile and tachycardic on arrival to the emergency department. Sepsis protocols initiated. IV fluids and antipyretics ordered for the patient. 1735: Vital signs improved with IV fluids. Labs show leukocytosis of 16. Imaging is concerning for osteomyelitis. Lactic acid is 4.1. Vancomycin ordered for the patient. Patient will be admitted to the [facility] hospitalist team Dr. Lee's team will be notified. Impression & Plan Osteomyelitis, Sepsis Discharge Plan Visit Data Chief Complaint: Fever ED Provider: Deejay Walsh Discharge Problem: Osteomyelitis, Sepsis Patient Disposition: Admitted As Inpatient Forms Stand Alone Forms: [facility] Prescriptions Prescriptions: No Action bupropion HCl [Wellbutrin XL] 150 mg tablet extended release 24 hr 150 mg PO BID Qty: 60 RF: 5 (DME) blood-glucose meter Kit See Rx Instructions .ROUTE .MEDSUPPLY Qty: 1 RF: 0 diltiazem HCl 240 mg capsule,extended release 24 hr 240 mg PO QAM Qty: 30 RF: 5 Levemir U-100 Insulin 100 unit/mL solution 100 unit SUBCUT AMPM Qty: 80 RF: 3 gabapentin 300 mg capsule 300 mg PO BID Qty: 60 RF: 5 levothyroxine 75 mcg capsule 75 mcg PO DAILY Qty: 90 RF: 1 (DME) OneTouch Verio test strips Strip See Rx Instructions .Route Qty: 100 RF: 4 insulin aspart U-100 [Novolog U-100 Insulin aspart] 100 unit/mL solution 80 unit SQ TIDM Qty: 6 RF: 1 Dakin's Solution 0.25 % solution 1 applic topical DAILY Qty: 473 RF: 3 Eliquis 5 mg tablet 5 mg PO BID Qty: 60 RF: 5 metoprolol tartrate 100 mg tablet 100 mg PO BID Qty: 60 RF: 5 albuterol sulfate [Ventolin HFA] 90 mcg/actuation HFA aerosol inhaler 2 puff INHALATION Q4H PRN (Reason: Shortness Of Breath Or Wheezing) RF: 0 furosemide 40 mg tablet 40 mg PO QAM RF: 0 atorvastatin 80 mg tablet 80 mg PO QDD RF: 0 pantoprazole 40 mg tablet,delayed release (DR/EC) 40 mg PO DAILYBB RF: 0 metformin 500 mg tablet 500 mg PO BID RF: 0 Referrals Referrals: Joe Walker MD [Primary Care Provider] -
[2021-07-02] MEDS ORDERED: PIPERACILLIN/TAZOBACTAM 4.5 GM/120 ML BAG IV SCH (18:45)
--- NOTE | 2021-07-02 19:18 | History & Physical Report ---
Date of Service July 02, 2021 Assessment & Plan (1) Sepsis: Plan: Sepsis from presumed sources urine and osteomyelitis - qSOFA- 1; SIRS 3 - Laccate 4.2 resuscitated with 2.5 Liters Crystalloid--- Lactate 1.6 - WBC 16.48, left shift, - Organ dysfunction with increase in [employer]ING [employer] - Hyperglycemia- poorly controlled at baseline Goal <200 - Zosyn IV , Vancomycin IV - Urine culture pending - blood culture pending (2) Osteomyelitis of left foot: Plan: As above, continue with dressing changes - patient had dressing changed - Continue conservative management - Antibiotics around (3) MACARIO (acute kidney injury): Plan: Baseline 1.2-1.3 - Continue with IVF overnight to maintain urine output - goal directed resuscitation based on hemodynamics and urine output (4) Obesity: Plan: Chronic- continue with wieght loss options (5) Anemia: Plan: Chronic stable- no acute issues (6) Paroxysmal atrial fibrillation: Plan: Rate controlled- currently NSR - Continue Apixaban- change to heparin drip if surgical intervention needed (7) Hypothyroidism: Plan: Continue with Levothyroxine 75mcg daily (8) Diabetes: Plan: Poorly controlled - Basal insulin continue detemir 100 BID or equivalent - Aspart insulin AC/HS- CF 20, ration 1:8 - Goal <200 History of Present Illness Primary Care Provider: Joe Walker MD 61 YOM with past medical history of: AFIB/flutter on Apixaban, chronic urinary retention secondary to BPH with chronic indwelling Brown, DMII poorly controlled on insulin, chronic diabetic foot ulcerations with chronic osteomyelitis, COVID 19 in March, CKD IIIa. Patient was recently admitted in May for poorly draining Brown catheter and UTI (klebsiella and pseudomonas) with chills and vomiting. Patient came to the EMD today for vomiting and fevers. He states that this started over the weekend and is mostly "clear slime that he has vomited", he has fevers off and on but has not checked his temperature. He endorses loss of appetite and fatigue. He feels he has not been able to keep anything down since he left [place]. In the EMD the patient had routine labs drawn to include PCT and lactate. His WBC count was elevated at 16.48 elevated neutrophil to lymphocyte ratio, procalcitonin 0.20, and lactate of 4.1. Following 2L crystalloid his lactate down trended to 1.6. He had X-ray of his left foot completed and CXR done. His Left foot continues to show osseous erosions and soft tissue edema with arterial calcifications. He did have arterial duplex scans completed in February 16 with no evidence of significant stenosis. His CXR did not reveal any acute process. He also had his Brown catheter replaced in the EMD, small amount of urine noted, bladder scan reveals 40ml in bladder. During the patient's last admission, he requested to go to [place] secondary to chronic osteomyelitis as he continues to want conservative treatment and management of his chronic wound and salvage therapy for his foot. The patient was seen there and was discharged on , where he finished his antibiotics of Cefepime and Daptomycin and was to continue to follow up with wound care. He seen wound care on June 29- where he was treated with chemical cauterization to remove hypergranulation tissue and dressing of Aquacel Ag daily, he continues with his Darco shoes. The wound today is still with surrounding erythema to the foot, but no drainage or weeping. Patient will be admitted for sepsis with presumed sources, osteomyelitis, soft tissue, urine sources. Blood cultures have been ordered, urine is pending. Patient was started on Vancomycin in the EMD, will continue. Will add Zosyn 4.5 GM IV now followed by Zosyn 3.375 GM IV q8. Patient also reports allergy to PCN was as a child and had just some hives. Patient has had COVID in the past: His COVID test on admission is NEGATIVE as well as influenza. Allergies Allergy/AdvReac Type Severity Reaction Status Date / Time Penicillins Allergy Severe HIVES, RED Verified 07/02/21 16:06 RASH A CHILD ferrous sulfate AdvReac Intermediate Gastrointestinal Verified 07/02/21 16:06 Upset fluticasone [From Flonase] AdvReac Intermediate FELT FUNNY Verified 07/02/21 16:06 IN THE HEAD Home Medications Medication Instructions Recorded Confirmed Type albuterol sulfate 90 mcg/actuation 2 puff INHALATION Q4H PRN 05/26/20 07/02/21 History aerosol inhaler (Ventolin HFA) bupropion HCl 150 mg 24 hr tablet, 150 mg PO BID #60 tab 12/11/20 07/02/21 Rx extended release (Wellbutrin XL) blood-glucose meter #1 ea 01/30/21 06/28/21 Rx diltiazem HCl 240 mg capsule,24 240 mg PO QAM #30 cap 03/26/21 07/02/21 Rx hr,extended release insulin detemir U-100 100 unit/mL 100 unit SUBCUT AMPM #80 ml 03/26/21 07/02/21 Rx subcutaneous solution (Levemir U-100 Insulin) atorvastatin 80 mg tablet 80 mg PO QDD 03/30/21 07/02/21 History furosemide 40 mg tablet 40 mg PO QAM 03/30/21 07/02/21 History pantoprazole 40 mg tablet,delayed 40 mg PO DAILYBB 03/30/21 07/02/21 History release gabapentin 300 mg capsule 300 mg PO BID #60 cap 04/17/21 07/02/21 Rx blood sugar diagnostic (OneTouch #100 ea 05/16/21 06/28/21 Rx Verio test strips) levothyroxine 75 mcg capsule 75 mcg PO DAILY #90 cap 05/16/21 07/02/21 Rx insulin aspart U-100 100 unit/mL 80 unit SQ TIDM #6 ml 05/31/21 07/02/21 Rx subcutaneous solution (Novolog U-100 Insulin aspart) sodium hypochlorite 0.25 % 1 applic TOPICAL DAILY #473 ml 06/07/21 07/02/21 Rx solution (Dakin's Solution) apixaban 5 mg tablet (Eliquis) 5 mg PO BID #60 tab 06/15/21 07/02/21 Rx metoprolol tartrate 100 mg tablet 100 mg PO BID #60 tab 06/15/21 07/02/21 Rx metformin 500 mg tablet 500 mg PO BID 07/02/21 07/02/21 History Past Med/Surg History Medical History Acute kidney injury Anemia Asthma Atrial flutter Atrial flutter with rapid ventricular response Back injury Blocked urinary catheter Cellulitis Cellulitis of left foot Constipation Diabetic foot ulcer (10/07/13) Fall at home Foot ulcer, right Gas gangrene GERD (gastroesophageal reflux disease) Hypertension Hyponatremia Regional wall motion abnormality of heart Urinary retention Urinary tract infection Surgical History History of amputation of toe Hx of tonsillectomy Family History Mother Diabetes Heart disease Father Heart disease Other No pertinent family history in first degree relatives Denies family history of Ovarian cancer Prostate cancer Myocardial infarction Breast cancer Colorectal cancer Social History Smoking Status: Never smoker Tobacco Type: Smokeless Tobacco (Dip or Chew) Second Hand Exposure: No; Hx Alcohol Use: Yes Alcohol type: beer Hx Substance Use: No Preferred Language: Wallisian Communication Ability: Effective Visual Impairment: Limited Hearing Ability: Normal Manager Sterile Required: No Beliefs That Will Affect Care: None marital status: Life Partner Current Living Situation: Significant Other Current Living Situation Comment: friend- Yvette current occupational status: disabled Other Information That Helps Us Care for You: No Feels Safe at Home: Yes Safety Concerns: Feels Safe At This Time Assistive Devices: Walker Review of Systems Review of Systems: REVIEW OF SYSTEMS: Constitutional: (+) fever, sweats or chills Eyes: No diplopia, no worsening or blurred vision ENT: normal hearing, no trouble swallowing Respiratory: No cough, sputum, dyspnea at rest or on exertion Cardiovascular: No chest pain, tightness or palpitations Abdomen: (+) nausea, vomiting, No pain, diarrhea or constipation Musculoskeletal: No joint pain, calf pain, swelling Neurologic: No weakness, numbness/tingling, or balance problems Psychiatric: No anxiety or depression Skin: (+) erythema to left foot Physical Exam Physical Exam: PHYSICAL EXAM: General: awake, alert, no apparent distress Head: Normocephalic, atraumatic ENT: PERRL, EOMI, no pharyngeal exudate, mucous membranes moist Neuro: AAO x 3, speech clear and appropriate, strength intact bilaterally 5/5, sensation intact and equal all extremities and dermatomes, no pronator drift Chest: equal rise and fall of the chest, no accessory muscle use, no heaves or thrills, Clear to auscultation, on room air, Cardiac: Regular rate and rhythm, telemetry reviewed- sinus tachycardia, skin warm dry, cap refill ~3 seconds, peripheral pulses +2 no JVD, no murmur, (+) 2 edema bilateral lower legs GI: NABS x 4 quadrants, soft, nontender to palpation, no rebound, guarding or tenderness : Brown replaced, no pain, no suprapubic tenderness, but purulence drainage noted on undergarments, no CVA tenderness, Extremities: left lower foot erythema, foot wound to the dorsal surface of the foot, no drainage, covered with Aquacel AG Psych: Normal mood and affect Results & Data Results & Data ([facility]) Vital Signs (Past 12 Hours) Vital Signs Temp Pulse Resp BP Pulse Ox 07/02/21 18:09 37.9 C H 07/02/21 18:00 113 H 23 144/63 H 94 07/02/21 17:30 115 H 22 155/91 H 94 07/02/21 17:00 122 H 23 166/85 H 95 07/02/21 16:00 125 H 22 169/131 H 96 07/02/21 15:00 121 H 24 170/56 H 98 07/02/21 14:38 39.6 C H 120 H 26 H 198/77 H 99 07/02/21 14:35 121 H 23 198/77 H 99 Laboratory Results Abnormal lab results 07/02/21 07/02/21 07/02/21 Range/Units 15:43 16:15 16:15 WBC 16.48 H (4.8-10.8) K/uL RBC 3.90 L (4.7-6.1) M/uL Hgb 10.5 L (14.0-18.0) g/dL Hct 32.4 L (42-52) % RDW Std Deviation 48.0 H (36.4-46.3) fL RDW Coeff of Adi 15.8 H (11.5-14.5) % MPV 10.6 H (7.4-10.4) fL Neut # (Auto) 14.29 H (1.4-6.5) K/uL Lymph # (Auto) 0.71 L (1.2-3.4) K/uL Freeborn # (Auto) 1.43 H (0.11-0.59) K/uL Immature Gran # (Auto) 0.04 H (0.00-0.02) K/uL APTT 35.1 H (21.0-31.0) Seconds Sodium (136-145) mmol/L Potassium (3.5-5.1) mmol/L Chloride (98-107) mmol/L Creatinine (0.6-1.4) mg/dl BUN/Creatinine Ratio (10-20) Glucose (70-99) mg/dl POC Glucose 281 H (70-99) mg/dl Lactate (0.4-2.0) mmol/L AST (15-37) U/L ALT (12-78) U/L Albumin (3.4-5.0) gm/dl Globulin (2.5-4.0) gm/dl Albumin/Globulin Ratio (0.9-2) 07/02/21 07/02/21 Range/Units 16:15 16:15 WBC (4.8-10.8) K/uL RBC (4.7-6.1) M/uL Hgb (14.0-18.0) g/dL Hct (42-52) % RDW Std Deviation (36.4-46.3) fL RDW Coeff of Adi (11.5-14.5) % MPV (7.4-10.4) fL Neut # (Auto) (1.4-6.5) K/uL Lymph # (Auto) (1.2-3.4) K/uL Freeborn # (Auto) (0.11-0.59) K/uL Immature Gran # (Auto) (0.00-0.02) K/uL APTT (21.0-31.0) Seconds Sodium 132 L (136-145) mmol/L Potassium 3.4 L (3.5-5.1) mmol/L Chloride 96 L (98-107) mmol/L Creatinine 1.43 H (0.6-1.4) mg/dl BUN/Creatinine Ratio 7.8 L (10-20) Glucose 260 H (70-99) mg/dl POC Glucose (70-99) mg/dl Lactate 4.1 H* (0.4-2.0) mmol/L AST 9 L (15-37) U/L ALT 11 L (12-78) U/L Albumin 2.3 L (3.4-5.0) gm/dl Globulin 5.9 H (2.5-4.0) gm/dl Albumin/Globulin Ratio 0.4 L (0.9-2) Diagnostic Findings Chest X-Ray 07/02/21 14:47 XR chest 1V portable INDICATION: MN ^SEPSIS . TECHNIQUE: Single frontal radiograph of the chest was obtained. Comparison: Comparison is made to chest one view 06/01/2021 FINDINGS: No lines and tubes are seen. The cardiomediastinal silhouette is normal. Lungs are underinflated. No evidence of pleural effusion or pneumothorax. IMPRESSION: No acute chest disease. ACT 112: Negative or not required by law. Electronically signed by: Jefferson Kim M.D. 07/02/2021 3:51 PM Foot X-Ray 07/02/21 14:59 XR foot LT min 3V routine HISTORY: 61 years-old Male foot ulcer redness febrile tachy septic ro osteo chronic left foot pain with possible osteomyelitis COMPARISON: Left foot radiographs 02/01/2021, CT left foot 06/01/2021 TECHNIQUE: 3 views of the left foot FINDINGS: Limited study secondary to positioning of the patient. Chronic ulcer of the lateral midfoot and forefoot distribution redemonstrated. Prior partial amputation of the third digit at the mid shaft third metatarsal with surgically absent fourth digit. Osseous erosions are again noted involving the base and proximal shaft of the fourth metatarsal and plantar aspect of the cuboid. Diffuse soft tissue edema with arterial calcifications. Mild to moderate multifocal osteoarthritis. IMPRESSION: 1. Moderate diffuse soft tissue swelling with chronic soft tissue ulcer of the lateral midfoot and forefoot. 2. Prior fourth and fifth digit amputation. 3. Osseous erosions involving the base of the fourth metatarsal and plantar aspect of the cuboid are redemonstrated suspicious for osteomyelitis. ACT 112: Negative or not required by law. The above report was generated using voice recognition software. It may contain grammatical, syntax or spelling errors. Electronically signed by: Ajith Nelson M.D. 07/02/2021 3:52 PM Medications Administered Home Medications albuterol sulfate 90 mcg/actuation aerosol inhaler (Ventolin HFA) 2 puff INHALATION Q4H PRN 05/26/20 [History Confirmed 07/02/21] bupropion HCl 150 mg 24 hr tablet, extended release (Wellbutrin XL) 150 mg PO BID #60 tab 12/11/20 [Rx Confirmed 07/02/21] blood-glucose meter #1 ea 01/30/21 [Rx Confirmed 06/28/21] diltiazem HCl 240 mg capsule,24 hr,extended release 240 mg PO QAM #30 cap 03/26/21 [Rx Confirmed 07/02/21] insulin detemir U-100 100 unit/mL subcutaneous solution (Levemir U-100 Insulin) 100 unit SUBCUT AMPM #80 ml 03/26/21 [Rx Confirmed 07/02/21] atorvastatin 80 mg tablet 80 mg PO QDD 03/30/21 [History Confirmed 07/02/21] furosemide 40 mg tablet 40 mg PO QAM 03/30/21 [History Confirmed 07/02/21] pantoprazole 40 mg tablet,delayed release 40 mg PO DAILYBB 03/30/21 [History Confirmed 07/02/21] gabapentin 300 mg capsule 300 mg PO BID #60 cap 04/17/21 [Rx Confirmed 07/02/21] blood sugar diagnostic (Maporiuch Verio test strips) #100 ea 05/16/21 [Rx Confirmed 06/28/21] levothyroxine 75 mcg capsule 75 mcg PO DAILY #90 cap 05/16/21 [Rx Confirmed 07/02/21] insulin aspart U-100 100 unit/mL subcutaneous solution (Novolog U-100 Insulin aspart) 80 unit SQ TIDM #6 ml 05/31/21 [Rx Confirmed 07/02/21] sodium hypochlorite 0.25 % solution (Dakin's Solution) 1 applic TOPICAL DAILY #473 ml 06/07/21 [Rx Confirmed 07/02/21] apixaban 5 mg tablet (Eliquis) 5 mg PO BID #60 tab 06/15/21 [Rx Confirmed 07/02/21] metoprolol tartrate 100 mg tablet 100 mg PO BID #60 tab 06/15/21 [Rx Confirmed 07/02/21] metformin 500 mg tablet 500 mg PO BID 07/02/21 [History Confirmed 07/02/21] Active Medications Vancomycin HCl 2,750 mg/ (Sodium Chloride) 555 mls @ 200 mls/hr IV NOW ONE Stop: 07/02/21 19:08 Last Admin: 07/02/21 17:14 Dose: 200 mls/hr Documented by: Piperacillin Sod/Tazobactam Sod (Zosyn) 4.5 gm in 120 mls @ 240 mls/hr IV [id number] GEOVANNA Stop: 07/02/21 20:00 Miscellaneous Information (Vancomycin Consult Active) 1 ea N/A UD PRN PRN Reason: Consult Stop: 08/01/21 16:21 Miscellaneous Information (Piperacill/Tazobac Consult Active) 1 ea N/A UD PRN PRN Reason: Consult Stop: 08/01/21 17:32 Vancomycin HCl 2,750 mg/ (Sodium Chloride) 555 mls @ 200 mls/hr IV NOW ONE Stop: 07/02/21 19:08 Last Admin: 07/02/21 17:14 Dose: 200 mls/hr Documented by: [id number] Discontinued Medications Sodium Chloride (Nss 1000ml) 1,000 mls @ 999 mls/hr IV .Q1H1M GEOVANNA Stop: 07/02/21 16:00 Last Infusion: 07/02/21 18:09 Dose: 0 mls/hr Documented by: [id number] Admin: 07/02/21 16:36 Dose: 999 mls/hr Documented by: [id number] Acetaminophen (Ofirmev) 1,000 mg in 100 mls @ 400 mls/hr IV NOW STA Stop: 07/02/21 15:14 Last Infusion: 07/02/21 16:53 Dose: 0 mls/hr Documented by: [id number] Admin: 07/02/21 16:36 Dose: 400 mls/hr Documented by: [id number] Sodium Chloride (Nss 1000ml) 1,000 mls @ 999 mls/hr IV .Q1H1M ONE Stop: 07/02/21 18:28 Last Admin: 07/02/21 18:03 Dose: 999 mls/hr Documented by: [id number] Sodium Chloride (Nss 1000ml) 500 mls @ 999 mls/hr IV .Q31M ONE Stop: 07/02/21 17:58 Last Admin: 07/02/21 18:04 Dose: 999 mls/hr Documented by: [id number] ECG Additional Comments: Sinus tachycardia Right bundle branch block Left anterior fascicular block Bifascicular block Left ventricular hypertrophy with repolarization abnormality Cannot rule out Septal infarct , age undetermined Abnormal ECG When compared with ECG of Code Status & VTE Plan Code Status CODE: FULL VTE: SCDs, Apixaban VTE Prophylaxis Plan VTE Prophylaxis will be ordered: Yes Supervising Physician Co-Signing Physician Notes Attending Attestation & Admission Note: Pt seen/examined, chart reviewed, care plan d/w THANG Belcher. I agree w/ the greenwood components of his documentation. 61yo male with chronic indwelling brown catheter, frequent UTIs, chronic osteomyelitis with foot wound of left foot, morbid obesity, severe T2DM - presenting with fever, chills, vomiting, poor appetite, fatigue. Found to have sepsis with u/a suspicious for UTI. Cont to follow w/ wound care center for chronic L foot wound. During my assessment he c/o fevers. Given IVF and IV abx in ED. PMH, PSH, allergies, meds, sochx, famhx - reviewed Vitals - Tm 39.6, BPs high gen - morbid obesity, sick but nontoxic, talkative mouth - MM dry neck - no JVD heart - RRR, s1 s2 lungs - CTA b/l abd - soft NT BS+; mild distension - brown in place, urine cloudy ext - no edema musculo - absent 4th/5th toes on left skin - large ulceration on plantar aspect L foot; central clearing - visible bone? mild drainage, no odor; mild diffuse erythema of L foot labs - WBC - 16,000 Cr - 1.4 blood and urine cx's pending A/P: 1. sepsis - source - urine and/or L foot 2. chronic L foot wound 3. chronic osteomyelitis L foot 4. uncontrolled T2DM 5. morbid obesity BMI 50-55 6. chronic indwelling brown catheter - 2nd BPH?? 7. MACARIO 2nd #1 8. h/o paroxysmal a flutter - in NSR today agree with management as outlined by Mr Hamiltonnancy. await cultures. wound care consult for L foot; may need more imaging (CT vs MR). labs am. Vicente Cook MD PG Care Time/CCT Total # of Minutes Spent Total Time Spent with Patient: Total time spent is greater than 50% in coordination of care (as documented) at patient's floor/unit and/or counseling patient: Coding Level of Care Code 39318 Initial Inpt Care Lvl 3 Diagnoses Sepsis A41.9 Sepsis acute organ dysfunction status: unspecified Sepsis type: sepsis due to unspecified organism Osteomyelitis of left foot M86.9 Obesity E66.01; Z68.42 Body mass index: BMI 45.0-49.9 Obesity classification: adult class 3 (BMI >= 40) Obesity type: due to excess calories Serious obesity comorbidity presence: unspecified whether serious comorbidity present Anemia D64.9 Paroxysmal atrial fibrillation I48.0 Hypothyroidism E03.9 Hypothyroidism type: acquired Diabetes E11.9 MACAIRO (acute kidney injury) N17.9 (1) Hypothyroidism Hypothyroidism type: acquired Qualified Code(s): E03.9 - Hypothyroidism, unspecified (2) Sepsis Sepsis acute organ dysfunction status: unspecified Sepsis type: sepsis due to unspecified organism Qualified Code(s): A41.9 - Sepsis, unspecified organism (3) Obesity Body mass index: BMI 45.0-49.9 Obesity classification: adult class 3 (BMI >= 40) Obesity type: due to excess calories Serious obesity comorbidity presence: unspecified whether serious comorbidity present Qualified Code(s): E66.01 - Morbid (severe) obesity due to excess calories; Z68.42 - Body mass index [BMI] 45.0-49.9, adult
[2021-07-02 20:00] LABS: Appearance Urine Cloudy (Clear); Bacteria Urine Automated 1+ (Negative); Bilirubin Urine Negative (Negative); Blood Urine 3+ (Negative); Color Urine Dark Yellow; Epithelial Cell Urine Auto >30 /lpf (0-5); Glucose Urine UA Trace (Negative); Ketones Urine Trace (Negative); Leukocyte Esterase Urine 1+ (Negative); Nitrite Urine Positive (Negative); Protein Urine 3+ (Negative); Specific Gravity Urine 1.027 (1.000-1.030); Urobilinogen Urine Negative (Negative); WBC Urine Automated >30 /hpf (0-5); pH Urine 6.5 (4.5-7.5)
[2021-07-02 21:01] LABS: RBC Urine Automated >30 /hpf (0-4)
--- NOTE | 2021-07-02 21:58 | XRay Report ---
XR KUB/Abdomen 1 view INDICATION: MN ^evaluate for obstructive process. TECHNIQUE: 1 view of the abdomen was obtained. Comparison: None available at the time of this dictation. FINDINGS: Lung bases are unremarkable. The osseous structures are grossly unremarkable. Multiple gas-distended loops of small bowel are seen measuring up to 36 mm in diameter. A moderate amount of stool is noted within the large bowel. IMPRESSION: Multiple gas-distended loops of small bowel which may represent ileus versus partial obstruction. The colon is noted to contain stool and gas, nondecompressed. ACT 112: Negative or not required by law. Electronically signed by: Jefferson Kim M.D. 07/02/2021 9:57 PM
[2021-07-02] MEDS ORDERED: ALBUTEROL HFA 8 GM INHALER INH PRN (22:44)
[2021-07-02] MEDS ORDERED: CARBOHYDRATES FOR HYPOGLYCEMIA PO PRN (22:44)
[2021-07-02] MEDS ORDERED: DEXTROSE 50% 50 ML SYRINGE IV PRN (22:44)
[2021-07-02] MEDS ORDERED: GLUCAGON FOR INJ 1 MG VIAL SQ PRN (22:44)
[2021-07-02] MEDS ORDERED: GLUCOSE 40% GEL 15 GM TUBE PO PRN (22:44)
[2021-07-02] MEDS ORDERED: LACTATED RINGER'S 1,000 ML IV ONE (22:44)
[2021-07-02] MEDS ORDERED: GLUCOSE 10 TABS/TUBE PO PRN (22:44)
[2021-07-02] MEDS ORDERED: bisacodyL 10 MG SUPP PR STA (22:57)
[2021-07-03] MEDS: GABAPENTIN 300 MG CAP PO SCH ×3 (00:30→20:28)
[2021-07-03] MEDS: buPROPion XL 150 MG TABCR PO SCH ×3 (00:30→20:28)
[2021-07-03] MEDS: METOPROLOL TARTRATE 100 MG TAB PO SCH ×3 (00:30→21:30)
[2021-07-03] MEDS: APIXABAN 5 MG TABLET PO SCH ×3 (00:30→20:28)
[2021-07-03] MEDS: PIPERACILLIN/TAZOBACTAM 3.375 GM in DEXTROSE 5% 100 ML IV SCH ×2 (01:33→11:45)
[2021-07-03] MEDS: INSULIN ASPART 100 UNITS/ML 3 ML PEN SC SCH ×5 (01:34→20:28)
[2021-07-03] MEDS: INSULIN DETEMIR SC SCH ×3 (03:07→20:30)
[2021-07-03] MEDS: DAPTOmycin 700 MG in SYRINGE 0 ML IV SCH (04:42)
[2021-07-03] MEDS: PANTOprazole 40 MG TAB PO SCH (06:14)
[2021-07-03] MEDS: LEVOTHYROXINE SODIUM 75 MCG TABLET PO SCH (06:14)
[2021-07-03 06:33] LABS: Basophils # (auto) 0.02 K/uL (0-0.2); Basophils % (auto) 0.1 %; Eosinophils # (auto) 0.03 K/uL (0-0.5); Eosinophils % (auto) 0.2 %; Hematocrit (blood only) 27.5 % (42-52); Hemoglobin 8.9 g/dL (14.0-18.0); Immature Granulocytes # (auto) 0.03 K/uL (0.00-0.02); Immature Granulocytes % (auto) 0.2 %; Lymphocytes # (auto) 1.71 K/uL (1.2-3.4); Lymphocytes % (auto) 11.2 %; Mean Corpuscular Hemoglobin 26.8 pg (25-34); Mean Corpuscular Hgb Conc 32.4 g/dL (32-36); Mean Corpuscular Volume 82.8 fL (80-100); Mean Platelet Volume 10.5 fL (7.4-10.4); Monocytes # (auto) 1.61 K/uL (0.11-0.59); Monocytes % (auto) 10.5 %; Neutrophils % (auto) 77.8 %; Platelet Count 333 K/uL (130-400); RDW Coefficient of Variation 15.9 % (11.5-14.5); RDW Standard Deviation 48.7 fL (36.4-46.3); Red Blood Count 3.32 M/uL (4.7-6.1)
[2021-07-03 06:50] LABS: BUN Creatinine Ratio 8.5 (10-20); Calcium 8.7 mg/dl (8.5-10.1); Creatinine Clr Calc Pharmacy 98.7 ml/min; Est GFR (African American) 68.3 ml/min; Est GFR (Non-African American) 58.9 ml/min; Magnesium 1.8 mg/dl (1.8-2.4); Potassium 3.6 mmol/L (3.5-5.1)
[2021-07-03 06:58] LABS: C Reactive Protein 29.1 mg/dl (0-0.29)
--- NOTE | 2021-07-03 08:47 | Electrocardiogram Report ---
Test Reason : Blood Pressure : / mmHG Vent. Rate : 125 BPM Atrial Rate : 125 BPM P-R Int : 158 ms QRS Dur : 124 ms QT Int : 310 ms P-R-T Axes : 066 -57 074 degrees QTc Int : 447 ms Poor data quality, interpretation may be adversely affected Sinus tachycardia Right bundle branch block Left anterior fascicular block Bifascicular block Left ventricular hypertrophy with repolarization abnormality Abnormal ECG When compared with ECG of 01-JUN-2021 17:57, (RBBB and left anterior fascicular block) is now Present Confirmed by Joe Devi ([id number]) on 07/03/2021 8:47:22 AM Referred By: REFERRED SELF Confirmed By:Oziel Devi
[2021-07-03] MEDS ORDERED: VANCOMYCIN HCL 1 MG in SODIUM CHLORIDE 0.9% 250 ML IV SCH (09:00)
[2021-07-03] MEDS ORDERED: INSULIN ASPART PER SC ONE (10:02)
[2021-07-03] MEDS: dilTIAZem HCL 240 MG CAPCR PO SCH (10:18)
[2021-07-03] MEDS ORDERED: INSULIN ASPART 100 UNITS/ML 3 ML PEN SC ONE (10:30)
[2021-07-03] MEDS ORDERED: FLUARIX QUADRIVALENT 0.5 ML SYR IM ONE (10:55)
[2021-07-03] MEDS: ACETAMINOPHEN 325 MG TAB PO PRN (11:49)
--- NOTE | 2021-07-03 11:58 | XCELERA ---
[id number]
[2021-07-03] MEDS ORDERED: STAT IV Infusion **Titration per Protocol STA (15:55)
[2021-07-03] MEDS ORDERED: INSULIN PROTOCOL GOAL RANGE ONE (15:55)
[2021-07-03] MEDS ORDERED: INSULIN REGULAR 250 UNITS in SODIUM CHLORIDE 0.9% 247.5 ML IV SCH (16:00)
--- NOTE | 2021-07-03 16:19 | Pharmacy Report ---
Pharmacy Glycemic Short Note 2 - Date of Service July 03, 2021 - Glycemic Short BSG Results (Last 24 hours): 07/02/21 07/03/21 07/03/21 16:15 00:33 03:05 Glucose 260 H POC Glucose 251 H 283 H 07/03/21 07/03/21 07/03/21 06:13 09:48 09:49 Glucose 283 H POC Glucose 386 H* 362 H* 07/03/21 07/03/21 11:35 11:36 Glucose POC Glucose 358 H* 355 H* OUTPATIENT ANTIDIABETIC REGIMEN: * Levemir 100 units SC BID (sometimes extra) * Novolog 80 units SC TIDM * HbA1c slightly outdated. Was 9.1% on 04/03/21. Repeat ordered for 07/04/21 ASSESSMENT: * 61 yo M admitted with sepsis and GPC bacteremia 2nd osteomyelitis and/or UTI * Significant stress with severe infection, high doses of insulin as an outpatient, persistent BSG's >350 mg/dL and missed dose of basal insulin yesterday - insulin drip indicated and OK'd by Dr. Cook * Will continue Levemir to help with eventual transition off of insulin drip, hopefully tomorrow AM * Will not use insulin drip calculator to determine CHO rate as it only goes as low as 5 g CHO/unit and this patient likely requires more, especially as the calculator would not take into account insulin from Levemir. Will therefore fix CHO ratio at 3 g CHO/unit, similar to previous admission PLAN FOR INPATIENT GLYCEMIC CONTROL: * Insulin drip - severe stress, goal BSG 140-180 mg/dL * Basal insulin * Levemir 100 units SQ BID * Bolus insulin * NovoLog per scale ACHS * Nutritional / Prandial insulin per carb ratio of 1 unit per 3 grams CHO consumed PLAN FOR DISCHARGE: * tbd
[2021-07-03] MEDS: DOCUSATE SODIUM 100 MG CAP PO SCH ×2 (16:30→20:28)
[2021-07-03] MEDS: PHARMACY GLYCEMIC MGMT CONSULT PRN ×2 (16:30→17:10)
[2021-07-03] MEDS: POLYETHYLENE (MIRALAX) 17 GM PACK PO SCH (16:30)
[2021-07-03] MEDS: SEVERE STRESS LEVEL SCH ×4 (16:31→17:23)
[2021-07-03] MEDS ORDERED: INSULIN HUMAN REGULAR BOLUS IV ONE (16:45)
[2021-07-03] MEDS: ATORVASTATIN 40 MG TAB PO SCH (17:13)
[2021-07-03] MEDS: PIPERACILLIN/TAZOBACTAM 4.5 GM in DEXTROSE 5% 100 ML IV SCH (18:14)
[2021-07-03] MEDS ORDERED: bisacodyL 10 MG SUPP PR STA (18:31)
--- NOTE | 2021-07-03 22:22 | Hospitalist Progress Note ---
Date of Service July 03, 2021 Assessment & Plan (1) Septicemia: Plan: GPC, not MRSA. Cont current IV antibiotics - await ID & sensitivities. Source - likely the L foot wound. Sed rate and CRP markedly elevated c/w chronic osteomyelitis, L foot wound, UTI, etc. Obtained repeat blood cultures today, 2 sets. Unfortunately echo did not yield good windows to definitively r/o valvular vegetations. F/u on cultures in am. May need repeat imaging of L foot. (2) Catheter-associated urinary tract infection: Plan: 2nd GNR. Cont zosyn. Await ID & sens. [place] last exchanged ~1 month ago - will need to be swapped next 1-2 days. (3) Osteomyelitis of left foot: Plan: Chronic. Likely the source for #1. May need repeat imaging given recurrent septicemia. Cont current IV abx. Appreciate wound care consult. Arterial doppler of left leg from 2020 with ? L peroneal artery occlusion - need for intervention? Consider vascular consultation. (4) MACARIO (acute kidney injury): Plan: Mild, improved. 2nd to #1. (5) Anemia: Plan: Anemia of chronic disease - likely 2nd to foot osteomyelitis. B12/folate 02/16 wnl. Fe studies 02/16 -- c/w ACD with small component of Fe deficiency. Consider repeating. (6) Hypothyroidism: Plan: Continue with Levothyroxine 75mcg daily TSH March 2021 wnl (7) Diabetes: Plan: Uncontrolled On massive amounts of insulin outside the hospital Start insulin infusion Pharmacy consulted for management (8) Hyponatremia: Plan: Partially volume depletion. Partially "pseudo"hyponatremia. BMP am. 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: Plan: as above chronic consider CT vs MR (10) Morbid obesity with BMI of 50.0-59.9, adult: Plan: BMI 52 (11) GERD (gastroesophageal reflux disease): Plan: PPI (12) HTN (hypertension), benign: Plan: Cont metoprolol (13) History of atrial flutter: Plan: noted remains in NSR cont BB cont CCB cont eliquis 5mg BID (14) Constipation: Plan: dulcolax suppos x 1 miralax for maintenance may need senna for maintenance as well [facility] x-rays yesterday with distal stool/rectal stool and mild prominence of bowels proximally (15) DVT prophylaxis: Plan: eliquis 5mg BID Admission and Anticipated Discharge Date Admission Date: July 02, 2021 Subjective pt states he is feeling better today better energy, better appetite no dyspnea denies cp or abd pain still no bowel movement - no BM in 4-5 days tele overnight wnl seen by wound care - cont aquacel ag, abd/kerlix, tubigrip per nursing staff in ER (he was an ER hold all night), when he placed pressure on the left foot, he had copious bloody drainage Review of Systems Review of Systems: gen - no chills today, fever improved, appetite improved pulm - no cough, no dyspnea cv - no chest pain GI - constipation; no abd pain; vomiting/nausea resolved Physical Exam Physical Exam: gen - looks better today; NAD mouth - MMM neck - no JVD heart - RRR, s1 s2 lungs - CTA b/l abd - soft, distension improved today; BS+, NT ext - mild 1+ edema L foot and distal leg, <1+ edema right foot/ankle skin - dressings intact L foot/ankle (not removed today); no foul odor vascu - pulses b/l feet 2+ Results & Data Results & Data ([facility]) Vital Signs (Past 12 Hours) Vital Signs Temp Pulse Pulse Resp BP Pulse Ox 07/03/21 18:39 37.7 C H 81 20 130/66 95 07/03/21 15:03 37.5 C 74 18 128/70 94 07/03/21 15:01 74 07/03/21 13:58 37.2 C 73 20 115/63 94 07/03/21 13:52 75 07/03/21 10:47 88 22 155/67 H 99 Laboratory Results Laboratory Results - last 24 hr 07/02/21 07/03/21 07/03/21 16:27 00:33 03:05 WBC RBC Hgb Hct MCV MCH MCHC RDW Std Deviation RDW Coeff of Adi Plt Count MPV Immature Gran % (Auto) Neut % (Auto) Lymph % (Auto) [place] % (Auto) Eos % (Auto) Baso % (Auto) Neut # (Auto) Lymph # (Auto) [place] # (Auto) Eos # (Auto) Baso # (Auto) Immature Gran # (Auto) ESR Sodium Potassium Chloride Carbon Dioxide Anion Gap BUN Creatinine Est Cr Clr Drug Dosing Est GFR ( Amer) Est GFR (Non-Af Amer) BUN/Creatinine Ratio Glucose POC Glucose 251 H 283 H Calcium Magnesium C-Reactive Protein Bld Cult Staph aureus PCR Negative Blood Culture MRSA PCR Negative 07/03/21 07/03/21 07/03/21 06:13 06:13 06:13 WBC 15.30 H RBC 3.32 L Hgb 8.9 L Hct 27.5 L MCV 82.8 MCH 26.8 MCHC 32.4 RDW Std Deviation 48.7 H RDW Coeff of Adi 15.9 H Plt Count 333 MPV 10.5 H Immature Gran % (Auto) 0.2 Neut % (Auto) 77.8 Lymph % (Auto) 11.2 [place] % (Auto) 10.5 Eos % (Auto) 0.2 Baso % (Auto) 0.1 Neut # (Auto) 11.90 H Lymph # (Auto) 1.71 [place] # (Auto) 1.61 H Eos # (Auto) 0.03 Baso # (Auto) 0.02 Immature Gran # (Auto) 0.03 H ESR > 130 H Sodium 133 L Potassium 3.6 Chloride 100 Carbon Dioxide 27 Anion Gap 6.0 BUN 11 Creatinine 1.30 Est Cr Clr Drug Dosing 98.7 Est GFR ( Amer) 68.3 Est GFR (Non-Af Amer) 58.9 BUN/Creatinine Ratio 8.5 L Glucose 283 H POC Glucose Calcium 8.7 Magnesium 1.8 C-Reactive Protein 29.10 H Bld Cult Staph aureus PCR Blood Culture MRSA PCR 07/03/21 07/03/21 07/03/21 09:48 09:49 11:35 WBC RBC Hgb Hct MCV MCH MCHC RDW Std Deviation RDW Coeff of Adi Plt Count MPV Immature Gran % (Auto) Neut % (Auto) Lymph % (Auto) [place] % (Auto) Eos % (Auto) Baso % (Auto) Neut # (Auto) Lymph # (Auto) [place] # (Auto) Eos # (Auto) Baso # (Auto) Immature Gran # (Auto) ESR Sodium Potassium Chloride Carbon Dioxide Anion Gap BUN Creatinine Est Cr Clr Drug Dosing Est GFR ( Amer) Est GFR (Non-Af Amer) BUN/Creatinine Ratio Glucose POC Glucose 386 H* 362 H* 358 H* Calcium Magnesium C-Reactive Protein Bld Cult Staph aureus PCR Blood Culture MRSA PCR 07/03/21 07/03/21 07/03/21 11:36 16:18 18:23 WBC RBC Hgb Hct MCV MCH MCHC RDW Std Deviation RDW Coeff of Adi Plt Count MPV Immature Gran % (Auto) Neut % (Auto) Lymph % (Auto) [place] % (Auto) Eos % (Auto) Baso % (Auto) Neut # (Auto) Lymph # (Auto) [place] # (Auto) Eos # (Auto) Baso # (Auto) Immature Gran # (Auto) ESR Sodium Potassium Chloride Carbon Dioxide Anion Gap BUN Creatinine Est Cr Clr Drug Dosing Est GFR ( Amer) Est GFR (Non-Af Amer) BUN/Creatinine Ratio Glucose POC Glucose 355 H* 297 H 274 H Calcium Magnesium C-Reactive Protein Bld Cult Staph aureus PCR Blood Culture MRSA PCR 07/03/21 07/03/21 07/03/21 19:22 20:25 21:29 WBC RBC Hgb Hct MCV MCH MCHC RDW Std Deviation RDW Coeff of Adi Plt Count MPV Immature Gran % (Auto) Neut % (Auto) Lymph % (Auto) [place] % (Auto) Eos % (Auto) Baso % (Auto) Neut # (Auto) Lymph # (Auto) [place] # (Auto) Eos # (Auto) Baso # (Auto) Immature Gran # (Auto) ESR Sodium Potassium Chloride Carbon Dioxide Anion Gap BUN Creatinine Est Cr Clr Drug Dosing Est GFR ( Amer) Est GFR (Non-Af Amer) BUN/Creatinine Ratio Glucose POC Glucose 261 H 241 H 218 H Calcium Magnesium C-Reactive Protein Bld Cult Staph aureus PCR Blood Culture MRSA PCR Diagnostic Findings blood cultures from admission - positive for GPC (clusters, and chains) urine cx - GNR echo - poor visualization of valves to r/o vegetations PG Care Time/CCT Total # of Minutes Spent Total Time Spent with Patient: Total time spent is greater than 50% in coordination of care (as documented) at patient's floor/unit and/or counseling patient: Coding Level of Care Code 82051 Subseq Hosp Care Lvl 3 Diagnoses Osteomyelitis of left foot M86.9 MACARIO (acute kidney injury) N17.9 Anemia D64.9 Hypothyroidism E03.9 Hypothyroidism type: acquired Diabetes E11.9 Septicemia A41.9 Hyponatremia E87.1 Catheter-associated urinary tract infection T83.511A; N39.0 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
[2021-07-04] MEDS: PIPERACILLIN/TAZOBACTAM 4.5 GM in DEXTROSE 5% 100 ML IV SCH (01:29)
[2021-07-04] MEDS: DAPTOmycin 700 MG in SYRINGE 0 ML IV SCH (05:52)
[2021-07-04] MEDS: LEVOTHYROXINE SODIUM 75 MCG TABLET PO SCH (05:52)
[2021-07-04] MEDS: PANTOprazole 40 MG TAB PO SCH (06:18)
[2021-07-04] MEDS: ACETAMINOPHEN 325 MG TAB PO PRN ×3 (07:48→21:23)
[2021-07-04] MEDS: DOCUSATE SODIUM 100 MG CAP PO SCH ×2 (07:49→21:09)
[2021-07-04] MEDS: POLYETHYLENE (MIRALAX) 17 GM PACK PO SCH (07:49)
[2021-07-04 08:01] LABS: Basophils # (auto) 0.02 K/uL (0-0.2); Basophils % (auto) 0.2 %; Eosinophils # (auto) 0.19 K/uL (0-0.5); Eosinophils % (auto) 1.6 %; Hematocrit (blood only) 24.7 % (42-52); Hemoglobin 7.8 g/dL (14.0-18.0); Immature Granulocytes # (auto) 0.04 K/uL (0.00-0.02); Immature Granulocytes % (auto) 0.3 %; Lymphocytes # (auto) 1.88 K/uL (1.2-3.4); Lymphocytes % (auto) 15.5 %; Mean Corpuscular Hemoglobin 26.6 pg (25-34); Mean Corpuscular Hgb Conc 31.6 g/dL (32-36); Mean Corpuscular Volume 84.3 fL (80-100); Mean Platelet Volume 10.2 fL (7.4-10.4); Monocytes # (auto) 1.37 K/uL (0.11-0.59); Monocytes % (auto) 11.3 %; Neutrophils # (auto) 8.61 K/uL (1.4-6.5); Neutrophils % (auto) 71.1 %; Platelet Count 341 K/uL (130-400); RDW Coefficient of Variation 16.3 % (11.5-14.5); RDW Standard Deviation 50.4 fL (36.4-46.3); Red Blood Count 2.93 M/uL (4.7-6.1); White Blood Count 12.11 K/uL (4.8-10.8)
[2021-07-04 08:11] LABS: Estimated Average Glucose 209 mg/dl; Hemoglobin A1C 8.9 % (4.5-5.6)
[2021-07-04 08:23] LABS: RBC Morphology Unremarkable
[2021-07-04] MEDS: buPROPion XL 150 MG TABCR PO SCH ×2 (08:31→21:09)
[2021-07-04] MEDS: GABAPENTIN 300 MG CAP PO SCH ×2 (08:31→21:10)
[2021-07-04] MEDS: METOPROLOL TARTRATE 100 MG TAB PO SCH ×2 (08:31→21:09)
[2021-07-04] MEDS: APIXABAN 5 MG TABLET PO SCH ×2 (08:31→21:08)
[2021-07-04] MEDS: dilTIAZem HCL 240 MG CAPCR PO SCH (08:32)
[2021-07-04 08:33] LABS: BUN Creatinine Ratio 9.4 (10-20); Calcium 8.6 mg/dl (8.5-10.1); Creatinine Clr Calc Pharmacy 90.4 ml/min; Est GFR (African American) 61.3 ml/min; Est GFR (Non-African American) 52.9 ml/min; Magnesium 2.4 mg/dl (1.8-2.4); Potassium 3.6 mmol/L (3.5-5.1)
[2021-07-04] MEDS: INSULIN DETEMIR SC SCH ×2 (08:33→21:00)
[2021-07-04] MEDS ORDERED: bisacodyL 5 MG TABEC PO ONE (08:36)
[2021-07-04] MEDS: INSULIN ASPART 100 UNITS/ML 3 ML PEN SC SCH ×4 (08:36→21:00)
--- NOTE | 2021-07-04 09:04 | Pharmacy Report ---
Pharmacy Glycemic Short Note 2 - Date of Service July 04, 2021 - Glycemic Short BSG Results (Last 24 hours): 07/03/21 07/03/21 07/03/21 09:48 09:49 11:35 Glucose POC Glucose 386 H* 362 H* 358 H* 07/03/21 07/03/21 07/03/21 11:36 16:18 18:23 Glucose POC Glucose 355 H* 297 H 274 H 07/03/21 07/03/21 07/03/21 19:22 20:25 21:29 Glucose POC Glucose 261 H 241 H 218 H 07/03/21 07/04/21 07/04/21 23:33 00:32 01:33 Glucose POC Glucose 163 H 145 H 113 H 07/04/21 07/04/21 07/04/21 02:27 04:05 06:01 Glucose POC Glucose 110 H 125 H 104 H 07/04/21 07/04/21 07:29 07:34 Glucose 94 POC Glucose 120 H OUTPATIENT ANTIDIABETIC REGIMEN: * Levemir 100 units SC BID (sometimes extra) * Novolog 80 units SC TIDM * HbA1c = 8.9% (07/04/21) ASSESSMENT: 07/04: * Patient required an insulin drip for approximately 3 hours last evening secondary to hyperglycemia. It has been on hold since then. * BSGs trended down nicely once drip was started as well as once basal deficiency was corrected: [phone] mg/dL. * Patient received a total of 29 units while on the drip for three hours. * Also received 200 units of basal insulin with Lantus and 50 units of bolus insulin with Novolog yesterday. * Fasting BSG is excellent today at 120 mg/dL. * Will stop the insulin drip at this time and manage patient via basal-bolus regimen based on previous admission data. 07/03: * 61 yo M admitted with sepsis and GPC bacteremia 2nd osteomyelitis and/or UTI * Significant stress with severe infection, high doses of insulin as an outpatient, persistent BSG's >350 mg/dL and missed dose of basal insulin yesterday - insulin drip indicated and OK'd by Dr. Cook * Will continue Levemir to help with eventual transition off of insulin drip, hopefully tomorrow AM * Will not use insulin drip calculator to determine CHO rate as it only goes as low as 5 g CHO/unit and this patient likely requires more, especially as the calculator would not take into account insulin from Levemir. Will therefore fix CHO ratio at 3 g CHO/unit, similar to previous admission PLAN FOR INPATIENT GLYCEMIC CONTROL: * Basal insulin * Levemir 100 units SC BID * Bolus insulin * Novolog Correction per scale ACHS * Goal Range: Low 100 mg/dL - High 140 mg/dL * Correction Factor: 10 mg/dL/unit * Carb ratio of 1 unit per 2 grams CHO consumed PLAN FOR DISCHARGE: * TBD
[2021-07-04] MEDS: ERTAPENEM SODIUM 1,000 MG in SODIUM CHLORIDE 0.9% 50 ML IV SCH (09:20)
[2021-07-04] MEDS ORDERED: SOD PHOSPHATE/SOD BIPHOSPHATE ENEMA 132 ML BTL PR STA (15:25)
[2021-07-04 15:39] LABS: Hematocrit (blood only) 27.8 % (42-52); Hemoglobin 8.8 g/dL (14.0-18.0)
[2021-07-04] MEDS: ATORVASTATIN 40 MG TAB PO SCH (16:01)
--- NOTE | 2021-07-04 21:23 | Hospitalist Progress Note ---
Date of Service July 04, 2021 Assessment & Plan (1) Septicemia: Plan: Staph species + group B strep. Repeat blood cultures from 07/03 thus far negative. Zosyn changed to ertapenem to cover the urine. Leave daptomycin as is. Source - L foot wound. Sed rate and CRP markedly elevated c/w chronic osteomyelitis, L foot wound, UTI, etc. Unfortunately echo did not yield good windows to definitively r/o valvular vegetations. May need IMMANUEL. F/u on cultures in am. Likely to obtain MRI L foot w/ and w/o contrast Arterial duplex study from 01/2021 with ? peroneal artery occlusion. May need repeat study. (2) Catheter-associated urinary tract infection: Plan: Initially was reported as MDR klebsiella, sensitive to ertapenem. Then the report was redacted. Since u/a was quite dirty at presentation will assume that the klebsiella was indeed there. Cont ertapenem. Brown exchanged in ER at presentation. (3) Osteomyelitis of left foot: Plan: Chronic. Likely the source for #1. Will likely repeat an MRI of L foot. Cont IV abx. Appreciate wound care consult. Arterial doppler of left leg from 2020 with ? L peroneal artery occlusion - need for intervention. Consider repeat study due to refractoriness of this infection. (4) MACARIO (acute kidney injury): Plan: Mild, improved. 2nd to #1. (5) Anemia: Plan: Anemia of chronic disease - likely 2nd to foot osteomyelitis. B12/folate 02/16 wnl. Fe studies 02/16 -- c/w ACD with small component of Fe deficiency. Consider repeating. (6) Hypothyroidism: Plan: Continue with Levothyroxine 75mcg daily TSH March 2021 wnl (7) Diabetes: Plan: Uncontrolled On massive amounts of insulin outside the hospital Pharmacy consulted for management Was on insulin drip - now back to SC basal-bolus (8) Hyponatremia: Plan: Partially volume depletion. Partially "pseudo"hyponatremia. BMP am. Check urine osm, urine Na, etc. 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: Plan: as above chronic consider repeat MR (10) Morbid obesity with BMI of 50.0-59.9, adult: Plan: BMI 52 (11) GERD (gastroesophageal reflux disease): Plan: PPI (12) HTN (hypertension), benign: Plan: Cont metoprolol (13) History of atrial flutter: Plan: noted remains in NSR cont BB cont CCB cont eliquis 5mg BID (14) Constipation: Plan: all modalities have not worked will give enema if no success then miralax bowel prep (15) DVT prophylaxis: Plan: eliquis 5mg BID Plan: called and spoke with pt's significant other today update given pt likely to need rehab Admission and Anticipated Discharge Date Admission Date: July 02, 2021 Subjective pt with ongoing constipation despite multiple PO meds for such and suppository he has had no success we discussed use of enema he is feeling better overall less fatigue, better appetite denies complaints otherwise tele overnight wnl Review of Systems Review of Systems: gen - still with residual fever/chills CV - no chest pain pulm - no cough/ dyspnea GI - no pain or nausea; no further emesis - patient states his brown was exchanged in ER at time of admission musculo - no pain in L foot Physical Exam Physical Exam: gen - NAD, nontoxic, looks good mouth - MMM neck - no JVD heart - RRR, s1 s2 lungs - CTA b/l abd - soft, distension still present, BS+, NT ext - mild 1+ edema L foot and distal leg, <1+ edema right foot/ankle skin - dressings intact L foot/ankle vascu - pulses b/l feet 1-2+ Results & Data Results & Data ([facility]) Vital Signs (Past 12 Hours) Vital Signs Temp Pulse Pulse Resp BP Pulse Ox 07/04/21 21:17 38.3 C H 88 36 H 07/04/21 19:25 38.2 C H 87 22 171/64 H 95 07/04/21 19:20 37.6 C H 07/04/21 17:54 38.4 C H 07/04/21 15:02 64 07/04/21 15:00 36.5 C 67 20 126/56 L 97 07/04/21 11:34 37.2 C 65 20 131/55 L 96 Laboratory Results Laboratory Results - last 24 hr 07/03/21 07/03/21 07/04/21 21:29 23:33 00:32 WBC RBC Hgb Hct MCV MCH MCHC RDW Std Deviation RDW Coeff of Adi Plt Count MPV Immature Gran % (Auto) Neut % (Auto) Lymph % (Auto) [place] % (Auto) Eos % (Auto) Baso % (Auto) Neut # (Auto) Lymph # (Auto) [place] # (Auto) Eos # (Auto) Baso # (Auto) Immature Gran # (Auto) RBC Morphology Sodium Potassium Chloride Carbon Dioxide Anion Gap BUN Creatinine Est Cr Clr Drug Dosing Est GFR ( Amer) Est GFR (Non-Af Amer) BUN/Creatinine Ratio Glucose POC Glucose 218 H 163 H 145 H Estimat Average Glucose Hemoglobin A1c Osmolality Calcium Magnesium Urine Osmolality Ur Random Sodium Stool Occult Bld Scrn 07/04/21 07/04/21 07/04/21 01:33 02:27 04:05 WBC RBC Hgb Hct MCV MCH MCHC RDW Std Deviation RDW Coeff of Adi Plt Count MPV Immature Gran % (Auto) Neut % (Auto) Lymph % (Auto) [place] % (Auto) Eos % (Auto) Baso % (Auto) Neut # (Auto) Lymph # (Auto) [place] # (Auto) Eos # (Auto) Baso # (Auto) Immature Gran # (Auto) RBC Morphology Sodium Potassium Chloride Carbon Dioxide Anion Gap BUN Creatinine Est Cr Clr Drug Dosing Est GFR ( Amer) Est GFR (Non-Af Amer) BUN/Creatinine Ratio Glucose POC Glucose 113 H 110 H 125 H Estimat Average Glucose Hemoglobin A1c Osmolality Calcium Magnesium Urine Osmolality Ur Random Sodium Stool Occult Bld Scrn 07/04/21 07/04/21 07/04/21 06:01 07:29 07:29 WBC 12.11 H RBC 2.93 L Hgb 7.8 L Hct 24.7 L MCV 84.3 MCH 26.6 MCHC 31.6 L RDW Std Deviation 50.4 H RDW Coeff of Adi 16.3 H Plt Count 341 MPV 10.2 Immature Gran % (Auto) 0.3 Neut % (Auto) 71.1 Lymph % (Auto) 15.5 [place] % (Auto) 11.3 Eos % (Auto) 1.6 Baso % (Auto) 0.2 Neut # (Auto) 8.61 H Lymph # (Auto) 1.88 [place] # (Auto) 1.37 H Eos # (Auto) 0.19 Baso # (Auto) 0.02 Immature Gran # (Auto) 0.04 H RBC Morphology Unremarkable Sodium 133 L Potassium 3.6 Chloride 100 Carbon Dioxide 28 Anion Gap 6.0 BUN 13 Creatinine 1.42 H Est Cr Clr Drug Dosing 90.4 Est GFR ( Amer) 61.3 Est GFR (Non-Af Amer) 52.9 BUN/Creatinine Ratio 9.4 L Glucose 94 POC Glucose 104 H Estimat Average Glucose Hemoglobin A1c Osmolality Calcium 8.6 Magnesium 2.4 Urine Osmolality Ur Random Sodium Stool Occult Bld Scrn 07/04/21 07/04/21 07/04/21 07:29 07:34 09:23 WBC RBC Hgb Hct MCV MCH MCHC RDW Std Deviation RDW Coeff of Adi Plt Count MPV Immature Gran % (Auto) Neut % (Auto) Lymph % (Auto) [place] % (Auto) Eos % (Auto) Baso % (Auto) Neut # (Auto) Lymph # (Auto) [place] # (Auto) Eos # (Auto) Baso # (Auto) Immature Gran # (Auto) RBC Morphology Sodium Potassium Chloride Carbon Dioxide Anion Gap BUN Creatinine Est Cr Clr Drug Dosing Est GFR ( Amer) Est GFR (Non-Af Amer) BUN/Creatinine Ratio Glucose POC Glucose 120 H 159 H Estimat Average Glucose 209 Hemoglobin A1c 8.9 H Osmolality Calcium Magnesium Urine Osmolality Ur Random Sodium Stool Occult Bld Scrn 07/04/21 07/04/21 07/04/21 11:56 12:06 12:06 WBC RBC Hgb Hct MCV MCH MCHC RDW Std Deviation RDW Coeff of Adi Plt Count MPV Immature Gran % (Auto) Neut % (Auto) Lymph % (Auto) [place] % (Auto) Eos % (Auto) Baso % (Auto) Neut # (Auto) Lymph # (Auto) [place] # (Auto) Eos # (Auto) Baso # (Auto) Immature Gran # (Auto) RBC Morphology Sodium Potassium Chloride Carbon Dioxide Anion Gap BUN Creatinine Est Cr Clr Drug Dosing Est GFR ( Amer) Est GFR (Non-Af Amer) BUN/Creatinine Ratio Glucose POC Glucose 147 H Estimat Average Glucose Hemoglobin A1c Osmolality Calcium Magnesium Urine Osmolality 453 L Ur Random Sodium 15 Stool Occult Bld Scrn 07/04/21 07/04/21 07/04/21 15:24 15:24 16:32 WBC RBC Hgb 8.8 L Hct 27.8 L MCV MCH MCHC RDW Std Deviation RDW Coeff of Adi Plt Count MPV Immature Gran % (Auto) Neut % (Auto) Lymph % (Auto) [place] % (Auto) Eos % (Auto) Baso % (Auto) Neut # (Auto) Lymph # (Auto) [place] # (Auto) Eos # (Auto) Baso # (Auto) Immature Gran # (Auto) RBC Morphology Sodium Potassium Chloride Carbon Dioxide Anion Gap BUN Creatinine Est Cr Clr Drug Dosing Est GFR ( Amer) Est GFR (Non-Af Amer) BUN/Creatinine Ratio Glucose POC Glucose Estimat Average Glucose Hemoglobin A1c Osmolality 276 L Calcium Magnesium Urine Osmolality Ur Random Sodium Stool Occult Bld Scrn Negative 07/04/21 07/04/21 16:37 20:40 WBC RBC Hgb Hct MCV MCH MCHC RDW Std Deviation RDW Coeff of Adi Plt Count MPV Immature Gran % (Auto) Neut % (Auto) Lymph % (Auto) [place] % (Auto) Eos % (Auto) Baso % (Auto) Neut # (Auto) Lymph # (Auto) [place] # (Auto) Eos # (Auto) Baso # (Auto) Immature Gran # (Auto) RBC Morphology Sodium Potassium Chloride Carbon Dioxide Anion Gap BUN Creatinine Est Cr Clr Drug Dosing Est GFR ( Amer) Est GFR (Non-Af Amer) BUN/Creatinine Ratio Glucose POC Glucose 146 H 178 H Estimat Average Glucose Hemoglobin A1c Osmolality Calcium Magnesium Urine Osmolality Ur Random Sodium Stool Occult Bld Scrn PG Care Time/CCT Total # of Minutes Spent Total Time Spent with Patient: Total time spent is greater than 50% in coordination of care (as documented) at patient's floor/unit and/or counseling patient: Coding Level of Care Code 54878 Subseq Hosp Care Lvl 3 Diagnoses Septicemia A41.9 Catheter-associated urinary tract infection T83.511A; N39.0 Osteomyelitis of left foot M86.9 MACARIO (acute kidney injury) N17.9 Anemia D64.9 Hypothyroidism E03.9 Hypothyroidism type: acquired Diabetes E11.9 Hyponatremia E87.1 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
[2021-07-05] MEDS: LEVOTHYROXINE SODIUM 75 MCG TABLET PO SCH (06:11)
[2021-07-05] MEDS: PANTOprazole 40 MG TAB PO SCH (06:12)
[2021-07-05 06:13] LABS: Basophils # (auto) 0.01 K/uL (0-0.2); Basophils % (auto) 0.1 %; Eosinophils # (auto) 0.24 K/uL (0-0.5); Eosinophils % (auto) 2.1 %; Hematocrit (blood only) 26.1 % (42-52); Hemoglobin 8.3 g/dL (14.0-18.0); Immature Granulocytes # (auto) 0.03 K/uL (0.00-0.02); Immature Granulocytes % (auto) 0.3 %; Lymphocytes # (auto) 1.43 K/uL (1.2-3.4); Lymphocytes % (auto) 12.7 %; Mean Corpuscular Hemoglobin 26.3 pg (25-34); Mean Corpuscular Hgb Conc 31.8 g/dL (32-36); Mean Corpuscular Volume 82.9 fL (80-100); Mean Platelet Volume 9.9 fL (7.4-10.4); Monocytes # (auto) 1.28 K/uL (0.11-0.59); Monocytes % (auto) 11.3 %; Neutrophils # (auto) 8.29 K/uL (1.4-6.5); Neutrophils % (auto) 73.5 %; Platelet Count 383 K/uL (130-400); RDW Coefficient of Variation 16.1 % (11.5-14.5); RDW Standard Deviation 49.7 fL (36.4-46.3); Red Blood Count 3.15 M/uL (4.7-6.1); White Blood Count 11.28 K/uL (4.8-10.8)
[2021-07-05] MEDS: DAPTOmycin 700 MG in SYRINGE 0 ML IV SCH (06:14)
[2021-07-05 06:59] LABS: Est GFR (African American) 61.3 ml/min; Est GFR (Non-African American) 52.9 ml/min; Potassium 4.2 mmol/L (3.5-5.1)
[2021-07-05 07:00] LABS: BUN Creatinine Ratio 11.5 (10-20); Calcium 8.7 mg/dl (8.5-10.1); Creatinine Clr Calc Pharmacy 89.8 ml/min
[2021-07-05] MEDS: INSULIN ASPART 100 UNITS/ML 3 ML PEN SC SCH ×4 (08:40→21:01)
[2021-07-05] MEDS: ERTAPENEM SODIUM 1,000 MG in SODIUM CHLORIDE 0.9% 50 ML IV SCH (08:41)
[2021-07-05] MEDS: APIXABAN 5 MG TABLET PO SCH ×2 (08:41→21:00)
[2021-07-05] MEDS: DOCUSATE SODIUM 100 MG CAP PO SCH ×2 (08:41→21:00)
[2021-07-05] MEDS: METOPROLOL TARTRATE 100 MG TAB PO SCH ×2 (08:41→21:03)
[2021-07-05] MEDS: GABAPENTIN 300 MG CAP PO SCH ×2 (08:41→21:00)
[2021-07-05] MEDS: dilTIAZem HCL 240 MG CAPCR PO SCH (08:41)
[2021-07-05] MEDS: buPROPion XL 150 MG TABCR PO SCH ×2 (08:41→21:00)
[2021-07-05] MEDS: INSULIN DETEMIR SC SCH (08:42)
[2021-07-05] MEDS: POLYETHYLENE (MIRALAX) 17 GM PACK PO SCH ×5 (09:04→13:48)
--- NOTE | 2021-07-05 09:05 | Pharmacy Report ---
Pharmacy Glycemic Short Note 2 - Date of Service July 05, 2021 - Glycemic Short BSG Results (Last 24 hours): 07/04/21 07/04/21 07/04/21 09:23 11:56 16:37 Glucose POC Glucose 159 H 147 H 146 H 07/04/21 07/05/21 07/05/21 20:40 05:59 08:04 Glucose 150 H POC Glucose 178 H 142 H OUTPATIENT ANTIDIABETIC REGIMEN: * Levemir 100 units SC BID (sometimes extra) * Novolog 80 units SC TIDM * HbA1c = 8.9% (07/04/21) ASSESSMENT: 07/05: * Bishop received a total of 228 units of insulin yesterday (200 units basal + 28 units bolus) * BSGs post-insulin drip were acceptable: [phone] mg/dL * Fasting BSG increased slightly today to 142 mg/dL * No changes to insulin regimen today 07/04: * Patient required an insulin drip for approximately 3 hours last evening secondary to hyperglycemia. It has been on hold since then. * BSGs trended down nicely once drip was started as well as once basal deficiency was corrected: [phone] mg/dL. * Patient received a total of 29 units while on the drip for three hours. * Also received 200 units of basal insulin with Lantus and 50 units of bolus insulin with Novolog yesterday. * Fasting BSG is excellent today at 120 mg/dL. * Will stop the insulin drip at this time and manage patient via basal-bolus regimen based on previous admission data. 07/03: * 61 yo M admitted with sepsis and GPC bacteremia 2nd osteomyelitis and/or UTI * Significant stress with severe infection, high doses of insulin as an outpatient, persistent BSG's >350 mg/dL and missed dose of basal insulin yesterday - insulin drip indicated and OK'd by Dr. Cook * Will continue Levemir to help with eventual transition off of insulin drip, hopefully tomorrow AM * Will not use insulin drip calculator to determine CHO rate as it only goes as low as 5 g CHO/unit and this patient likely requires more, especially as the calculator would not take into account insulin from Levemir. Will therefore fix CHO ratio at 3 g CHO/unit, similar to previous admission PLAN FOR INPATIENT GLYCEMIC CONTROL: * Basal insulin * Levemir 100 units SC BID * Bolus insulin * Novolog Correction per scale ACHS * Goal Range: Low 100 mg/dL - High 140 mg/dL * Correction Factor: 10 mg/dL/unit * Carb ratio of 1 unit per 2 grams CHO consumed PLAN FOR DISCHARGE: * HbA1c = 8.9% from this admission which has improved from March of 2021. * Despite improvement in HbA1c (which is subtle), patient will likely need insulin titrated upon discharge to meet goal HbA1c of less than 8%. * Recommend titrating Metformin dose by 500 mg/week until goal dose of 1000 mg twice daily is reached. * Vitamin B12 supplementation may be needed with bed bug exterminator metformin use. * Patient is on large doses of insulin as an outpatient. * Could consider increasing Levemir to TID or transitioning to U-500 insulin if patient is agreeable. * Further recs to be provided closer to discharge.
--- NOTE | 2021-07-05 10:33 | Ultrasound Report ---
US ankle/brachial index comp CLINICAL HISTORY: Left lower extremity wound. COMPARISON STUDY: None. FINDINGS: The right ankle-brachial index measured with the dorsalis pedis artery is 0.96 and the post erior to arteries 1.22. The left ankle-brachial index measured with the dorsalis pedis artery was 1.1 . The left posterior to artery was not well assessed. The right toe brachial index is 1.23 and the le ft toe brachial index is 1.31. IMPRESSION: Bilateral ankle brachial indices are within normal limits as described above. ACT 112: Negative or not required by law. Electronically signed by: David Daley M.D. 07/05/2021 10:32 AM
[2021-07-05] MEDS ORDERED: INSULIN DETEMIR SC STA (11:27)
[2021-07-05] MEDS: ATORVASTATIN 40 MG TAB PO SCH (17:30)
[2021-07-05] MEDS: ACETAMINOPHEN 325 MG TAB PO PRN (17:30)
--- NOTE | 2021-07-05 18:45 | XRay Report ---
XR abdomen min 2V HISTORY: 61 years-old Male ongoing severe constipation vs ileus chronic generalized abdominal pain COMPARISON: [facility] 07/02/2021 TECHNIQUE: AP view of the abdomen FINDINGS: Limited exam secondary to patient body habitus. Moderate fecal retention. Mild gaseous distention of the stomach and large bowel. No urolith identified. Degenerative changes of the spine, pelvis and hip s. No acute fracture. IMPRESSION: 1. Nonobstructive bowel gas pattern. 2. Moderate fecal retention. 3. Mild gaseous distention of the stomach and large bowel. ACT 112: Negative or not required by law. The above report was generated using voice recognition software. It may contain grammatical, syntax o r spelling errors. Electronically signed by: Ajith Nelson M.D. 07/05/2021 6:44 PM
[2021-07-05] MEDS ORDERED: INSULIN DETEMIR SC SCH (21:00)
--- NOTE | 2021-07-05 21:00 | Hospitalist Progress Note ---
Date of Service July 05, 2021 Assessment & Plan (1) Septicemia: Plan: Staph species + group B strep. Repeat blood cultures from 07/03 thus far negative. Zosyn changed to ertapenem to cover the urine. Leave daptomycin for staph. Source - L foot wound. Sed rate and CRP markedly elevated c/w chronic osteomyelitis, L foot wound, UTI, etc. Unfortunately echo did not yield good windows to definitively r/o valvular vegetations. May need IMMANUEL. F/u on cultures in am. I ordered MRI L Foot w/ and w/o contrast but he refused to have it done today; he is agreeable to do it tomorrow. Need to r/o abscess, septic joint, progression of osteo, etc. MRI will dictate potential surgical management if needed. Cont local wound care for plantar ulcer. Recheck CRP in am. Although he is having low-grade fever still his WBC count is trending down with above plan. Will request [facility] telehealth consult once speciation is completed and MR is back. (2) Catheter-associated urinary tract infection: Plan: Initially was reported as MDR klebsiella, sensitive to ertapenem. Then the report was redacted. Since u/a was quite dirty at presentation will assume that the klebsiella was indeed there. Cont ertapenem. [place] exchanged in ER at presentation. (3) Osteomyelitis of left foot: Plan: Chronic. Likely the source for #1. Cont IV abx as above. Appreciate wound care consult. MRI L foot needed. Arterial doppler of left leg from 2020 with ? L peroneal artery occlusion. I spoke with Dr Gray from cardiology. He recommended ABIs and toe indices. If these are normal likely to not need intervention on the peroneal artery. (4) MACARIO (acute kidney injury): Plan: Mild resolved (5) Anemia: Plan: Anemia of chronic disease - likely 2nd to foot osteomyelitis. B12/folate 02/16 wnl. Fe studies 02/16 -- c/w ACD with small component of Fe deficiency. Consider repeating. (6) Hypothyroidism: Plan: Continue with Levothyroxine 75mcg daily TSH March 2021 wnl (7) Diabetes: Plan: Uncontrolled On massive amounts of insulin outside the hospital Pharmacy consulted for management Was on insulin drip - now back to [place] basal-bolus appreciate pharmacy assistance (8) Hyponatremia: Plan: Chronic, dating back to 2019. Studies suggest low solute -- suspect due to chronic lasix use. Follow Na levels with daily labs. 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: Plan: as above chronic repeat MRI needed (10) Morbid obesity with BMI of 50.0-59.9, adult: Plan: BMI 52 (11) GERD (gastroesophageal reflux disease): Plan: PPI (12) HTN (hypertension), benign: Plan: Cont metoprolol (13) History of atrial flutter: Plan: noted remains in NSR cont BB cont CCB cont eliquis 5mg BID (14) Constipation: Plan: all modalities have not worked including "miralax prep" this am in light of failed attempts from above & below -- start go-lytely, 8oz q1h until he starts to have multiple BMs abd x-rays obtained -- mod-severe constipation, no obstruction (15) DVT prophylaxis: Plan: eliquis 5mg BID Plan: called and spoke with pt's significant other on 07/04/21 update given pt likely to need rehab post-d/c Admission and Anticipated Discharge Date Admission Date: July 02, 2021 Subjective patient c/o ongoing constipation despite multiple PO meds (latest - miralax x 5 doses this am), dulcolax suppos, and fleets he has had only 1 tiny BM he feels bloated, and has poor appetite today because of this some nausea but no vomiting denies abd pain left foot w/o pain denies dyspnea tele stable overnight Review of Systems Review of Systems: gen - ongoing fevers, anorexia today, fatigue CV - no chest pain pulm - no cough/wheeze GI - no emesis Physical Exam Physical Exam: gen - NAD but looks tired today mouth - MMM neck - no JVD heart - RRR, s1 s2 lungs - CTA b/l abd - distension worse today, BS+ but decreased, NT ext - mild 1+ edema L foot and distal leg, <1+ edema right foot/ankle skin - dressings intact L foot/ankle vascu - pulses b/l feet 2+ Results & Data Results & Data ([facility]) Vital Signs (Past 12 Hours) Vital Signs Temp Pulse Pulse Resp BP BP Pulse Ox 07/05/21 19:00 37.5 C 75 18 147/75 H 92 07/05/21 18:36 38.4 C H 10/07/21 17:44 38.9 C H 07/05/21 15:49 37.6 C H 78 16 137/67 99 07/05/21 15:41 74 07/05/21 11:41 37.0 C 67 19 137/59 L 97 07/05/21 10:49 67 Laboratory Results Laboratory Results - last 24 hr 07/05/21 07/05/21 07/05/21 05:59 05:59 08:04 WBC 11.28 H RBC 3.15 L Hgb 8.3 L Hct 26.1 L MCV 82.9 MCH 26.3 MCHC 31.8 L RDW Std Deviation 49.7 H RDW Coeff of Adi 16.1 H Plt Count 383 MPV 9.9 Immature Gran % (Auto) 0.3 Neut % (Auto) 73.5 Lymph % (Auto) 12.7 Stone % (Auto) 11.3 Eos % (Auto) 2.1 Baso % (Auto) 0.1 Neut # (Auto) 8.29 H Lymph # (Auto) 1.43 Stone # (Auto) 1.28 H Eos # (Auto) 0.24 Baso # (Auto) 0.01 Immature Gran # (Auto) 0.03 H Sodium 133 L Potassium 4.2 D Chloride 100 Carbon Dioxide 29 Anion Gap 4.0 BUN 16 Creatinine 1.42 H Est Cr Clr Drug Dosing 89.8 Est GFR ( Amer) 61.3 Est GFR (Non-Af Amer) 52.9 BUN/Creatinine Ratio 11.5 Glucose 150 H POC Glucose 142 H Calcium 8.7 07/05/21 07/05/21 07/05/21 11:21 16:48 20:26 WBC RBC Hgb Hct MCV MCH MCHC RDW Std Deviation RDW Coeff of Adi Plt Count MPV Immature Gran % (Auto) Neut % (Auto) Lymph % (Auto) Stone % (Auto) Eos % (Auto) Baso % (Auto) Neut # (Auto) Lymph # (Auto) Stone # (Auto) Eos # (Auto) Baso # (Auto) Immature Gran # (Auto) Sodium Potassium Chloride Carbon Dioxide Anion Gap BUN Creatinine Est Cr Clr Drug Dosing Est GFR ( Amer) Est GFR (Non-Af Amer) BUN/Creatinine Ratio Glucose POC Glucose 192 H 122 H 137 H Calcium PG Care Time/CCT Total # of Minutes Spent Total Time Spent with Patient: Total time spent is greater than 50% in coordination of care (as documented) at patient's floor/unit and/or counseling patient: Coding Level of Care Code 19103 Subseq Hosp Care Lvl 3 Diagnoses Septicemia A41.9 Catheter-associated urinary tract infection T83.511A; N39.0 Osteomyelitis of left foot M86.9 MACARIO (acute kidney injury) N17.9 Anemia D64.9 Hypothyroidism E03.9 Hypothyroidism type: acquired Diabetes E11.9 Hyponatremia E87.1 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
[2021-07-05] MEDS: LAVAGE SOLUTION 4000ML PO SCH ×3 (22:15→23:28)
[2021-07-06] MEDS: LAVAGE SOLUTION 4000ML PO SCH ×9 (02:48→10:01)
[2021-07-06] MEDS: PANTOprazole 40 MG TAB PO SCH (05:41)
[2021-07-06] MEDS: LEVOTHYROXINE SODIUM 75 MCG TABLET PO SCH (05:41)
[2021-07-06] MEDS: DAPTOmycin 700 MG in SYRINGE 0 ML IV SCH (05:41)
[2021-07-06 06:55] LABS: Hematocrit (blood only) 23.9 % (42-52); Hemoglobin 7.8 g/dL (14.0-18.0); Mean Corpuscular Hemoglobin 27.1 pg (25-34); Mean Corpuscular Hgb Conc 32.6 g/dL (32-36); Mean Platelet Volume 10.3 fL (7.4-10.4); Platelet Count 425 K/uL (130-400); RDW Coefficient of Variation 16.2 % (11.5-14.5); RDW Standard Deviation 49.8 fL (36.4-46.3); Red Blood Count 2.88 M/uL (4.7-6.1); White Blood Count 11.13 K/uL (4.8-10.8)
[2021-07-06 07:22] LABS: BUN Creatinine Ratio 12.3 (10-20); C Reactive Protein 13.8 mg/dl (0-0.29); Calcium 8.5 mg/dl (8.5-10.1); Creatinine Clr Calc Pharmacy 105.6 ml/min; Potassium 3.7 mmol/L (3.5-5.1)
[2021-07-06] MEDS: INSULIN ASPART 100 UNITS/ML 3 ML PEN SC SCH ×4 (08:45→21:02)
[2021-07-06] MEDS: METOPROLOL TARTRATE 100 MG TAB PO SCH ×2 (08:47→21:05)
[2021-07-06] MEDS: GABAPENTIN 300 MG CAP PO SCH ×2 (08:47→21:05)
[2021-07-06] MEDS: APIXABAN 5 MG TABLET PO SCH ×2 (08:47→21:05)
[2021-07-06] MEDS: dilTIAZem HCL 240 MG CAPCR PO SCH (08:47)
[2021-07-06] MEDS: buPROPion XL 150 MG TABCR PO SCH ×2 (08:47→21:05)
[2021-07-06] MEDS: DOCUSATE SODIUM 100 MG CAP PO SCH ×2 (08:47→21:05)
[2021-07-06] MEDS: ERTAPENEM SODIUM 1,000 MG in SODIUM CHLORIDE 0.9% 50 ML IV SCH (08:48)
[2021-07-06] MEDS ORDERED: INSULIN DETEMIR SC SCH ×2 (09:00→21:00)
--- NOTE | 2021-07-06 09:30 | Pharmacy Report ---
Pharmacy Glycemic Short Note 2 - Date of Service July 06, 2021 - Glycemic Short BSG Results (Last 24 hours): 07/05/21 07/05/21 07/05/21 11:21 16:48 20:26 Glucose POC Glucose 192 H 122 H 137 H 07/06/21 07/06/21 06:26 07:31 Glucose 65 L POC Glucose 73 OUTPATIENT ANTIDIABETIC REGIMEN: * Levemir 100 units SC BID (sometimes extra) * Novolog 80 units SC TIDM * HbA1c = 8.9% (07/04/21) ASSESSMENT: 07/06 * Pt has received 315 units of insulin over the past 24hrs * 250 units of basal with Levemir * 65 units of bolus with NovoLog * AM fasting BSG LOW this morning at 65/73. Will decrease AM dose significantly and then resume 20% dose reduction in basal this evening. * No changes needed to CF/CR insulin 07/05: * Bishop received a total of 228 units of insulin yesterday (200 units basal + 28 units bolus) * BSGs post-insulin drip were acceptable: [phone] mg/dL * Fasting BSG increased slightly today to 142 mg/dL * No changes to insulin regimen today 07/04: * Patient required an insulin drip for approximately 3 hours last evening secondary to hyperglycemia. It has been on hold since then. * BSGs trended down nicely once drip was started as well as once basal deficiency was corrected: [phone] mg/dL. * Patient received a total of 29 units while on the drip for three hours. * Also received 200 units of basal insulin with Lantus and 50 units of bolus insulin with Novolog yesterday. * Fasting BSG is excellent today at 120 mg/dL. * Will stop the insulin drip at this time and manage patient via basal-bolus regimen based on previous admission data. 07/03: * 61 yo M admitted with sepsis and GPC bacteremia 2nd osteomyelitis and/or UTI * Significant stress with severe infection, high doses of insulin as an outpatient, persistent BSG's >350 mg/dL and missed dose of basal insulin yesterday - insulin drip indicated and OK'd by Dr. Cook * Will continue Levemir to help with eventual transition off of insulin drip, hopefully tomorrow AM * Will not use insulin drip calculator to determine CHO rate as it only goes as low as 5 g CHO/unit and this patient likely requires more, especially as the calculator would not take into account insulin from Levemir. Will therefore fix CHO ratio at 3 g CHO/unit, similar to previous admission PLAN FOR INPATIENT GLYCEMIC CONTROL: * Basal insulin * Levemir 80 units SQ x 1 dose this AM and then Levemir 100 units SC BID starting tonight * Bolus insulin * Novolog Correction per scale ACHS * Goal Range: Low 100 mg/dL - High 140 mg/dL * Correction Factor: 10 mg/dL/unit * Carb ratio of 1 unit per 2 grams CHO consumed PLAN FOR DISCHARGE: * HbA1c = 8.9% from this admission which has improved from March of 2021. * Despite improvement in HbA1c (which is subtle), patient will likely need insulin titrated upon discharge to meet goal HbA1c of less than 8%. * Recommend titrating Metformin dose by 500 mg/week until goal dose of 1000 mg twice daily is reached. 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 * Patient is on large doses of insulin as an outpatient. * Could consider increasing Levemir to TID or transitioning to U-500 insulin if patient is agreeable. * Further recs to be provided closer to discharge.
[2021-07-06] MEDS: ATORVASTATIN 40 MG TAB PO SCH (17:25)
--- NOTE | 2021-07-06 19:22 | Hospitalist Progress Note ---
Date of Service July 06, 2021 Assessment & Plan (1) Septicemia: Plan: GBS + coag negative. Repeat blood cultures from 07/03 thus far negative. Septicemia improving - fevers resolving, wbc count near-normal, and he is feeling better. Ertapenem for UTI + GBS. Dapto for coag neg staph. Source - L foot wound. Sed rate and CRP markedly elevated c/w chronic osteomyelitis, L foot wound, UTI, etc. Unfortunately echo did not yield good windows to definitively r/o valvular vegetations. May need IMMANUEL. MRI L Foot w/ and w/o contrast pending. Need to r/o abscess, septic joint, progression of osteo, etc. MRI will dictate potential surgical management if needed. Cont local wound care for plantar ulcer. [facility] telehealth consult pending. (2) Catheter-associated urinary tract infection: Plan: Initially was reported as MDR klebsiella, sensitive to ertapenem. Then the report was redacted. Since u/a was quite dirty at presentation and patient was quite ill will assume that the klebsiella was indeed there. Cont ertapenem. Brown exchanged in ER at presentation. Day #3 ertapenem. (3) Osteomyelitis of left foot: Plan: Chronic. Likely the source for #1. Cont IV abx as above. Appreciate wound care consult. MRI L foot pending. Arterial doppler of left leg from 2020 with ? L peroneal artery occlusion. I spoke with Dr Gray from cardiology. He recommended ABIs and toe indices. These were returned normal; no intervention on peroneal artery needed. (4) MACARIO (acute kidney injury): Plan: Mild resolved (5) Anemia: Plan: Anemia of chronic disease - likely 2nd to foot osteomyelitis. B12/folate 02/16 wnl. Fe studies 02/16 -- c/w ACD with small component of Fe deficiency. Consider repeating. H/H trending down but stool hemoccult negative. repeat cbc am. (6) Hypothyroidism: Plan: Continue with Levothyroxine 75mcg daily TSH March 2021 wnl (7) Diabetes: Plan: Uncontrolled On massive amounts of insulin outside the hospital Pharmacy consulted for management Was on insulin drip - now back to [place] basal-bolus appreciate pharmacy assistance (8) Hyponatremia: Plan: Chronic, dating back to 2019. Studies suggest low solute -- suspect due to chronic lasix use. Follow Na levels with daily labs. 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: Plan: as above chronic repeat MRI needed (10) Morbid obesity with BMI of 50.0-59.9, adult: Plan: BMI 52 (11) GERD (gastroesophageal reflux disease): Plan: PPI (12) HTN (hypertension), benign: Plan: Cont metoprolol (13) History of atrial flutter: Plan: noted remains in NSR cont BB cont CCB cont eliquis 5mg BID (14) Constipation: Plan: resolved s/p golytely now needs bowel maintenance (15) DVT prophylaxis: Plan: eliquis 5mg BID Plan: called and spoke with pt's significant other on 07/04/21 update given rehab post-d/c Admission and Anticipated Discharge Date Admission Date: July 02, 2021 Subjective pt feeling much better today he ate 100% of his meals today once constipation was resolved he had numerous BMs with the golytely prep his abd distension/bloating is resolved fevers resolved better energy he wants to get into the chair tomorrow he is willing to do MRI of L foot tomorrow Review of Systems Review of Systems: gen - resolved fevers/chills CV - no cp pulm - no cough/congestion/dyspnea GI - no N/V (nausea from yesterday resolved) - brown in place Physical Exam Physical Exam: gen - NAD, looks good today mouth - MMM neck - no JVD heart - RRR, s1 s2 lungs - CTA b/l abd - distension improved; BS+, NT ext - mild 1+ edema L foot and distal leg, <1+ edema right foot/ankle skin - dressings removed L foot; plantar aspect large ulcer - central opening with yellow exudate; surrounding tissue of ulcer healthy; skin on foot with mild warmth and erythema vascu - pulses b/l feet 2+ musculo - L foot 4/5th toes absent Results & Data Results & Data ([facility]) Vital Signs (Past 12 Hours) Vital Signs Temp Pulse Pulse Resp BP Pulse Ox 07/06/21 14:57 68 07/06/21 11:41 36.8 C 71 20 145/67 H 96 07/06/21 10:57 67 Laboratory Results Laboratory Results - last 24 hr 07/05/21 07/06/21 07/06/21 20:26 06:26 06:26 WBC 11.13 H RBC 2.88 L Hgb 7.8 L Hct 23.9 L MCV 83.0 MCH 27.1 MCHC 32.6 RDW Std Deviation 49.8 H RDW Coeff of Adi 16.2 H Plt Count 425 H MPV 10.3 Sodium 132 L Potassium 3.7 Chloride 99 Carbon Dioxide 27 Anion Gap 6.0 BUN 15 Creatinine 1.23 Est Cr Clr Drug Dosing 105.6 Est GFR ( Amer) 73.0 Est GFR (Non-Af Amer) 63.0 BUN/Creatinine Ratio 12.3 Glucose 65 L POC Glucose 137 H Calcium 8.5 C-Reactive Protein 13.80 H 07/06/21 07/06/21 07/06/21 07:31 11:26 16:06 WBC RBC Hgb Hct MCV MCH MCHC RDW Std Deviation RDW Coeff of Adi Plt Count MPV Sodium Potassium Chloride Carbon Dioxide Anion Gap BUN Creatinine Est Cr Clr Drug Dosing Est GFR ( Amer) Est GFR (Non-Af Amer) BUN/Creatinine Ratio Glucose POC Glucose 73 113 H 89 Calcium C-Reactive Protein PG Care Time/CCT Total # of Minutes Spent Total Time Spent with Patient: Total time spent is greater than 50% in coordination of care (as documented) at patient's floor/unit and/or counseling patient: Coding Level of Care Code 63717 Subseq Hosp Care Lvl 3 Diagnoses Septicemia A41.9 Catheter-associated urinary tract infection T83.511A; N39.0 Osteomyelitis of left foot M86.9 MACARIO (acute kidney injury) N17.9 Anemia D64.9 Hypothyroidism E03.9 Hypothyroidism type: acquired Diabetes E11.9 Hyponatremia E87.1 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
[2021-07-06] MEDS: ACETAMINOPHEN 325 MG TAB PO PRN (21:03)
[2021-07-07] MEDS: PANTOprazole 40 MG TAB PO SCH (06:20)
[2021-07-07] MEDS: LEVOTHYROXINE SODIUM 75 MCG TABLET PO SCH (06:20)
[2021-07-07] MEDS: METOPROLOL TARTRATE 100 MG TAB PO SCH ×2 (08:49→21:44)
[2021-07-07] MEDS: INSULIN ASPART 100 UNITS/ML 3 ML PEN SC SCH ×4 (08:49→21:40)
[2021-07-07] MEDS: ERTAPENEM SODIUM 1,000 MG in SODIUM CHLORIDE 0.9% 50 ML IV SCH (08:49)
[2021-07-07] MEDS: DOCUSATE SODIUM 100 MG CAP PO SCH ×2 (08:49→21:42)
[2021-07-07] MEDS: GABAPENTIN 300 MG CAP PO SCH ×2 (08:49→21:44)
[2021-07-07] MEDS: dilTIAZem HCL 240 MG CAPCR PO SCH (08:49)
[2021-07-07] MEDS: APIXABAN 5 MG TABLET PO SCH ×2 (08:49→21:44)
[2021-07-07] MEDS: buPROPion XL 150 MG TABCR PO SCH ×2 (08:49→21:44)
[2021-07-07] MEDS: INSULIN DETEMIR SC SCH ×2 (08:51→21:40)
[2021-07-07 09:00] LABS: Hematocrit (blood only) 25.8 % (42-52); Hemoglobin 8.2 g/dL (14.0-18.0); Mean Corpuscular Hemoglobin 26.5 pg (25-34); Mean Corpuscular Hgb Conc 31.8 g/dL (32-36); Mean Corpuscular Volume 83.5 fL (80-100); Platelet Count 502 K/uL (130-400); RDW Coefficient of Variation 16.2 % (11.5-14.5); RDW Standard Deviation 49.9 fL (36.4-46.3); Red Blood Count 3.09 M/uL (4.7-6.1); White Blood Count 10.36 K/uL (4.8-10.8)
[2021-07-07 09:28] LABS: BUN Creatinine Ratio 13.1 (10-20); Calcium 8.7 mg/dl (8.5-10.1); Creatinine Clr Calc Pharmacy 106.8 ml/min; Est GFR (African American) 74.4 ml/min; Est GFR (Non-African American) 64.2 ml/min; Magnesium 2.6 mg/dl (1.8-2.4)
[2021-07-07] MEDS: SENNA 8.6 MG TAB PO SCH (10:25)
[2021-07-07] MEDS ORDERED: GADOBUTROL 65ML VIAL IV ONE (11:16)
[2021-07-07] MEDS: ACETAMINOPHEN 325 MG TAB PO PRN (11:54)
[2021-07-07] MEDS: DAPTOmycin 700 MG in SYRINGE 0 ML IV SCH (11:55)
--- NOTE | 2021-07-07 12:08 | Pharmacy Report ---
Pharmacy Glycemic Short Note 2 - Date of Service July 07, 2021 - Glycemic Short BSG Results (Last 24 hours): 07/06/21 07/06/21 07/07/21 16:06 20:00 07:55 Glucose POC Glucose 89 77 70 07/07/21 07/07/21 08:24 11:53 Glucose 65 L POC Glucose 136 H OUTPATIENT ANTIDIABETIC REGIMEN: * Levemir 100 units SC BID (sometimes extra) * Novolog 80 units SC TIDM * HbA1c = 8.9% (07/04/21) ASSESSMENT: 07/07 * Pt has received 252 units of insulin over the past 24hrs * 180 units of basal with Levemir * 72 units of bolus with NovoLog * LOW AM fasting BSG this morning despite Levemir decrease yesterday. Will decrease by 15% today and continue to titrate based on BSGs * No changes needed to CF/CR 07/06 * Pt has received 315 units of insulin over the past 24hrs * 250 units of basal with Levemir * 65 units of bolus with NovoLog * AM fasting BSG LOW this morning at 65/73. Will decrease AM dose significantly and then resume 20% dose reduction in basal this evening. * No changes needed to CF/CR insulin 07/05: * Bishop received a total of 228 units of insulin yesterday (200 units basal + 28 units bolus) * BSGs post-insulin drip were acceptable: [phone] mg/dL * Fasting BSG increased slightly today to 142 mg/dL * No changes to insulin regimen today 07/04: * Patient required an insulin drip for approximately 3 hours last evening secondary to hyperglycemia. It has been on hold since then. * BSGs trended down nicely once drip was started as well as once basal deficiency was corrected: [phone] mg/dL. * Patient received a total of 29 units while on the drip for three hours. * Also received 200 units of basal insulin with Lantus and 50 units of bolus insulin with Novolog yesterday. * Fasting BSG is excellent today at 120 mg/dL. * Will stop the insulin drip at this time and manage patient via basal-bolus regimen based on previous admission data. 07/03: * 61 yo M admitted with sepsis and GPC bacteremia 2nd osteomyelitis and/or UTI * Significant stress with severe infection, high doses of insulin as an outpatient, persistent BSG's >350 mg/dL and missed dose of basal insulin yesterday - insulin drip indicated and OK'd by Dr. Cook * Will continue Levemir to help with eventual transition off of insulin drip, hopefully tomorrow AM * Will not use insulin drip calculator to determine CHO rate as it only goes as low as 5 g CHO/unit and this patient likely requires more, especially as the calculator would not take into account insulin from Levemir. Will therefore fix CHO ratio at 3 g CHO/unit, similar to previous admission PLAN FOR INPATIENT GLYCEMIC CONTROL: * Basal insulin * Levemir 85 units SQ BID starting * Bolus insulin * Novolog Correction per scale ACHS * Goal Range: Low 100 mg/dL - High 140 mg/dL * Correction Factor: 10 mg/dL/unit * Carb ratio of 1 unit per 2 grams CHO consumed PLAN FOR DISCHARGE: * HbA1c = 8.9% from this admission which has improved from March of 2021. * Despite improvement in HbA1c (which is subtle), patient will likely need insulin titrated upon discharge to meet goal HbA1c of less than 8%. * Recommend titrating Metformin dose by 500 mg/week until goal dose of 1000 mg twice daily is reached. 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 * Patient is on large doses of insulin as an outpatient. * Could consider increasing Levemir to TID or transitioning to U-500 insulin if patient is agreeable. * Further recs to be provided closer to discharge.
--- NOTE | 2021-07-07 13:14 | Magnetic Resonance Report ---
MR foot LT wo/w con HISTORY: 61 years-old Male bacteremia; known osteo; eval abscess/septic joint acute sepsis with poss ible osteomyelitis of the left foot COMPARISON: [Radiograph 07/02/2021, MRI left foot 02/03/2021 TECHNIQUE: Multiplanar multisequence MRI of the left foot was obtained both with and without the use of 17.8 mL Gadavist. FINDINGS: Study is degraded by motion artifact. Partially imaged subacute to chronic appearing fracture fragmen t involves the medial plantar aspect of the talus measuring 9 mm on image 1 series 3. There is sublux ation of the talonavicular joint with moderate associated tibiotalar and subtalar joint effusions wit h peripheral enhancement. 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 There i s extensive diffuse subcutaneous and deep tissue edema compatible with cellulitis. Atrophy of the mus culature likely secondary to chronic denervation changes. Large 3.5 x 3.7 cm chronic soft tissue ulcer of the plantar lateral midfoot forefoot junction. Osteom yelitis is again noted involving the lateral distal cortices of the cuboid and lateral cortex of the fifth metatarsal base. Extensive marrow edema is also noted within the navicular, talus and calcaneus . Mild marrow edema is noted within the second third cuneiforms and third metatarsal base. Torn and r edundant peroneus longus tendon fibers noted along the lateral midfoot. Tenosynovitis of the medial a nkle. IMPRESSION: 1. Motion degraded exam. 2. Large soft tissue ulcer of the lateral plantar midfoot and forefoot junction redemonstrated withou t abscess. There is a peripherally enhancing fluid-filled tract extending from the ulcer into the mid foot. This is contiguous with a peripherally enhancing subtalar and talonavicular joint effusion whic h is likely septic. 3. Osteomyelitis is again noted involving the cuboid and base of the fourth metatarsal. Extensive mar row edema of the talus, navicular and calcaneus suggests additional sites of osteomyelitis. 4. There is new subluxation of the talonavicular and subtalar joints which may be secondary to neurop athic arthropathy. ACT 112: Negative or not required by law. The above report was generated using voice recognition software. It may contain grammatical, syntax o r spelling errors. Electronically signed by: Ajith Nelson M.D. 07/07/2021 1:12 PM
--- NOTE | 2021-07-07 22:41 | Hospitalist Progress Note ---
Date of Service July 07, 2021 Assessment & Plan (1) Septicemia: Plan: GBS + coag negative staph. Repeat blood cultures from 07/03 remain negative. Septicemia improving - fevers resolved, leukocytosis resolved, etc. Ertapenem for UTI + GBS. Dapto for coag neg staph. Source - L foot wound. Sed rate and CRP markedly elevated c/w chronic osteomyelitis, L foot wound, UTI, etc. Unfortunately echo did not yield good windows to definitively r/o valvular vegetations. May need IMMANUEL. MRI L Foot w/ and w/o contrast findings above -- new areas of osteomyelitis in addition to chronic osteomyelitis; fluid collection; ?septic arthritis several joints. [facility] telehealth consult - they recommend 14 days of ertapenem, but feel coag neg staph is contaminant. I am concerned that the coag neg staph is indeed pathogenic given the severity of this illness and the severity of his foot. I spoke w Dr Negron from orthopedics who will seem him tomorrow. Best option would be BKA - his ulcer, osteomyelitis, etc are long-standing and s imply not improving - all issues on MRI are much worse. (2) Septic arthritis of left foot: Plan: as seen on MRI L foot today Dr Negron to consult from ortho in the am (3) Catheter-associated urinary tract infection: Plan: Initially was reported as MDR klebsiella, sensitive to ertapenem. Then the report was redacted. Since u/a was quite dirty at presentation and patient was quite ill will assume that the klebsiella was indeed there. Cont ertapenem. Villasenor exchanged in ER at presentation. Day #4 ertapenem. (4) Osteomyelitis of left foot: Plan: Chronic. Likely the source for #1. MRI today with new areas of osteomyelitis. Cont IV abx as above. Appreciate wound care consult. Arterial doppler of left leg from 2020 with ? L peroneal artery occlusion. I spoke with Dr Gray from cardiology. He recommended ABIs and toe indices. These were returned normal; no intervention on peroneal artery needed. Dr Negron to see from orthopedics. (5) MACARIO (acute kidney injury): Plan: Mild resolved (6) Anemia: Plan: Anemia of chronic disease - likely 2nd to foot osteomyelitis. B12/folate 02/16 wnl. Fe studies 02/16 -- c/w ACD with small component of Fe deficiency. Consider repeating. stool hemoccult negative. repeat Hb today 8.2 -- acceptable (7) Hypothyroidism: Plan: Continue with Levothyroxine 75mcg daily TSH March 2021 wnl (8) Diabetes: Plan: Uncontrolled On massive amounts of insulin outside the hospital Pharmacy consulted for management Was on insulin drip - now back to [place] basal-bolus appreciate pharmacy assistance (9) Hyponatremia: Plan: Chronic, dating back to 2019. Studies suggest low solute -- suspect due to chronic lasix use. Follow Na levels with daily labs. 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: Plan: as above chronic MRI findings noted (11) Morbid obesity with BMI of 50.0-59.9, adult: Plan: BMI 52 (12) GERD (gastroesophageal reflux disease): Plan: PPI (13) HTN (hypertension), benign: Plan: Cont metoprolol (14) History of atrial flutter: Plan: noted remains in NSR cont BB cont CCB cont eliquis 5mg BID (15) Constipation: Plan: resolved s/p golytely then needs bowel maintenance (16) DVT prophylaxis: Plan: eliquis 5mg BID Plan: called and spoke with pt's significant other on 07/04/21 update given rehab post-d/c ortho consult pending Admission and Anticipated Discharge Date Admission Date: July 02, 2021 Subjective patient feeling well during the visit he was watching the [employer] football game his constipation has resolved he is eating much better we discussed his L foot MRI results and that the osteomyelitis is worse, there may be a fluid collection, and now there appears to be septic arthritis he again stated "Please don't cut my foot off" Review of Systems Review of Systems: gen - no fever or chills; eating well CV - no cp or orthopnea pulm - no dyspnea or cough GI - bloating resolved s/p Rx of constipation Physical Exam Physical Exam: gen - NAD, again looks good today mouth - MMM neck - no JVD heart - RRR, s1 s2, no murmur lungs - CTA b/l abd - distension resolved, soft, NT ext - mild 1+ edema L foot and distal leg, <1+ edema right foot/ankle skin - dressings L foot not removed today vascu - pulses b/l feet 2+ Results & Data Results & Data ([facility]) Vital Signs (Past 12 Hours) Vital Signs Temp Pulse Pulse Resp BP BP Pulse Ox 07/07/21 19:44 37.1 C 67 18 139/69 94 07/07/21 17:51 61 07/07/21 14:46 37.1 C 61 18 153/66 H 98 07/07/21 12:00 36.8 C 63 20 150/64 H 98 07/07/21 10:42 64 Laboratory Results Laboratory Results - last 24 hr 07/07/21 07/07/21 07/07/21 07:55 08:24 08:24 WBC 10.36 RBC 3.09 L Hgb 8.2 L Hct 25.8 L MCV 83.5 MCH 26.5 MCHC 31.8 L RDW Std Deviation 49.9 H RDW Coeff of Adi 16.2 H Plt Count 502 H MPV 10.0 Sodium 133 L Potassium 4.0 Chloride 100 Carbon Dioxide 28 Anion Gap 5.0 BUN 16 Creatinine 1.21 Est Cr Clr Drug Dosing 106.8 Est GFR ( Amer) 74.4 Est GFR (Non-Af Amer) 64.2 BUN/Creatinine Ratio 13.1 Glucose 65 L POC Glucose 70 Calcium 8.7 Magnesium 2.6 H 07/07/21 07/07/21 07/07/21 11:53 17:14 20:49 WBC RBC Hgb Hct MCV MCH MCHC RDW Std Deviation RDW Coeff of Adi Plt Count MPV Sodium Potassium Chloride Carbon Dioxide Anion Gap BUN Creatinine Est Cr Clr Drug Dosing Est GFR ( Amer) Est GFR (Non-Af Amer) BUN/Creatinine Ratio Glucose POC Glucose 136 H 130 H 114 H Calcium Magnesium Diagnostic Findings Foot MRI 07/07/21 09:01 MR foot LT wo/w con HISTORY: 61 years-old Male bacteremia; known osteo; eval abscess/septic joint acute sepsis with possible osteomyelitis of the left foot COMPARISON: [Radiograph 07/02/2021, MRI left foot 02/03/2021 TECHNIQUE: Multiplanar multisequence MRI of the left foot was obtained both with and without the use of 17.8 mL Gadavist. FINDINGS: Study is degraded by motion artifact. Partially imaged subacute to chronic appearing fracture fragment involves the medial plantar aspect of the talus measuring 9 mm on image 1 series 3. There is subluxation of the talonavicular joint with moderate associated tibiotalar and subtalar joint effusions with peripheral enhancement. 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 There is extensive diffuse subcutaneous and deep tissue edema compatible with cellulitis. Atrophy of the musculature likely secondary to chronic denervation changes. Large 3.5 x 3.7 cm chronic soft tissue ulcer of the plantar lateral midfoot forefoot junction. Osteomyelitis is again noted involving the lateral distal cortices of the cuboid and lateral cortex of the fifth metatarsal base. Extensive marrow edema is also noted within the navicular, talus and calcaneus. Mild marrow edema is noted within the second third cuneiforms and third metatarsal base. Torn and redundant peroneus longus tendon fibers noted along the lateral midfoot. Tenosynovitis of the medial ankle. IMPRESSION: 1. Motion degraded exam. 2. Large soft tissue ulcer of the lateral plantar midfoot and forefoot junction redemonstrated without abscess. There is a peripherally enhancing fluid-filled tract extending from the ulcer into the midfoot. This is contiguous with a peripherally enhancing subtalar and talonavicular joint effusion which is likely septic. 3. Osteomyelitis is again noted involving the cuboid and base of the fourth metatarsal. Extensive marrow edema of the talus, navicular and calcaneus suggests additional sites of osteomyelitis. 4. There is new subluxation of the talonavicular and subtalar joints which may be secondary to neuropathic arthropathy. ACT 112: Negative or not required by law. The above report was generated using voice recognition software. It may contain grammatical, syntax or spelling errors. Electronically signed by: Ajith Nelson M.D. 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
[2021-07-08] MEDS: LEVOTHYROXINE SODIUM 75 MCG TABLET PO SCH (05:31)
[2021-07-08] MEDS: PANTOprazole 40 MG TAB PO SCH (05:31)
[2021-07-08] MEDS: APIXABAN 5 MG TABLET PO SCH (08:50)
[2021-07-08] MEDS: METOPROLOL TARTRATE 100 MG TAB PO SCH ×2 (08:50→21:53)
[2021-07-08] MEDS: DOCUSATE SODIUM 100 MG CAP PO SCH ×2 (08:50→21:52)
[2021-07-08] MEDS: GABAPENTIN 300 MG CAP PO SCH ×2 (08:50→21:53)
[2021-07-08] MEDS: buPROPion XL 150 MG TABCR PO SCH ×2 (08:50→21:53)
[2021-07-08] MEDS: dilTIAZem HCL 240 MG CAPCR PO SCH (08:50)
[2021-07-08] MEDS: SENNA 8.6 MG TAB PO SCH (08:50)
[2021-07-08] MEDS: ERTAPENEM SODIUM 1,000 MG in SODIUM CHLORIDE 0.9% 50 ML IV SCH (08:51)
[2021-07-08] MEDS: INSULIN ASPART 100 UNITS/ML 3 ML PEN SC SCH ×3 (08:51→17:10)
[2021-07-08] MEDS: DAPTOmycin 700 MG in SYRINGE 0 ML IV SCH (08:51)
[2021-07-08] MEDS: INSULIN DETEMIR SC SCH (08:53)
--- NOTE | 2021-07-08 14:47 | Orthopedic Consultation ---
Date of Service July 08, 2021 Assessment & Plan (1) Septic arthritis of left foot: Significant time was spent with Bishop discussing the diagnosis and treatment options. I strongly recommended the below-knee amputation. I talked to him about postoperative protocols and having him fit for a prosthetic. He is currently a minimal ambulator on the foot that he has. He is having significant health issues with that left foot. I stressed with him that there is no salvage procedures for this left foot. He understands this. He is starting to lean towards the below-knee amputation. He wanted me to talk it over with his friend Yvette over the telephone. I talked with Yvette extensively and she is going to touch base with Bishop later today about the neck step in treatment. Bishop does understand that there is no guarantee that the below-knee amputation would fully heal. There is also no guarantee that he would be able to ambulate with a prosthesis. However, I feel the risks far outweigh the benefits of keeping his foot. He understands. I placed him on the operating room schedule for tomorrow made him n.p.o. past midnight tonight. Ultimately this will be his decision. We will see what he says later this evening or tomorrow morning. History of Present Illness Reason for Consultation: Infected left foot. Requesting Physician: . Attending Physician: Vicente Cook Bishop is a pleasant 61-year-old male who is been dealing with a long history of a left foot infection. He had partial toe amputations done by Dr. Valenzuela in 2013. He is always had issues with that foot. He walks on the lateral aspect of the foot. He is now a very minimal ambulator. He will only use it to stand and transfer. He might take 1 or 2 steps a day but that is about it. He has been in and out of the hospital with multiple infections from an infected ulcer on his left foot. He has been through wound care. He did go to [facility] to their wound center and they had nothing to offer the him but it amputation. I saw him back in January and I recommended a below-knee amputation at that time but he was reluctant and wanted to try some IV antibiotics. He has been on and off antibiotics and his symptoms have not improved. He has just recently been admitted with sepsis. His symptoms from the sepsis are starting to improve but it is obvious the source of infection is his left foot. Orthopedics was consulted for evaluation and treatment. Allergies Allergy/AdvReac Type Severity Reaction Status Date / Time Penicillins Allergy Severe HIVES, RED Verified 07/02/21 16:06 RASH A CHILD ferrous sulfate AdvReac Intermediate Gastrointestinal Verified 07/02/21 16:06 Upset fluticasone [From Flonase] AdvReac Intermediate FELT FUNNY Verified 07/02/21 16:06 IN THE HEAD Home Medications Medication Instructions Recorded Confirmed Type albuterol sulfate 90 mcg/actuation 2 puff INHALATION Q4H PRN 05/26/20 07/02/21 History aerosol inhaler (Ventolin HFA) bupropion HCl 150 mg 24 hr tablet, 150 mg PO BID #60 tab 12/11/20 07/02/21 Rx extended release (Wellbutrin XL) blood-glucose meter #1 ea 01/30/21 06/28/21 Rx diltiazem HCl 240 mg capsule,24 240 mg PO QAM #30 cap 03/26/21 07/02/21 Rx hr,extended release insulin detemir U-100 100 unit/mL 100 unit SUBCUT AMPM #80 ml 03/26/21 07/02/21 Rx subcutaneous solution (Levemir U-100 Insulin) atorvastatin 80 mg tablet 80 mg PO QDD 03/30/21 07/02/21 History furosemide 40 mg tablet 40 mg PO QAM 03/30/21 07/02/21 History pantoprazole 40 mg tablet,delayed 40 mg PO DAILYBB 03/30/21 07/02/21 History release gabapentin 300 mg capsule 300 mg PO BID #60 cap 04/17/21 07/02/21 Rx blood sugar diagnostic (OneTouch #100 ea 05/16/21 06/28/21 Rx Verio test strips) levothyroxine 75 mcg capsule 75 mcg PO DAILY #90 cap 05/16/21 07/02/21 Rx insulin aspart U-100 100 unit/mL 80 unit SQ TIDM #6 ml 05/31/21 07/02/21 Rx subcutaneous solution (Novolog U-100 Insulin aspart) sodium hypochlorite 0.25 % 1 applic TOPICAL DAILY #473 ml 06/07/21 07/02/21 Rx solution (Dakin's Solution) apixaban 5 mg tablet (Eliquis) 5 mg PO BID #60 tab 06/15/21 07/02/21 Rx metoprolol tartrate 100 mg tablet 100 mg PO BID #60 tab 06/15/21 07/02/21 Rx metformin 500 mg tablet 500 mg PO BID 07/02/21 07/02/21 History Past Med/Surg History Medical History Acute kidney injury Anemia Asthma Atrial flutter Atrial flutter with rapid ventricular response Back injury Blocked urinary catheter Cellulitis Cellulitis of left foot Constipation Diabetic foot ulcer (10/07/13) Fall at home Foot ulcer, right Gas gangrene GERD (gastroesophageal reflux disease) Hypertension Hyponatremia Regional wall motion abnormality of heart Urinary retention Urinary tract infection Surgical History History of amputation of toe Hx of tonsillectomy Family History Mother Diabetes Heart disease Father Heart disease Other No pertinent family history in first degree relatives Denies family history of Ovarian cancer Prostate cancer Myocardial infarction Breast cancer Colorectal cancer Social History Smoking Status: Never smoker Tobacco Type: Smokeless Tobacco (Dip or Chew) Second Hand Exposure: No; Hx Alcohol Use: Yes Alcohol type: beer Hx Substance Use: No Preferred Language: Peruvian Communication Ability: Effective Visual Impairment: Limited Hearing Ability: Normal 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 Physical Exam On physical examination of the left foot, there is a large ulceration over the lateral plantar aspect of his foot. There is redness throughout. He has a fixed supination deformity. He is missing his fourth and fifth toes from prior amputation.. Constitutional WD/WN, vitals as above Eyes PERRL, conjunctivae normal, anicteric sclerae ENMT external ear and nose normal, oropharynx normal Neck trachea midline, no thyromegaly Respiratory normal respiratory effort Cardiovascular RRR, no murmur, no edema Gastrointestinal (Abdomen) normal bowel sounds, soft, nontender, no hepatosplenomegaly Psychiatric A+Ox3, euthymic affect Results & Data Results & Data Laboratory Results . Diagnostic Findings MRI of the left foot was visualized. There is infection throughout. There is a large lateral plantar ulcer. There is infection within the midfoot. There is osteomyelitis of the midfoot and septic arthritis.. PG Care Time/CCT Total # of Minutes Spent Total Time Spent with Patient: Total time spent is greater than 50% in c oordination of care (as documented) at patient's floor/unit and/or counseling patient: Coding Level of Care Code 79703 Inpt Consult Level 4 (57 - DECISION FOR SURGERY) Diagnoses Septic arthritis of left foot M00.9
--- NOTE | 2021-07-08 20:28 | Hospitalist Progress Note ---
Date of Service July 08, 2021 Assessment & Plan (1) Septicemia: Plan: GBS + coag negative staph. Repeat blood cultures from 07/03 remain negative. Septicemia now resolved. Ertapenem for UTI; this will also cover GBS in blood. Day #5 ertapenem IV. Dapto for coag neg staph. HOLD statin. Source - L foot wound. Sed rate and CRP markedly elevated c/w chronic osteomyelitis, L foot wound, septic arthritis, UTI, etc. Unfortunately echo did not yield good windows to definitively r/o valvular vegetations. Should receive 2 weeks of Rx for the pathogens found in blood. MRI L foot -- new areas of osteomyelitis in addition to chronic osteomyelitis; fluid collection; ?septic arthritis several joints. [facility] telehealth consult - they recommend 14 days of ertapenem, but feel coag neg staph is contaminant. I am concerned that the coag neg staph is indeed pathogenic given the severity of this illness and the severity of his foot. Would err on side of caution and treat the staph. (2) Septic arthritis of left foot: Plan: as seen on MRI L foot Dr Negron from ortho saw patient today -- recommends BKA patient agreeable to BKA tentatively scheduled for 07/09 NPO after MN tonight (3) Catheter-associated urinary tract infection: Plan: Initially was reported as MDR klebsiella, sensitive to ertapenem. Then the report was redacted. Since u/a was quite dirty at presentation and patient was quite ill will assume that the klebsiella was indeed there. Cont ertapenem. Day #5 of such. Villasenor exchanged in ER at presentation. ID recommended 14 days in total of ertapenem to cover for possibility of pyelonephritis. Ertapenem should cover GBS as well. (4) Osteomyelitis of left foot: Plan: Chronic. Likely the source for #1. MRI with new areas of osteomyelitis. Cont IV abx as above. Appreciate wound care consult. Arterial doppler of left leg from 2020 with ? L peroneal artery occlusion. I spoke with Dr Gray from cardiology. He recommended ABIs and toe indices. These were returned normal; no intervention on peroneal artery needed. Dr Negron saw today in consult - BKA recommended. to OR tomorrow for BKA. (5) MACARIO (acute kidney injury): Plan: Mild resolved (6) Anemia: Plan: Anemia of chronic disease - likely 2nd to foot osteomyelitis. B12/folate 02/16 wnl. Fe studies 02/16 -- c/w ACD with small component of Fe deficiency. Consider repeating. stool hemoccult negative. repeat cbc am. (7) Hypothyroidism: Plan: Continue with Levothyroxine 75mcg daily TSH March 2021 wnl (8) Diabetes: Plan: Uncontrolled On massive amounts of insulin outside the hospital Pharmacy consulted for management Was on insulin drip - now back to [place] basal-bolus appreciate pharmacy assistance BSGs acceptable (9) Hyponatremia: Plan: Chronic, dating back to 2019. Studies suggest low solute -- suspect due to chronic lasix use. 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: Plan: as above chronic MRI findings noted (11) Morbid obesity with BMI of 50.0-59.9, adult: Plan: BMI 52 (12) GERD (gastroesophageal reflux disease): Plan: PPI (13) HTN (hypertension), benign: Plan: Cont metoprolol (14) History of atrial flutter: Plan: noted remains in NSR cont BB cont CCB hold eliquis in preparation for BKA (15) Constipation: Plan: resolved s/p golytely now with senna for bowel maintenance (16) DVT prophylaxis: Plan: eliquis 5mg BID - hold in prep for BKA Plan: called and spoke with pt's significant other on 07/04/21 update given rehab post-d/c ([facility]?) ortho consult appreciated care d/w Dr Negron Admission and Anticipated Discharge Date Admission Date: July 02, 2021 Subjective patient met with Dr Negron from ortho today Dr Negron recommended BKA on left patient discussed this with his significant other Yvette both agree he should proceed with BKA tomorrow during my visit he seemed content with the decision to proceed with BKA no new issues tele wnl Review of Systems Review of Systems: gen - no fevers, no chills; eating well CV - no chest pain, no orthopnea pulm - no cough, no dyspnea GI - no abd pain; constipation resolved Physical Exam Physical Exam: gen - NAD mouth - MMM neck - no JVD heart - RRR, s1 s2, no murmur lungs - CTA b/l abd - distension resolved, soft, NT, BS+ ext - mild 1+ edema L foot and distal leg, <1+ edema right foot/ankle skin - dressings L foot intact vascu - pulses b/l feet 2+ Results & Data Results & Data ([facility]) Vital Signs (Past 12 Hours) Vital Signs Temp Pulse Pulse Resp BP BP Pulse Ox 07/08/21 19:24 37.5 C 66 18 147/68 H 94 07/08/21 16:02 61 07/08/21 16:00 36.8 C 62 18 135/69 95 07/08/21 11:50 36.8 C 62 18 158/65 H 96 07/08/21 09:34 63 07/08/21 08:34 36.9 C 63 18 147/68 H 96 Laboratory Results Laboratory Results - last 24 hr 07/07/21 07/08/21 07/08/21 20:49 07:37 11:53 POC Glucose 114 H 115 H 172 H 07/08/21 20:12 POC Glucose 86 PG Care Time/CCT Total # of Minutes Spent Total Time Spent with Patient: Total time spent is greater than 50% in coordination of care (as documented) at patient's floor/unit and/or counseling patient: Coding Level of Care Code 12596 Subseq Hosp Care Lvl 3 Diagnoses Septicemia A41.9 Septic arthritis of left foot M00.9 Catheter-associated urinary tract infection T83.511A; N39.0 Osteomyelitis of left foot M86.9 MACARIO (acute kidney injury) N17.9 Anemia D64.9 Hypothyroidism E03.9 Hypothyroidism type: acquired Diabetes E11.9 Hyponatremia E87.1 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
[2021-07-08] MEDS ORDERED: INSULIN DETEMIR SC ONE (21:45)
[2021-07-09] MEDS: INSULIN ASPART 100 UNITS/ML 3 ML PEN SC SCH ×6 (00:14→21:56)
[2021-07-09] MEDS: INSULIN DETEMIR SC SCH (00:14)
[2021-07-09 05:45] LABS: Hematocrit (blood only) 27.5 % (42-52); Hemoglobin 8.9 g/dL (14.0-18.0); Mean Corpuscular Hemoglobin 26.9 pg (25-34); Mean Corpuscular Hgb Conc 32.4 g/dL (32-36); Mean Corpuscular Volume 83.1 fL (80-100); Mean Platelet Volume 9.4 fL (7.4-10.4); Platelet Count 612 K/uL (130-400); RDW Standard Deviation 48.9 fL (36.4-46.3); Red Blood Count 3.31 M/uL (4.7-6.1); White Blood Count 10.68 K/uL (4.8-10.8)
[2021-07-09] MEDS: LEVOTHYROXINE SODIUM 75 MCG TABLET PO SCH (06:14)
[2021-07-09] MEDS: PANTOprazole 40 MG TAB PO SCH (06:14)
[2021-07-09 06:16] LABS: BUN Creatinine Ratio 12.1 (10-20); Calcium 8.7 mg/dl (8.5-10.1); Creatinine Clr Calc Pharmacy 87.5 ml/min; Est GFR (African American) 59.8 ml/min; Est GFR (Non-African American) 51.6 ml/min; Potassium 4.8 mmol/L (3.5-5.1)
[2021-07-09] MEDS ORDERED: BUPIVACAINE 0.25% 30 ML VIAL ONE (07:06)
--- NOTE | 2021-07-09 07:26 | Anesthesiology Consultation ---
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 Surgery Operation Date: 07/09/21 07:00 Proposed Procedures p Left Below Knee Amputation - Sridhar Negron, Height/Weight Height: 6 ft Weight: 172.8 kg Allergies Allergy/AdvReac Type Severity Reaction Status Date / Time Penicillins Allergy Severe HIVES, RED Verified 07/02/21 16:06 RASH A CHILD ferrous sulfate AdvReac Intermediate Gastrointestinal Verified 07/02/21 16:06 Upset fluticasone [From Flonase] AdvReac Intermediate FELT FUNNY Verified 07/02/21 16:06 IN THE HEAD Medications Home Medications Medication Instructions Recorded Confirmed Last Taken albuterol sulfate 90 mcg/actuation 2 puff INHALATION Q4H PRN 05/26/20 07/02/21 03/29/21 aerosol inhaler (Ventolin HFA) bupropion HCl 150 mg 24 hr tablet, 150 mg PO BID #60 tab 12/11/20 07/02/21 06/01/21 extended release (Wellbutrin XL) blood-glucose meter #1 ea 01/30/21 06/28/21 03/30/21 diltiazem HCl 240 mg capsule,24 240 mg PO QAM #30 cap 03/26/21 07/02/21 06/01/21 hr,extended release insulin detemir U-100 100 unit/mL 100 unit SUBCUT AMPM #80 ml 03/26/21 07/02/21 06/01/21 subcutaneous solution (Levemir U-100 Insulin) atorvastatin 80 mg tablet 80 mg PO QDD 03/30/21 07/02/21 03/29/21 furosemide 40 mg tablet 40 mg PO QAM 03/30/21 07/02/21 06/01/21 pantoprazole 40 mg tablet,delayed 40 mg PO DAILYBB 03/30/21 07/02/21 06/01/21 release gabapentin 300 mg capsule 300 mg PO BID #60 cap 04/17/21 07/02/21 06/01/21 blood sugar diagnostic (OneTouch #100 ea 05/16/21 06/28/21 Unknown Verio test strips) levothyroxine 75 mcg capsule 75 mcg PO DAILY #90 cap 05/16/21 07/02/21 06/01/21 insulin aspart U-100 100 unit/mL 80 unit SQ TIDM #6 ml 05/31/21 07/02/21 06/01/21 subcutaneous solution (Novolog U-100 Insulin aspart) sodium hypochlorite 0.25 % 1 applic TOPICAL DAILY #473 ml 06/07/21 07/02/21 Unknown solution (Dakin's Solution) apixaban 5 mg tablet (Eliquis) 5 mg PO BID #60 tab 06/15/21 07/02/21 Unknown metoprolol tartrate 100 mg tablet 100 mg PO BID #60 tab 06/15/21 07/02/21 Unknown metformin 500 mg tablet 500 mg PO BID 07/02/21 07/02/21 Unknown Active Medications Generic Name Dose Route Start Last Admin Trade Name Freq PRN Reason Stop Dose Admin Acetaminophen 650 mg 07/02/21 22:44 07/07/21 11:54 Acetaminophen 325 Mg Tab PO 08/01/21 22:43 650 mg Q4H PRN Administration Pain or Fever Apixaban 5 mg 07/02/21 22:44 07/08/21 08:50 Apixaban 5 Mg Tablet PO 08/01/21 22:43 5 mg BID GEOVANNA Administration Atorvastatin Calcium 80 mg 07/03/21 16:30 07/06/21 17:25 Atorvastatin 40 Mg Tab PO 08/02/21 16:29 80 mg QDD GEOVANNA Administration Bupropion HCl 150 mg 07/02/21 22:44 07/08/21 21:53 Bupropion Xl 150 Mg Tabcr PO 08/01/21 22:43 150 mg BID GEOVANNA Administration Diltiazem HCl 240 mg 07/03/21 09:00 07/08/21 08:50 Diltiazem Hcl 240 Mg Capcr PO 08/02/21 08:59 240 mg QAM GEOVANNA Administration Docusate Sodium 100 mg 07/03/21 16:15 07/08/21 21:52 Docusate Sodium 100 Mg Cap PO 08/02/21 16:14 100 mg BID GEOVANNA Administration Gabapentin 300 mg 07/02/21 22:44 07/08/21 21:53 Gabapentin 300 Mg Cap PO 08/01/21 22:43 300 mg BID GEOVANNA Administration Ertapenem 1,000 mg/ Sodium 60 mls @ 100 mls/hr 07/04/21 09:00 07/08/21 10:25 Chloride IV 07/14/21 08:59 Infused Q24H GEOVANNA Infusion Protocol Daptomycin 700 mg/ Syringe 14 mls @ 7 mls/min 07/07/21 09:30 07/08/21 08:51 IV 07/21/21 09:29 7 mls/min Q24H GEOVANNA Administration Insulin Aspart 0 units 07/09/21 00:00 07/09/21 06:13 Insulin Aspart 100 Units/Ml 3 Ml Pen SC 08/08/21 00:00 7 units Q6 GEOVANNA Administration Protocol Levothyroxine Sodium 75 mcg 07/03/21 06:30 07/09/21 06:14 Levothyroxine Sodium 75 Mcg Tablet PO 08/02/21 06:29 75 mcg DAILYBB GEOVANNA Administration Metoprolol Tartrate 100 mg 07/02/21 22:44 07/08/21 21:53 Metoprolol Tartrate 100 Mg Tab PO 08/01/21 22:43 100 mg BID GEOVANNA Administration Miscellaneous Information 1 ea 07/03/21 15:54 07/03/21 17:10 Pharmacy Glycemic Mgmt Consult N/A 08/02/21 15:53 1 ea UD PRN Administration Consult Pantoprazole Sodium 40 mg 07/03/21 06:30 07/09/21 06:14 Pantoprazole 40 Mg Tab PO 08/02/21 06:29 40 mg DAILYBB GEOVANNA Administration Sennosides 17.2 mg 07/07/21 11:00 07/08/21 08:50 Senna 8.6 Mg Tab PO 08/06/21 10:59 17.2 mg QAM GEOVANNA Administration Past Medical History Medical History Acute kidney injury Anemia Asthma Atrial flutter Atrial flutter with rapid ventricular response Back injury Blocked urinary catheter Cellulitis Cellulitis of left foot Constipation Diabetic foot ulcer (10/07/13) Fall at home Foot ulcer, right Gas gangrene GERD (gastroesophageal reflux disease) Hypertension Hyponatremia Regional wall motion abnormality of heart Urinary retention Urinary tract infection Past Family History Family History Mother Diabetes Heart disease Father Heart disease Other No pertinent family history in first degree relatives Denies family history of Ovarian cancer Prostate cancer Myocardial infarction Breast cancer Colorectal cancer Past Surgical History Surgical History History of amputation of toe Hx of tonsillectomy Social History Smoking Status: Never smoker Hx Alcohol Use: Yes Alcohol type: beer alcohol intake frequency: holidays/special occasions only Hx Substance Use: No substance use type: does not use Physical Exam Vital Signs Last Vital Signs Temp 99.3 F 07/09/21 05:09 Pulse 71 07/09/21 05:09 Resp 20 07/09/21 05:09 BP 144/79 H 07/09/21 05:09 Pulse Ox 96 07/09/21 05:09 Testing Laboratory Results 07/09/21 05:27 07/09/21 05:27 PT 10.9 Seconds (9.0-12.0) 07/02/21 16:15 INR 1.1 (0.9-1.1) 07/02/21 16:15 APTT 35.1 Seconds (21.0-31.0) H 07/02/21 16:15 Hemoglobin A1c 8.9 % (4.5-5.6) H 07/04/21 07:29 Urine Color Dark Yellow 07/02/21 18:50 Urine Appearance Cloudy (Clear) A 07/02/21 18:50 Urine pH 6.5 (4.5-7.5) 07/02/21 18:50 Ur Specific [place] 1.027 (1.000-1.030) 07/02/21 18:50 Urine Protein 3+ (Negative) H 07/02/21 18:50 Urine Glucose (UA) Trace (Negative) H 07/02/21 18:50 Urine Ketones Trace (Negative) H 07/02/21 18:50 Urine Nitrite Positive (Negative) A 07/02/21 18:50 Ur Leukocyte Esterase 1+ (Negative) H 07/02/21 18:50 Urine WBC (Auto) >30 /hpf (0-5) H 07/02/21 18:50 Urine RBC (Auto) >30 /hpf (0-4) H 07/02/21 18:50 U Hyaline Cast (Auto) 10-30 /lpf (0-5) H 07/02/21 18:50 U Epithel Cells (Auto) >30 /lpf (0-5) H 07/02/21 18:50 Urine Bacteria (Auto) 1+ (Negative) H 07/02/21 18:50 07/03/21 10:30 Aerobic Blood Culture - Final Blood No growth in Aerobic bottle after 5 days. Anaerobic Blood Culture - Final No growth in Anaerobic bottle after 5 days. 07/03/21 10:30 Aerobic Blood Culture - Final Blood No growth in Aerobic bottle after 5 days. Anaerobic Blood Culture - Final No growth in Anaerobic bottle after 5 days. 07/02/21 16:15 Aerobic Blood Culture - Final Blood Staphylococcus capitis Coag neg staph not lugdunensis Anaerobic Blood Culture - Final Coag neg staph not lugdunensis 07/02/21 16:27 Aerobic Blood Culture - Final Blood Coag neg staph not lugdunensis Anaerobic Blood Culture - Final Coag neg staph not lugdunensis Group B Beta Strep 07/02/21 18:50 Urine Culture - Final Urine,Straight Cath More than three types of organisms present, all high counts. Repeat collection recommended. No further identifications or sensitivities to follow. 07/09/21 07/09/21 07/08/21 06:11 00:01 20:12 POC Glucose 205 H 193 H 86 Laboratory Tests 07/02/21 15:43 SARS-CoV-2 (PCR) NEGATIVE Electrocardiogram Date: 07/02/21 Poor data quality, interpretation may be adversely affected Sinus tachycardia, rate 125 bpm Right bundle branch block Left anterior fascicular block Bifascicular block Left ventricular hypertrophy with repolarization abnormality Abnormal ECG When compared with ECG of 01-JUN-2021 17:57, (RBBB and left anterior fascicular block) is now Present Confirmed by Joe Devi ([id number]) on 07/03/2021 8:47:22 AM Chest X-Ray Date: 07/02/21 Findings: + NAD Echocardiogram Date: 07/03/21 The study was technically difficult LV systolic function is normal Image quality was significantly limited. No obvious valvular lesions, but e ndocarditis cannot definitively be excluded due to poor visualization of the valves
[2021-07-09] MEDS ORDERED: INSULIN DETEMIR SC ONE (08:00)
[2021-07-09] MEDS ORDERED: BUPIVACAINE 0.5 % 5 MG/1 ML MPF 30ML VIAL ONE ×2 (08:03→08:52)
[2021-07-09] MEDS ORDERED: fentaNYL citrate 100 MCG/2 ML VIAL ONE ×2 (08:05→10:09)
[2021-07-09] MEDS ORDERED: MIDAZOLAM HCL 1 MG/ML 2ML VIAL ONE (08:05)
--- NOTE | 2021-07-09 08:12 | History & Physical Bridge Note ---
Date of Service July 09, 2021 History & Physical Bridge Note I have examined the patient, reviewed the History & Physical and in the interval since the performance of the History & Physical I have noted the following changes of clinical significance: no changes noted
[2021-07-09] MEDS ORDERED: ePHEDrine sulfate 50 MG/ML AMP IV PRN (08:15)
[2021-07-09] MEDS ORDERED: ONDANSETRON INJ 2 MG/ML 2 ML VIAL IV PRN ×2 (08:15→12:26)
[2021-07-09] MEDS ORDERED: ATROPINE SULFATE 0.1 MG/ML 10ML SYR IV PRN (08:15)
[2021-07-09] MEDS ORDERED: EPINEPHrine INJ 1 MG/ML AMP ONE (08:52)
[2021-07-09] MEDS ORDERED: ROCURONIUM BROMIDE 10 MG/ML 5 ML VIAL IV ONE (09:39)
[2021-07-09] MEDS ORDERED: ONDANSETRON INJ 2 MG/ML 2 ML VIAL ONE (09:39)
[2021-07-09] MEDS ORDERED: LIDOCAINE 2% 2 ML VIAL/AMP(20MG/ML) INFIL ONE (09:39)
[2021-07-09] MEDS ORDERED: ePHEDrine sulfate 50 MG/ML AMP ONE (09:39)
[2021-07-09] MEDS ORDERED: PROPOFOL IV EMULSION 10 MG/ML 20 ML VIAL IV ONE (09:39)
[2021-07-09] MEDS ORDERED: ALBUMIN HUMAN 5% 12.5 GM/250 ML VIAL IV ONE (10:33)
--- NOTE | 2021-07-09 11:07 | Operative Report ---
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 He had 2 lateral toes amputated several years ago. He walked more on the lateral aspect of his foot. He developed a chronic ulceration. He has been in and out of wound care. It has never healed. He developed a deformity of his foot. He rarely ambulates. He has been in [id number] with infections and was recently admitted for sepsis. After failing extensive conservative treatment, he elected proceed with a left below-knee amputation. Description of Procedure On July 09, 2021 Bishop was brought down from his hospital room to the preoperative holding area. The operative extremity identified and signed. He is taken back to the operating room and laid on the table in supine position. He was put under general anesthesia. The left leg was then prepped and draped in sterile fashion. A timeout was done. The patient and the operative extremity was properly identified. A fishmouth incision was made 12 cm distal to the joint line. I used a large posterior flap. Hemostasis was meticulously controlled. The peroneal artery and the anterior and posterior tibial arteries were all tied off. The tibia was resected 12 cm distal to the joint line. The edges were beveled with a rasp. The fibula was then resected 1 cm shorter than the tibia. Those edges were also beveled with a rasp. The leg was then removed and sent to pathology. The posterior muscles were debulked with a large amputation knife. I was able to get a nice closure of the skin with a large posterior flap. The tourniquet was deflated and hemostasis was meticulously controlled. The fascia was then closed with #0 Vicryl suture. Skin was closed with 2-0 nylon in an interrupted fashion. A soft dressing was placed. He was then extubated and transferred to the hospital bed. He was taken to the postanesthesia care unit in stable condition. He tolerated the procedure well. Sridhar Arias PA-C, was present for the entire procedure. He was critical for patient positioning, prepping, draping, retraction exposure, wound closure and application of sterile dressing. I attest to the content of the Intraoperative Record and any orders documented therein. Any exceptions are noted below.
[2021-07-09] MEDS: fentaNYL citrate 100 MCG/2 ML VIAL IV PRN ×4 (11:15→11:30)
[2021-07-09] MEDS ORDERED: HYDROmorphone INJ 0.5 MG/0.5 ML SYR ONE (11:33)
[2021-07-09] MEDS: HYDROmorphone INJ 1 MG/ML SYRINGE IV PRN ×3 (11:35→17:00)
--- NOTE | 2021-07-09 11:57 | Anesthesiology Progress Note ---
Date of Service July 09, 2021 Anesthesia Post Procedure Vital Signs Vital Signs: Temp Pulse Pulse Pulse Resp BP Pulse Ox 07/09/21 11:50 97.0 F L 61 16 128/59 L 96 07/09/21 11:45 61 16 129/58 L 98 07/09/21 11:35 62 18 126/56 L 98 07/09/21 11:25 60 18 118/62 98 07/09/21 11:15 56 L 18 111/38 L 97 07/09/21 11:06 96.8 F L 54 L 18 104/37 L 97 07/09/21 07:42 99.9 F H 66 18 167/66 H 93 07/09/21 05:09 99.3 F 71 20 144/79 H 96 07/08/21 23:59 68 07/08/21 23:00 99.0 F 70 18 133/73 94 07/08/21 19:24 99.5 F 66 18 147/68 H 94 07/08/21 16:02 61 07/08/21 16:00 98.2 F 62 18 135/69 95 Transfer of Care Handoff Completed per policy Notes Mental Status: alert / awake / arousable and participated in evaluation Patient Amnestic to Procedure: Yes Nausea / Vomiting: adequately controlled Pain: adequately controlled Airway Patency, RR, SpO2: stable & adequate BP & HR: stable & adequate Hydration State: stable & adequate Anesthetic Complications: no major complications apparent and Pt Satisfied with anesthetic care
[2021-07-09] MEDS: ONDANSETRON INJ 2 MG/ML 2 ML VIAL IV PRN (12:16)
[2021-07-09] MEDS ORDERED: HYDROmorphone INJ 0.5 MG/0.5 ML SYR IV PRN (12:26)
[2021-07-09] MEDS ORDERED: INSULIN ASPART PER UNIT SQ SCH (12:26)
[2021-07-09] MEDS ORDERED: NALOXONE HCL 0.4 MG/1 ML VIAL/CARP IV PRN (12:26)
--- NOTE | 2021-07-09 12:29 | Pharmacy Report ---
Pharmacy Glycemic Short Note 2 - Date of Service July 09, 2021 - Glycemic Short BSG Results (Last 24 hours): 07/08/21 07/09/21 07/09/21 20:12 00:01 05:27 Glucose 208 H POC Glucose 86 193 H 07/09/21 07/09/21 07/09/21 06:11 07:53 11:11 Glucose POC Glucose 205 H 235 H 224 H OUTPATIENT ANTIDIABETIC REGIMEN: * Levemir 100 units SC BID (sometimes extra) * Novolog 80 units SC TIDM * HbA1c = 8.9% (07/04/21) ASSESSMENT: 07/09 * Pt has received 225 units of insulin over the past 24hrs * 115 units of basal with Levemir * 110 units of bolus with NovoLog * BSGs elevated this morning due to 40% reduction in basal yesterday for NPO status today. Give 20% reduction this morning then scale to this evening for doses of 150-170 units/day based upon recovery of elevated BSGs. * No changes needed to CF/CR 07/07 * Pt has received 252 units of insulin over the past 24hrs * 180 units of basal with Levemir * 72 units of bolus with NovoLog * LOW AM fasting BSG this morning despite Levemir decrease yesterday. Will decrease by 15% today and continue to titrate based on BSGs * No changes needed to CF/CR 07/06 * Pt has received 315 units of insulin over the past 24hrs * 250 units of basal with Levemir * 65 units of bolus with NovoLog * AM fasting BSG LOW this morning at 65/73. Will decrease AM dose significantly and then resume 20% dose reduction in basal this evening. * No changes needed to CF/CR insulin 07/05: * Bishop received a total of 228 units of insulin yesterday (200 units basal + 28 units bolus) * BSGs post-insulin drip were acceptable: [phone] mg/dL * Fasting BSG increased slightly today to 142 mg/dL * No changes to insulin regimen today 07/04: * Patient required an insulin drip for approximately 3 hours last evening secondary to hyperglycemia. It has been on hold since then. * BSGs trended down nicely once drip was started as well as once basal deficiency was corrected: [phone] mg/dL. * Patient received a total of 29 units while on the drip for three hours. * Also received 200 units of basal insulin with Lantus and 50 units of bolus insulin with Novolog yesterday. * Fasting BSG is excellent today at 120 mg/dL. * Will stop the insulin drip at this time and manage patient via basal-bolus regimen based on previous admission data. 07/03: * 61 yo M admitted with sepsis and GPC bacteremia 2nd osteomyelitis and/or UTI * Significant stress with severe infection, high doses of insulin as an outpatient, persistent BSG's >350 mg/dL and missed dose of basal insulin yesterday - insulin drip indicated and OK'd by Dr. Cook * Will continue Levemir to help with eventual transition off of insulin drip, hopefully tomorrow AM * Will not use insulin drip calculator to determine CHO rate as it only goes as low as 5 g CHO/unit and this patient likely requires more, especially as the calculator would not take into account insulin from Levemir. Will therefore fix CHO ratio at 3 g CHO/unit, similar to previous admission PLAN FOR INPATIENT GLYCEMIC CONTROL: * Basal insulin * Levemir 65 units SQ x 1 then 85-105 units SQ tonight based upon BSG --- then start * Levemir 85 units SQ BID * Bolus insulin * Novolog Correction per scale ACHS * Goal Range: Low 100 mg/dL - High 140 mg/dL * Correction Factor: 10 mg/dL/unit * Carb ratio of 1 unit per 2 grams CHO consumed PLAN FOR DISCHARGE: * HbA1c = 8.9% from this admission which has improved from March of 2021. * Despite improvement in HbA1c (which is subtle), patient will likely need insulin titrated upon discharge to meet goal HbA1c of less than 8%. * Recommend titrating Metformin dose by 500 mg/week until goal dose of 1000 mg twice daily is reached. * Vitamin B12 supplementation may be needed with halfway metformin use. * Patient is on large doses of insulin as an outpatient. * Could consider increasing Levemir to TID or transitioning to U-500 insulin if patient is agreeable. * Further recs to be provided closer to discharge.
[2021-07-09] MEDS: METOPROLOL TARTRATE 100 MG TAB PO SCH ×2 (12:49→22:11)
[2021-07-09] MEDS: buPROPion XL 150 MG TABCR PO SCH ×2 (12:50→22:11)
[2021-07-09] MEDS: GABAPENTIN 300 MG CAP PO SCH ×2 (12:50→22:11)
[2021-07-09] MEDS: SENNA 8.6 MG TAB PO SCH (12:50)
[2021-07-09] MEDS: DOCUSATE SODIUM 100 MG CAP PO SCH ×2 (12:50→22:11)
[2021-07-09] MEDS: dilTIAZem HCL 240 MG CAPCR PO SCH (12:50)
[2021-07-09] MEDS: ERTAPENEM SODIUM 1,000 MG in SODIUM CHLORIDE 0.9% 50 ML IV SCH (12:53)
[2021-07-09] MEDS: oxyCODONE HCL IR 5 MG TAB (IMMEDIATE RELEASE) PO PRN (12:53)
[2021-07-09] MEDS: DAPTOmycin 700 MG in SYRINGE 0 ML IV SCH (12:54)
[2021-07-09] MEDS: SODIUM CHLORIDE 0.9% 1000ML 1,000 ML IV SCH ×2 (12:54→23:18)
[2021-07-09] MEDS: METOCLOPRAMIDE HCL INJ 5 MG/ML 2 ML VIAL IV PRN (13:05)
--- NOTE | 2021-07-09 14:23 | Hospitalist Progress Note ---
Date of Service July 09, 2021 Assessment & Plan (1) Septicemia: Plan: - SEPTICEMIA RESOLVED; Suspect source of L foot wound maybe UTI as well; Has chronic osteomyelitis/wound/septic arthritis now S/P L BKA - GBS + coag negative staph - Repeat BCx from 07/03 - NGTD - Will continue Ertapenem for UTI and Skin (Day #6) - plan for total -- Continue Dapto IV for now for coag neg staph - likely can D/C - hold statin while on coverage -- Possibly staph is contaminant - [facility] consult - appreciate recommendations (2) Septic arthritis of left foot: Plan: - As seen on MRI L foot and now S/P L BKA on 07/09 - Orthopedics following - appreciate recommendations (3) Osteomyelitis of left foot: Plan: - Chronic; Likely the source for #1. - MRI with new areas of osteomyelitis. - Treatment as above - Arterial doppler of LLE 2020 - with L peroneal artery occlusion - normal ABIs and toe indices - no intervention on peroneal artery needed (4) Catheter-associated urinary tract infection: Plan: - Initially was reported as MDR klebsiella, sensitive to ertapenem; report then redacted - Ertapenem as above - Villasenor exchanged in ER at presentation - IV Abx x 14 days total to cover for possibility of pyelonephritis (5) MACARIO (acute kidney injury): Plan: - Mild; Baseline around 1.1-1.3 - Cr 1.45 and will monitor given post-operative status (6) Anemia: Plan: - Anemia of chronic disease - likely 2nd to foot osteomyelitis. 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: Plan: - As above; Chronic and now S/P BKA (10) Morbid obesity with BMI of 50.0-59.9, adult: Plan: - BMI 52, Noted (11) GERD (gastroesophageal reflux disease): Plan: - Continue Protonix 40 mg daily (12) HTN (hypertension), benign: Plan: - STABLE - Continue Diltiazem 240 mg daily and Metoprolol 100 mg BID (13) History of atrial flutter: Plan: - Noted; Rate controlled - Eliquis was on hold for surgery - resumption when okay with surgery (14) Constipation: Plan: - Resolved s/p golytely; maintain bowel regimen (15) DVT prophylaxis: Plan: - Eliquis when safe to resume by ortho Plan: - PT/OT - Rehab possibly on D/C; still requires acute management at this time Admission and Anticipated Discharge Date Admission Date: July 02, 2021 Subjective Pt was seen postoperatively. States his pain is starting to ease up a bit. Mostly just fatigued at this point. Did have some nausea after surgery but reports this is resolved at this time. Verbalizes no other complaints at this time Review of Systems Review of Systems: REVIEW OF SYSTEMS General/Constitutional: +fatigue; Denies fever/chills ENT: Denies sore throat, trouble swallowing Cardiovascular: Denies chest pain, palpitations, edema Respiratory: Denies cough, sputum, SOB, wheezing, orthopnea GI: +Nausea/Vomting post-op (RESOLVED); Denies abdominal pain, constipation, diarrhea : Denies dysuria Musculoskeletal: +LLE pain Neurologic: Denies dizziness/lightheadedness Physical Exam Physical Exam: PHYSICAL EXAM General Appearance: WDWN in NAD who is A&O x 3 HEENT: Head is normocephalic/atraumatic; Hearing grossly intact; Mucous membranes moist Neck: Supple; Trachea midline; Neg JVD Heart: RRR with no M/G/R Lungs: CTA in all lung martínez bilaterally; Respirations unlabored; Neg accessory muscle use Abdomen: Soft, non-tender, non-distended; Positive BS x 4 quadrants Extremities: LLE with nandini wrap around stump without signs of bleeding at this time Neurological: Speech clear; Gross motor/sensory function intact; Neg focal neurologic deficits Psychiatric: Appropriate mood/affect Skin: Normal Color; Warm/Dry Results & Data Results & Data ([facility]) Vital Signs (Past 12 Hours) Vital Signs Temp Pulse Pulse Resp BP Pulse Ox 07/09/21 13:28 36.5 C 62 18 124/70 94 07/09/21 13:00 36.4 C L 31 L 18 128/71 95 07/09/21 12:30 36.3 C L 59 L 16 124/70 93 07/09/21 12:15 37.1 C 60 18 136/72 92 07/09/21 11:50 36.1 C L 61 16 128/59 L 96 07/09/21 11:45 61 16 129/58 L 98 07/09/21 11:35 62 18 126/56 L 98 07/09/21 11:25 60 18 118/62 98 07/09/21 11:15 56 L 18 111/38 L 97 07/09/21 11:06 36.0 C L 54 L 18 104/37 L 97 07/09/21 07:42 37.7 C H 66 18 167/66 H 93 07/09/21 05:09 37.4 C 71 20 144/79 H 96 PG Care Time/CCT Total # of Minutes Spent Total Time Spent with Patient: Total time spent is greater than 50% in coordination of care (as documented) at patient's floor/unit and/or counseling patient: Coding Level of Care Code 70476 Subseq Hosp Care Lvl 3 Diagnoses Septicemia A41.9 Septic arthritis of left foot M00.9 Catheter-associated urinary tract infection T83.511A; N39.0 Osteomyelitis of left foot M86.9 MACARIO (acute kidney injury) N17.9 Anemia D64.9 Hypothyroidism E03.9 Hypothyroidism type: acquired Diabetes E11.9 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
[2021-07-09] MEDS ORDERED: INSULIN ASPART 100 UNITS/ML 3 ML PEN SC SCH (16:30)
[2021-07-09] MEDS ORDERED: INSULIN DETEMIR SC SCH (21:00)
[2021-07-09] MEDS ORDERED: metFORMIN HCL 500 MG TAB PO SCH (21:00)
[2021-07-09] MEDS: APIXABAN 5 MG TABLET PO SCH (22:11)
[2021-07-10] MEDS: HYDROmorphone INJ 1 MG/ML SYRINGE IV PRN ×3 (02:16→13:35)
[2021-07-10] MEDS: oxyCODONE HCL IR 5 MG TAB (IMMEDIATE RELEASE) PO PRN ×3 (05:55→21:30)
[2021-07-10] MEDS: LEVOTHYROXINE SODIUM 75 MCG TABLET PO SCH (05:57)
[2021-07-10] MEDS: PANTOprazole 40 MG TAB PO SCH (05:57)
[2021-07-10 06:26] LABS: Hematocrit (blood only) 24.5 % (42-52); Hemoglobin 7.8 g/dL (14.0-18.0); Mean Corpuscular Hemoglobin 26.5 pg (25-34); Mean Corpuscular Hgb Conc 31.8 g/dL (32-36); Mean Corpuscular Volume 83.3 fL (80-100); Mean Platelet Volume 9.4 fL (7.4-10.4); Platelet Count 596 K/uL (130-400); RDW Standard Deviation 49.3 fL (36.4-46.3); Red Blood Count 2.94 M/uL (4.7-6.1); White Blood Count 10.79 K/uL (4.8-10.8)
[2021-07-10 06:42] LABS: Calcium 8.4 mg/dl (8.5-10.1); Creatinine Clr Calc Pharmacy 113.7 ml/min; Est GFR (African American) 82.6 ml/min; Est GFR (Non-African American) 71.3 ml/min; Potassium 4.5 mmol/L (3.5-5.1)
--- NOTE | 2021-07-10 06:53 | Orthopedic Progress Note ---
Date of Service July 10, 2021 Assessment & Plan (1) Status post below-knee amputation of left lower extremity: Overall is doing fairly well. The dressing looks good. He is having some pain but otherwise doing well. He will likely need placement at [facility]. They have stump specialist and a prosthetic department there. They can apply stump shrinkers and help fitting for prosthesis in the near future. He will continue on the antibiotics. Nikki Alas was seen and examined at bedside this morning. He said he is having a lot of pain in the stump. Otherwise, he was able to get some sleep last night and had no acute events overnight.. Review of Systems All systems reviewed & are unremarkable except as noted in HPI & below. Physical Exam Physical examination of the left leg, the dressing is clean and dry. His stump is elevated on a pillow.. Results & Data Results & Data Laboratory Results . Diagnostic Findings . PG Care Time/CCT Total # of Minutes Spent Total Time Spent with Patient: Total time spent is greater than 50% in coordination of care (as documented) at patient's floor/unit and/or counseling patient: Coding Level of Care Code 81571 Post Operative Follow-Up Diagnoses Status post below-knee amputation of left lower extremity Z89.512
[2021-07-10] MEDS: ONDANSETRON INJ 2 MG/ML 2 ML VIAL IV PRN ×2 (08:38→15:47)
[2021-07-10] MEDS: INSULIN ASPART 100 UNITS/ML 3 ML PEN SC SCH ×4 (08:45→20:46)
[2021-07-10] MEDS: SENNA 8.6 MG TAB PO SCH (08:46)
[2021-07-10] MEDS: APIXABAN 5 MG TABLET PO SCH ×2 (08:47→20:45)
[2021-07-10] MEDS: DOCUSATE SODIUM 100 MG CAP PO SCH ×2 (08:47→20:45)
[2021-07-10] MEDS: dilTIAZem HCL 240 MG CAPCR PO SCH (08:47)
[2021-07-10] MEDS: FUROSEMIDE 40 MG TAB PO SCH (08:48)
[2021-07-10] MEDS: GABAPENTIN 300 MG CAP PO SCH ×2 (08:48→20:45)
[2021-07-10] MEDS: METOPROLOL TARTRATE 100 MG TAB PO SCH ×2 (08:48→20:50)
[2021-07-10] MEDS: buPROPion XL 150 MG TABCR PO SCH ×2 (08:49→20:45)
[2021-07-10] MEDS: INSULIN DETEMIR SC SCH ×2 (08:49→20:53)
[2021-07-10] MEDS: ERTAPENEM SODIUM 1,000 MG in SODIUM CHLORIDE 0.9% 50 ML IV SCH (08:50)
[2021-07-10] MEDS: DAPTOmycin 700 MG in SYRINGE 0 ML IV SCH (08:50)
[2021-07-10] MEDS ORDERED: INSULIN DETEMIR SC SCH (09:00)
--- NOTE | 2021-07-10 10:50 | Hospitalist Progress Note ---
Date of Service July 10, 2021 Assessment & Plan (1) Septicemia: Plan: - SEPTICEMIA RESOLVED; Suspect source of L foot wound maybe UTI as well; Has chronic osteomyelitis/wound/septic arthritis now S/P L BKA - GBS + coag negative staph - Repeat BCx from 07/03 - NGTD - Will continue Ertapenem for UTI and Skin (Day #6) - plan for total -- Continue Dapto IV for now for coag neg staph - likely can D/C - hold statin while on coverage -- Possibly staph is contaminant - [facility] consult - appreciate recommendations (2) Septic arthritis of left foot: Plan: - As seen on MRI L foot and now S/P L BKA on 07/09 - Orthopedics following - appreciate recommendations (3) Osteomyelitis of left foot: Plan: - Chronic; Likely the source for #1. - MRI with new areas of osteomyelitis. - Treatment as above - Arterial doppler of LLE 2020 - with L peroneal artery occlusion - normal ABIs and toe indices - no intervention on peroneal artery needed (4) Catheter-associated urinary tract infection: Plan: - Initially was reported as MDR klebsiella, sensitive to ertapenem; report then redacted - Ertapenem as above - Villasenor exchanged in ER at presentation - IV Abx x 14 days total to cover for possibility of pyelonephritis (5) MACARIO (acute kidney injury): Plan: - Mild; Baseline around 1.1-1.3 - Cr currently at 1.1 and will monitor (6) Anemia: Plan: - Anemia of chronic disease - likely 2nd to foot osteomyelitis - now with acute blood loss anemia likely due to surgical losses - Hgb at 7.8 but vitals stable - will monitor and transfuse if necessary 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: Plan: - As above; Chronic and now S/P BKA (10) Morbid obesity with BMI of 50.0-59.9, adult: Plan: - BMI 52, Noted (11) GERD (gastroesophageal reflux disease): Plan: - Continue Protonix 40 mg daily (12) HTN (hypertension), benign: Plan: - STABLE - Continue Diltiazem 240 mg daily and Metoprolol 100 mg BID (13) History of atrial flutter: Plan: - Noted; Rate controlled - Eliquis was on hold for surgery - resumption when okay with surgery (14) Constipation: Plan: - Resolved s/p golytely; maintain bowel regimen (15) DVT prophylaxis: Plan: - Eliquis when safe to resume by ortho Plan: - PT/OT - has not been cooperative right now due to pain - Rehab likely on D/C; still requires acute management at this time Admission and Anticipated Discharge Date Admission Date: July 02, 2021 Subjective Reports having a lot of issues with pain today but seems to be easing up this af ternoon. Has not been motivated to move due to pain. Also was declining medications last evening. Currently is not complaining of anything else. Review of Systems Review of Systems: REVIEW OF SYSTEMS General/Constitutional: +fatigue; Denies fever/chills ENT: Denies sore throat, trouble swallowing Cardiovascular: Denies chest pain, palpitations, edema Respiratory: Denies cough, sputum, SOB, wheezing, orthopnea GI: Denies nausea/vomiting, abdominal pain, constipation, diarrhea : Denies dysuria Musculoskeletal: +LLE pain at stump site - easing up some today Neurologic: Denies dizziness/lightheadedness Physical Exam Physical Exam: PHYSICAL EXAM General Appearance: WDWN in NAD who is A&O x 3 HEENT: Head is normocephalic/atraumatic; Hearing grossly intact; Mucous membranes moist Neck: Supple; Trachea midline; Neg JVD Heart: RRR with no M/G/R Lungs: CTA in all lung martínez bilaterally; Respirations unlabored; Neg accessory muscle use Abdomen: Soft, non-tender, non-distended; Positive BS x 4 quadrants Extremities: LLE with nandini wrap around stump without signs of bleeding at this time Neurological: Speech clear; Gross motor/sensory function intact; Neg focal neurologic deficits Psychiatric: Appropriate mood/affect Skin: Normal Color; Warm/Dry Results & Data Results & Data ([facility]) Vital Signs (Past 12 Hours) Vital Signs Temp Pulse Pulse Resp BP Pulse Ox 07/10/21 08:00 37.4 C 93 H 18 154/79 H 92 07/10/21 06:31 71 07/10/21 03:07 37.4 C 93 H 18 154/79 H 92 PG Care Time/CCT Total # of Minutes Spent Total Time Spent with Patient: Total time spent is greater than 50% in coordination of care (as documented) at patient's floor/unit and/or counseling patient: Coding Level of Care Code 34926 Subseq Hosp Care Lvl 3 Diagnoses Septicemia A41.9 Septic arthritis of left foot M00.9 Osteomyelitis of left foot M86.9 Catheter-associated urinary tract infection T83.511A; N39.0 MACARIO (acute kidney injury) N17.9 Anemia D64.9 Hypothyroidism E03.9 Hypothyroidism type: acquired Diabetes E11.9 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
--- NOTE | 2021-07-10 11:18 | Pharmacy Report ---
Pharmacy Glycemic Short Note 2 - Date of Service July 10, 2021 - Glycemic Short BSG Results (Last 24 hours): 07/09/21 07/09/21 07/10/21 16:44 20:41 06:01 Glucose 98 POC Glucose 223 H 162 H 07/10/21 08:09 Glucose POC Glucose 103 H OUTPATIENT ANTIDIABETIC REGIMEN: * Levemir 100 units SC BID (sometimes extra) * Novolog 80 units SC TIDM * HbA1c = 8.9% (07/04/21) ASSESSMENT: 07/10 * Pt has received 199 units of insulin over the past 24hrs * 160 units of basal with Levemir * 39 units of bolus with NovoLog * Fasting BSG today is 103 mg/dL. Will continue with 150 units of basal insulin right now. 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 (Represents 10% reduction). * No changes needed to CF/CR 07/09 * Pt has received 225 units of insulin over the past 24hrs * 115 units of basal with Levemir * 110 units of bolus with NovoLog * BSGs elevated this morning due to 40% reduction in basal yesterday for NPO status today. Give 20% reduction this morning then scale to this evening for doses of 150-170 units/day based upon recovery of elevated BSGs. * No changes needed to CF/CR 07/07 * Pt has received 252 units of insulin over the past 24hrs * 180 units of basal with Levemir * 72 units of bolus with NovoLog * LOW AM fasting BSG this morning despite Levemir decrease yesterday. Will decrease by 15% today and continue to titrate based on BSGs * No changes needed to CF/CR 07/06 * Pt has received 315 units of insulin over the past 24hrs * 250 units of basal with Levemir * 65 units of bolus with NovoLog * AM fasting BSG LOW this morning at 65/73. Will decrease AM dose significantly and then resume 20% dose reduction in basal this evening. * No changes needed to CF/CR insulin 07/05: * Bishop received a total of 228 units of insulin yesterday (200 units basal + 28 units bolus) * BSGs post-insulin drip were acceptable: [phone] mg/dL * Fasting BSG increased slightly today to 142 mg/dL * No changes to insulin regimen today 07/04: * Patient required an insulin drip for approximately 3 hours last evening secondary to hyperglycemia. It has been on hold since then. * BSGs trended down nicely once drip was started as well as once basal deficiency was corrected: [phone] mg/dL. * Patient received a total of 29 units while on the drip for three hours. * Also received 200 units of basal insulin with Lantus and 50 units of bolus ins ulin with Novolog yesterday. * Fasting BSG is excellent today at 120 mg/dL. * Will stop the insulin drip at this time and manage patient via basal-bolus regimen based on previous admission data. 07/03: * 61 yo M admitted with sepsis and GPC bacteremia 2nd osteomyelitis and/or UTI * Significant stress with severe infection, high doses of insulin as an outpatient, persistent BSG's >350 mg/dL and missed dose of basal insulin yesterday - insulin drip indicated and OK'd by Dr. Cook * Will continue Levemir to help with eventual transition off of insulin drip, hopefully tomorrow AM * Will not use insulin drip calculator to determine CHO rate as it only goes as low as 5 g CHO/unit and this patient likely requires more, especially as the calculator would not take into account insulin from Levemir. Will therefore fix CHO ratio at 3 g CHO/unit, similar to previous admission PLAN FOR INPATIENT GLYCEMIC CONTROL: * Basal insulin * Levemir 875 units SQ BID * Bolus insulin * Novolog Correction per scale ACHS * Goal Range: Low 100 mg/dL - High 140 mg/dL * Correction Factor: 10 mg/dL/unit * Carb ratio of 1 unit per 2 grams CHO consumed PLAN FOR DISCHARGE: * HbA1c = 8.9% from this admission which has improved from March of 2021. * Despite improvement in HbA1c (which is subtle), patient will likely need insulin titrated upon discharge to meet goal HbA1c of less than 8%. * Recommend titrating Metformin dose by 500 mg/week until goal dose of 1000 mg twice daily is reached. * Vitamin B12 supplementation may be needed with long term acute care registered nurse metformin use. * Patient is on large doses of insulin as an outpatient. * Could consider increasing Levemir to TID or transitioning to U-500 insulin if patient is agreeable. * Further recs to be provided closer to discharge.
[2021-07-10] MEDS ORDERED: HYDROmorphone INJ 1 MG/ML SYRINGE IV PRN (14:03)
[2021-07-10] MEDS: METOCLOPRAMIDE HCL INJ 5 MG/ML 2 ML VIAL IV PRN (17:28)
[2021-07-10] MEDS: ACETAMINOPHEN 325 MG TAB PO PRN (19:55)
[2021-07-11] MEDS: PANTOprazole 40 MG TAB PO SCH (06:07)
[2021-07-11] MEDS: LEVOTHYROXINE SODIUM 75 MCG TABLET PO SCH (06:07)
--- NOTE | 2021-07-11 06:23 | Orthopedic Progress Note ---
Date of Service July 11, 2021 Assessment & Plan (1) Status post below-knee amputation of left lower extremity: Overall is doing well. Is not having much pain in the stump at this point. He can be up and sitting in a chair at bedside with therapy if he feels comfortable. We will wait 7 days from the day of surgery to change the dressing. He is orthopedically stable for discharge when medically ready. I do recommend discharged to [facility] where they have a prosthetics depart ment to help him. He can follow-up with orthopedics in 2 to 3 weeks. Full orthopedic discharge instructions were placed in the discharge summary. If you have any questions please feel free to contact me personally at [phone] Subjective Bishop was seen and examined at bedside this morning. Overall is doing better. The pain in his left stump is much improved today. He was not able to get up to a chair yesterday. He has no new complaints.. Review of Systems All systems reviewed & are unremarkable except as noted in HPI & below. Physical Exam On physical examination of the left stump, the dressing is clean and dry. There is no drainage. He is lying with his left stump elevated.. Results & Data Results & Data Laboratory Results . Diagnostic Findings . PG Care Time/CCT Total # of Minutes Spent Total Time Spent with Patient: Total time spent is greater than 50% in coordination of care (as documented) at patient's floor/unit and/or counseling patient: Coding Level of Care Code 67445 Post Operative Follow-Up Diagnoses Status post below-knee amputation of left lower extremity Z89.512
[2021-07-11 06:32] LABS: Hematocrit (blood only) 23.3 % (42-52); Hemoglobin 7.3 g/dL (14.0-18.0); Mean Corpuscular Hemoglobin 26.3 pg (25-34); Mean Corpuscular Hgb Conc 31.3 g/dL (32-36); Mean Corpuscular Volume 83.8 fL (80-100); Mean Platelet Volume 9.3 fL (7.4-10.4); Platelet Count 604 K/uL (130-400); RDW Coefficient of Variation 16.2 % (11.5-14.5); RDW Standard Deviation 50.5 fL (36.4-46.3); Red Blood Count 2.78 M/uL (4.7-6.1); White Blood Count 11.62 K/uL (4.8-10.8)
[2021-07-11 07:09] LABS: BUN Creatinine Ratio 17.9 (10-20); Calcium 8.7 mg/dl (8.5-10.1); Creatinine Clr Calc Pharmacy 91.4 ml/min; Est GFR (African American) 64.1 ml/min; Est GFR (Non-African American) 55.3 ml/min; Potassium 4.3 mmol/L (3.5-5.1)
[2021-07-11] MEDS: APIXABAN 5 MG TABLET PO SCH ×2 (09:03→20:46)
[2021-07-11] MEDS: dilTIAZem HCL 240 MG CAPCR PO SCH (09:03)
[2021-07-11] MEDS: GABAPENTIN 300 MG CAP PO SCH ×2 (09:03→20:46)
[2021-07-11] MEDS: DOCUSATE SODIUM 100 MG CAP PO SCH ×2 (09:03→20:46)
[2021-07-11] MEDS: SENNA 8.6 MG TAB PO SCH (09:03)
[2021-07-11] MEDS: INSULIN DETEMIR SC SCH ×2 (09:03→20:47)
[2021-07-11] MEDS: FUROSEMIDE 40 MG TAB PO SCH (09:03)
[2021-07-11] MEDS: buPROPion XL 150 MG TABCR PO SCH ×2 (09:03→20:46)
[2021-07-11] MEDS: METOPROLOL TARTRATE 100 MG TAB PO SCH ×2 (09:03→20:46)
[2021-07-11] MEDS: INSULIN ASPART 100 UNITS/ML 3 ML PEN SC SCH ×4 (09:04→20:46)
[2021-07-11] MEDS: ERTAPENEM SODIUM 1,000 MG in SODIUM CHLORIDE 0.9% 50 ML IV SCH (09:07)
[2021-07-11] MEDS: oxyCODONE HCL IR 5 MG TAB (IMMEDIATE RELEASE) PO PRN (10:09)
--- NOTE | 2021-07-11 13:13 | Pharmacy Report ---
Pharmacy Glycemic Short Note 2 - Date of Service July 11, 2021 - Glycemic Short BSG Results (Last 24 hours): 07/10/21 07/10/21 07/11/21 16:29 20:15 06:17 Glucose 145 H POC Glucose 141 H 171 H 07/11/21 07/11/21 07:43 11:52 Glucose POC Glucose 146 H 167 H OUTPATIENT ANTIDIABETIC REGIMEN: * Levemir 100 units SC BID (sometimes extra) * Novolog 80 units SC TIDM * HbA1c = 8.9% (07/04/21) ASSESSMENT: 07/11/21 * Pt has received 180 units of insulin over the past 24hrs * 150 units of basal with Levemir * 30 units of bolus with NovoLog * Fasting BSG today is 146 mg/dL. Expect basal rate of 160-170 units/day. Adjusted accordingly. * No changes needed to CF/CR 07/10 * Pt has received 199 units of insulin over the past 24hrs * 160 units of basal with Levemir * 39 units of bolus with NovoLog * Fasting BSG today is 103 mg/dL. Will continue with 150 units of basal insulin right now. 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 (Represents 10% reduction). * No changes needed to CF/CR 07/09 * Pt has received 225 units of insulin over the past 24hrs * 115 units of basal with Levemir * 110 units of bolus with NovoLog * BSGs elevated this morning due to 40% reduction in basal yesterday for NPO status today. Give 20% reduction this morning then scale to this evening for doses of 150-170 units/day based upon recovery of elevated BSGs. * No changes needed to CF/CR BACKGROUND 07/04: * Patient required an insulin drip for approximately 3 hours last evening secondary to hyperglycemia. It has been on hold since then. * BSGs trended down nicely once drip was started as well as once basal deficiency was corrected: [phone] mg/dL. * Patient received a total of 29 units while on the drip for three hours. * Also received 200 units of basal insulin with Lantus and 50 units of bolus insulin with Novolog yesterday. * Fasting BSG is excellent today at 120 mg/dL. * Will stop the insulin drip at this time and manage patient via basal-bolus regimen based on previous admission data. 07/03: * 61 yo M admitted with sepsis and GPC bacteremia 2nd osteomyelitis and/or UTI * Significant stress with severe infection, high doses of insulin as an outpatient, persistent BSG's >350 mg/dL and missed dose of basal insulin yesterday - insulin drip indicated and OK'd by Dr. Cook * Will continue Levemir to help with eventual transition off of insulin drip, hopefully tomorrow AM * Will not use insulin drip calculator to determine CHO rate as it only goes as low as 5 g CHO/unit and this patient likely requires more, especially as the calculator would not take into account insulin from Levemir. Will therefore fix CHO ratio at 3 g CHO/unit, similar to previous admission PLAN FOR INPATIENT GLYCEMIC CONTROL: * Basal insulin * Levemir 75 units SQ BID (85 units if BSG > 140 mg/dl) * Bolus insulin * Novolog Correction per scale ACHS * Goal Range: Low 100 mg/dL - High 140 mg/dL * Correction Factor: 10 mg/dL/unit * Carb ratio of 1 unit per 2 grams CHO consumed PLAN FOR DISCHARGE: * HbA1c = 8.9% from this admission which has improved from March of 2021. * Despite improvement in HbA1c (which is subtle), patient will likely need insulin titrated upon discharge to meet goal HbA1c of less than 8%. * Recommend titrating Metformin dose by 500 mg/week until goal dose of 1000 mg twice daily is reached. * Vitamin B12 supplementation may be needed with [facility] metformin use. * Patient is on large doses of insulin as an outpatient. * Could consider increasing Levemir to TID or transitioning to U-500 insulin if patient is agreeable. * Further recs to be provided closer to discharge.
--- NOTE | 2021-07-11 16:11 | Hospitalist Progress Note ---
Date of Service July 11, 2021 Assessment & Plan (1) Septicemia: Plan: - SEPTICEMIA RESOLVED; Suspect source of L foot wound maybe UTI as well; Has chronic osteomyelitis/wound/septic arthritis now S/P L BKA - GBS + coag negative staph - Repeat BCx from 07/03 - NGTD - Will continue Ertapenem for UTI and Skin (Day #7) - plan for total 14 days (Jul 18) -- Stop Dapto IV -- Possibly staph is contaminant - [facility] consult - appreciate recommendations (2) Septic arthritis of left foot: Plan: - As seen on MRI L foot and now S/P L BKA on 07/09 - Orthopedics following - appreciate recommendations; orthopedically stable for D/C (3) Osteomyelitis of left foot: Plan: - Chronic; Likely the source for #1. - MRI with new areas of osteomyelitis. - Treatment as above - Arterial doppler of LLE 2020 - with L peroneal artery occlusion - normal ABIs and toe indices - no intervention on peroneal artery needed (4) Catheter-associated urinary tract infection: Plan: - Initially was reported as MDR klebsiella, sensitive to ertapenem; report then redacted -- Has grown pseudomonas in the urine in the past and would have to monitor for further infection as Ertapenem would not cover - Ertapenem as above - Villasenor exchanged in ER at presentation - IV Abx x 14 days total to cover for possibility of pyelonephritis (5) MACARIO (acute kidney injury): Plan: - Mild; Baseline around 1.1-1.3 - Currently at baseline (6) Anemia: Plan: - Anemia of chronic disease - likely 2nd to foot osteomyelitis - now with acute blood loss anemia likely due to surgical losses - Hgb remains in the 7s but vitals stable - will monitor and transfuse if necessary 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: Plan: - As above; Chronic and now S/P BKA (10) Morbid obesity with BMI of 50.0-59.9, adult: Plan: - BMI 52, Noted (11) GERD (gastroesophageal reflux disease): Plan: - Continue Protonix 40 mg daily (12) HTN (hypertension), benign: Plan: - STABLE - Continue Diltiazem 240 mg daily and Metoprolol 100 mg BID (13) History of atrial flutter: Plan: - Noted; Rate controlled - Eliquis was on hold for surgery - resumption when okay with surgery (14) Constipation: Plan: - Resolved s/p golytely; maintain bowel regimen (15) DVT prophylaxis: Plan: - Eliquis Plan: - PT/OT - has not been cooperative and will continue to encourage but mostly will just sleep in bed but easily awakens just not motivated - Rehab likely on D/C however unable to get him to participate for disposition - will continue to try and control pain to see if this assists Admission and Anticipated Discharge Date Admission Date: July 02, 2021 Subjective Reports his pain is feeling a bit better. Easily opens his eyes when asking questions then just falls back to sleep. Discussed working on therapy but states the pain prevents this. He does not appear motivated. He verbalizes no complaints Review of Systems Review of Systems: REVIEW OF SYSTEMS General/Constitutional: Denies fever/chills ENT: Denies sore throat, trouble swallowing Cardiovascular: Denies chest pain, palpitations, edema Respiratory: Denies cough, sputum, SOB, wheezing, orthopnea GI: Denies nausea/vomiting, abdominal pain, constipation, diarrhea : Denies dysuria Musculoskeletal: +LLE pain at stump site - improving Neurologic: Denies dizziness/lightheadedness Physical Exam Physical Exam: PHYSICAL EXAM General Appearance: WDWN in NAD who is A&O x 3 HEENT: Head is normocephalic/atraumatic; Hearing grossly intact; Mucous membranes moist Neck: Supple; Trachea midline; Neg JVD Heart: RRR with no M/G/R Lungs: CTA in all lung martínez bilaterally; Respirations unlabored; Neg accessory muscle use Abdomen: Soft, non-tender, non-distended; Positive BS x 4 quadrants Extremities: LLE with nandini wrap around stump without signs of bleeding at this time Neurological: Speech clear; Gross motor/sensory function intact; Neg focal neurologic deficits Psychiatric: Mostly keeps eyes closed when talking to him but opens them easily with just verbal stimuli Skin: Normal Color; Warm/Dry Results & Data Results & Data ([facility]) Vital Signs (Past 12 Hours) Vital Signs Temp Pulse Pulse Resp BP Pulse Ox 07/11/21 15:29 64 07/11/21 15:00 37.7 C H 61 16 133/72 93 07/11/21 11:21 37.5 C 101 H 16 123/69 95 07/11/21 07:33 36.7 C 74 16 183/93 H 96 07/11/21 07:14 74 07/11/21 07:00 37.4 C 74 20 131/75 92 PG Care Time/CCT Total # of Minutes Spent Total Time Spent with Patient: Total time spent is greater than 50% in coordination of care (as documented) at patient's floor/unit and/or counseling patient: Coding Level of Care Code 16891 Subseq Hosp Care Lvl 3 Diagnoses Septicemia A41.9 Septic arthritis of left foot M00.9 Osteomyelitis of left foot M86.9 Catheter-associated urinary tract infection T83.511A; N39.0 MACARIO (acute kidney injury) N17.9 Anemia D64.9 Hypothyroidism E03.9 Hypothyroidism type: acquired Diabetes E11.9 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
[2021-07-12] MEDS: LEVOTHYROXINE SODIUM 75 MCG TABLET PO SCH (05:34)
[2021-07-12] MEDS: PANTOprazole 40 MG TAB PO SCH (05:35)
[2021-07-12] MEDS: INSULIN ASPART 100 UNITS/ML 3 ML PEN SC SCH ×4 (08:14→20:46)
[2021-07-12] MEDS: buPROPion XL 150 MG TABCR PO SCH ×2 (08:15→20:45)
[2021-07-12] MEDS: APIXABAN 5 MG TABLET PO SCH ×2 (08:15→20:45)
[2021-07-12] MEDS: dilTIAZem HCL 240 MG CAPCR PO SCH (08:15)
[2021-07-12] MEDS: GABAPENTIN 300 MG CAP PO SCH ×2 (08:16→20:45)
[2021-07-12] MEDS: DOCUSATE SODIUM 100 MG CAP PO SCH ×2 (08:16→20:45)
[2021-07-12] MEDS: FUROSEMIDE 40 MG TAB PO SCH (08:16)
[2021-07-12] MEDS: ERTAPENEM SODIUM 1,000 MG in SODIUM CHLORIDE 0.9% 50 ML IV SCH (08:16)
[2021-07-12] MEDS: INSULIN DETEMIR SC SCH ×2 (08:17→20:47)
[2021-07-12] MEDS: METOPROLOL TARTRATE 100 MG TAB PO SCH ×2 (08:19→20:46)
[2021-07-12] MEDS: SENNA 8.6 MG TAB PO SCH (08:19)
[2021-07-12] MEDS: oxyCODONE HCL IR 5 MG TAB (IMMEDIATE RELEASE) PO PRN (08:24)
[2021-07-12 09:03] LABS: Hematocrit (blood only) 21.8 % (42-52); Hemoglobin 6.9 g/dL (14.0-18.0); Mean Corpuscular Hemoglobin 26.1 pg (25-34); Mean Corpuscular Hgb Conc 31.7 g/dL (32-36); Mean Corpuscular Volume 82.6 fL (80-100); Mean Platelet Volume 9.1 fL (7.4-10.4); Platelet Count 601 K/uL (130-400); RDW Coefficient of Variation 16.2 % (11.5-14.5); RDW Standard Deviation 49.6 fL (36.4-46.3); Red Blood Count 2.64 M/uL (4.7-6.1)
[2021-07-12] MEDS ORDERED: SODIUM CHLORIDE 0.9% 250 ML IV PRN (09:27)
--- NOTE | 2021-07-12 15:56 | Hospitalist Progress Note ---
Date of Service July 12, 2021 Assessment & Plan (1) Septicemia: Plan: - SEPTICEMIA RESOLVED; Suspect source of L foot wound maybe UTI as well; Has chronic osteomyelitis/wound/septic arthritis now S/P L BKA - GBS + coag negative staph - Repeat BCx from 07/03 - NGTD - Will continue Ertapenem for UTI and Skin (Day #7) - plan for total 14 days (Jul 18) -- Stopped Dapto IV -- Possibly staph is contaminant - [facility] ID consult - appreciate recommendations (2) Septic arthritis of left foot: Plan: - As seen on MRI L foot and now S/P L BKA on 07/09 - Orthopedics following - appreciate recommendations; orthopedically stable for D/C (3) Osteomyelitis of left foot: Plan: - Chronic; Likely the source for #1. - MRI with new areas of osteomyelitis. - Treatment as above - Arterial doppler of LLE 2020 - with L peroneal artery occlusion - normal ABIs and toe indices - no intervention on peroneal artery needed (4) Catheter-associated urinary tract infection: Plan: - Initially was reported as MDR klebsiella, sensitive to ertapenem; report then redacted -- Has grown pseudomonas in the urine in the past and would have to monitor for further infection as Ertapenem would not cover - Ertapenem as above - Villasenor exchanged in ER at presentation - IV Abx x 14 days total to cover for possibility of pyelonephritis (5) MACARIO (acute kidney injury): Plan: - Mild; Baseline around 1.1-1.3 - Currently at baseline (6) Anemia: Plan: - Anemia of chronic disease - likely 2nd to foot osteomyelitis - now with acute blood loss anemia likely due to surgical losses - Hgb dropped into 6s but vitals stable - transfused x 2 units on 07/12 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: Plan: - As above; Chronic and now S/P BKA (10) Morbid obesity with BMI of 50.0-59.9, adult: Plan: - BMI 52, Noted (11) GERD (gastroesophageal reflux disease): Plan: - Continue Protonix 40 mg daily (12) HTN (hypertension), benign: Plan: - STABLE - Continue Diltiazem 240 mg daily and Metoprolol 100 mg BID (13) History of atrial flutter: Plan: - Noted; Rate controlled - Eliquis (14) Constipation: Plan: - Resolved s/p golytely; maintain bowel regimen (15) DVT prophylaxis: Plan: - Eliquis Plan: - PT/OT - did cooperate with PT today will await disposition determination - Rehab on D/C - if Hgb remains stable can D/C Admission and Anticipated Discharge Date Admission Date: July 02, 2021 Subjective Reports pain in the stump keeps improving each day. Was able to participate in PT today. Also found to have a low Hgb and currently getting transfused. Mostly sleeping throughout the day. Verbalizes no other complaints Review of Systems Review of Systems: REVIEW OF SYSTEMS General/Constitutional: Denies fever/chills Cardiovascular: Denies chest pain, palpitations, edema Respiratory: Denies cough, sputum, SOB, wheezing, orthopnea GI: Denies nausea/vomiting, abdominal pain, constipation, diarrhea : Denies dysuria Musculoskeletal: +LLE pain at stump site - improving Neurologic: Denies dizziness/lightheadedness Physical Exam Physical Exam: PHYSICAL EXAM General Appearance: WDWN in NAD who is A&O x 3 but mostly keeps eyes closed during conversation HEENT: Head is normocephalic/atraumatic; Hearing grossly intact; Mucous membranes moist Neck: Supple; Trachea midline; Neg JVD Heart: RRR with no M/G/R Lungs: CTA in all lung martínez bilaterally; Respirations unlabored; Neg accessory muscle use Abdomen: Soft, non-tender, non-distended; Positive BS x 4 quadrants Extremities: LLE with nandini wrap around stump without signs of bleeding at this time Neurological: Speech clear; Gross motor/sensory function intact; Neg focal neurologic deficits Psychiatric: Mostly keeps eyes closed when talking to him but opens them easily with just verbal stimuli Skin: Normal Color; Warm/Dry Results & Data Results & Data ([facility]) Vital Signs (Past 12 Hours) Vital Signs Temp Pulse Pulse Resp BP BP Pulse Ox 07/12/21 15:40 37 C 61 18 134/76 07/12/21 15:16 62 07/12/21 15:13 36.7 C 61 18 127/69 94 07/12/21 13:30 36.8 C 63 18 129/71 94 07/12/21 13:01 36.7 C 66 19 132/71 93 07/12/21 12:31 36.9 C 67 19 127/72 07/12/21 12:16 36.9 C 63 18 130/68 07/12/21 11:59 36.8 C 66 18 130/72 07/12/21 11:23 37.1 C 63 18 114/62 94 07/12/21 10:44 68 07/12/21 07:44 37.5 C 67 18 132/66 93 07/12/21 04:00 37.1 C 65 20 135/68 93 PG Care Time/CCT Total # of Minutes Spent Total Time Spent with Patient: Total time spent is greater than 50% in coordination of care (as documented) at patient's floor/unit and/or counseling patient: Coding Level of Care Code 35833 Subseq Hosp Care Lvl 3 Diagnoses Septicemia A41.9 Septic arthritis of left foot M00.9 Osteomyelitis of left foot M86.9 Catheter-associated urinary tract infection T83.511A; N39.0 MACARIO (acute kidney injury) N17.9 Anemia D64.9 Hypothyroidism E03.9 Hypothyroidism type: acquired Diabetes E11.9 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
[2021-07-12] MEDS: ACETAMINOPHEN 325 MG TAB PO PRN (17:42)
[2021-07-12 19:58] LABS: Hematocrit (blood only) 25.2 % (42-52); Hemoglobin 7.9 g/dL (14.0-18.0); Mean Corpuscular Hemoglobin 26.6 pg (25-34); Mean Corpuscular Hgb Conc 31.3 g/dL (32-36); Mean Corpuscular Volume 84.8 fL (80-100); Platelet Count 559 K/uL (130-400); RDW Coefficient of Variation 16.1 % (11.5-14.5); RDW Standard Deviation 49.6 fL (36.4-46.3); Red Blood Count 2.97 M/uL (4.7-6.1); White Blood Count 10.18 K/uL (4.8-10.8)
[2021-07-13] MEDS: PANTOprazole 40 MG TAB PO SCH (05:38)
[2021-07-13] MEDS: LEVOTHYROXINE SODIUM 75 MCG TABLET PO SCH (05:38)
[2021-07-13 07:53] LABS: Hematocrit (blood only) 25.9 % (42-52); Hemoglobin 8.2 g/dL (14.0-18.0); Mean Corpuscular Hgb Conc 31.7 g/dL (32-36); Mean Corpuscular Volume 85.2 fL (80-100); Mean Platelet Volume 9.5 fL (7.4-10.4); Platelet Count 630 K/uL (130-400); RDW Coefficient of Variation 16.1 % (11.5-14.5); RDW Standard Deviation 50.4 fL (36.4-46.3); Red Blood Count 3.04 M/uL (4.7-6.1); White Blood Count 9.67 K/uL (4.8-10.8)
[2021-07-13 08:23] LABS: Est GFR (African American) 71.6 ml/min; Est GFR (Non-African American) 61.8 ml/min
[2021-07-13] MEDS: INSULIN ASPART 100 UNITS/ML 3 ML PEN SC SCH ×4 (09:02→21:57)
[2021-07-13] MEDS: INSULIN DETEMIR SC SCH ×2 (09:03→21:57)
[2021-07-13] MEDS: ERTAPENEM SODIUM 1,000 MG in SODIUM CHLORIDE 0.9% 50 ML IV SCH (09:06)
[2021-07-13] MEDS: SENNA 8.6 MG TAB PO SCH (09:07)
[2021-07-13] MEDS: APIXABAN 5 MG TABLET PO SCH ×2 (09:07→21:51)
[2021-07-13] MEDS: buPROPion XL 150 MG TABCR PO SCH ×2 (09:07→21:51)
[2021-07-13] MEDS: GABAPENTIN 300 MG CAP PO SCH ×2 (09:07→21:51)
[2021-07-13] MEDS: oxyCODONE HCL IR 5 MG TAB (IMMEDIATE RELEASE) PO PRN ×2 (09:07→18:42)
[2021-07-13] MEDS: METOPROLOL TARTRATE 100 MG TAB PO SCH ×2 (09:07→21:50)
[2021-07-13] MEDS: DOCUSATE SODIUM 100 MG CAP PO SCH ×2 (09:07→21:51)
[2021-07-13] MEDS: dilTIAZem HCL 240 MG CAPCR PO SCH (09:08)
[2021-07-13] MEDS: FUROSEMIDE 40 MG TAB PO SCH (09:08)
--- NOTE | 2021-07-13 11:09 | Hospitalist Progress Note ---
Date of Service July 13, 2021 Assessment & Plan (1) Septicemia: Plan: - SEPTICEMIA RESOLVED; Suspect source of L foot wound maybe UTI as well; Has chronic osteomyelitis/wound/septic arthritis now S/P L BKA - GBS + coag negative staph - Repeat BCx from 07/03 - NGTD - Will continue Ertapenem for UTI and Skin - plan for total 14 days (Jul 18) -- Stopped Dapto IV -- Possibly staph is contaminant - [facility] ID consult - appreciate recommendations -- Stop Dapto -- Ertapenem x 14 days -- Do not suggest long-term Abx for chronic OM -- Feel staph is likely contaminant (2) Septic arthritis of left foot: Plan: - As seen on MRI L foot and now S/P L BKA on 07/09 - Orthopedics following - appreciate recommendations; orthopedically stable for D/C -- F/U in 2-[address] Negron's office (3) Osteomyelitis of left foot: Plan: - Chronic; Likely the source for #1. - MRI with new areas of osteomyelitis. - Treatment as above - Arterial doppler of LLE 2020 - with L peroneal artery occlusion - normal ABIs and toe indices - no intervention on peroneal artery needed (4) Catheter-associated urinary tract infection: Plan: - Initially was reported as MDR klebsiella, sensitive to ertapenem; report then redacted -- Has grown pseudomonas in the urine in the past and would have to monitor for further infection as Ertapenem would not cover - Ertapenem as above - Villasenor exchanged in ER at presentation - IV Abx x 14 days total to cover for possibility of pyelonephritis (5) MACARIO (acute kidney injury): Plan: - Mild; Baseline around 1.1-1.3 - Currently at baseline (6) Anemia: Plan: - Anemia of chronic disease - likely 2nd to foot osteomyelitis - now with acute blood loss anemia likely due to surgical losses - Hgb dropped into 6s but vitals stable - transfused x 2 units on 07/12 -- Hgb at 8.2 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 Is interested in going to [facility] - If Hgb remains stable tomorrow would view him as suitable for transfer to rehab once approved - Only needs about 5 days of IV Abx so can likely use normal peripheral line Admission and Anticipated Discharge Date Admission Date: July 02, 2021 Subjective Pt is a lot more alert today and very talkative. He does not remember seeing me even though I have been on service since Friday. His Hgb is up to 8.2 today after transfusion. He is more willing to participate in therapy so he can go to [facility]. Also reporting his pain is doing a lot better. He verbalizes no complaints at this time Review of Systems Review of Systems: REVIEW OF SYSTEMS General/Constitutional: Denies fever/chills Cardiovascular: Denies chest pain, palpitations, edema Respiratory: Denies cough, sputum, SOB, wheezing, orthopnea GI: Denies nausea/vomiting, abdominal pain, constipation, diarrhea : Denies dysuria Musculoskeletal: LLE/stump pain is tolerable and controlled Neurologic: Denies dizziness/lightheadedness Physical Exam Physical Exam: PHYSICAL EXAM General Appearance: WDWN in NAD who is A&O x 3 HEENT: Head is normocephalic/atraumatic; Hearing grossly intact; Mucous membranes slightly dry Neck: Supple; Trachea midline; Neg JVD Heart: RRR with no M/G/R Lungs: CTA in all lung martínez bilaterally; Respirations unlabored; Neg accessory muscle use Abdomen: Soft, non-tender, non-distended; Positive BS x 4 quadrants Extremities: LLE with nandini wrap around stump without signs of bleeding at this time Neurological: Speech clear; Gross motor/sensory function intact; Neg focal neurologic deficits Psychiatric: More alert today compared to previous visits; very talkative Skin: Normal Color; Warm/Dry Results & Data Results & Data ([facility]) Vital Signs (Past 12 Hours) Vital Signs Temp Pulse Pulse Resp BP BP Pulse Ox 07/13/21 10:00 59 L 07/13/21 08:06 36.7 C 64 18 121/57 L 97 07/13/21 04:21 36.6 C 74 20 136/70 97 07/12/21 23:54 36.9 C 64 18 124/66 95 07/12/21 23:02 68 PG Care Time/CCT Total # of Minutes Spent Total Time Spent with Patient: Total time spent is greater than 50% in coordination of care (as documented) at patient's floor/unit and/or counseling patient: Coding Level of Care Code 46216 Subseq Hosp Care Lvl 3 Diagnoses Septicemia A41.9 Septic arthritis of left foot M00.9 Osteomyelitis of left foot M86.9 Catheter-associated urinary tract infection T83.511A; N39.0 MACARIO (acute kidney injury) N17.9 Anemia D64.9 Hypothyroidism E03.9 Hypothyroidism type: acquired Diabetes E11.9 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
--- NOTE | 2021-07-13 12:06 | Pharmacy Report ---
Pharmacy Glycemic Short Note 2 - Date of Service July 13, 2021 - Glycemic Short BSG Results (Last 24 hours): 07/12/21 07/12/21 07/13/21 16:28 20:38 07:54 POC Glucose 135 H 120 H 117 H 07/13/21 11:44 POC Glucose 185 H OUTPATIENT ANTIDIABETIC REGIMEN: * Levemir 100 units SC BID (sometimes extra) * Novolog 80 units SC TIDM * HbA1c = 8.9% (07/04/21) ASSESSMENT: 07/13/21 * Pt has received 232 units of insulin over the past 24hrs * 150 units of basal with Levemir * 82 units of bolus with NovoLog * Fasting BSG today is 117 mg/dL. Expect basal rate of 150-155. * No changes needed to CF/CR 07/11/21 * Pt has received 180 units of insulin over the past 24hrs * 150 units of basal with Levemir * 30 units of bolus with NovoLog * Fasting BSG today is 146 mg/dL. Expect basal rate of 160-170 units/day. Adjusted accordingly. * No changes needed to CF/CR 07/10 * Pt has received 199 units of insulin over the past 24hrs * 160 units of basal with Levemir * 39 units of bolus with NovoLog * Fasting BSG today is 103 mg/dL. Will continue with 150 units of basal insulin right now. 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 (Represents 10% reduction). * No changes needed to CF/CR 07/09 * Pt has received 225 units of insulin over the past 24hrs * 115 units of basal with Levemir * 110 units of bolus with NovoLog * BSGs elevated this morning due to 40% reduction in basal yesterday for NPO status today. Give 20% reduction this morning then scale to this evening for doses of 150-170 units/day based upon recovery of elevated BSGs. * No changes needed to CF/CR BACKGROUND 07/04: * Patient required an insulin drip for approximately 3 hours last evening secondary to hyperglycemia. It has been on hold since then. * BSGs trended down nicely once drip was started as well as once basal deficiency was corrected: [phone] mg/dL. * Patient received a total of 29 units while on the drip for three hours. * Also received 200 units of basal insulin with Lantus and 50 units of bolus insulin with Novolog yesterday. * Fasting BSG is excellent today at 120 mg/dL. * Will stop the insulin drip at this time and manage patient via basal-bolus regimen based on previous admission data. 07/03: * 61 yo M admitted with sepsis and GPC bacteremia 2nd osteomyelitis and/or UTI * Significant stress with severe infection, high doses of insulin as an outpatient, persistent BSG's >350 mg/dL and missed dose of basal insulin yesterday - insulin drip indicated and OK'd by Dr. Cook * Will continue Levemir to help with eventual transition off of insulin drip, hopefully tomorrow AM * Will not use insulin drip calculator to determine CHO rate as it only goes as low as 5 g CHO/unit and this patient likely requires more, especially as the calculator would not take into account insulin from Levemir. Will therefore fix CHO ratio at 3 g CHO/unit, similar to previous admission PLAN FOR INPATIENT GLYCEMIC CONTROL: * Basal insulin * Levemir 75 units SQ BID (85 units if BSG > 140 mg/dl) * Bolus insulin * Novolog Correction per scale ACHS * Goal Range: Low 100 mg/dL - High 140 mg/dL * Correction Factor: 10 mg/dL/unit * Carb ratio of 1 unit per 2 grams CHO consumed PLAN FOR DISCHARGE: * HbA1c = 8.9% from this admission which has improved from March of 2021. * Despite improvement in HbA1c (which is subtle), patient will likely need insulin titrated upon discharge to meet goal HbA1c of less than 8%. * Recommend titrating Metformin dose by 500 mg/week until goal dose of 1000 mg twice daily is reached. * Vitamin B12 supplementation may be needed with snf metformin use. * Patient is on large doses of insulin as an outpatient. * Could consider increasing Levemir to TID or transitioning to U-500 insulin if patient is agreeable. * Further recs to be provided closer to discharge.
[2021-07-14] MEDS: PANTOprazole 40 MG TAB PO SCH (05:45)
[2021-07-14] MEDS: LEVOTHYROXINE SODIUM 75 MCG TABLET PO SCH (05:45)
[2021-07-14] MEDS: buPROPion XL 150 MG TABCR PO SCH ×2 (08:39→21:25)
[2021-07-14] MEDS: APIXABAN 5 MG TABLET PO SCH ×2 (08:39→21:26)
[2021-07-14] MEDS: ERTAPENEM SODIUM 1,000 MG in SODIUM CHLORIDE 0.9% 50 ML IV SCH (08:39)
[2021-07-14] MEDS: DOCUSATE SODIUM 100 MG CAP PO SCH ×2 (08:39→21:26)
[2021-07-14] MEDS: GABAPENTIN 300 MG CAP PO SCH ×2 (08:40→21:25)
[2021-07-14] MEDS: SENNA 8.6 MG TAB PO SCH (08:40)
[2021-07-14] MEDS: FUROSEMIDE 40 MG TAB PO SCH (08:40)
[2021-07-14] MEDS: METOPROLOL TARTRATE 100 MG TAB PO SCH ×2 (08:40→21:26)
[2021-07-14] MEDS: dilTIAZem HCL 240 MG CAPCR PO SCH (08:40)
[2021-07-14] MEDS: INSULIN ASPART 100 UNITS/ML 3 ML PEN SC SCH ×4 (08:41→21:53)
[2021-07-14 08:42] LABS: Hematocrit (blood only) 28.6 % (42-52); Mean Corpuscular Hemoglobin 26.7 pg (25-34); Mean Corpuscular Hgb Conc 31.5 g/dL (32-36); Mean Corpuscular Volume 84.9 fL (80-100); Platelet Count 632 K/uL (130-400); RDW Coefficient of Variation 15.8 % (11.5-14.5); Red Blood Count 3.37 M/uL (4.7-6.1); White Blood Count 8.08 K/uL (4.8-10.8)
[2021-07-14] MEDS: INSULIN DETEMIR SC SCH ×2 (08:42→21:53)
--- NOTE | 2021-07-14 12:17 | Discharge Summary ---
Date of Service July 15, 2021 Admission HPI Per Admitting Provider 61 YOM with past medical history of: AFIB/flutter on Apixaban, chronic urinary retention secondary to BPH with chronic indwelling Brown, DMII poorly controlled on insulin, chronic diabetic foot ulcerations with chronic osteomyelitis, COVID 19 in March, CKD IIIa. Patient was recently admitted in May for poorly draining Brown catheter and UTI (klebsiella and pseudomonas) with chills and vomiting. Patient came to the [facility] today for vomiting and fevers. He states that this started over the weekend and is mostly "clear slime that he has vomited", he has fevers off and on but has not checked his temperature. He endorses loss of appetite and fatigue. He feels he has not been able to keep anything down since he left [place]. In the [facility] the patient had routine labs drawn to include PCT and lactate. His WBC count was elevated at 16.48 elevated neutrophil to lymphocyte ratio, procalcitonin 0.20, and lactate of 4.1. Following 2L crystalloid his lactate down trended to 1.6. He had X-ray of his left foot completed and CXR done. His Left foot continues to show osseous erosions and soft tissue edema with arterial calcifications. He did have arterial duplex scans completed in February 16 with no evidence of significant stenosis. His CXR did not reveal any acute process. He also had his Brown catheter replaced in the [facility], small amount of urine noted, bladder scan reveals 40ml in bladder. During the patient's last admission, he requested to go to [facility] secondary to chronic osteomyelitis as he continues to want conservative treatment and management of his chronic wound and salvage therapy for his foot. The patient was seen there and was discharged on , where he finished his antibiotics of Cefepime and Daptomycin and was to continue to follow up with wound care. He seen wound care on June 29- where he was treated with chemical cauterization to remove hypergranulation tissue and dressing of Aquacel Ag daily, he continues with his Darco shoes. The wound today is still with surrounding erythema to the foot, but no drainage or weeping. Patient will be admitted for sepsis with presumed sources, osteomyelitis, soft tissue, urine sources. Blood cultures have been ordered, urine is pending. Patient was started on Vancomycin in the EMD, will continue. Will add Zosyn 4.5 GM IV now followed by Zosyn 3.375 GM IV q8. Patient also reports allergy to PCN was as a child and had just some hives. Patient has had COVID in the past: His COVID test on admission is NEGATIVE as well as influenza. Principal Diagnosis s/p left BKA for foot diabetic wound, osteomyelitis, sepsis Discharge Exam General: well developed, well nourished, morbidly obese male, no acute distress, comfortable Neck: supple, trachea midline, normal thyroid Lungs: clear to auscultation bilaterally, normal respiratory effort, no accessory muscle use, no distress Heart: regular S1 and S2, no murmur, peripheral pulses normal, capillary refill normal, no edema Abdomen: soft, NT, ND, + BS, no hepatomegaly, normal to percussion Extremities: left BKA, stump is dressed, tender, other extremities with pulses intact, no cyanosis, full strength in arms and right leg Neuro: awake, cooperative, moves all extremities, no focal motor deficits, CN II-XII intact, sensation in extremities intact, normal speech Skin: warm, dry, no rash, normal turgor Psych: Awake, alert oriented x 3, euthymic affect Discharge Data Allergies Allergy/AdvReac Type Severity Reaction Status Date / Time Penicillins Allergy Severe HIVES, RED Verified 07/02/21 16:06 RASH A CHILD ferrous sulfate AdvReac Intermediate Gastrointestinal Verified 07/02/21 16:06 Upset fluticasone [From Flonase] AdvReac Intermediate FELT FUNNY Verified 07/02/21 16:06 IN THE HEAD Consultations 07/06/21 11:21 Consult Infectious Diseases Routine Procedures Performed Operation Date: 07/09/21 07:00 Actual Procedures p Left Below Knee Amputation(Left) - Sridhar Negron DO Ordered Studies 07/05/21 09:30 US ankle/brachial index comp Routine 07/07/21 09:01 MR foot LT wo/w con Routine 07/09/21 07:19 US - OR guided needle placemen Routine Hospital Course (1) Septicemia: - SEPTICEMIA RESOLVED; Suspect source of L foot wound maybe UTI as well; Has chronic osteomyelitis/wound/septic arthritis now S/P L BKA - GBS + coag negative staph - Repeat BCx from 07/03 - NGTD - Will continue Ertapenem for UTI and Skin - plan for total 14 days (Jul 18) -- Stopped Dapto IV -- Possibly staph is contaminant - [facility] ID consult - appreciate recommendations -- Stop Dapto -- Ertapenem x 14 days -- Do not suggest long-term Abx for chronic OM -- Feel staph is likely contaminant (2) Septic arthritis of left foot: - As seen on MRI L foot and now S/P L BKA on 07/09 - Orthopedics following - appreciate recommendations; orthopedically stable for D/C -- F/U in 2-[address] Negron's office (3) Osteomyelitis of left foot: - Chronic; Likely the source for #1. - MRI with new areas of osteomyelitis. - Treatment as above - Arterial doppler of LLE 2020 - with L peroneal artery occlusion - normal ABIs and toe indices - no intervention on peroneal artery needed (4) Catheter-associated urinary tract infection: - Initially was reported as MDR klebsiella, sensitive to ertapenem; report then redacted -- Has grown pseudomonas in the urine in the past and would have to monitor for further infection as Ertapenem would not cover - Ertapenem as above - Brown exchanged in ER at presentation - IV Abx x 14 days total to cover for possibility of pyelonephritis (5) MACARIO (acute kidney injury): - Mild; Baseline around 1.1-1.3 - Currently at baseline (6) Anemia: - Anemia of chronic disease - likely 2nd to foot osteomyelitis - now with acute blood loss anemia likely due to surgical losses - Hgb dropped into 6s but vitals stable - transfused x 2 units on 07/12 -- Hgb at 9 - B12/folate 02/16 WNL; Fe studies 02/16 -- c/w ACD with small component of Fe deficiency; Stool heme negative - Trend labs (7) Hypothyroidism: - Continue with Levothyroxine 75mcg daily - TSH March 2021 WNL (8) Diabetes: - Uncontrolled; On massive amounts of insulin outside the hospital - Pharmacy consulted for management - appreciate assistance - Was on insulin drip - now back to SC basal-bolus 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: - As above; Chronic and now S/P BKA (10) Morbid obesity with BMI of 50.0-59.9, adult: - BMI 52, Noted (11) GERD (gastroesophageal reflux disease): - Continue Protonix 40 mg daily (12) HTN (hypertension), benign: - STABLE - Continue Diltiazem 240 mg daily and Metoprolol 100 mg BID (13) History of atrial flutter: - Noted; Rate controlled - Eliquis (14) Constipation: - Resolved s/p golytely; maintain bowel regimen (15) DVT prophylaxis: - Eliquis Disposition: - discharge to [facility] Total Time Total Time Spent Total Time Spent (In Minutes): 32 Discharge Plan Discharge Items Patient Disposition: Transfer Inpatient Rehab Fac Reason For Visit: SEPSIS Discharge Diagnosis: Sepsis due to osteomyelitis of foot s/p BKA Condition on Discharge: Good Goals: improve strength and mobility finish course of Ertapenem IV Activity: Per Instructions section Weightbearing: Left non-weightbearing Non-emergency contact: Primary Care Provider and Surgeon Call non-emergency contact if: you have any medication questions, your symptoms worsen and you have a fever Follow-up/Referrals: Joe Walker MD [Primary Care Provider] - (one week after discharge from [facility]) Sridhar Negron DO [Physician] - (2-3 weeks from surgery) Diet: Carb Consistent or DM2 Addtl Attending Provider Instructions: Medications: - OXYCODONE: as needed for pain with left stump - COLACE: take twice a day for stool softener - ERTAPENEM: needs to continue until 07/18/21 for sepsis, diabetic wound, this was recommendation of Infectious Disease s/p left BKA for diabetic foot wound, osteomyelitis, sepsis see instructions from Dr. 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 Dressing Care: Leave the dressing in place for 7 days from the date of surgery. After the seventh day the dressing can be changed. As long as there is no drainage the sutures can be left open to air. Showering: Do not get the left stump wet in a shower until follow-up with orthopedics in 2 to 3 weeks. Things To Watch For: 1. Drainage from the incision site that occurs more than one week after your surgery. 2. Increased redness at the incision site. 3. Fever above 102 degrees Fahrenheit. 4. Unusual chest pain or shortness of breath. 5. Call [facility] at with any of the above problems Follow-Up Visit: Follow-up with Dr. Negron's PA (Sridhar Arias) 2-3 weeks after your day of surgery. He will remove your sutures and answer any questions. If you have any additional questions or concerns, Dr Negron is usually in the office at the same time and will be available Please call to make an appointment for a time that works for you Pending Studies at Discharge: No Stand-Alone Forms: My [facility] Skilled Items Patient informed of condition?: Yes DNR: No Discharge Level of Care: Acute rehab Communicable Disease: No Discharge Prognosis: Improving Lines: US Guided Peripheral IV Urinary Catheter: Yes (chronic indwelling brown) Medications and DC Order Prescriptions: New oxycodone 5 mg Tablet 5 - 10 mg PO Q4H PRN (Reason: pain) Qty: 20 RF: 0 docusate sodium 100 mg Capsule 100 mg PO BID Qty: 20 RF: 0 Continued bupropion HCl [Wellbutrin XL] 150 mg tablet extended release 24 hr 150 mg PO BID Qty: 60 RF: 5 (DME) blood-glucose meter Kit See Rx Instructions .ROUTE .MEDSUPPLY Qty: 1 RF: 0 diltiazem HCl 240 mg capsule,extended release 24 hr 240 mg PO QAM Qty: 30 RF: 5 Levemir U-100 Insulin 100 unit/mL solution 100 unit SUBCUT AMPM Qty: 80 RF: 3 gabapentin 300 mg capsule 300 mg PO BID Qty: 60 RF: 5 levothyroxine 75 mcg capsule 75 mcg PO DAILY Qty: 90 RF: 1 (DME) OneTouch Verio test strips Strip See Rx Instructions .Route Qty: 100 RF: 4 insulin aspart U-100 [Novolog U-100 Insulin aspart] 100 unit/mL solution 80 unit SQ TIDM Qty: 6 RF: 1 Dakin's Solution 0.25 % solution 1 applic topical DAILY Qty: 473 RF: 3 Eliquis 5 mg tablet 5 mg PO BID Qty: 60 RF: 5 metoprolol tartrate 100 mg tablet 100 mg PO BID Qty: 60 RF: 5 albuterol sulfate [Ventolin HFA] 90 mcg/actuation HFA aerosol inhaler 2 puff INHALATION Q4H PRN (Reason: Shortness Of Breath Or Wheezing) RF: 0 furosemide 40 mg tablet 40 mg PO QAM RF: 0 atorvastatin 80 mg tablet 80 mg PO QDD RF: 0 pantoprazole 40 mg tablet,delayed release (DR/EC) 40 mg PO DAILYBB RF: 0 metformin 500 mg tablet 500 mg PO BID RF: 0 Discharge Orders: Discharge Order (Routine); Ordered 07/14/21 Ordered By: Jefferson Bennett/Other Patient Handouts: High Blood Sugar (Hyperglycemia), 5 Steps for Eating Healthier Admission Data Admit Date/Time: 07/02/21 18:16 Attending Provider: Jefferson Badillo Admit Provider: Vicente Cook Primary Care Provider: Joe Walker Other Providers: Rolo Falcon ; Xiao Moran ; Vineet Lomeli I. 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
[2021-07-14] MEDS: oxyCODONE HCL IR 5 MG TAB (IMMEDIATE RELEASE) PO PRN ×2 (12:37→21:48)
--- NOTE | 2021-07-14 23:31 | Hospitalist Progress Note ---
Date of Service July 14, 2021 Assessment & Plan (1) Septicemia: Plan: - SEPTICEMIA RESOLVED; Suspect source of L foot wound maybe UTI as well; Has chronic osteomyelitis/wound/septic arthritis now S/P L BKA - GBS + coag negative staph - Repeat BCx from 07/03 - NGTD - Will continue Ertapenem for UTI and Skin - plan for total 14 days (Jul 18) -- Stopped Dapto IV -- Possibly staph is contaminant - [facility] ID consult - appreciate recommendations -- Stop Dapto -- Ertapenem x 14 days -- Do not suggest long-term Abx for chronic OM -- Feel staph is likely contaminant (2) Septic arthritis of left foot: Plan: - As seen on MRI L foot and now S/P L BKA on 07/09 - Orthopedics following - appreciate recommendations; orthopedically stable for D/C -- F/U in 2-[address] Negron's office (3) Osteomyelitis of left foot: Plan: - Chronic; Likely the source for #1. - MRI with new areas of osteomyelitis. - Treatment as above - Arterial doppler of LLE 2020 - with L peroneal artery occlusion - normal ABIs and toe indices - no intervention on peroneal artery needed (4) Catheter-associated urinary tract infection: Plan: - Initially was reported as MDR klebsiella, sensitive to ertapenem; report then redacted -- Has grown pseudomonas in the urine in the past and would have to monitor for further infection as Ertapenem would not cover - Ertapenem as above - Villasenor exchanged in ER at presentation - IV Abx x 14 days total to cover for possibility of pyelonephritis (5) MACARIO (acute kidney injury): Plan: - Mild; Baseline around 1.1-1.3 - Currently at baseline (6) Anemia: Plan: - Anemia of chronic disease - likely 2nd to foot osteomyelitis - now with acute blood loss anemia likely due to surgical losses - Hgb dropped into 6s but vitals stable - transfused x 2 units on 07/12 -- Hgb at 9 today 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: Plan: - As above; Chronic and now S/P BKA (10) Morbid obesity with BMI of 50.0-59.9, adult: Plan: - BMI 52, Noted (11) GERD (gastroesophageal reflux disease): Plan: - Continue Protonix 40 mg daily (12) HTN (hypertension), benign: Plan: - STABLE - Continue Diltiazem 240 mg daily and Metoprolol 100 mg BID (13) History of atrial flutter: Plan: - Noted; Rate controlled - Eliquis (14) Constipation: Plan: - Resolved s/p golytely; maintain bowel regimen (15) DVT prophylaxis: Plan: - Eliquis Plan: Disposition: - ready for discharge, but no transportation could be arranged, try on 07/15 Admission and Anticipated Discharge Date Admission Date: July 02, 2021 Subjective patient was doing well, stable for discharge [facility] had a bed, but no transportation available today, will get tr ansportation tomorrow eating well, no dyspnea, no chest pain minimal pain in left stump, no fever he is anxious to get started with rehab, goal is to get a prosthesis Review of Systems Review of Systems: All systems reviewed & are unremarkable except as noted in Subjective Physical Exam Physical Exam: General: well developed, morbidly obese male, no acute distress, comfortable Neck: supple, trachea midline, normal thyroid Lungs: clear to auscultation bilaterally, normal respiratory effort, no accessory muscle use, no distress Heart: regular S1 and S2, no murmur, peripheral pulses normal, capillary refill normal, no edema Abdomen: soft, NT, ND, + BS, no hepatomegaly, normal to percussion Extremities: left BKA, stump is dressed, good strength in other extremities Neuro: awake, cooperative, moves all extremities, no focal motor deficits, CN II-XII intact, sensation in extremities intact, normal speech Skin: warm, dry, no rash, normal turgor Psych: Awake, alert oriented x 3, euthymic affect Results & Data Results & Data ([facility]) Vital Signs (Past 12 Hours) Vital Signs Temp Pulse Pulse Resp BP Pulse Ox 07/14/21 20:09 36.8 C 59 L 18 118/71 95 07/14/21 16:30 60 07/14/21 16:00 36.8 C 60 18 131/70 96 Laboratory Results Laboratory Results - last 24 hr 07/14/21 07/14/21 07/14/21 07:35 08:33 11:32 WBC 8.08 RBC 3.37 L Hgb 9.0 L Hct 28.6 L MCV 84.9 MCH 26.7 MCHC 31.5 L RDW Std Deviation 49.0 H RDW Coeff of Adi 15.8 H Plt Count 632 H MPV 9.0 POC Glucose 130 H 144 H 07/14/21 07/14/21 07/14/21 16:39 16:40 20:20 WBC RBC Hgb Hct MCV MCH MCHC RDW Std Deviation RDW Coeff of Adi Plt Count MPV POC Glucose 67 L* 81 102 H Medications Administered Current Inpatient Medications Acetaminophen (Acetaminophen 325 Mg Tab) 650 mg PO Q4H PRN PRN Reason: Pain or Fever Stop: 08/01/21 22:43 Last Admin: 07/12/21 17:42 Dose: 650 mg Documented by: Albuterol (Albuterol Hfa 8 Gm Inhaler) 2 puffs INH Q4H PRN PRN Reason: Shortness Of Breath Or Wheezing Stop: 08/01/21 22:43 Apixaban (Apixaban 5 Mg Tablet) 5 mg PO BID [facility] Stop: 08/01/21 22:43 Last Admin: 07/14/21 21:26 Dose: 5 mg Documented by: Atorvastatin Calcium (Atorvastatin 40 Mg Tab) 80 mg PO QDD [facility] Stop: 08/02/21 16:29 Last Admin: 07/06/21 17:25 Dose: 80 mg Documented by: Bupropion HCl (Bupropion Xl 150 Mg Tabcr) 150 mg PO BID [facility] Stop: 08/01/21 22:43 Last Admin: 07/14/21 21:25 Dose: 150 mg Documented by: Dextrose (Dextrose 50% 50 Ml Syringe) 25 - 50 ml IV UD PRN; Protocol PRN Reason: Hypoglycemia Protocol Stop: 08/01/21 22:43 Diltiazem HCl (Diltiazem Hcl 240 Mg Capcr) 240 mg PO QAM [facility] Stop: 08/02/21 08:59 Last Admin: 07/14/21 08:40 Dose: 240 mg Documented by: Docusate Sodium (Docusate Sodium 100 Mg Cap) 100 mg PO BID [facility] Stop: 08/02/21 16:14 Last Admin: 07/14/21 21:26 Dose: 100 mg Documented by: Furosemide (Furosemide 40 Mg Tab) 40 mg PO QAM [facility] Stop: 08/09/21 08:59 Last Admin: 07/14/21 08:40 Dose: 40 mg Documented by: Gabapentin (Gabapentin 300 Mg Cap) 300 mg PO BID [facility] Stop: 08/01/21 22:43 Last Admin: 07/14/21 21:25 Dose: 300 mg Documented by: Glucagon (Glucagon For Inj 1 Mg Vial) 1 mg SQ UD PRN; Protocol PRN Reason: Hypoglycemia Protocol Stop: 08/01/21 22:43 Glucose (Glucose 10 Tabs/Tube) 4 - 8 tabs PO UD PRN; Protocol PRN Reason: Hypoglycemia Protocol Stop: 08/01/21 22:43 Glucose (Glucose 40% Gel 15 Gm Tube) 15 - 30 gm PO UD PRN; Protocol PRN Reason: Hypoglycemia Protocol Stop: 08/01/21 22:43 Hydromorphone HCl (Hydromorphone Inj 1 Mg/Ml Syringe) 1 mg IV Q3H PRN PRN Reason: Pain or Pre PT Stop: 07/23/21 16:38 Ertapenem 1,000 mg/ Sodium (Chloride) 60 mls @ 100 mls/hr IV Q24H [facility]; Protocol Stop: 07/18/21 23:59 Last Infusion: 07/14/21 09:41 Dose: Infused Documented by: Insulin Aspart (Insulin Aspart 100 Units/Ml 3 Ml Pen) 0 units SC ACHS [facility]; Protocol Stop: 08/08/21 16:29 Last Admin: 07/14/21 21:53 Dose: 6 units Documented by: Insulin Detemir (Insulin Detemir) 80 units SC BID [facility]; Protocol Stop: 08/13/21 08:59 Last Admin: 07/14/21 21:53 Dose: 80 units Documented by: Levothyroxine Sodium (Levothyroxine Sodium 75 Mcg Tablet) 75 mcg PO DAILYBB [facility] Stop: 08/02/21 06:29 Last Admin: 07/14/21 05:45 Dose: 75 mcg Documented by: Metoclopramide HCl (Metoclopramide Hcl Inj 5 Mg/Ml 2 Ml Vial) 10 mg IV Q6H PRN PRN Reason: Nausea And Vomiting Stop: 08/08/21 12:25 Last Admin: 07/10/21 17:28 Dose: 10 mg Documented by: Metoprolol Tartrate (Metoprolol Tartrate 100 Mg Tab) 100 mg PO BID [facility] Stop: 08/01/21 22:43 Last Admin: 07/14/21 21:26 Dose: Not Given Documented by: Miscellaneous (Carbohydrates For Hypoglycemia ) 15 - 30 gm PO UD PRN PRN Reason: Hypoglycemia Protocol Stop: 08/01/21 22:43 Last Admin: 07/11/21 17:52 Dose: 15 gm Documented by: Miscellaneous Information (Pharmacy Glycemic Mgmt Consult) 1 ea N/A UD PRN PRN Reason: Consult Stop: 08/02/21 15:53 Last Admin: 07/03/21 17:10 Dose: 1 ea Documented by: Naloxone HCl (Naloxone Hcl 0.4 Mg/1 Ml Vial/Carp) 0.1 mg IV Q5M PRN PRN Reason: Oversedation/Resp Depression Stop: 08/08/21 12:25 Ondansetron HCl (Ondansetron Inj 2 Mg/Ml 2 Ml Vial) 4 mg IV Q6H PRN PRN Reason: Nausea Stop: 08/01/21 22:43 Last Admin: 07/10/21 15:47 Dose: 4 mg Documented by: Oxycodone HCl (Oxycodone Hcl Ir 5 Mg Tab (Immediate Release)) 5 - 10 mg PO Q4H PRN PRN Reason: Pain or Pre PT Stop: 07/23/21 12:25 Last Admin: 07/14/21 21:48 Dose: 10 mg Documented by: Pantoprazole Sodium (Pantoprazole 40 Mg Tab) 40 mg PO DAILYBB [facility] Stop: 08/02/21 06:29 Last Admin: 07/14/21 05:45 Dose: 40 mg Documented by: Sennosides (Senna 8.6 Mg Tab) 17.2 mg PO QAM [facility] Stop: 08/06/21 10:59 Last Admin: 07/14/21 08:40 Dose: 17.2 mg Documented by: PG Care Time/CCT Total # of Minutes Spent Total Time Spent with Patient: Total time spent is greater than 50% in coordination of care (as documented) at patient's floor/unit and/or counseling patient: Coding Level of Care Code 34748 Subseq Hosp Care Lvl 2 Diagnoses Septicemia A41.9 Septic arthritis of left foot M00.9 Osteomyelitis of left foot M86.9 Catheter-associated urinary tract infection T83.511A; N39.0 MACARIO (acute kidney injury) N17.9 Anemia D64.9 Hypothyroidism E03.9 Hypothyroidism type: acquired Diabetes E11.9 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
[2021-07-15] MEDS: LEVOTHYROXINE SODIUM 75 MCG TABLET PO SCH (06:07)
[2021-07-15] MEDS: PANTOprazole 40 MG TAB PO SCH (06:07)
[2021-07-15 07:06] LABS: Creatinine Clr Calc Pharmacy 111.1 ml/min; Est GFR (African American) 80.9 ml/min; Est GFR (Non-African American) 69.8 ml/min
[2021-07-15] MEDS: buPROPion XL 150 MG TABCR PO SCH (08:18)
[2021-07-15] MEDS: GABAPENTIN 300 MG CAP PO SCH (08:18)
[2021-07-15] MEDS: FUROSEMIDE 40 MG TAB PO SCH (08:18)
[2021-07-15] MEDS: ERTAPENEM SODIUM 1,000 MG in SODIUM CHLORIDE 0.9% 50 ML IV SCH (08:18)
[2021-07-15] MEDS: dilTIAZem HCL 240 MG CAPCR PO SCH (08:18)
[2021-07-15] MEDS: METOPROLOL TARTRATE 100 MG TAB PO SCH (08:19)
[2021-07-15] MEDS: DOCUSATE SODIUM 100 MG CAP PO SCH (08:19)
[2021-07-15] MEDS: SENNA 8.6 MG TAB PO SCH (08:19)
[2021-07-15] MEDS: APIXABAN 5 MG TABLET PO SCH (08:19)
[2021-07-15] MEDS: INSULIN ASPART 100 UNITS/ML 3 ML PEN SC SCH ×3 (08:20→17:27)
[2021-07-15] MEDS ORDERED: INSULIN DETEMIR SC SCH (09:00)
--- NOTE | 2021-07-15 10:42 | Pharmacy Report ---
Pharmacy Glycemic Short Note 2 - Date of Service July 15, 2021 - Glycemic Short BSG Results (Last 24 hours): 07/14/21 07/14/21 07/14/21 11:32 16:39 16:40 POC Glucose 144 H 67 L* 81 07/14/21 07/15/21 20:20 07:23 POC Glucose 102 H 185 H OUTPATIENT ANTIDIABETIC REGIMEN: * Levemir 100 units SC BID (sometimes extra) * Novolog 80 units SC TIDM * HbA1c = 8.9% (07/04/21) ASSESSMENT: 07/15/21 * Patient's BSGs yesterday were [phone] * Pt has received 238 units of insulin over the past 24hrs * 160 units of basal with Levemir * 78 units of bolus with NovoLog * Fasting BSG today is 185 mg/dL. Increase basal by 15% to 170 units/day. * Patient with second hypoglycemic event at dinner (last one several days ago). Loosen CR slightly to 2.5 07/13/21 * Pt has received 232 units of insulin over the past 24hrs * 150 units of basal with Levemir * 82 units of bolus with NovoLog * Fasting BSG today is 117 mg/dL. Expect basal rate of 150-155. * No changes needed to CF/CR 07/11/21 * Pt has received 180 units of insulin over the past 24hrs * 150 units of basal with Levemir * 30 units of bolus with NovoLog * Fasting BSG today is 146 mg/dL. Expect basal rate of 160-170 units/day. Adjusted accordingly. * No changes needed to CF/CR 07/10 * Pt has received 199 units of insulin over the past 24hrs * 160 units of basal with Levemir * 39 units of bolus with NovoLog * Fasting BSG today is 103 mg/dL. Will continue with 150 units of basal insulin right now. 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 (Represents 10% reduction). * No changes needed to CF/CR 07/09 * Pt has received 225 units of insulin over the past 24hrs * 115 units of basal with Levemir * 110 units of bolus with NovoLog * BSGs elevated this morning due to 40% reduction in basal yesterday for NPO status today. Give 20% reduction this morning then scale to this evening for doses of 150-170 units/day based upon recovery of elevated BSGs. * No changes needed to CF/CR BACKGROUND 07/04: * Patient required an insulin drip for approximately 3 hours last evening secondary to hyperglycemia. It has been on hold since then. * BSGs trended down nicely once drip was started as well as once basal deficiency was corrected: [phone] mg/dL. * Patient received a total of 29 units while on the drip for three hours. * Also received 200 units of basal insulin with Lantus and 50 units of bolus insulin with Novolog yesterday. * Fasting BSG is excellent today at 120 mg/dL. * Will stop the insulin drip at this time and manage patient via basal-bolus regimen based on previous admission data. 07/03: * 61 yo M admitted with sepsis and GPC bacteremia 2nd osteomyelitis and/or UTI * Significant stress with severe infection, high doses of insulin as an outpatient, persistent BSG's >350 mg/dL and missed dose of basal insulin yesterday - insulin drip indicated and OK'd by Dr. Cook * Will continue Levemir to help with eventual transition off of insulin drip, hopefully tomorrow AM * Will not use insulin drip calculator to determine CHO rate as it only goes as low as 5 g CHO/unit and this patient likely requires more, especially as the c alculator would not take into account insulin from Levemir. Will therefore fix CHO ratio at 3 g CHO/unit, similar to previous admission PLAN FOR INPATIENT GLYCEMIC CONTROL: * Basal insulin * Levemir 85 units SQ BID * Bolus insulin * Novolog Correction per scale ACHS * Goal Range: Low 100 mg/dL - High 140 mg/dL * Correction Factor: 10 mg/dL/unit * Carb ratio of 1 unit per 2.5 grams CHO consumed PLAN FOR DISCHARGE: * HbA1c = 8.9% from this admission which has improved from March of 2021. * Despite improvement in HbA1c (which is subtle), patient will likely need insulin titrated upon discharge to meet goal HbA1c of less than 8%. * Recommend titrating Metformin dose by 500 mg/week until goal dose of 1000 mg twice daily is reached. * Vitamin B12 supplementation may be needed with long goods drier metformin use. * Patient is on large doses of insulin as an outpatient. * Could consider transitioning to U-500 insulin if patient is agreeable. * Could consider Levemir 75 TID plus Novolog 80 units with meals to provide a more balanced split
[2021-07-15] MEDS: oxyCODONE HCL IR 5 MG TAB (IMMEDIATE RELEASE) PO PRN (17:27)
== END 2021-07-15 19:34 | DRG 854 ==
LOC: ED 14:22 → EDINP 18:16 → SUATTDRO 18:16 → 2N 23:02

== ENCOUNTER 2024-07-31 16:06 | Inpatient (IN) ==
[2024-07-31 16:39] LABS: Basophils # (auto) 0.05 K/uL (0.00-0.20); Basophils % (auto) 0.3 %; Hematocrit (blood only) 34.4 % (42.0-52.0); Hemoglobin 11.6 g/dl (14.0-18.0); Immature Granulocytes # (auto) 0.05 K/uL (0.01-0.20); Immature Granulocytes % (auto) 0.3 %; Lymphocytes % (auto) 19.6 %; Mean Corpuscular Hemoglobin 27.8 pg (25.0-34.0); Mean Corpuscular Hgb Conc 33.7 g/dL (32.0-36.0); Mean Corpuscular Volume 82.3 fL (80.0-100.0); Mean Platelet Volume 11.5 fL (9.4-12.4); Monocytes # (auto) 1.46 K/uL (0.11-0.59); Monocytes % (auto) 9.5 %; Neutrophils # (auto) 10.46 K/uL (1.40-6.50); Neutrophils % (auto) 68.3 %; Platelet Count 298 K/uL (130-400); RDW Coefficient of Variation 16.2 % (11.5-14.5); RDW Standard Deviation 48.3 fL (36.4-46.3); Red Blood Count 4.18 M/uL (4.70-6.10); White Blood Count 15.32 K/ul (4.8-10.8)
[2024-07-31 16:51] LABS: Albumin Level 3.6 gm/dl (3.4-5.0); BUN Creatinine Ratio 13.6 (10-20); Bilirubin,Total 0.4 mg/dl (0.2-1.0); Calcium 8.5 mg/dl (8.6-10.3); Creatinine Clr Calc Pharmacy 47.9 ml/min; Globulin 3.7 gm/dl (2.5-4.0); Potassium 3.7 mmol/L (3.5-5.1); Total Protein 7.3 gm/dl (6.0-8.3)
[2024-07-31] MEDS: SODIUM CHLORIDE 0.9% 500 ML IV ONE (17:05)
[2024-07-31] MEDS: DEXTROSE 50% 50 ML SYRINGE IV ONE (17:08)
[2024-07-31] MEDS: ACETAMINOPHEN 1,000 MG/100 ML VIAL IV STA (17:10)
[2024-07-31 17:57] LABS: Appearance Urine Cloudy (Clear); Specific Gravity Urine 1.014 (1.000-1.030)
[2024-07-31 18:02] LABS: Bacteria Urine 2+ (None Seen); Hyaline Casts Urine Present /lpf (None Presnt); WBC Urine 21-50 /hpf (0-5)
[2024-07-31] MEDS: CEFEPIME 2000MG 2,000 MG/20 ML SYR IV STA (18:23)
[2024-07-31] MEDS: SODIUM CHLORIDE 0.9% 1,000 ML IV SCH (18:24)
--- NOTE | 2024-07-31 18:34 | CT Scan Report ---
EXAM: CT Abdomen and Pelvis Without Intravenous Contrast INDICATION: Fever and lower abdominal pain. TECHNIQUE: Axial computed tomography images of the abdomen and pelvis without intravenous contrast. Sagittal and coronal reformatted images were created and reviewed. This CT exam was performed using one or more of the following dose reduction techniques: automated exposure control, adjustment of the mA and/or kV according to patient size, and/or use of iterative reconstruction technique. COMPARISON: No relevant prior studies available. FINDINGS: Limitations: Portions of the right abdomen and abdominal wall are not included in the field. Lung bases: Mild airway thickening in the lung bases with minimal atelectasis. Pleural space: No visualized pleural effusion or pneumothorax. Heart: No abnormality noted. Mediastinum: No abnormality noted. ABDOMEN: Liver: Lack of intravenous contrast limits detection of some masses. No abnormality noted. Gallbladder and bile ducts: Multiple small stones layering the gallbladder. No ductal dilatation or stone. Pancreas: No pancreatic mass, calcification, inflammation or ductal dilation noted. Spleen: No significant abnormality noted. Adrenals: No significant abnormality noted. Kidneys and ureters: Mild bilateral renal cortical scarring noted. No stone or hydronephrosis. Stomach and bowel: Large amounts of formed stool and the redundant rectum with mild rectosigmoid thickening noted. There is moderate to large amounts of stool in the right colon. The redundant colon is prominently aerated. No small bowel distention identified. There are colonic diverticula. No definite pneumatosis allowing for significant amounts of stool and some layering fluid in the right colon. PELVIS: Appendix: No findings to suggest acute appendicitis. Bladder: There is a catheter in the bladder which is collapsed and cannot be assessed. Inflammation not excluded. No stones. Reproductive: No abnormalities noted. ABDOMEN and PELVIS: Intraperitoneal space: No free air. No significant fluid collection. Bones/joints: No acute changes. Soft tissues: There is subcutaneous edema along the right flank and right upper thigh. The areas that are comparable to the prior exam are unchanged. Vasculature: Atherosclerotic calcification of the aorta and branches. No aneurysm. Lymph nodes: No pathologically enlarged lymph nodes. IMPRESSION: 1. Large amounts of stool and gas in the redundant colon most notable in the rectum with rectosigmoid colitis. Consider infectious and stercoral colitis. There is no perforation or abscess. No small bowel obstruction. 2. Subcutaneous edema in the right flank and upper thigh cannot be adequately compared to the prior exam where some was seen in the flank. Correlate clinically for cellulitis. ACT 112: Positive. There are findings on this exam that require communication between the performing entity and the patient following Patient Test Result Information Act ([place] ACT 112) guidelines. Electronically signed by Lexus Peraza 07-31-2024 6:34 PM
[2024-07-31] MEDS: SODIUM CHLORIDE 0.9% 1,000 ML IV ONE (18:51)
[2024-07-31] MEDS: metroNIDAZOLE 500 MG/100 ML BAG IV STA (18:52)
--- NOTE | 2024-07-31 19:03 | Emergency Department Note ---
Impression & Plan SIRS (systemic inflammatory response syndrome), Acute UTI (urinary tract infection), Acute renal failure, Stercoral colitis, Hypoglycemia ED Provider Note NAME: ENIO BLACKBURN AGE: 64 SEX: Male INFORMANT: Patient ED PROVIDER(S): Enio Camara MD CHIEF COMPLAINT: Abdominal pain and UTI PLAN: Disposition: Admitted Outpatient prescription management: none Referral: None MEDICAL DECISION MAKING: Patient presented and had some abdominal distention and discomfort on examination of his abdomen. No peritoneal findings. He did have a borderline temperature elevation. His Villasenor catheter had discolored urine. Patient noted history of difficult catheter change so a replacement was not attempted initially. Blood work including cultures and lactate performed. Reviewed previous cultures with ED pharmacist. Cefepime recommended due to prior history and this was given. Patient had IV hydration and Tylenol. Patient noted have a leukocytosis as well as elevated lactate. No hypotension. Patient was hypoglycemic. He was given dextrose. Patient also had acute renal failure noted along with hyponatremia. CT imaging revealed the presence of moderate stool and gas with stercoral colitis without evidence of perforation per radiology. Given the laboratory and CT findings patient was given additional fluids and antibiotics were expanded to daptomycin as well as metronidazole empirically. Patient has findings consistent with SIRS. No evidence of septic shock or severe sepsis. Given his hyponatremia and renal status fluids were carefully administered. Lactate was clearing. Patient was reassessed and was hemodynamically stable. He noted minimal right upper abdominal discomfort but no lower abdominal discomfort. Reviewed the findings with him. Discussed the need for admission and further care. Consultation was made with Dr. Perry of the [facility] service. Patient was evaluated in the ER for further management. 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 Vital Signs: reviewed and remarkable for fever Additional History obtained from: none Chronic Medical/Social Conditions affecting care: Indwelling Villasenor catheter, frequent UTI, A-fib Prior/ Outside/ External records reviewed: retirement transfer information reviewed. Patient was being treated with Macrobid. Differential Diagnosis: Complicated UTI, complication of indwelling catheter, renal colic, UTI, appendicitis, diverticulitis, mesenteric ischemia, aortic pathology, infections, inflammatory bowel disease, PUD, biliary pathology, obstruction as well as other pathologies. Diagnostics, independently interpreted by me: ECG: none Cardiac Monitoring: Cardiac monitoring ordered by me: The patient was placed on continuous cardiac monitoring and observed. It revealed a normal sinus rhythm at 69 beats per minute without ectopy or evidence of dysrhythmia. Medical decision rules: none Imaging studies: CT imaging of the abdomen pelvis reveals evidence of a stercoral colitis and moderate stool burden HPI: 64 year old Male arrives for evaluation of abdominal pain and UTI. Patient believes that he was found to have a recurrent UTI over the last 3 days and was started on antibiotics. Transfer paperwork indicated that he was on Macrobid. Patient feels abdominal distention and pain that started about the same time. Patient notes he had some nausea and 1 episode of vomiting earlier in the week but currently has no nausea or vomiting today. He has a Villasenor catheter in place and notes that it is a difficult change and typically done by urology. Last change was in May of this year. Patient notes no significant problems with constipation although sometimes has some difficulty moving his bowels. He also notes some generalized weakness, fevers and chills this week. Abdominal discomfort is lower and mid line. Pain is rated a 6 out of 10. Pt denies LOC, headache, fevers, chills, diaphoresis, visual changes, neck pain, chest pain, breathing difficulties, back pain, melena, hematochezia,numbness or other complaints. PAST MEDICAL HISTORY: See Below, indwelling Villasenor catheter, osteomyelitis, frequent UTI, hypertension PAST SURGICAL HISTORY: See Below, left BKA SOCIAL HISTORY: See Below, disabled HOME MEDICATIONS: See Below ALLERGIES: See Below VITALS: See Below PHYSICAL EXAMINATION: GENERAL: Awake, alert, well-appearing, in no distress HENT: Normocephalic, atraumatic. Oropharynx unremarkable. EYES: Normal conjunctiva. Sclera non-icteric. NECK: Inspection normal. Non-tender. Supple. No nuchal rigidity. FROM. No masses. RESPIRATORY: Clear to auscultation. No wheezes. No rales. Normal respiratory effort. CARDIAC: Normal rate. Normal rhythm. No murmurs. No rubs. Extremities warm and well perfused. Pulses equal. No JVD. GI: Soft, mildly distended. Right upper tenderness to palpation. No rebound or guarding. No masses. RECTAL: Deferred. MUSCULOSKELETAL: Atraumatic. Chest examination reveals no tenderness. No joint edema. LOWER EXTREMITIES: 2+ lower extremity edema present. No right lower extremity tenderness to palpation. Left BKA present. NEURO: Normal sensorium. No focal sensory or motor deficits noted. SKIN: No rash or jaundice noted. PROCEDURES: none CRITICAL CARE: I have personally spent 35 minutes of critical care time in the direct management of this patient. This includes bedside care, interpretation of diagnostic studies, and testing, discussion with consultants, patient, and other required patient management activities. These minutes are in excess of all separately billable procedures. OBSERVATION NOTE: none Past Med/Surg History Problem List (Updated 07/31/24 @ 20:35 by Background Daemon) Hypoglycemia (Acute) Stercoral colitis (Acute) Acute renal failure (Acute) Acute UTI (urinary tract infection) (Acute) SIRS (systemic inflammatory response syndrome) (Acute) Urethral stricture Bladder outlet obstruction Encounter for pre-operative examination Status post below-knee amputation of left lower extremity (~06/2021) Morbid obesity with BMI of 50.0-59.9, adult Leukocytosis (Acute) Acute UTI (Acute) Cellulitis of left foot (Acute) Acute osteomyelitis of left foot (Acute) Discharge from penis Dysuria COVID-19 Physical deconditioning (Acute) Weakness (Acute) Urinary tract infection (Acute) Foot ulcer Osteomyelitis of foot, acute Atrial flutter Osteomyelitis of ankle and foot (Acute) Cellulitis and abscess of foot (Acute) Osteoarthritis of knees, bilateral Ulcer of right heel Catheter-associated urinary tract infection Complication of Villasenor catheter (Acute) DVT prophylaxis Paroxysmal atrial fibrillation UTI (urinary tract infection) due to urinary indwelling catheter (Acute) Pyelonephritis (Acute) Depression CKD (chronic kidney disease) stage 3, GFR 30-59 ml/min HTN (hypertension), benign Atrial flutter with rapid ventricular response PAD (peripheral artery disease) Hypothyroidism DM w/o complication type II, uncontrolled Morbid obesity Septicemia (Acute) Urinary tract infection (Acute) Diabetes IDDM History of amputation of toe Hypertension Anemia Regional wall motion abnormality of heart Asthma (Chronic) GERD (gastroesophageal reflux disease) (Chronic) Urinary retention (Acute) Medical History DJD (degenerative joint disease) Bifascicular block Hx of osteomyelitis Hx of sepsis Hx of gas gangrene Hx of pyelonephritis Villasenor catheter in place Hypothyroidism retirement resident Hyperlipidemia Atrial fibrillation Cognitive communication deficit Muscle weakness (generalized) Other reduced mobility Neuromuscular dysfunction of bladder History of COVID-19 Pressure ulcer of right buttock Morbid obesity due to excess calories Major depression CKD (chronic kidney disease), stage III Peripheral vascular disease Diabetic neuropathy History of atrial flutter Constipation Surgical History Presence of urogenital implants Hx of below knee amputation Hx of tonsillectomy Family History Mother Diabetes Heart disease Father Heart disease Other No pertinent family history in first degree relatives Denies family history of Ovarian cancer Prostate cancer Myocardial infarction Breast cancer Colorectal cancer Social History Smoking Status: Former smoker Tobacco Type: Smokeless Tobacco (Dip or Chew) Second Hand Exposure: No; Do You Dip or Chew Tobacco: No; Hx Alcohol Use: No Hx Substance Use: No Preferred Language: Maltese Communication Ability: Effective Visual Impairment: Limited Hearing Ability: Normal 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 Beliefs That Will Affect Care: None marital status: Life Partner Current Living Situation: Shelter Current Living Situation Comment: resident of [facility] current occupational status: disabled Feels Safe at Home: Yes Diet: low salt Assistive Devices: Wheelchair Allergies Allergies Allergy/AdvReac Type Severity Reaction Status Date / Time Penicillins Allergy Severe HIVES, RED Verified 04/06/24 14:52 RASH A CHILD ferrous sulfate AdvReac Intermediate Gastrointestinal Verified 04/06/24 14:52 Upset fluticasone [From Flonase] AdvReac Intermediate FELT FUNNY Verified 04/06/24 14:52 IN THE HEAD Home Meds Home Medications Medication Instructions Recorded Confirmed atorvastatin 80 mg tablet 80 mg PO QDD 03/30/21 10/13/23 furosemide 40 mg tablet 40 mg PO BID 03/30/21 10/13/23 pantoprazole 40 mg tablet,delayed 40 mg PO DAILYBB 03/30/21 10/13/23 release metformin 500 mg tablet 1,000 mg PO BID 07/02/21 10/13/23 acetaminophen 650 mg 650 mg PO Q6H PRN Pain 10/07/23 10/13/23 tablet,extended release diclofenac sodium 1 % topical gel 4 g topical QID 10/07/23 10/13/23 divalproex 250 mg tablet,extended 250 mg PO BID 10/07/23 10/13/23 release 24 hr (Depakote ER) multivitamin 1 tab PO QAM 10/07/23 10/13/23 ondansetron HCl 4 mg tablet 4 mg PO Q6H PRN Nausea 10/07/23 10/13/23 polyethylene glycol 3350 17 17 g PO DAILY 10/07/23 10/13/23 gram/dose oral powder (Miralax) tramadol 50 mg tablet 50 mg PO BID PRN Pain 10/07/23 10/13/23 bupropion HCl 150 mg 24 hr tablet, 150 mg PO DAILY 10/13/23 10/13/23 extended release (Wellbutrin XL) bupropion HCl 150 mg tablet,12 hr 300 mg PO QPM 10/13/23 10/13/23 sustained-release gabapentin 300 mg capsule 200 mg PO TID 10/13/23 10/13/23 insulin aspart U-100 100 unit/mL 25 unit subcut TID 10/13/23 10/13/23 subcutaneous cartridge insulin aspart U-100 100 unit/mL See Rx Instructions .Route .COMPLEX 10/13/23 10/13/23 subcutaneous solution (Novolog U-100 Insulin aspart) sennosides 8.6 mg-docusate sodium 1 tab PO BID 10/13/23 10/13/23 50 mg tablet (Senokot-S) Previous Rx's Medication Instructions Recorded blood-glucose meter #1 ea 01/30/21 diltiazem HCl 240 mg capsule,24 240 mg PO QAM #30 caps 03/26/21 hr,extended release insulin detemir U-100 100 unit/mL 100 unit subcut AMPM #80 mL 03/26/21 subcutaneous solution (Levemir U-100 Insulin) blood sugar diagnostic (OneTouch #100 ea 05/16/21 Verio test strips) levothyroxine 75 mcg capsule 75 mcg PO DAILY #90 caps 05/16/21 sodium hypochlorite 0.25 % 1 applic topical DAILY #473 mL 06/07/21 solution (Dakin's Solution) apixaban 5 mg tablet (Eliquis) 5 mg PO BID #60 tabs 06/15/21 metoprolol tartrate 100 mg tablet 100 mg PO BID #60 tabs 06/15/21 oxybutynin chloride 5 mg tablet 5 mg PO Q8H PRN bladder spasms #10 10/13/23 tabs phenazopyridine 200 mg tablet 200 mg PO Q8H PRN pain #10 tabs 10/13/23 (Pyridium) tamsulosin 0.4 mg capsule 0.4 mg PO HS #30 caps 10/13/23 Results & Data (ED) Vital Signs Vital Signs - 24 hr 07/31/24 16:11 07/31/24 16:11 07/31/24 16:23 Temperature 37.6 C H Temperature Source Oral Pulse Rate 77 Pulse Rate from SpO2 Sensor Respiratory Rate 16 Respiratory Effort / Characteristics Non-Labored Spontaneous Respiratory Depth Normal Respiratory Pattern Regular Blood Pressure 169/84 H Blood Pressure Mean 112 Pulse Oximetry 95 95 93 Oxygen Delivery Method Room Air Room Air Room Air Sepsis Recent Fever Within 48 Hours No Sepsis New/Unexplained Change in Mental Status N/A Sepsis Action Taken by Nursing No Action Required 07/31/24 16:39 07/31/24 16:42 07/31/24 17:03 Temperature Temperature Source Pulse Rate 74 72 71 Pulse Rate from SpO2 Sensor 72 Respiratory Rate 21 18 Respiratory Effort / Characteristics Respiratory Depth Respiratory Pattern Blood Pressure Blood Pressure Mean Pulse Oximetry 93 Oxygen Delivery Method Room Air Sepsis Recent Fever Within 48 Hours Sepsis New/Unexplained Change in Mental Status Sepsis Action Taken by Nursing 07/31/24 17:30 07/31/24 18:45 07/31/24 19:09 Temperature Temperature Source Pulse Rate 69 70 Pulse Rate from SpO2 Sensor 73 Respiratory Rate 22 23 Respiratory Effort / Characteristics Respiratory Depth Respiratory Pattern Blood Pressure 135/69 127/69 Blood Pressure Mean 91 88 Pulse Oximetry 93 90 Oxygen Delivery Method Room Air Sepsis Recent Fever Within 48 Hours Sepsis New/Unexplained Change in Mental Status Sepsis Action Taken by Nursing Laboratory Data 07/31/24 16:20 07/31/24 16:20 Lab Results 07/31/24 07/31/24 07/31/24 Range/Units 16:20 17:02 17:30 WBC 15.32 H (4.8-10.8) K/ul RBC 4.18 L (4.70-6.10) M/uL Hgb 11.6 L (14.0-18.0) g/dl Hct 34.4 L (42.0-52.0) % MCV 82.3 (80.0-100.0) fL MCH 27.8 (25.0-34.0) pg MCHC 33.7 (32.0-36.0) g/dL RDW Std Deviation 48.3 H (36.4-46.3) fL RDW Coeff of Adi 16.2 H (11.5-14.5) % Plt Count 298 (130-400) K/uL MPV 11.5 (9.4-12.4) fL Immature Gran % (Auto) 0.3 % Neut % (Auto) 68.3 % Lymph % (Auto) 19.6 % Wise % (Auto) 9.5 % Eos % (Auto) 2.0 % Baso % (Auto) 0.3 % Neut # (Auto) 10.46 H (1.40-6.50) K/uL Lymph # (Auto) 3.00 (1.20-3.40) K/uL Wise # (Auto) 1.46 H (0.11-0.59) K/uL Eos # (Auto) 0.30 (0.00-0.50) K/uL Baso # (Auto) 0.05 (0.00-0.20) K/uL Immature Gran # (Auto) 0.05 (0.01-0.20) K/uL Sodium 129 L (136-145) mmol/L Potassium 3.7 (3.5-5.1) mmol/L Chloride 90 L (98-107) mmol/L Carbon Dioxide 25 (21-32) mmol/L Anion Gap 14 H (3-11) BUN 34 H (6-23) mg/dl Creatinine 2.50 H (0.6-1.4) mg/dl Est Cr Clr Drug Dosing 47.9 ml/min eGFR 27.99 BUN/Creatinine Ratio 13.6 (10-20) Glucose 57 L (70-99(Fasting)) mg/dl POC Glucose 61 L* 102 H (70-99) mg/dl Lactate (0.4-2.0) mmol/L Calcium 8.5 L (8.6-10.3) mg/dl Total Bilirubin 0.4 (0.2-1.0) mg/dl AST 14 (13-39) U/L ALT 9 (7-52) U/L Alkaline Phosphatase 108 H (34-104) U/L Total Protein 7.3 (6.0-8.3) gm/dl Albumin 3.6 (3.4-5.0) gm/dl Globulin 3.7 (2.5-4.0) gm/dl Albumin/Globulin Ratio 1.0 (0.9-2) Lipase 8 L (11-82) U/L Procalcitonin 0.15 (0-0.5) ng/ml Urine Color Urine Appearance (Clear) Urine pH Ur Specific Moore (1.000-1.030) Urine Protein Urine Glucose (UA) Urine Ketones Urine Blood Urine Nitrite Urine Bilirubin Urine Urobilinogen Ur Leukocyte Esterase Urine RBC (0-2) /hpf Urine WBC (0-5) /hpf Ur Epithelial Cells (0-2) /hpf Urine Bacteria (None Seen) Hyaline Casts (None Presnt) /lpf 07/31/24 07/31/24 Range/Units 17:37 17:39 WBC (4.8-10.8) K/ul RBC (4.70-6.10) M/uL Hgb (14.0-18.0) g/dl Hct (42.0-52.0) % MCV (80.0-100.0) fL MCH (25.0-34.0) pg MCHC (32.0-36.0) g/dL RDW Std Deviation (36.4-46.3) fL RDW Coeff of Adi (11.5-14.5) % Plt Count (130-400) K/uL MPV (9.4-12.4) fL Immature Gran % (Auto) % Neut % (Auto) % Lymph % (Auto) % Wise % (Auto) % Eos % (Auto) % Baso % (Auto) % Neut # (Auto) (1.40-6.50) K/uL Lymph # (Auto) (1.20-3.40) K/uL Wise # (Auto) (0.11-0.59) K/uL Eos # (Auto) (0.00-0.50) K/uL Baso # (Auto) (0.00-0.20) K/uL Immature Gran # (Auto) (0.01-0.20) K/uL Sodium (136-145) mmol/L Potassium (3.5-5.1) mmol/L Chloride (98-107) mmol/L Carbon Dioxide (21-32) mmol/L Anion Gap (3-11) BUN (6-23) mg/dl Creatinine (0.6-1.4) mg/dl Est Cr Clr Drug Dosing ml/min eGFR BUN/Creatinine Ratio (10-20) Glucose (70-99(Fasting)) mg/dl POC Glucose (70-99) mg/dl Lactate 2.9 H* (0.4-2.0) mmol/L Calcium (8.6-10.3) mg/dl Total Bilirubin (0.2-1.0) mg/dl AST (13-39) U/L ALT (7-52) U/L Alkaline Phosphatase (34-104) U/L Total Protein (6.0-8.3) gm/dl Albumin (3.4-5.0) gm/dl Globulin (2.5-4.0) gm/dl Albumin/Globulin Ratio (0.9-2) Lipase (11-82) U/L Procalcitonin (0-0.5) ng/ml Urine Color See Comment Urine Appearance Cloudy A (Clear) Urine pH Not Reportable Ur Specific Moore 1.014 (1.000-1.030) Urine Protein Not Reportable Urine Glucose (UA) Not Reportable Urine Ketones Not Reportable Urine Blood Not Reportable Urine Nitrite Not Reportable Urine Bilirubin Not Reportable Urine Urobilinogen Not Reportable Ur Leukocyte Esterase Not Reportable Urine RBC 3-5 H (0-2) /hpf Urine WBC 21-50 H (0-5) /hpf Ur Epithelial Cells 3-5 H (0-2) /hpf Urine Bacteria 2+ H (None Seen) Hyaline Casts Present A (None Presnt) /lpf Administered Medications Sodium Chloride (Nss) 1,000 mls @ 125 mls/hr IV .Q8H GEOVANNA Stop: 08/01/24 16:44 Last Admin: 07/31/24 18:24 Dose: 125 mls/hr Documented By: CALVIN Daptomycin 675 mg/ Syringe 13.5 mls @ 6.75 mls/min IV Q24H GEOVANNA; Protocol Stop: 08/02/24 18:44 Last Admin: 07/31/24 20:09 Dose: 6.75 mls/min Documented By: CLAY Discontinued Medications Dextrose (Dextrose 50% 50 Ml Syringe) 25 ml IV NOW ONE Stop: 07/31/24 17:07 Last Admin: 07/31/24 17:08 Dose: 25 ml Documented By: SILVERIO Cefepime HCl (Maxipime 2000mg) 2,000 mg in 20 mls @ 5 mls/min IV NOW STA Stop: 07/31/24 16:38 Last Admin: 07/31/24 18:23 Dose: 5 mls/min Documented By: CALVIN Sodium Chloride (Nss) 500 mls @ 999 mls/hr IV .Q31M ONE Stop: 07/31/24 17:11 Last Infusion: 07/31/24 17:46 Dose: Infused Documented By: Admin: 07/31/24 17:05 Dose: 999 mls/hr Documented By: SILVERIO Acetaminophen (Ofirmev) 1,000 mg in 100 mls @ 400 mls/hr IV NOW STA Stop: 07/31/24 17:20 Last Infusion: 07/31/24 17:45 Dose: Infused Documented By: Admin: 07/31/24 17:10 Dose: 400 mls/hr Documented By: SILVERIO Metronidazole (Flagyl) 500 mg in 100 mls @ 100 mls/hr IV NOW STA; Protocol Stop: 07/31/24 19:41 Last Infusion: 07/31/24 20:12 Dose: Infused Documented By: Admin: 07/31/24 18:52 Dose: 100 mls/hr Documented By: CALVIN Sodium Chloride (Nss) 1,000 mls @ 999 mls/hr IV .Q1H1M ONE Stop: 07/31/24 19:43 Last Infusion: 07/31/24 20:12 Dose: Infused Documented By: Admin: 07/31/24 18:51 Dose: 999 mls/hr Documented By: CALVIN Imaging Data Radiologist's Impression: Abdomen/Pelvis CT 07/31/24 16:41 EXAM: CT Abdomen and Pelvis Without Intravenous Contrast INDICATION: Fever and lower abdominal pain. TECHNIQUE: Axial computed tomography images of the abdomen and pelvis without intravenous contrast. Sagittal and coronal reformatted images were created and reviewed. This CT exam was performed using one or more of the following dose reduction techniques: automated exposure control, adjustment of the mA and/or kV according to patient size, and/or use of iterative reconstruction technique. COMPARISON: No relevant prior studies available. FINDINGS: Limitations: Portions of the right abdomen and abdominal wall are not included in the field. Lung bases: Mild airway thickening in the lung bases with minimal atelectasis. Pleural space: No visualized pleural effusion or pneumothorax. Heart: No abnormality noted. Mediastinum: No abnormality noted. ABDOMEN: Liver: Lack of intravenous contrast limits detection of some masses. No abnormality noted. Gallbladder and bile ducts: Multiple small stones layering the gallbladder. No ductal dilatation or stone. Pancreas: No pancreatic mass, calcification, inflammation or ductal dilation noted. Spleen: No significant abnormality noted. Adrenals: No significant abnormality noted. Kidneys and ureters: Mild bilateral renal cortical scarring noted. No stone or hydronephrosis. Stomach and bowel: Large amounts of formed stool and the redundant rectum with mild rectosigmoid thickening noted. There is moderate to large amounts of stool in the right colon. The redundant colon is prominently aerated. No small bowel distention identified. There are colonic diverticula. No definite pneumatosis allowing for significant amounts of stool and some layering fluid in the right colon. PELVIS: Appendix: No findings to suggest acute appendicitis. Bladder: There is a catheter in the bladder which is collapsed and cannot be assessed. Inflammation not excluded. No stones. Reproductive: No abnormalities noted. ABDOMEN and PELVIS: Intraperitoneal space: No free air. No significant fluid collection. Bones/joints: No acute changes. Soft tissues: There is subcutaneous edema along the right flank and right upper thigh. The areas that are comparable to the prior exam are unchanged. Vasculature: Atherosclerotic calcification of the aorta and branches. No aneurysm. Lymph nodes: No pathologically enlarged lymph nodes. IMPRESSION: 1. Large amounts of stool and gas in the redundant colon most notable in the rectum with rectosigmoid colitis. Consider infectious and stercoral colitis. There is no perforation or abscess. No small bowel obstruction. 2. Subcutaneous edema in the right flank and upper thigh cannot be adequately compared to the prior exam where some was seen in the flank. Correlate clinically for cellulitis. ACT 112: Positive. There are findings on this exam that require communication between the performing entity and the patient following Patient Test Result Information Act ([place] ACT 112) guidelines. Electronically signed by Lexus Peraza 07-31-2024 6:34 PM Discharge Plan Visit Data Chief Complaint: Abdominal Pain Stated Complaint: Abdominal Pain ED Provider: Enio Camara Discharge Problem: SIRS (systemic inflammatory response syndrome), Acute UTI (urinary tract infection), Acute renal failure, Stercoral colitis, Hypoglycemia Discharge Instructions Interventions: ED Discharge Assessment Last Done: 07/31/24 20:20
--- NOTE | 2024-07-31 19:45 | History & Physical Report ---
Date of Service July 31, 2024 Assessment & Plan (1) Sepsis: Plan: SIRS criteria met with tachypnea and WBC Urinary vs. stercoral colitis as source Possible cellulitis noted on CT correlates with dependant edema but no cellulitis on exam Ceftriaxone + metronidazole No hypotension and lactate <4 therefore does not meet criteria for 30cc/kg fluid bolus, received 1.5 L NSS bolus Lactate 2.9 -> 2.2 Follow up urine and blood cultures (2) Acute UTI (urinary tract infection): Plan: Outpatient urine culture - [07/29/2024] Providencia Stuartii > 100,000 CFU/ml Sensitive to Amikacin, cefepime, cefotaxime, cefoxitin, ceftriaxone, ertapenem, meropenem, Bactrim and Zosyn. Resistant to Unasyn, Cefuroxime, Ciprofloxacin, Levofloxacin. Ceftriaxone 2g IV daily Follow up repeat urine and blood cultures (3) Stercoral colitis: Plan: Ceftriaxone + metronidazole Golyteley 2000ml PO Continue Sennakot (4) Acute renal failure: Plan: Cr 2.5 from baseline 1.33 Suspected pre-renal secondary to sepsis with diuretic use, monitor for improvement with NSS Hold diuretics (5) Chronic indwelling Villasenor catheter: Plan: Consult urology for catheter change given difficult anatomy (6) DM w/o complication type II, uncontrolled: Plan: Hemoglobin A1C 8.9 Currently hypoglycemic secondary to decreased appetite and infection as above Hold Lantus tonight, consult pharmacy for ongoing glycemic management given excessive insulin requirements Novolog: --Goal BSG Range: Low 110 mg/dL, High 140 mg/dL --Correction Factor: 10 mg/dL/unit --Carbohydrate ratio = 4 g/unit --BSGs ACHS if eating, q6h if npo Hypoglycemic order set for current hypoglycemia (7) Hypothyroidism: Plan: TSH with AM labs Continue levothyroxine 175 mcg PO daily (8) Morbid obesity with BMI of 50.0-59.9, adult: (9) Status post below-knee amputation of left lower extremity: (10) Hypoglycemia: Plan VTE Prophylaxis - Eliquis Diet - clear liquids, T2DM, advance diet as tolerated Disposition - admit to med/tele Admission and Anticipated Discharge Date Admission Date: July 31, 2024 History of Present Illness Chief Complaint: Abdominal pain Primary Care Provider: [facility] Bishop Mahan is a 64 year old male from [facility] who presents to the ER with abdominal pain. Symptoms started Friday with lower abdominal cramping, severity currently 5/10 on inspiration but 10/10 at worseStarted friday stomach. Nasuea and vomiting following this. bilateral lower pain. Severity 5/10 on inspiraton, 10/10 at worse. Cramping waves. last BM today. Doesn't go the best, sure not diarrhea. No fever or chills. No chestpain shortnss of breath. No current nausea. Started Pridium today turned urine organge. ER dictation hand over note from [facility]: Abdomen firm and distended, under treatment for UTI but Macrobid resistant, decreased urination, indwelling catheter, bladder scan for 63 ml. Allergies Allergy/AdvReac Type Severity Reaction Status Date / Time Penicillins Allergy Severe HIVES, RED Verified 04/06/24 14:52 RASH A CHILD ferrous sulfate AdvReac Intermediate Gastrointestinal Verified 04/06/24 14:52 Upset fluticasone [From Flonase] AdvReac Intermediate FELT FUNNY Verified 04/06/24 14:52 IN THE HEAD Home Medications Medication Instructions Recorded Confirmed Type blood-glucose meter #1 ea 01/30/21 06/28/21 Rx atorvastatin 80 mg tablet 80 mg PO QDD 03/30/21 07/31/24 History pantoprazole 40 mg tablet,delayed 40 mg PO DAILYBB 03/30/21 07/31/24 History release blood sugar diagnostic [facility] 05/16/21 06/28/21 Rx Verio test strips) apixaban 5 mg tablet (Eliquis) 5 mg PO BID #60 tabs 06/15/21 07/31/24 Rx metoprolol tartrate 100 mg tablet 100 mg PO BID #60 tabs 06/15/21 07/31/24 Rx acetaminophen 650 mg 650 mg PO Q6H PRN Pain 10/07/23 07/31/24 History tablet,extended release ondansetron HCl 4 mg tablet 4 mg PO Q6H PRN Nausea 10/07/23 07/31/24 History phenazopyridine 200 mg tablet 200 mg PO Q8H PRN pain #10 tabs 10/13/23 07/31/24 Rx (Pyridium) sennosides 8.6 mg-docusate sodium 1 tab PO BID 10/13/23 07/31/24 History 50 mg tablet (Senokot-S) bisacodyl 10 mg rectal suppository 10 mg AR DAILY PRN Constipation 07/31/24 07/31/24 History (Dulcolax (bisacodyl)) bumetanide 2 mg tablet 2 mg PO BID 07/31/24 07/31/24 History bupropion HCl 150 mg tablet,12 hr 150 mg PO BID 07/31/24 07/31/24 History sustained-release gabapentin 100 mg capsule 200 mg PO TID 07/31/24 07/31/24 History hydrocodone 5 mg-acetaminophen 325 1 tab PO Q6H PRN Pain 5-10 07/31/24 07/31/24 History mg tablet insulin glargine 100 unit/mL 100 unit subcut BID 07/31/24 07/31/24 History subcutaneous solution (Lantus U-100 Insulin) insulin lispro 100 unit/mL 25 unit subcut AC 07/31/24 07/31/24 History subcutaneous solution (Humalog U-100 Insulin) insulin lispro 100 unit/mL See Rx Instructions .Route .COMPLEX 07/31/24 07/31/24 History subcutaneous solution (Humalog U-100 Insulin) levothyroxine 175 mcg tablet 175 mcg PO DAILYBB 07/31/24 07/31/24 History magnesium hydroxide 400 mg/5 mL 30 ml PO DAILY PRN Constipation 07/31/24 07/31/24 History oral suspension metformin 500 mg tablet,extended 1,000 mg PO BID 07/31/24 07/31/24 History release 24 hr methyl salicylate 15 %-menthol 10 1 applic topical QID PRN Left 07/31/24 07/31/24 History % topical cream shoulder and knee pain pnzhsyohbooj-sauoqlil-aenmja 1 tab PO DAILY 07/31/24 07/31/24 History tablet (Multivitamin 50 Plus tablet) nitrofurantoin 100 mg PO BID 07/31/24 07/31/24 History monohydrate/macrocrystals 100 mg capsule oxybutynin chloride 5 mg 5 mg PO DAILY 07/31/24 07/31/24 History tablet,extended release 24 hr polyethylene glycol 3350 17 gram 17 g PO DAILY 07/31/24 07/31/24 History oral powder packet (Miralax) sodium phosphates 19 gram-7 118 ml AR DAILY PRN Constipation 07/31/24 07/31/24 History gram/118 mL enema (Fleet Enema) Past Med/Surg History Problem List (Updated 07/31/24 @ 22:37 by Vicente Perry MD) Chronic indwelling Villasenor catheter Sepsis Hypoglycemia (Acute) Stercoral colitis (Acute) Acute renal failure (Acute) Acute UTI (urinary tract infection) (Acute) SIRS (systemic inflammatory response syndrome) (Acute) Urethral stricture Bladder outlet obstruction Status post below-knee amputation of left lower extremity (~06/2021) Morbid obesity with BMI of 50.0-59.9, adult Leukocytosis (Acute) Acute UTI (Acute) Dysuria Physical deconditioning (Acute) Weakness (Acute) Urinary tract infection (Acute) Foot ulcer Atrial flutter Osteoarthritis of knees, bilateral Complication of Villasenor catheter (Acute) Paroxysmal atrial fibrillation UTI (urinary tract infection) due to urinary indwelling catheter (Acute) Pyelonephritis (Acute) Depression CKD (chronic kidney disease) stage 3, GFR 30-59 ml/min HTN (hypertension), benign Atrial flutter with rapid ventricular response PAD (peripheral artery disease) Hypothyroidism DM w/o complication type II, uncontrolled Morbid obesity Septicemia (Acute) Diabetes IDDM Hypertension Anemia Regional wall motion abnormality of heart Asthma (Chronic) GERD (gastroesophageal reflux disease) (Chronic) Urinary retention (Acute) Medical History (Updated 07/31/24 @ 22:37 by Vicente Perry MD) Osteomyelitis of foot, acute DJD (degenerative joint disease) Bifascicular block ongoing since 2020 Hx of osteomyelitis 06/2021 s/p left BKA Hx of sepsis 06/2021 per records Hx of gas gangrene Hx of pyelonephritis Villasenor catheter in place Hypothyroidism 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 resident [facility] Hyperlipidemia Atrial fibrillation Cognitive communication deficit Muscle weakness (generalized) Other reduced mobility Neuromuscular dysfunction of bladder History of COVID-19 05/05/22 Pressure ulcer of right buttock Morbid obesity due to excess calories Major depression CKD (chronic kidney disease), stage III Peripheral vascular disease Diabetic neuropathy History of atrial flutter Constipation Surgical History (Updated 07/31/24 @ 21:14 by Vicente Perry MD) History of amputation of toe Presence of urogenital implants Hx of below knee amputation left Hx of tonsillectomy Family History Mother Diabetes Heart disease Father Heart disease Other No pertinent family history in first degree relatives Denies family history of Ovarian cancer Prostate cancer Myocardial infarction Breast cancer Colorectal cancer Social History Smoking Status: Former smoker Tobacco Type: Cigarettes Cigarettes Per Day: 4-5; Second Hand Exposure: Yes; Do You Dip or Chew Tobacco: No; Hx Alcohol Use: Yes Alcohol type: beer Hx Substance Use: No Preferred Language: Urdu Communication Ability: Effective Visual Impairment: Limited Hearing Ability: Normal Tower Control Operator Required: No Beliefs That Will Affect Care: None marital status: Life Partner Current Living Situation: Snf Current Living Situation Comment: [place] [facility] current occupational status: disabled Other Information That Helps Us Care for You: No Feels Safe at Home: Yes Safety Concerns: Feels Safe At This Time Diet: low salt Assistive Devices: Glasses and Wheelchair Review of Systems Review of Systems: All systems reviewed & are unremarkable except as noted in HPI & below Physical Exam Constitutional: well developed and + morbidly obese; + not well nourished and no acute distress ENMT: Mouth: + dry oral mucous membranes Neck: + short neck and + thick neck Respiratory: normal respiratory effort, lungs clear to auscultation Cardiovascular: RRR, no murmur, no edema Extremities: + pedal edema (right 3+ up to abdomen) and + edema (generalized anasarca worse on right than left side) Gastrointestinal (Abdomen): Inspection/Auscultation: + abdomen distended and normal bowel sounds Percussion/Palpation: + abdomen tender (lower abdominal tenderness b/l) and abdomen soft; no guarding and abdomen not rigid Skin: no rashes, warm and dry (particularly no cellulitis over area noted by CT) Neurologic: moves all extremities (decreased movement chronically of RLE) and awake; not confused Psychiatric: A+Ox3, euthymic affect Results & Data Results & Data Vital Signs (Past 12 Hours) Vital Signs Temp Pulse Resp BP Pulse Ox O2 Del Method 07/31/24 18:45 135/69 93 Room Air 07/31/24 17:30 69 22 07/31/24 17:03 71 18 07/31/24 16:42 72 21 93 Room Air 07/31/24 16:39 74 07/31/24 16:23 93 Room Air 07/31/24 16:11 95 Room Air 07/31/24 16:11 37.6 C H 77 16 169/84 H 95 Room Air Laboratory Results Abnormal lab results 07/31/24 07/31/24 07/31/24 Range/Units 16:20 17:02 17:30 WBC 15.32 H (4.8-10.8) K/ul RBC 4.18 L (4.70-6.10) M/uL Hgb 11.6 L (14.0-18.0) g/dl Hct 34.4 L (42.0-52.0) % RDW Std Deviation 48.3 H (36.4-46.3) fL RDW Coeff of Adi 16.2 H (11.5-14.5) % Neut # (Auto) 10.46 H (1.40-6.50) K/uL Sioux # (Auto) 1.46 H (0.11-0.59) K/uL Sodium 129 L (136-145) mmol/L Chloride 90 L (98-107) mmol/L Anion Gap 14 H (3-11) BUN 34 H (6-23) mg/dl Creatinine 2.50 H (0.6-1.4) mg/dl Glucose 57 L (70-99(Fasting)) mg/dl POC Glucose 61 L* 102 H (70-99) mg/dl Lactate (0.4-2.0) mmol/L Calcium 8.5 L (8.6-10.3) mg/dl Alkaline Phosphatase 108 H (34-104) U/L Lipase 8 L (11-82) U/L Urine Appearance (Clear) Urine RBC (0-2) /hpf Urine WBC (0-5) /hpf Ur Epithelial Cells (0-2) /hpf Urine Bacteria (None Seen) Hyaline Casts (None Presnt) /lpf 07/31/24 07/31/24 Range/Units 17:37 17:39 WBC (4.8-10.8) K/ul RBC (4.70-6.10) M/uL Hgb (14.0-18.0) g/dl Hct (42.0-52.0) % RDW Std Deviation (36.4-46.3) fL RDW Coeff of Adi (11.5-14.5) % Neut # (Auto) (1.40-6.50) K/uL Sioux # (Auto) (0.11-0.59) K/uL Sodium (136-145) mmol/L Chloride (98-107) mmol/L Anion Gap (3-11) BUN (6-23) mg/dl Creatinine (0.6-1.4) mg/dl Glucose (70-99(Fasting)) mg/dl POC Glucose (70-99) mg/dl Lactate 2.9 H* (0.4-2.0) mmol/L Calcium (8.6-10.3) mg/dl Alkaline Phosphatase (34-104) U/L Lipase (11-82) U/L Urine Appearance Cloudy A (Clear) Urine RBC 3-5 H (0-2) /hpf Urine WBC 21-50 H (0-5) /hpf Ur Epithelial Cells 3-5 H (0-2) /hpf Urine Bacteria 2+ H (None Seen) Hyaline Casts Present A (None Presnt) /lpf Diagnostic Findings EXAM: CT Abdomen and Pelvis Without Intravenous Contrast INDICATION: Fever and lower abdominal pain. TECHNIQUE: Axial computed tomography images of the abdomen and pelvis without intravenous contrast. Sagittal and coronal reformatted images were created and reviewed. This CT exam was performed using one or more of the following dose reduction techniques: automated exposure control, adjustment of the mA and/or kV according to patient size, and/or use of iterative reconstruction technique. COMPARISON: No relevant prior studies available. FINDINGS: Limitations: Portions of the right abdomen and abdominal wall are not included in the field. Lung bases: Mild airway thickening in the lung bases with minimal atelectasis. Pleural space: No visualized pleural effusion or pneumothorax. Heart: No abnormality noted. Mediastinum: No abnormality noted. ABDOMEN: Liver: Lack of intravenous contrast limits detection of some masses. No abnormality noted. Gallbladder and bile ducts: Multiple small stones layering the gallbladder. No ductal dilatation or stone. Pancreas: No pancreatic mass, calcification, inflammation or ductal dilation noted. Spleen: No significant abnormality noted. Adrenals: No significant abnormality noted. Kidneys and ureters: Mild bilateral renal cortical scarring noted. No stone or hydronephrosis. Stomach and bowel: Large amounts of formed stool and the redundant rectum with mild rectosigmoid thickening noted. There is moderate to large amounts of stool in the right colon. The redundant colon is prominently aerated. No small bowel distention identified. There are colonic diverticula. No definite pneumatosis allowing for significant amounts of stool and some layering fluid in the right colon. PELVIS: Appendix: No findings to suggest acute appendicitis. Bladder: There is a catheter in the bladder which is collapsed and cannot be assessed. Inflammation not excluded. No stones. Reproductive: No abnormalities noted. ABDOMEN and PELVIS: Intraperitoneal space: No free air. No significant fluid collection. Bones/joints: No acute changes. Soft tissues: There is subcutaneous edema along the right flank and right upper thigh. The areas that are comparable to the prior exam are unchanged. Vasculature: Atherosclerotic calcification of the aorta and branches. No aneurysm. Lymph nodes: No pathologically enlarged lymph nodes. IMPRESSION: 1. Large amounts of stool and gas in the redundant colon most notable in the rectum with rectosigmoid colitis. Consider infectious and stercoral colitis. There is no perforation or abscess. No small bowel obstruction. 2. Subcutaneous edema in the right flank and upper thigh cannot be adequately compared to the prior exam where some was seen in the flank. Correlate clinically for cellulitis. Medications Administered ER Medications Given: Cefepime 2g IV Normal saline 500ml bolus Acetaminophen 1000mg IV Dextrose 50% 25ml Daptomycin 675mg IV Metronidazole 500mg IV Normal saline 1000ml bolus ECG Additional Comments: Ordered, pending Code Status & VTE Plan Code Status DNR/DNI VTE Prophylaxis Plan VTE Prophylaxis will be ordered: Yes PG Care Time/CCT Total # of Minutes Spent Total Time Spent with Patient: Total time spent is greater than 50% in coordination of care (as documented) at patient's floor/unit and/or counseling patient: Coding Level of Care Code 33787 INT INP/OBS CARE 3/75MIN Diagnoses Sepsis with acute renal failure without septic shock, due to unspecified organism, unspecified acute renal failure type A41.9; R65.20; N17.9 Acute renal failure type: unspecified Sepsis acute organ dysfunction status: with acute organ dysfunction Sepsis type: sepsis due to unspecified organism Severe sepsis acute organ dysfunction type: acute renal failure Severe sepsis shock status: without septic shock Acute UTI (urinary tract infection) N39.0 Stercoral colitis K52.89 Acute renal failure N17.9 Chronic indwelling Villasenor catheter Z97.8 Uncontrolled type 2 diabetes mellitus with hyperglycemia E11.65 Glycemic state: with hyperglycemia Acquired hypothyroidism E03.9 Hypothyroidism type: acquired Morbid obesity with BMI of 50.0-59.9, adult E66.01; Z68.43 Status post below-knee amputation of left lower extremity Z89.512 Hypoglycemia E16.2 (1) Sepsis Acute renal failure type: unspecified Sepsis acute organ dysfunction status: with acute organ dysfunction Sepsis type: sepsis due to unspecified organism Severe sepsis acute organ dysfunction type: acute renal failure Severe sepsis shock status: without septic shock Qualified Code(s): A41.9 - Sepsis, unspecified organism; R65.20 - Severe sepsis without septic shock; N17.9 - Acute kidney failure, unspecified (6) DM w/o complication type II, uncontrolled Glycemic state: with hyperglycemia Qualified Code(s): E11.65 - Type 2 diabetes mellitus with hyperglycemia (7) Hypothyroidism Hypothyroidism type: acquired Qualified Code(s): E03.9 - Hypothyroidism, unspecified
[2024-07-31] MEDS: DAPTOmycin 675 MG in SYRINGE 0 ML IV SCH (20:09)
[2024-07-31] MEDS ORDERED: GLUCOSE 40% GEL 15 GM TUBE PO PRN (21:04)
[2024-07-31] MEDS ORDERED: GLUCAGON FOR INJ 1 MG VIAL SQ PRN (21:04)
[2024-07-31] MEDS ORDERED: GLUCOSE 10 TAB/TUBE PO PRN (21:04)
[2024-07-31] MEDS ORDERED: PHARMACY GLYCEMIC MGMT CONSULT PRN (21:04)
[2024-07-31] MEDS ORDERED: DEXTROSE 50% 50 ML SYRINGE IV PRN (21:04)
[2024-07-31] MEDS: CARBOHYDRATES FOR HYPOGLYCEMIA PO PRN (21:10)
[2024-07-31] MEDS ORDERED: PHENAZOPYRIDINE HCL 200 MG TAB PO PRN (21:46)
[2024-07-31] MEDS ORDERED: TROLAMINE SALICYLATE 10% CRM 255 APPLN/85 GM TUBE EXT PRN (21:47)
[2024-07-31] MEDS: LAVAGE SOLUTION 4000ML PO SCH (21:58)
[2024-07-31] MEDS: DOCUSATE SODIUM/SENNA 50/8.6MG TAB PO SCH (22:28)
[2024-07-31] MEDS: APIXABAN 5 MG TABLET PO SCH (22:29)
[2024-07-31] MEDS: buPROPion SR 150 MG TABCR PO SCH (22:30)
[2024-07-31] MEDS: GABAPENTIN 100 MG CAP PO SCH (22:30)
[2024-07-31] MEDS: METOPROLOL TARTRATE 100 MG TAB PO SCH (22:31)
[2024-07-31] MEDS: cefTRIAXone SODIUM 2,000 MG/50 ML BAG IV SCH (22:34)
[2024-07-31] MEDS: INSULIN ASPART PER UNIT CHARGE SC SCH (23:20)
[2024-08-01] MEDS: ACETAMINOPHEN 325 MG TAB PO PRN (01:23)
--- NOTE | 2024-08-01 01:51 | XRay Report ---
Exam(s): XR CXR 1 VIEW EXAM: XR Chest, 1 View CLINICAL HISTORY: Reason for exam: shortness of breath. TECHNIQUE: Frontal view of the chest. COMPARISON: July 02, 2021 FINDINGS: Lungs: Unremarkable. No consolidation. Pleural space: Unremarkable. No pneumothorax. Heart: Unremarkable. No cardiomegaly. Mediastinum: Unremarkable. Normal mediastinal contour. Bones/joints: Unremarkable. No acute fracture. IMPRESSION: Normal chest x-ray. Electronically signed by: Kieran Olmedo MD 08/01/24 01:50 AM
[2024-08-01] MEDS: metroNIDAZOLE 500 MG/100 ML BAG IV SCH (02:21)
[2024-08-01 06:52] LABS: Basophils # (auto) 0.04 K/uL (0.00-0.20); Basophils % (auto) 0.3 %; Eosinophils # (auto) 0.27 K/uL (0.00-0.50); Eosinophils % (auto) 2.3 %; Hematocrit (blood only) 31.5 % (42.0-52.0); Hemoglobin 10.7 g/dl (14.0-18.0); Immature Granulocytes # (auto) 0.04 K/uL (0.01-0.20); Immature Granulocytes % (auto) 0.3 %; Lymphocytes # (auto) 1.66 K/uL (1.20-3.40); Lymphocytes % (auto) 14.1 %; Mean Corpuscular Hemoglobin 27.7 pg (25.0-34.0); Mean Corpuscular Volume 81.6 fL (80.0-100.0); Mean Platelet Volume 11.1 fL (9.4-12.4); Monocytes # (auto) 1.14 K/uL (0.11-0.59); Monocytes % (auto) 9.7 %; Neutrophils # (auto) 8.65 K/uL (1.40-6.50); Neutrophils % (auto) 73.3 %; Platelet Count 278 K/uL (130-400); RDW Standard Deviation 47.5 fL (36.4-46.3); Red Blood Count 3.86 M/uL (4.70-6.10)
[2024-08-01 07:14] LABS: Estimated Average Glucose 186 mg/dl; Hemoglobin A1C 8.1 % (4.5-5.6)
[2024-08-01 07:23] LABS: Alanine Aminotransferase 7 U/L (7-52); Albumin Level 3.3 gm/dl (3.4-5.0); Alkaline Phosphatase 94 U/L (34-104); Anion Gap 10 (3-11); BUN Creatinine Ratio 12.4 (10-20); Bilirubin,Total 0.4 mg/dl (0.2-1.0); Blood Urea Nitrogen 34 mg/dl (6-23); Calcium 7.9 mg/dl (8.6-10.3); Carbon Dioxide 27 mmol/L (21-32); Chloride 93 mmol/L (98-107); Globulin 3.4 gm/dl (2.5-4.0); Glucose 74 mg/dl (70-99(Fasting)); Magnesium 1.5 mg/dl (1.7-2.4); Phosphorus 4.5 mg/dl (2.5-4.9); Sodium 130 mmol/L (136-145); Total Protein 6.7 gm/dl (6.0-8.3)
--- NOTE | 2024-08-01 07:23 | XRay Report ---
EXAM: XR KUB/Abdomen 1 view CLINICAL HISTORY: INCREASING ABD PAIN BEST IMAGES POSSIBLE DUE TO PT HABITUS JMF TECHNIQUE: X-ray images of the abdomen were obtained in supine AP positions. COMPARISON: CT dated 07/31/2024 FINDINGS: Gas Pattern: Dilated large bowel loops measuring up to 14 cm in maximum caliber Suspected dilated small bowel loops, further evaluation with CT is recommended is advised Soft Tissues: Soft tissues of the abdomen appear normal without evidence of masses or calcifications. Liver, spleen, and kidneys are of normal size and position. IMPRESSION: 1. Dilated large bowel loops measuring up to 14 cm in maximum caliber, suspecting possible obstruction, stable 2. Suspected dilated small bowel loops, mildly increased 3. Further evaluation with CT is recommended is advised Electronically signed by Israel Corona 08-01-2024 07:22 AM
[2024-08-01 07:26] LABS: Thyroid Stimulating Hormone 1.512 uIu/ml (0.300-4.500)
[2024-08-01 07:59] LABS: Potassium 3.4 mmol/L (3.5-5.1)
[2024-08-01] MEDS: INSULIN ASPART PER UNIT CHARGE SC SCH (08:24)
--- NOTE | 2024-08-01 08:33 | CT Scan Report ---
EXAM: CT abd pelvis wo con CLINICAL HISTORY: c/o worsening abdominal pain abdominal distention appendix present best images due to body habitus jr/kf images sent to [facility] at 6:50 am TECHNIQUE: Non-contrast CT of the abdomen and pelvis was performed, with the following protocol: axial images, and reconstructed coronal and sagittal images. One of the following dose reduction techniques was utilized for this exam: Automated exposure control, adjustment of the mA and/or kV according to patient size, and use of iterative reconstruction. COMPARISON: 07/31/2024 FINDINGS: Abdomen: Bowel: Markedly dilated large bowel loops down to the rectum reaching 11 cm with gas and fecal matter. There is obstructing fecal matter at the rectum and distal sigmoid colon measuring 22 cm in length and 9 cm in diameter, In keeping with fecaloma. This is associated with diffuse thick wall of the rectum and distal sigmoid reflecting proctocolitis. possible pneumatosis intetestinalis noted along the ascending colon, raise the possibility of ischemic colitis, post contrast CT is needed correlation is needed. No signs of perforation. No pneumoperitoneum. No free abdominal fluid. Liver: Normal in size, shape, and density. No focal lesions, cysts, or masses were identified. Gallbladder and Biliary System: The gallbladder is normal in size and shape. It shows isodense content with dependent hyperdense small calcular structures (cholelithiasis). US may be needed for confirmation. Pancreas: Pancreatic head, body, and tail are visualized and appear normal in size and density. No pancreatic masses or calcifications were noted. Spleen: Normal in size, shape, and density. No splenic lesions or masses were identified. Kidneys and Adrenal Glands: Both kidneys are normal in size, shape, and position. Cortical thickness is within normal limits. No renal calculi or hydronephrosis. Adrenal glands are unremarkable. Abdominal Aorta and Vessels: The abdominal aorta and major branches are patent with atherosclerotic changes. No aneurysms. Pelvis: Urinary Bladder: Villasenor's catheter balloon is noted in place. Prostate: Normal in size and contour. No masses or abnormal thickening. Peritoneal and Retroperitoneal Structures: No free fluid or abnormal fluid collections were identified within the abdomen or pelvis. No lymphadenopathy was noted. Bones and Soft Tissues: Pelvic bones and soft tissues are unremarkable. No fractures or abnormal masses were identified. T12 and L5 vertebral body hypodense areas suggestive of hemangiomas. IMPRESSION: 1. Possible pneumatosis intetestinalis noted along the ascending colon, raises the possibility of ischemic colitis, post contrast CT is needed correlation is needed. 2. Acute large bowel obstruction by fecaloma at the rectum and distal sigmoid colon measuring 22 cm in length and 9 cm in diameter. 3. Mild proctocolitis. 4. No signs of perforation. 5. Cholelithiasis. The US may be needed for confirmation. 6. No time interval changes. Electronically signed by Israel Corona 08-01-2024 08:32 AM
[2024-08-01] MEDS: LEVOTHYROXINE SODIUM 175 MCG TABLET PO SCH (08:37)
[2024-08-01] MEDS: CALCIUM GLUCONATE 1,000 MG/60 ML BAG IV SCH (08:39)
[2024-08-01] MEDS: POLYETHYLENE (MIRALAX) 17 GM PACK PO SCH (08:49)
[2024-08-01] MEDS: MAGNESIUM SULFATE / D5W 1 GM/100 ML BAG IV SCH (08:51)
[2024-08-01] MEDS: SENNA 8.6 MG TAB PO ONE (08:55)
[2024-08-01] MEDS ORDERED: OXYBUTYNIN CHLORIDE XL 5 MG TABCR PO SCH (09:00)
[2024-08-01] MEDS ORDERED: CEROVITE ADV FORMULA TAB PO SCH (09:00)
--- NOTE | 2024-08-01 10:24 | Pharmacy Report ---
Pharmacy Glycemic Short Note 2 - Date of Service August 01, 2024 - Glycemic Short BSG Results (Last 24 hours): 07/31/24 07/31/24 07/31/24 16:20 17:02 17:30 Glucose 57 L POC Glucose 61 L* 102 H 07/31/24 07/31/24 07/31/24 20:55 21:29 22:52 Glucose POC Glucose 68 L* 113 H 89 08/01/24 08/01/24 08/01/24 04:21 06:17 08:20 Glucose 74 POC Glucose 77 86 OUTPATIENT ANTIDIABETIC REGIMEN: * Levemir 100 units BID * NovoLog 25 units TID * Metformin 1000mg PO BID * A1c 8.1% 08/01/24 ASSESSMENT: * 64 yo M from [facility], presented to the ER with abdominal pain, sepsis, urinary vs. stercoral colitis as source, IV Flagyl + Ceftriaxone. * Surgical consultation, large bowel obstruction severe constipation severe impaction/obstipation of the bowel with significant dilation/distention of the colon and concerns for possibly worsening valve issues, medical management at this time, poor surgical candidate. * Morbid obese type 2 DM on 275 units of insulin per day as outpatient. Patient did take 100 units of Levemir yesterday morning prior to admission. Blood sugars 61-86mg/dl since admission w/o any insulin. Now up to 126mg/dl at lunchtime, patient refused his 3units of NovoLog coverage. Will begin basal at 50% reduced dose now. PLAN FOR INPATIENT GLYCEMIC CONTROL: * Hold outpatient oral diabetes medications * Basal insulin * Lantus 50 units SQ x 1 dose now (1330), then BID: 0 units BSG < 110, 25 units BSG 110-180mg/dl, 50 units BSG > 180mg/dl * Bolus insulin * NovoLog per scale ACHS or Q6hrs while NPO * Goal Range: Low 110 mg/dL - High 140 mg/dL * Correction Factor: 10 mg/dL/unit * Nutritional / Prandial insulin per carb ratio of 1 unit per 4 grams CHO consumed
--- NOTE | 2024-08-01 10:56 | Surgery Consultation ---
Date of Consultation August 01, 2024 Assessment & Plan (1) Stercoral colitis: GI consult for severe constipation agree with abx bowel regimen per GI no surgical issues extremely poor surgical candidate with morbid obesity History of Present Illness Attending Physician: Leland Garcia MD, PhD History of Present Illness This is a 64YO admitted from ED with abdominal pain. He complained of cramping, diffuse, abdominal pain which began Friday. he has had some associated nausea and vomiting. His last BM was yesterday but is chronically sedantary and has constipation issues. No fever or chills. A CT scan shows severe constipation and signs of colitis likely from constipation and bowel dilation. Allergies Allergy/AdvReac Type Severity Reaction Status Date / Time Penicillins Allergy Severe HIVES, RED Verified 04/06/24 14:52 RASH A CHILD ferrous sulfate AdvReac Intermediate Gastrointestinal Verified 04/06/24 14:52 Upset fluticasone [From Flonase] AdvReac Intermediate FELT FUNNY Verified 04/06/24 14:52 IN THE HEAD Home Medications Medication Instructions Recorded Confirmed Type blood-glucose meter #1 ea 01/30/21 06/28/21 Rx atorvastatin 80 mg tablet 80 mg PO QDD 03/30/21 07/31/24 History pantoprazole 40 mg tablet,delayed 40 mg PO DAILYBB 03/30/21 07/31/24 History release blood sugar diagnostic (OneTouch #100 ea 05/16/21 06/28/21 Rx Verio test strips) apixaban 5 mg tablet (Eliquis) 5 mg PO BID #60 tabs 06/15/21 07/31/24 Rx metoprolol tartrate 100 mg tablet 100 mg PO BID #60 tabs 06/15/21 07/31/24 Rx acetaminophen 650 mg 650 mg PO Q6H PRN Pain 10/07/23 07/31/24 History tablet,extended release ondansetron HCl 4 mg tablet 4 mg PO Q6H PRN Nausea 10/07/23 07/31/24 History phenazopyridine 200 mg tablet 200 mg PO Q8H PRN pain #10 tabs 10/13/23 07/31/24 Rx (Pyridium) sennosides 8.6 mg-docusate sodium 1 tab PO BID 10/13/23 07/31/24 History 50 mg tablet (Senokot-S) bisacodyl 10 mg rectal suppository 10 mg MT DAILY PRN Constipation 07/31/24 07/31/24 History (Dulcolax (bisacodyl)) bumetanide 2 mg tablet 2 mg PO BID 07/31/24 07/31/24 History bupropion HCl 150 mg tablet,12 hr 150 mg PO BID 07/31/24 07/31/24 History sustained-release gabapentin 100 mg capsule 200 mg PO TID 07/31/24 07/31/24 History hydrocodone 5 mg-acetaminophen 325 1 tab PO Q6H PRN Pain 5-10 07/31/24 07/31/24 History mg tablet insulin glargine 100 unit/mL 100 unit subcut BID 07/31/24 07/31/24 History subcutaneous solution (Lantus U-100 Insulin) insulin lispro 100 unit/mL 25 unit subcut AC 07/31/24 07/31/24 History subcutaneous solution (Humalog U-100 Insulin) insulin lispro 100 unit/mL See Rx Instructions .Route .COMPLEX 07/31/24 07/31/24 History subcutaneous solution (Humalog U-100 Insulin) levothyroxine 175 mcg tablet 175 mcg PO DAILYBB 07/31/24 07/31/24 History magnesium hydroxide 400 mg/5 mL 30 ml PO DAILY PRN Constipation 07/31/24 07/31/24 History oral suspension metformin 500 mg tablet,extended 1,000 mg PO BID 07/31/24 07/31/24 History release 24 hr methyl salicylate 15 %-menthol 10 1 applic topical QID PRN Left 07/31/24 07/31/24 History % topical cream shoulder and knee pain [id number] 1 tab PO DAILY 07/31/24 07/31/24 History tablet (Multivitamin 50 Plus tablet) nitrofurantoin 100 mg PO BID 07/31/24 07/31/24 History monohydrate/macrocrystals 100 mg capsule oxybutynin chloride 5 mg 5 mg PO DAILY 07/31/24 07/31/24 History tablet,extended release 24 hr polyethylene glycol 3350 17 gram 17 g PO DAILY 07/31/24 07/31/24 History oral powder packet (Miralax) sodium phosphates 19 gram-7 118 ml MT DAILY PRN Constipation 07/31/24 07/31/24 History gram/118 mL enema (Fleet Enema) Patient History Medical History (Updated 07/31/24 @ 22:37 by Vicente Perry MD) Osteomyelitis of foot, acute DJD (degenerative joint disease) Bifascicular block ongoing since 2020 Hx of osteomyelitis 06/2021 s/p left BKA Hx of sepsis 06/2021 per records Hx of gas gangrene Hx of pyelonephritis Villasenor catheter in place Hypothyroidism 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 resident resident of [facility] Hyperlipidemia Atrial fibrillation Cognitive communication deficit Muscle weakness (generalized) Other reduced mobility Neuromuscular dysfunction of bladder History of COVID-19 05/05/22 Pressure ulcer of right buttock Morbid obesity due to excess calories Major depression CKD (chronic kidney disease), stage III Peripheral vascular disease Diabetic neuropathy History of atrial flutter Constipation Surgical History (Updated 07/31/24 @ 21:14 by Vicente Perry MD) History of amputation of toe Presence of urogenital implants Hx of below knee amputation left Hx of tonsillectomy Family History Mother Diabetes Heart disease Father Heart disease Other No pertinent family history in first degree relatives Denies family history of Ovarian cancer Prostate cancer Myocardial infarction Breast cancer Colorectal cancer Social History Smoking Status: Former smoker Tobacco Type: Cigarettes Cigarettes Per Day: 4-5; Second Hand Exposure: Yes; Do You Dip or Chew Tobacco: No; Hx Alcohol Use: Yes Alcohol type: beer Hx Substance Use: No Preferred Language: Kiswahili Communication Ability: Effective Visual Impairment: Limited Hearing Ability: Normal Director Patient Accounting Required: No Beliefs That Will Affect Care: None marital status: Life Partner Current Living Situation: Custodial Current Living Situation Comment: [facility] [place] current occupational status: disabled Other Information That Helps Us Care for You: No Feels Safe at Home: Yes Safety Concerns: Feels Safe At This Time Diet: low salt Assistive Devices: Glasses and Wheelchair Review of Systems Constitutional: no fever, no chills and no anorexia Respiratory: no cough and no dyspnea Cardiovascular: no chest pain Gastrointestinal: + abdominal pain and + change in bowel h abits; no nausea and no vomiting Genitourinary: no dysuria Musculoskeletal: no problem reported Integumentary: no problem reported Neurologic: + generalized weakness; no localized wea kness Psychiatric: no behavioral changes Hematologic / Lymphatic: no easy bleeding and no easy bruising Physical Exam Constitutional: WD/WN, vitals as above + obese Eyes: PERRL, conjunctivae normal, anicteric sclerae Neck: trachea midline Respiratory: + uses accessory muscles; no respiratory distress Auscultation: lungs clear to auscultation bilaterally Cardiovascular: RRR, no murmur, no edema Gastrointestinal (Abdomen): Inspection/Auscultation: abdomen normal to inspection, + abdomen distended and normal bowel sounds Percussion/Palpation: + abdomen tender and abdomen soft; no guarding and abdomen not rigid Musculoskeletal: Head/Neck/Chest: normocephalic and head atraumatic left BKA Skin: no rashes, warm and dry Results & Data Vital Signs (Past 12 Hours) Vital Signs Temp Pulse Resp BP BP Pulse Ox O2 Del Method 08/01/24 07:30 36.4 C L 68 20 143/78 H 93 Room Air 08/01/24 03:41 36.3 C L 72 20 125/81 94 Room Air 07/31/24 23:50 36.4 C L 69 20 169/73 H 95 Room Air Diagnostic Findings EXAM: CT abd pelvis wo con CLINICAL HISTORY: c/o worsening abdominal pain abdominal distention appendix present best images due to body habitus jr/kf images sent to [facility] at 6:50 am TECHNIQUE: Non-contrast CT of the abdomen and pelvis was performed, with the following protocol: axial images, and reconstructed coronal and sagittal images. One of the following dose reduction techniques was utilized for this exam: Automated exposure control, adjustment of the mA and/or kV according to patient size, and use of iterative reconstruction. COMPARISON: 07/31/2024 FINDINGS: Abdomen: Bowel: Markedly dilated large bowel loops down to the rectum reaching 11 cm with gas and fecal matter. There is obstructing fecal matter at the rectum and distal sigmoid colon measuring 22 cm in length and 9 cm in diameter, In keeping with fecaloma. This is associated with diffuse thick wall of the rectum and distal sigmoid reflecting proctocolitis. possible pneumatosis intetestinalis noted along the ascending colon, raise the possibility of ischemic colitis, post contrast CT is needed correlation is needed. No signs of perforation. No pneumoperitoneum. No free abdominal fluid. Liver: Normal in size, shape, and density. No focal lesions, cysts, or masses were identified. Gallbladder and Biliary System: The gallbladder is normal in size and shape. It shows isodense content with dependent hyperdense small calcular structures (cholelithiasis). US may be needed for confirmation. Pancreas: Pancreatic head, body, and tail are visualized and appear normal in size and density. No pancreatic masses or calcifications were noted. Spleen: Normal in size, shape, and density. No splenic lesions or masses were identified. Kidneys and Adrenal Glands: Both kidneys are normal in size, shape, and position. Cortical thickness is within normal limits. No renal calculi or hydronephrosis. Adrenal glands are unremarkable. Abdominal Aorta and Vessels: The abdominal aorta and major branches are patent with atherosclerotic changes. No aneurysms. Pelvis: Urinary Bladder: Villasenor's catheter balloon is noted in place. Prostate: Normal in size and contour. No masses or abnormal thickening. Peritoneal and Retroperitoneal Structures: No free fluid or abnormal fluid collections were identified within the abdomen or pelvis. No lymphadenopathy was noted. Bones and Soft Tissues: Pelvic bones and soft tissues are unremarkable. No fractures or abnormal masses were identified. T12 and L5 vertebral body hypodense areas suggestive of hemangiomas. IMPRESSION: 1. Possible pneumatosis intetestinalis noted along the ascending colon, raises the possibility of ischemic colitis, post contrast CT is needed correlation is needed. 2. Acute large bowel obstruction by fecaloma at the rectum and distal sigmoid colon measuring 22 cm in length and 9 cm in diameter. 3. Mild proctocolitis. 4. No signs of perforation. 5. Cholelithiasis. The US may be needed for confirmation. 6. No time interval changes.
--- NOTE | 2024-08-01 12:36 | Urology Consultation ---
Date of Consultation August 01, 2024 Assessment & Plan (1) Obstipation: (2) Stercoral colitis: (3) Acute renal failure: (4) Chronic indwelling Villasenor catheter: (5) Urethral stricture: (6) Bladder outlet obstruction: (7) CKD (chronic kidney disease) stage 3, GFR 30-59 ml/min: (8) Diabetes: (9) Hypertension: Plan Well-known patient with history of severe obstructive issues, chronic catheterization, recurrent obstructive issues, chronic kidney disease, and urinary issues. Patient is admitted with a large bowel obstruction severe constipation severe impaction/obstipation of the bowel with significant dilation/distention of the colon and concerns for possibly worsening valve issues. Patient is undergoing supportive care. Has consultation into GI and is being monitored closely with the medicine team. Patient independently assessed, examined, interviewed, and evaluated. Patient's vitals and labs were all reviewed. Pertinent values in the HPI and plan section. Hemoglobin 10.7. White cells 11.8. Creatinine significantly elevated at 2.74. Vitals appear stable with temp 36.2. Please see HPI or plan section or records for full report. Imaging was reviewed interpreted by myself. Severe bowel obstruction with severe impaction of the colon and significant dilation/distention/megacolon. Concerns for worsening bowel issues. No significant issues seen on kidneys catheter does appear to be in good position with adequate drainage and no significant signs of inflammation around the bladder. Agree with read. Vitals were reviewed. Discussed findings extensively with patient and family. Reviewed with consulting physicians/team especially about possible intervention with the severe colonic/large bowel obstruction/impaction. Patient's complicated medical and surgical history was reviewed and summarized above. Patient's surgical, medical, social, and family history were all reviewed with pertinent values as above. Discussed patient's current diagnosis as well as concerns and issues. Reviewed different options moving forward. Discussed potential risks and benefits as well as possible options and concerns. Reviewed potential surgical options and interventions. Discussed potential issues and concerns related to intervention. Risk and benefits were discussed extensively with patient and any available family. Discussed potential risks related to anesthesia. Discussed risks of bleeding infection and injury. Patient is due for catheter exchange. Was set to have catheter exchange at the end of June but appointment was adjusted. Catheter does appear to be in good position and will likely need to be changed during this admission however with possible impending procedures or manual disimpaction or other intervention will likely await plans from primary team/general surgery prior to changing the catheter. If patient does need a procedure under anesthesia can be exchanged at that time otherwise can be exchanged with nursing after disimpaction or other intervention. Catheter appears to be draining well. Urine is clear yellow. Significant MACARIO on CKD however no significant findings of ongoing obstruction of the bladder. Patient is undergoing supportive care with hydration and close monitoring. Is undergoing bowel regimen. Will await final plans from primary team and general surgery with plans for likely catheter exchange in the next few days. Will plan to continue to monitor. If any major changes signs of obstruction or failure/malfunction of catheter can be reevaluated more urgently. Otherwise we will plan to have catheter change with orders placed. Patient's complicated medical and surgical history was reviewed and summarized above all imaging was reviewed. All imaging was reviewed interpreted by myself. All labs and vitals were reviewed please see above for full reports or in the medical records. History of Present Illness Attending Physician: Leland Garcia MD, PhD History of Present Illness New consultation for Established patient with chronic retention history of strictures and outlet obstruction. Patient has chronic catheters that are changed monthly. Has buried penis. Comes into our office to undergo changes. Missed his appointment at the end of June to have the catheter changed. Patient is currently admitted with severe obstipation/constipation and bowel impaction colonic obstruction and possible concern/suspicion for more significant issues. Colon is significantly distended with severe obstruction on imaging. Patient developed sudden onset of increasing abdominal pain and discomfort in the pelvis and pain into flank going down and radiating into groin and back in waves comes and goes. Can be severe at times. Discussed and reviewed patient's family history as well as previous surgical and other intervention. Also discussed patient's chronic medical issues and active issues. Also, discussed patient's medical surgery history especially related to any history of urinary issues or stone disease. Patient was admitted and is undergoing observation. Allergies Allergy/AdvReac Type Severity Reaction Status Date / Time Penicillins Allergy Severe HIVES, RED Verified 04/06/24 14:52 RASH A CHILD ferrous sulfate AdvReac Intermediate Gastrointestinal Verified 04/06/24 14:52 Upset fluticasone [From Flonase] AdvReac Intermediate FELT FUNNY Verified 04/06/24 14:52 IN THE HEAD Home Medications Medication Instructions Recorded Confirmed Type blood-glucose meter #1 ea 01/30/21 06/28/21 Rx atorvastatin 80 mg tablet 80 mg PO QDD 03/30/21 07/31/24 History pantoprazole 40 mg tablet,delayed 40 mg PO DAILYBB 03/30/21 07/31/24 History release blood sugar diagnostic (OneTouch #100 ea 05/16/21 06/28/21 Rx Verio test strips) apixaban 5 mg tablet (Eliquis) 5 mg PO BID #60 tabs 06/15/21 07/31/24 Rx metoprolol tartrate 100 mg tablet 100 mg PO BID #60 tabs 06/15/21 07/31/24 Rx acetaminophen 650 mg 650 mg PO Q6H PRN Pain 10/07/23 07/31/24 History tablet,extended release ondansetron HCl 4 mg tablet 4 mg PO Q6H PRN Nausea 10/07/23 07/31/24 History phenazopyridine 200 mg tablet 200 mg PO Q8H PRN pain #10 tabs 10/13/23 07/31/24 Rx (Pyridium) sennosides 8.6 mg-docusate sodium 1 tab PO BID 10/13/23 07/31/24 History 50 mg tablet (Senokot-S) bisacodyl 10 mg rectal suppository 10 mg [place] DAILY PRN Constipation 07/31/24 07/31/24 History (Dulcolax (bisacodyl)) bumetanide 2 mg tablet 2 mg PO BID 07/31/24 07/31/24 History bupropion HCl 150 mg tablet,12 hr 150 mg PO BID 07/31/24 07/31/24 History sustained-release gabapentin 100 mg capsule 200 mg PO TID 07/31/24 07/31/24 History hydrocodone 5 mg-acetaminophen 325 1 tab PO Q6H PRN Pain 5-10 07/31/24 07/31/24 History mg tablet insulin glargine 100 unit/mL 100 unit subcut BID 07/31/24 07/31/24 History subcutaneous solution (Lantus U-100 Insulin) insulin lispro 100 unit/mL 25 unit subcut AC 07/31/24 07/31/24 History subcutaneous solution (Humalog U-100 Insulin) insulin lispro 100 unit/mL See Rx Instructions .Route .COMPLEX 07/31/24 07/31/24 History subcutaneous solution (Humalog U-100 Insulin) levothyroxine 175 mcg tablet 175 mcg PO DAILYBB 07/31/24 07/31/24 History magnesium hydroxide 400 mg/5 mL 30 ml PO DAILY PRN Constipation 07/31/24 07/31/24 History oral suspension metformin 500 mg tablet,extended 1,000 mg PO BID 07/31/24 07/31/24 History release 24 hr methyl salicylate 15 %-menthol 10 1 applic topical QID PRN Left 07/31/24 07/31/24 History % topical cream shoulder and knee pain [id number] 1 tab PO DAILY 07/31/24 07/31/24 History tablet (Multivitamin 50 Plus tablet) nitrofurantoin 100 mg PO BID 07/31/24 07/31/24 History monohydrate/macrocrystals 100 mg capsule oxybutynin chloride 5 mg 5 mg PO DAILY 07/31/24 07/31/24 History tablet,extended release 24 hr polyethylene glycol 3350 17 gram 17 g PO DAILY 07/31/24 07/31/24 History oral powder packet (Miralax) sodium phosphates 19 gram-7 118 ml [place] DAILY PRN Constipation 07/31/24 07/31/24 History gram/118 mL enema (Fleet Enema) Patient History Medical History Osteomyelitis of foot, acute DJD (degenerative joint disease) Bifascicular block ongoing since 2020 Hx of osteomyelitis 06/2021 s/p left BKA Hx of sepsis 06/2021 per records Hx of gas gangrene Hx of pyelonephritis Villasenor catheter in place Hypothyroidism custodial resident resident of [facility] Hyperlipidemia Atrial fibrillation Cognitive communication deficit Muscle weakness (generalized) Other reduced mobility Neuromuscular dysfunction of bladder History of COVID-19 05/05/22 Pressure ulcer of right buttock Morbid obesity due to excess calories Major depression CKD (chronic kidney disease), stage III Peripheral vascular disease Diabetic neuropathy History of atrial flutter Constipation Surgical History History of amputation of toe Presence of urogenital implants Hx of below knee amputation left Hx of tonsillectomy Family History Mother Diabetes Heart disease Father Heart disease Other No pertinent family history in first degree relatives Denies family history of Ovarian cancer Prostate cancer Myocardial infarction Breast cancer Colorectal cancer Social History Smoking Status: Former smoker Tobacco Type: Cigarettes Cigarettes Per Day: 4-5; Second Hand Exposure: Yes; Do You Dip or Chew Tobacco: No; Hx Alcohol Use: Yes Alcohol type: beer Hx Substance Use: No Preferred Language: Finnish Communication Ability: Effective Visual Impairment: Limited Hearing Ability: Normal Manager Employment Required: No Beliefs That Will Affect Care: None marital status: Life Partner Current Living Situation: [facility] Current Living Situation Comment: [facility] current occupational status: disabled Other Information That Helps Us Care for You: No Feels Safe at Home: Yes Safety Concerns: Feels Safe At This Time Diet: low salt Assistive Devices: Glasses and Wheelchair Review of Systems Review of Systems: All systems reviewed & are unremarkable except as noted in HPI & below Physical Exam Physical Exam: General: Alert and oriented x 3 in no acute distress. Morbid obesity HEENT: Normocephalic Atraumatic. Inspection normal. Cranial Nerves 2-12 Grossly intact. Nares are clear. Neck is supple. Normal inspection of face. Normal inspection of neck. Neurologic: No deficits on inspection. Baseline for motor function and sensory. Psychologic: Normal affect. Respiratory: Nonlabored. No use of accessory muscles. No tachypnea or dyspnea. Cardiovascular: No tachycardia Skin: [place] and Dry. No rashes or visible lesions. Extremities: Moving without issues. No motor deficits on inspection Lymphatics: No edema Abdomen: Morbid obese. Significant distention no rebound or guarding. : Buried penis. Villasenor in place draining dark yellow urine Results & Data Vital Signs (Past 12 Hours) Vital Signs Temp Pulse Resp BP BP Pulse Ox O2 Del Method 08/01/24 11:30 36.2 C L 65 16 135/61 92 Room Air 08/01/24 07:30 36.4 C L 68 20 143/78 H 93 Room Air 08/01/24 03:41 36.3 C L 72 20 125/81 94 Room Air PG Care Time/CCT Total # of Minutes Spent Total Time Spent with Patient: Total time spent is greater than 50% in coordination of care (as documented) at patient's floor/unit and/or counseling patient: Coding Level of Care Code 86413 INT INP/OBS CARE MIN Diagnoses Obstipation K59.00 Stercoral colitis K52.89 Acute renal failure N17.9 Chronic indwelling Villasenor catheter Z97.8 Urethral stricture N35.919 Bladder outlet obstruction N32.0 CKD (chronic kidney disease) stage 3, GFR 30-59 ml/min N18.3 Diabetes E11.9 Hypertension I10
[2024-08-01] MEDS: ACETAMINOPHEN 1,000 MG/100 ML VIAL IV STA (16:15)
[2024-08-01] MEDS ORDERED: ATORVASTATIN 40 MG TAB PO SCH (16:30)
--- NOTE | 2024-08-01 16:30 | Hospitalist Progress Note ---
Date of Service August 01, 2024 Assessment & Plan (1) Sepsis: Plan: Patient remains afebrile with WBC declining: cf., WBC 15.32, N68 L20 M10 E2 (07/31/2024, 4:20pm). cf., WBC 11.80, N73 L14 M10 E2 (08/01/2024, 6:17am). Patient had an admitting HR 94 bpm (07/31/2024, 7:54pm) and an admitting RR 20 breaths/minute (07/31/2024, 8:44pm) with O2 sat 95% on room air and BP 152/63 (07/31/2024, 8:44pm), which qualifies patient has having sepsis, but no septic shock. Etiology of sepsis remains unclear, but is probably due to recurrent/persistent, acute catheter-associated UTI given this bed-bound patient's past medical history of: Urine culture (07/29/2024, 2:37pm): ciprofloxacin-resistant, levofloxacin- resistant, unasyn-resistant, cefuroxime-resistant Providencia stuartii Urine culture (05/31/2024, 3:00pm): ciprofloxacin-resistant, levofloxacin- resistant, unasyn-resistant, cefuroxime-resistant Providencia stuartii Urine culture (05/31/2024, 3:00pm): ciprofloxacin-resistant, levofloxacin- resistant, unasyn-resistant, bactrim-resistant E. coli Urine culture (03/18/2024, 12:00pm): ciprofloxacin-resistant, levofloxacin- resistant, unasyn-resistant, bactrim-resistant E. coli AND given this patient's current medical history of constipation/obstipation with CT abd/pelvis without IV contrast (07/31/2024, 4:41pm) revealing "large amounts of stool and gas in the redundant colon most notable in the rectum with rectosigmoid colitis." Hence, I surmise that gut bacteria may have translocated from the GI tract to the tract with possible hematogenous dissemination of gram negative bacilli such as Providencia stuartii and/or E. coli. Hence, I have opted to continue ceftriaxone 2g IV daily (day #1/7 on 07/31/2024, 10:34pm). In addition, I have opted to D/C patient's home-scheduled oxybutynin 5mg PO daily on 08/01/2024, 7:43am, not only because of its anti-cholinergic side effect profile including dizziness, lightheadedness, and falls, but primarily because of its ability to retain urine, thereby promoting urinary stasis and consequent acute cystitis / acute catheter-associated UTI in this patient with a past medical history of chronic urinary retention requiring chronic brown catheter for the past 14 years. Of note, patient reports that his brown catheter was last changed at [facility] ([place], [place]) on 06/13/2024, and that patient was scheduled to have his chronic brown catheter changed on 07/28/2024, but did not have his chronic brown catheter changed on 07/28/2024. Hence, Hospitalist Dr. Vicente Perry solicited formal Urology Service evaluation with Dr. Jay Schmitz on 07/31/2024, 9:09pm to discuss the optimal time to change patient's brown catheter AFTER his constipation/obstipation/stercoral colitis has RESOLVED. I subsequently conferred with Dr. Schmitz via [email or web address] on 08/01/2024, 12:51pm, and the consensus agreement is to leave patient's pre-existing brown catheter in situ until his constipation/obstipation/stercoral colitis has RESOLVED. In the interim, I will check vitals, GI exam, exam, WBC w/diff, lactic acid, procalcitonin, blood culture #1 (07/31/2024, 5:30pm), and blood culture #2 (07/31/2024, 5:44pm) in the 08/02/2024 am. Of note, patient's urine sample was contaminated and hence, urine culture (07/31/2024, 5:39pm) reveals > 3 organisms, thereby making immediate identification of the microbe(s) responsible for patient's acute catheter- associated UTI difficult. Of final note, I have opted to D/C empiric cefepime 2g IV q8 (day #1 on 07/31/2024, 6:00pm), metronidazole 500mg IV q8 (day #1 on 07/31/2024, 6:52pm) on 08/01/2024, 7:25am; I have also opted to D/C empiric daptomycin 675mg IV daily (day #1 on 07/31/2024, 8:09pm) on 08/01/2024, 7:25am. (2) Acute UTI (urinary tract infection): Plan: See bullet #1 above for details (3) Stercoral colitis: Plan: I spoke with General Surgeon Dr. Fabian Rivera on 08/01/2024, 10:32am, and Dr. Rivera evaluated patient at the bedside and recommends that GI Service evaluate the patient for manual disimpaction as pharmacologic disimpaction (utilizing docusate 50mg / senna 8.6mg PO bid (08/01/2024, 8:44am), PEG 17g PO daily (08/01/2024, 9:00am) has not resulted in evacuation of formed stool. Hence, I solicited formal GI Service evaluation with Dr. Nate Castillo on 08/01/2024, 1:22pm. In the interim, I have ordered magnesium citrate 296mL PO x 1 dose (08/01/2024, 4:32pm) and tap water enema AL x 1 dose (08/01/2024, 5:23pm), and I will observe for passage of bowel in the next 4-6 hours. Stay tuned. (4) Acute renal failure: Plan: Acute kidney injury on CKD stage III with baseline creatinine range, 1.25 - 1.37 (07/11/2021 - 02/26/2024). cf., BUN/creatinine 34/2.50, GFR 27.99 (07/31/2024, 4:20pm). cf., BUN/creatinine 34/2.74, GFR 25.07 (08/01/2024, 6:17am). Etiology of acute kidney injury is probably due to a combination of (a) patient's home-scheduled bumex 2mg PO bid, and (b) sepsis due to presumed/recurrent/persistent, acute UTI. Given the absence of septic shock, I do not suspect acute tubular necrosis. To address acute kidney injury, I have opted to hold OFF patient's home-scheduled bumex 2mg PO bid, and to treat patient's sepsis with ceftriaxone 2g IV daily (day #1/7 on 07/31/2024, 10:34pm). I will check repeat creatinine level in the 08/02/2024 am. Etiology of CKD stage III is probably due to a combination of patient's HTN and insulin-dependent DM2. The cornerstone of therapy of CKD is to treat the underlying cause(s), namely, HTN and DM. (5) Chronic indwelling Brown catheter: Plan: Patient has suffered from chronic urinary retention for 14 years, and hence, has had a pre-existing, chronic brown catheter for the past 14 years, and which was last changed on 06/13/2024 at [facility] ([place], [place]) Patient was scheduled to have his chronic brown catheter changed on 07/28/2024, but did not have his chronic brown catheter changed on 07/28/2024. Hence, Hospitalist Dr. Vicente Perry solicited formal Urology Service evaluation with Dr. Jay Schmitz on 07/31/2024, 9:09pm to discuss the optimal time to change patient's brown catheter AFTER his constipation/obstipation/stercoral colitis has RESOLVED. I subsequently conferred with Dr. Schmitz [facility] on 08/01/2024, 12:51pm, and the consensus agreement is to leave patient's pre- existing brown catheter in situ until his constipation/obstipation/stercoral colitis has RESOLVED. (6) DM w/o complication type II, uncontrolled: Plan: Long-term glycemic control is poor with HbA1c 8.1% (08/01/2024, 6:17am). cf., glucose 57 mg/dL, anion gap 14, CO2 25 (07/31/2024, 4:20pm). cf., glucose 74 mg/dL, anion gap 10, CO2 27 (08/01/2024, 6:17am). As patient remains hypoglycemic, I have opted to hold OFF patient's home- scheduled lispro insulin 25 units SQ qac, lantus 100 units SQ bid, and humalog insulin sliding scale qac + qhs on 08/01/2024. I will continue to check POC glucose levels qac + qhs as patient is maintained on a clear liquid, carbohydrate consistent diet on 08/01/2024. (7) Hypothyroidism: Plan: Patient has no goiter, lid lag, or proptosis on exam. Patient appears to suffer from sub-clinical hypothyroidism while continuing to receive his home-scheduled synthroid 175ug PO daily given a screening TSH 5.171 uIU/mL (03/05/2024, 4:00am). However, as patient's TSH level does not exceed 10 uIU/mL, no dose adjustment in synthroid is warranted on 08/01/2024. (8) Morbid obesity with BMI of 50.0-59.9, adult: Plan: Patient stands 188.0 cm tall and weights 174.9 kg for a BMI 49.5. Patient needs to lose at least 87.0 kg in order to attain a BMI 24.9, at which level, the patient would no longer be deemed morbidly obese, obese, or overweight. Patient states that he is too old at 64 years of age and bedbound s/p left [facility] (06/2021) to modify his diet, exercise, and/or lifestyle in order to lose any weight over any time period. I concur. (9) Hypokalemia: Plan: cf., K 3.7 mmol/L (07/31/2024, 4:20pm). cf., K 3.4 mmol/L (08/01/2024, 7:25am). cf., baseline K range, 3.6-4.8 mmol/L (08/25/2017 - 07/31/2024). Etiology of acute hypokalemia is probably due to patient's home-scheduled bumex 2mg PO bid, causing loyd-uresis. To avoid further renal embarrassment, I have opted to hold OFF patient's home-scheduled bumex 2mg PO bid while patient remains in [facility] and I will check repeat K level in the 08/02/2024 am. In the interim, I have ordered KCl 40meq PO bid x 2 doses (08/01/2024, 6:00pm). (10) Hypomagnesemia: Plan: cf., Mg 1.5 mg/dL (08/01/2024, 7:25am). cf., baseline Mg range, 1.8 - 2.3 mg/dL (07/24/2018 - 07/04/2021). Etiology of acute hypomagnesemia is probably due to patient's home-scheduled bumex 2mg PO bid, causing magne-uresis. To avoid further renal embarrassment, I have opted to hold OFF patient's home-scheduled bumex 2mg PO bid while patient remains in [facility] and I will check repeat Mg level in the 08/02/2024 am. In the interim, I have ordered magnesium sulfate 1g IV x 3 doses (08/01/2024, 8:00am). (11) Hypocalcemia: Plan: cf., Ca 8.5, albumin 3.6, Ca corrected 8.8 mg/dL (07/31/2024, 4:20pm). cf., Ca 7.9, albumin 3.3, Ca corrected 8.5 mg/dL (08/01/2024, 7:25am). cf., baseline Ca range, 8.5-8.8 mg/dL (03/30/2021 - 01/01/2024). Etiology of acute hypocalcemia is probably due to patient's home-scheduled bumex 2mg PO bid, causing calci-uresis. To avoid further renal embarrassment, I have opted to hold OFF patient's home-scheduled bumex 2mg PO bid while patient remains in [facility] and I will check repeat Mg level in the 08/02/2024 am. In the interim, I have ordered calcium gluconate 1g IV x 1 dose (08/01/2024, 7:45am). (12) DVT prophylaxis: Plan: Hold off pharmacologic DVT prophylaxis with heparin or lovenox given long-term active anticoagulation utilizing eliquis 5mg PO bid given patient's past medical history of atrial flutter with RVR. Of note, patient reports no calf pain, leg swelling, or pleurisy to suggest either DVT or PE on 08/01/2024. cf., EKG (07/31/2024, 10:22pm): NSR @ 79, AL 170, QTC 522; LAFB; RBBB; LVH; PVC+; no acute ST elevations/depressions (by my review). cf., EKG (07/02/2021, 3:36pm): sinus tach @ 125, AL 158, QTC 447, LAFB, RBBB, LVH; no PVC; no acute ST elevations/depressions (by my review). (13) Pain management: Plan: Patient reports 0/10 pain on 08/01/2024, 6:06pm, s/p tylenol 1000mg IV x 2 doses (07/31/2024, 7:06pm; 08/01/2024, 3:28pm) to treat patient's 10/10 abdominal pains due to constipation/obstipation/stercoral colitis. Continue tylenol 650mg PO q4 prn pain 1-3, headache, temp > 100.4 degrees Fahrenheit. (14) Status post below-knee amputation of left lower extremity: Plan: Continue bed position changes q2h to prevent skin breakdown with left BKA surgical site well-healed as of 08/01/2024. (15) Normocytic normochromic anemia: Plan: cf., Hb 11.6 g/dL, MCV 82.3, MCHC 33.7 (07/31/2024, 4:20pm). cf., Hb 10.7 g/dL, MCV 81.6, MCHC 34.0 (08/01/2024, 6:17am). cf., baseline Hb range, 10.5 g/dL - 12.1 g/dL (08/25/2017 - 10/08/2023). Etiology of chronic normocytic, normochromic anemia is probably due to anemia of chronic disease(s) including CKD stage III with baseline creatinine range, 1.25 - 1.37 (07/11/2021 - 02/26/2024) and hypothyroidism. Hence, I recommend holding off daily blood draws while patient remains in [facility] Tele bed #282-2 in order to conserve and preserve this patient's rico blood supply. In the interim, patient should undergo packed RBC transfusion if patient's Hb level falls below 7 g/dL while patient remains in [facility] Tele bed #[id number]. (16) Chronic hyponatremia: Plan: cf., Na 129 mmol/L (07/31/2024, 4:20pm). cf., Na 130 mmol/L (08/01/2024, 6:17am). cf., baseline Na range, 129-135 mmol/L (08/25/2017 - 02/02/2024). Etiology of chronic hyponatremia remains unclear, but is probably due to patient's home-scheduled bumex 2mg PO bid, causing natri-uresis. To avoid further renal embarrassment, I have opted to hold OFF patient's home-scheduled bumex 2mg PO bid while patient remains in [facility] and I will check repeat Na level in the 08/02/2024 am. (17) DNR (do not resuscitate) discussion: Plan: Disposition. Code status, DNR/DNI @ [facility] ([place]). Condition of patient remains fair. I anticipate gerardo t this patient will remain in [facility] for the next 2 midnights, in order to demonstrate clinical improvement in his admitting diagnoses: 1. Sepsis due to recurrent/persistent, acute catheter-associated UTI. 2. [id number] constipation/obstipation/stercoral colitis. 3. Acute kidney injury with admitting creatinine 2.50, GFR 27.99 (07/31/2024, 4:20pm) on CKD stage III with baseline creatinine range, 1.25 - 1.37 (07/11/2021 - 02/26/2024). 4. Acute hypoglycemia with admitting glucose 57 mg/dL, anion gap 14, CO2 25 (07/31/2024, 4:20pm). 5. Acute hypoglycemia with admitting glucose 57 mg/dL, anion gap 14, CO2 25 (07/31/2024, 4:20pm). 6. Post-admission development of acute hypokalemia with K 3.4 mmol/L (08/01/2024, 7:25am). 7. Post-admission development of acute hypomagnesemia with Mg 1.5 mg/dL (08/01/2024, 7:25am). 8. Post-admission development of acute hypocalcemia with Ca corrected 8.5 mg/dL (08/01/2024, 7:25am). Patient will eventually be discharged back to [facility] ([place]) and will follow up with the [employer] @ [facility] ([place]) within 3-5 days of hospital discharge. Of final note, I spoke with the patient at the bedside in [facility] Tele bed #282-2 today, 08/01/2024, and the patient concurs with the assessment and plan as described above. Admission and Anticipated Discharge Date Admission Date: July 31, 2024 Subjective "I'm constipated. I don't normally have a bowel movement everyday. Usually, I have a bowel movement every other day. My last one was yesterday (07/31/2024), and it was a small one. No diarrhea. My belly hurts now. It's big, you can see that. I don't feel any nausea and I am not vomiting. No diarrhea either. Can someone get me to move my bowels?" Review of Systems Review of Systems: Positive for constipation/obstipation. Negative for antecedent or coincident fevers, chills, sweats, cough, wheeze, sore throat, hemoptysis, chest pains, palpitations, pleurisy, nausea, vomiting, diarrhea, pelvic pain, flank pain, back pain, shoulder pain, hematemesis, hematochezia, melena, hematuria, dysuria, frequency, urgency, headaches, dizziness, lightheadedness, visual changes, hearing changes, falls, sick contacts, trauma, travel history, or food/drug ingestions novel or new. All other review systems are reported as negative by the patient on 08/01/2024. Physical Exam Physical Exam: General: uncomfortable with patient pointing to his abdomen, yet coherent, cooperative. Wide awake and alert. Not confused, lethargic, or obtunded. Patient speaks in complete, fluent, and articulate sentences without pause, interruption, cough, or wheeze. HEENT: NC/AT. EOMI. PERRL. No nystagmus, gaze paresis, anisocoria, miosis, chemosis, mydriasis, hyphema, scleral injection, conjunctivitis, or pterygium. No otorrhea or rhinorrhea. No pharyngeal discharge or erythema. Neck: Supple, no stridor, bruit, goiter, JVD, or HJR. Chest: Symmetric rise and fall with respirations. Lungs: CTA/P. No audible expiratory wheeze, egophony, pectoriloquy, increase in tactile fremitus, or flatness/dullness to percussion at the bases. Heart: RRR, S1 and S2 noted. No S3 or S4 summation gallop. Grade II/ early systolic murmur @ LLSB, without radiation to the carotids, axilla, or back, and which remains invariant in regards to the respiratory cycle. Abdomen: Soft, distended with generalized tenderness, no rebound, no guarding, no Pressley's sign, no organomegaly. Bowel sounds auscultated in all 4 quadrants. Extremities: No clubbing, cyanosis, or edema. 2+ pedal pulses bilaterally. Skin: No decubitus ulcer, exanthem, or enanthem. Neurology: Alert and oriented in regards to person, place, time, or situation. 5/5 motor strength in all 4 extremities, both proximally and distally. No tremors, tics, or myoclonus. No tongue laceration. Urology: No brown catheter. Purewick with 100cc of clear urine. No urethral discharge. Results & Data Results & Data Vital Signs (Past 12 Hours) Vital Signs Temp Pulse Resp BP Pulse Ox O2 Del Method 08/01/24 16:00 36.4 C L 61 16 144/76 H 94 Room Air 08/01/24 11:30 36.2 C L 65 16 135/61 92 Room Air 08/01/24 07:30 36.4 C L 68 20 143/78 H 93 Room Air Laboratory Results WBC 15.32, N68 L20 M10 E2, Hb 11.6, MCV 82.3, MCHC 33.7, platelet 298 (07/31/2024, 4:20pm). WBC 11.80, N73 L14 M10 E2, Hb 10.7, MCV 81.6, MCHC 34.0, platelet 278 (08/01/2024, 6:17am). U/A: LE-, nitrite- (07/31/2024, 5:39pm). Urine culture (07/31/2024, 5:39pm): > 3 organisms. Urine culture (07/29/2024, 2:37pm): ciprofloxacin-resistant, levofloxacin- resistant, unasyn-resistant, cefuroxime-resistant Providencia stuartii Urine culture (05/31/2024, 3:00pm): ciprofloxacin-resistant, levofloxacin- resistant, unasyn-resistant, cefuroxime-resistant Providencia stuartii Urine culture (05/31/2024, 3:00pm): ciprofloxacin-resistant, levofloxacin- resistant, unasyn-resistant, bactrim-resistant E. coli Urine culture (03/18/2024, 12:00pm): ciprofloxacin-resistant, levofloxacin- resistant, unasyn-resistant, bactrim-resistant E. coli Blood culture #1 (07/31/2024, 5:30pm): Blood culture #2 (07/31/2024, 5:44pm): Lactic acid #1 2.9 mmol/L (07/31/2024, 5:37pm). Lactic acid #2 2.2 mmol/L (07/31/2024, 7:36pm). Lactic acid #3 1.1 mmol/L (08/01/2024, 11:22am). Procalcitonin #1 0.15 ng/mL (07/31/2024, 4:20pm). Procalcitonin #2 0.25 ng/mL (08/01/2024, 8:15am). MRSA nares- (07/31/2024, 11:25pm). Na 129, BUN/creatinine 34/2.50, GFR 27.99 (07/31/2024, 4:20pm). Na 130, BUN/creatinine 34/2.74, GFR 25.07 (08/01/2024, 6:17am). K 3.7 mmol/L (07/31/2024, 4:20pm). K 3.4 mmol/L (08/01/2024, 7:25am). Ca 8.5, albumin 3.6, Ca corrected 8.8 mg/dL (07/31/2024, 4:20pm). Ca 7.9, albumin 3.3, Ca corrected 8.5 mg/dL (08/01/2024, 7:25am). Mg 1.5 mg/dL (08/01/2024, 7:25am). glucose 57, anion gap 14, CO2 25 (07/31/2024, 4:20pm). glucose 74, anion gap 10, CO2 27 (08/01/2024, 6:17am). HbA1c 8.1% (08/01/2024, 6:17am). AST 14, ALT 9, ALK PHOS 108 (07/31/2024, 4:20pm). TSH 5.171 uIU/mL (03/05/2024, 4:00am). Diagnostic Findings CT abd/pelvis without IV contrast (07/31/2024, 4:41pm): 1. Large amounts of stool and gas in the redundant colon most notable in the rectum with rectosigmoid colitis. Consider infectious and stercoral colitis. 2. No perforation or abscess. No small bowel obstruction. 3. Subcutaneous edema in the right flank and upper thigh cannot be adequately compared to the prior exam where some was seen in the flank. Portable CXR (07/31/2024, 6:57pm): 1. No infiltrate, effusion, cardiomegaly, pulmonary vascular congestion, or pneumothorax (by my review). KUB (08/01/2024, 4:48am): 1. Dilated large bowel loops measuring up to 14 cm in maximum caliber, suspecting possible obstruction, stable. 2. Suspected dilated small bowel loops, mildly increased. 3. Further evaluation with CT is recommended is advised. CT abd/pelvis without IV contrast (08/01/2024, 6:29am): 1. Possible pneumatosis intetestinalis noted along the ascending colon, raises the possibility of ischemic colitis, post contrast CT is needed correlation is needed. 2. Acute large bowel obstruction by fecaloma at the rectum and distal sigmoid colon measuring 22 cm in length and 9 cm in diameter. 3. Mild proctocolitis. 4. No signs of perforation. 5. Cholelithiasis. The US may be needed for confirmation. 6. No time interval changes from 07/31/2024, 4:41pm CT abd/pelvis without IV contrast. ECG Additional Comments: EKG (07/31/2024, 10:22pm): NSR @ 79, AL 170, QTC 522; LAFB; RBBB; LVH; PVC+; no acute ST elevations/depressions (by my review). EKG (07/02/2021, 3:36pm): sinus tach @ 125, AL 158, QTC 447, LAFB, RBBB, LVH; no PVC; no acute ST elevations/depressions (by my review). TTE (07/03/2021, 11:06am): 1. LV EF 55-60%. LV wall motion normal. 2. RV not well visualized. 3. LA / RA not well visualized. 4. AV not well visualized. No significant AR. 5. PV not well visualized. 6. MV gross normal. No significant MR. 7. TV not well visualized. 8. No pericardial effusion. (as per CARDS Dr. Joe Devi). PG Care Time/CCT Total # of Minutes Spent Total Time Spent with Patient: Total time spent is greater than 50% in coordination of care (as documented) at patient's floor/unit and/or counseling patient: Coding Level of Care Code 92024 SUB INP/OBS CARE 3/50MIN Diagnoses Sepsis with acute renal failure without septic shock, due to unspecified organism, unspecified acute renal failure type A41.9; R65.20; N17.9 Acute renal failure type: unspecified Sepsis acute organ dysfunction status: with acute organ dysfunction Sepsis type: sepsis due to unspecified organism Severe sepsis acute organ dysfunction type: acute renal failure Severe sepsis shock status: without septic shock Acute UTI (urinary tract infection) N39.0 Stercoral colitis K52.89 Acute renal failure N17.9 Chronic indwelling Brown catheter Z97.8 Uncontrolled type 2 diabetes mellitus with hyperglycemia E11.65 Glycemic state: with hyperglycemia Acquired hypothyroidism E03.9 Hypothyroidism type: acquired Morbid obesity with BMI of 50.0-59.9, adult E66.01; Z68.43 Hypokalemia E87.6 Hypomagnesemia E83.42 Hypocalcemia E83.51 DVT prophylaxis Z29.9 Pain management R52 Status post below-knee amputation of left lower extremity Z89.512 Normocytic normochromic anemia D64.9 Chronic hyponatremia E87.1 DNR (do not resuscitate) discussion Z71.89 (1) Sepsis Acute renal failure type: unspecified Sepsis acute organ dysfunction status: with acute organ dysfunction Sepsis type: sepsis due to unspecified organism Severe sepsis acute organ dysfunction type: acute renal failure Severe sepsis shock status: without septic shock Qualified Code(s): A41.9 - Sepsis, unspecified organism; R65.20 - Severe sepsis without septic shock; N17.9 - Acute kidney failure, unspecified (6) DM w/o complication type II, uncontrolled Glycemic state: with hyperglycemia Qualified Code(s): E11.65 - Type 2 diabetes mellitus with hyperglycemia (7) Hypothyroidism Hypothyroidism type: acquired Qualified Code(s): E03.9 - Hypothyroidism, unspecified
--- NOTE | 2024-08-01 17:33 | Electrocardiogram Report ---
Test Reason : Blood Pressure : */* mmHG Vent. Rate : 79 BPM Atrial Rate : 79 BPM P-R Int : 170 ms QRS Dur : 150 ms QT Int : 456 ms P-R-T Axes : 49 -56 89 degrees QTcB Int : 522 ms Sinus rhythm with frequent Premature ventricular complexes Right bundle branch block Left anterior fascicular block Bifascicular block Left ventricular hypertrophy with repolarization abnormality Abnormal ECG When compared with ECG of 31-Jul-2024 22:22, (unconfirmed) Premature ventricular complexes are now Present Confirmed by Ledy Mello ([place]) on 08/01/2024 5:33:02 PM Referred By: [facility] Confirmed By: Ledy Mello
[2024-08-01] MEDS: LANTUS PER UNIT CHARGE SC SCH ×2 (17:41→20:43)
[2024-08-01] MEDS: MAGNESIUM CITRATE 296 ML/BTL PO STA (17:46)
[2024-08-01] MEDS: ONDANSETRON INJ 2 MG/ML 2 ML VIAL IV PRN (19:33)
[2024-08-01] MEDS: POTASSIUM CHLORIDE CRTAB 20 MEQ TABCR PO SCH (20:44)
[2024-08-01] MEDS: PANTOprazole 40 MG TAB PO SCH (23:05)
[2024-08-02 06:37] LABS: Basophils # (auto) 0.05 K/uL (0.00-0.20); Basophils % (auto) 0.5 %; Eosinophils # (auto) 0.23 K/uL (0.00-0.50); Eosinophils % (auto) 2.3 %; Hematocrit (blood only) 32.6 % (42.0-52.0); Hemoglobin 11.2 g/dl (14.0-18.0); Immature Granulocytes # (auto) 0.03 K/uL (0.01-0.20); Immature Granulocytes % (auto) 0.3 %; Lymphocytes # (auto) 1.05 K/uL (1.20-3.40); Lymphocytes % (auto) 10.4 %; Mean Corpuscular Hemoglobin 27.9 pg (25.0-34.0); Mean Corpuscular Hgb Conc 34.4 g/dL (32.0-36.0); Mean Corpuscular Volume 81.3 fL (80.0-100.0); Mean Platelet Volume 11.1 fL (9.4-12.4); Monocytes # (auto) 0.91 K/uL (0.11-0.59); Neutrophils # (auto) 7.83 K/uL (1.40-6.50); Neutrophils % (auto) 77.5 %; Platelet Count 270 K/uL (130-400); RDW Standard Deviation 47.7 fL (36.4-46.3); Red Blood Count 4.01 M/uL (4.70-6.10)
[2024-08-02 07:09] LABS: BUN Creatinine Ratio 12.1 (10-20); Calcium 8.1 mg/dl (8.6-10.3); Creatinine Clr Calc Pharmacy 46.4 ml/min; Potassium 3.6 mmol/L (3.5-5.1)
--- NOTE | 2024-08-02 07:17 | Hospitalist Progress Note ---
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 prerenal likely ATN, hold bumex 2mg PO bid, and treat sepsis chronic hyponatremia, chronic inflammatory anemia , concern if abd compartment syndrome affecting renal function Etiology of CKD stage III is probably due to a combination of patient's HTN and insulin-dependent DM2. (3) DM w/o complication type II, uncontrolled: Plan: Long-term glycemic control is poor with HbA1c 8.1% (08/01/2024, 6:17am). 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 (4) Atrial flutter: Plan: currently in NSR continues on metoprolol and anticoagulated with Eliquis Plan chronic stable, hypothyroidism, continue synthroid Chronic morbid obesity with BMI of 49 dvt prevention is eliquis DNR Admission and Anticipated Discharge Date Admission Date: July 31, 2024 Subjective pt still significantly distended bowel sounds are present more tenderness right sided, tympanitic Physical Exam Physical Exam: pt is awake and alert, distended abd, tympanitic, rectal soft stool in vault, no stool ball held Results & Data Results & Data Vital Signs (Past 12 Hours) Vital Signs Temp Pulse Pulse Resp BP BP Pulse Ox 08/02/24 03:29 97.9 F 58 L 18 163/79 H 96 08/01/24 23:31 98.1 F 59 L 16 149/75 H 95 08/01/24 21:58 62 08/01/24 19:13 97.7 F 66 18 144/68 H 93 O2 Del Method 08/02/24 03:29 Room Air 08/01/24 23:31 Room Air 08/01/24 21:58 08/01/24 19:13 Room Air Laboratory Results review cbc review chemistry, low sodium jennifer remains PG Care Time/CCT Total # of Minutes Spent Total Time Spent with Patient: Total time spent is greater than 50% in coordination of care (as documented) at patient's floor/unit and/or counseling patient: Coding Level of Care Code 77688 SUB INP/OBS CARE 3/50MIN Diagnoses Sepsis with acute renal failure without septic shock, due to unspecified organism, unspecified acute renal failure type A41.9; R65.20; N17.9 Acute renal failure type: unspecified Sepsis acute organ dysfunction status: with acute organ dysfunction Sepsis type: sepsis due to unspecified organism Severe sepsis acute organ dysfunction type: acute renal failure Severe sepsis shock status: without septic shock Acute renal failure N17.9 Uncontrolled type 2 diabetes mellitus with hyperglycemia E11.65 Glycemic state: with hyperglycemia Atrial flutter, unspecified type I48.92 Atrial flutter type: unspecified (1) Sepsis Acute renal failure type: unspecified Sepsis acute organ dysfunction status: with acute organ dysfunction Sepsis type: sepsis due to unspecified organism Severe sepsis acute organ dysfunction type: acute renal failure Severe sepsis shock status: without septic shock Qualified Code(s): A41.9 - Sepsis, unspecified organism; R65.20 - Severe sepsis without septic shock; N17.9 - Acute kidney failure, unspecified (3) DM w/o complication type II, uncontrolled Glycemic state: with hyperglycemia Qualified Code(s): E11.65 - Type 2 diabetes mellitus with hyperglycemia (4) Atrial flutter Atrial flutter type: unspecified Qualified Code(s): I48.92 - Unspecified atrial flutter
--- NOTE | 2024-08-02 09:32 | Gastrointestinal Consultation ---
<Statement entered by Nate Castillo MD - 08/02/24 14:13> Patient seen and examined. Case discussed with Faisal MUSE. Agree with aggressively treating constipation. Would recommend a Gastrografin enema which could be therapeutic but apparently not available at this facility. Date of Consultation August 02, 2024 Assessment & Plan (1) Obstipation: Plan Patient admitted with abdominal pain in the setting of significant stool retention. he has started to see some improvement with doing mag citrate and tap water enemas. I discussed the case with Dr. Castillo who also saw and examined the patient and advised on plan. - recommend setting the patient up for a Gastrografin barium enema as this will likely be therapeutic. - continue with miralax 17gm daily. History of Present Illness Reason for Consultation: stercoral colitis Requesting Physician: Jaden Garcia MD Attending Physician: Justino Guerra MD History of Present Illness Patient is a 64 year old male who presented to the ED on 07/31 from [facility] with complaints of abdominal pain that had been ongoing for 3-4 days prior. symptoms mostly lower abdominal in nature, but could be diffuse. Also associated with nausea and vomiting. He had CT imaging suggesting stercoral colitis and large stool. He was admitted but did not see improvement with symptoms in starting dulcolax, senna, and miralax. He was then recommended to trial mag citrate and tap water enemas and had seen some results with this. He admits symptoms have improved somewhat since admission though still feels uncomfortable in his stomach and feels distended. Allergies Allergy/AdvReac Type Severity Reaction Status Date / Time Penicillins Allergy Severe HIVES, RED Verified 04/06/24 14:52 RASH A CHILD ferrous sulfate AdvReac Intermediate Gastrointestinal Verified 04/06/24 14:52 Upset fluticasone [From Flonase] AdvReac Intermediate FELT FUNNY Verified 04/06/24 14:52 IN THE HEAD Home Medications Medication Instructions Recorded Confirmed Type blood-glucose meter #1 ea 01/30/21 06/28/21 Rx atorvastatin 80 mg tablet 80 mg PO QDD 03/30/21 07/31/24 History pantoprazole 40 mg tablet,delayed 40 mg PO DAILYBB 03/30/21 07/31/24 History release blood sugar diagnostic (OneTouch #100 ea 05/16/21 06/28/21 Rx Verio test strips) apixaban 5 mg tablet (Eliquis) 5 mg PO BID #60 tabs 06/15/21 07/31/24 Rx metoprolol tartrate 100 mg tablet 100 mg PO BID #60 tabs 06/15/21 07/31/24 Rx acetaminophen 650 mg 650 mg PO Q6H PRN Pain 10/07/23 07/31/24 History tablet,extended release ondansetron HCl 4 mg tablet 4 mg PO Q6H PRN Nausea 10/07/23 07/31/24 History phenazopyridine 200 mg tablet 200 mg PO Q8H PRN pain #10 tabs 10/13/23 07/31/24 Rx (Pyridium) sennosides 8.6 mg-docusate sodium 1 tab PO BID 10/13/23 07/31/24 History 50 mg tablet (Senokot-S) bisacodyl 10 mg rectal suppository 10 mg LA DAILY PRN Constipation 07/31/24 07/31/24 History (Dulcolax (bisacodyl)) bumetanide 2 mg tablet 2 mg PO BID 07/31/24 07/31/24 History bupropion HCl 150 mg tablet,12 hr 150 mg PO BID 07/31/24 07/31/24 History sustained-release gabapentin 100 mg capsule 200 mg PO TID 07/31/24 07/31/24 History hydrocodone 5 mg-acetaminophen 325 1 tab PO Q6H PRN Pain 5-10 07/31/24 07/31/24 History mg tablet insulin glargine 100 unit/mL 100 unit subcut BID 07/31/24 07/31/24 History subcutaneous solution (Lantus U-100 Insulin) insulin lispro 100 unit/mL 25 unit subcut AC 07/31/24 07/31/24 History subcutaneous solution (Humalog U-100 Insulin) insulin lispro 100 unit/mL See Rx Instructions .Route .COMPLEX 07/31/24 07/31/24 History subcutaneous solution (Humalog U-100 Insulin) levothyroxine 175 mcg tablet 175 mcg PO DAILYBB 07/31/24 07/31/24 History magnesium hydroxide 400 mg/5 mL 30 ml PO DAILY PRN Constipation 07/31/24 07/31/24 History oral suspension metformin 500 mg tablet,extended 1,000 mg PO BID 07/31/24 07/31/24 History release 24 hr methyl salicylate 15 %-menthol 10 1 applic topical QID PRN Left 07/31/24 07/31/24 History % topical cream shoulder and knee pain qusepyyvlyac-mqxlwmxe-vknzrz 1 tab PO DAILY 07/31/24 07/31/24 History tablet (Multivitamin 50 Plus tablet) nitrofurantoin 100 mg PO BID 07/31/24 07/31/24 History monohydrate/macrocrystals 100 mg capsule oxybutynin chloride 5 mg 5 mg PO DAILY 07/31/24 07/31/24 History tablet,extended release 24 hr polyethylene glycol 3350 17 gram 17 g PO DAILY 07/31/24 07/31/24 History oral powder packet (Miralax) sodium phosphates 19 gram-7 118 ml LA DAILY PRN Constipation 07/31/24 07/31/24 History gram/118 mL enema (Fleet Enema) Patient History Medical History Osteomyelitis of foot, acute DJD (degenerative joint disease) Bifascicular block ongoing since 2020 Hx of osteomyelitis 06/2021 s/p left BKA Hx of sepsis 06/2021 per records Hx of gas gangrene Hx of pyelonephritis [place] catheter in place Hypothyroidism intermediate resident resident of [facility] Hyperlipidemia Atrial fibrillation Cognitive communication deficit Muscle weakness (generalized) Other reduced mobility Neuromuscular dysfunction of bladder History of COVID-19 05/05/22 Pressure ulcer of right buttock Morbid obesity due to excess calories Major depression CKD (chronic kidney disease), stage III Peripheral vascular disease Diabetic neuropathy History of atrial flutter Constipation Surgical History History of amputation of toe Presence of urogenital implants Hx of below knee amputation left Hx of tonsillectomy Family History Mother Diabetes Heart disease Father Heart disease Other No pertinent family history in first degree relatives Denies family history of Ovarian cancer Prostate cancer Myocardial infarction Breast cancer Colorectal cancer Social History Smoking Status: Former smoker Tobacco Type: Cigarettes Cigarettes Per Day: 4-5; Second Hand Exposure: Yes; Do You Dip or Chew Tobacco: No; Hx Alcohol Use: Yes Alcohol type: beer Hx Substance Use: No Preferred Language: Turkmen Communication Ability: Effective Visual Impairment: Limited Hearing Ability: Normal [employer] Required: No Beliefs That Will Affect Care: None marital status: Life Partner Current Living Situation: [facility] Current Living Situation Comment: [facility] current occupational status: disabled Other Information That Helps Us Care for You: No Feels Safe at Home: Yes Safety Concerns: Feels Safe At This Time Diet: low salt Assistive Devices: Mechanical Lift Review of Systems Review of Systems: All systems reviewed & are unremarkable except as noted in HPI & below Physical Exam Constitutional: WD/WN, vitals as above Respiratory: normal respiratory effort, lungs clear to auscultation Cardiovascular: Rate/Rhythm: regular rate and regular rhythm Gastrointestinal (Abdomen): abdomen distended, mild diffuse tenderness, no guarding, normal bowel sounds. Psychiatric: Orientation: alert and oriented x 3 Affect: euthymic affect Results & Data Vital Signs (Past 12 Hours) Vital Signs Temp Pulse Pulse Resp BP Pulse Ox O2 Del Method 08/02/24 07:59 98.1 F 66 16 151/75 H 94 Room Air 08/02/24 07:56 Room Air 08/02/24 03:29 97.9 F 58 L 18 163/79 H 96 Room Air 08/01/24 23:31 98.1 F 59 L 16 149/75 H 95 Room Air 08/01/24 21:58 62 Coding Level of Care Code 66728 INT INP/OBS CARE 2/55MIN Diagnoses Obstipation K59.00
--- NOTE | 2024-08-02 14:12 | Surgery Progress Note ---
Date of Service August 02, 2024 Assessment & Plan (1) Stercoral colitis: Plan: Would recommend possible colonoscopic lavage vs barium enema to help with the significant stercoral impaction. avoid oral bowel prep given colonic distention and significant impaction No acute surgical intervention recommended continue medical management Dr. Chamberlain has seen and examined patient. Admission and Anticipated Discharge Date Admission Date: July 31, 2024 Subjective feeling slightly better this am did fleet enema last night and had some stool output has never had a colonoscopy no n,v tolerating liquids Physical Exam Constitutional: + morbidly obese, cooperative and comfor table; no acute distress and not ill appearing Respiratory: normal respiratory effort; no respiratory distress Gastrointestinal (Abdomen): Inspection/Auscultation: abdomen normal to inspection and + abdomen distended (moderately distended) Percussion/Palpation: + abdomen tender (generalized ) and abdomen soft; no guarding, abdomen not rigid and abdomen not firm Skin: no rashes, warm and dry Psychiatric: Orientation: alert and oriented x 3 Results & Data Vital Signs (Past 12 Hours) Vital Signs Temp Pulse Pulse Resp BP Pulse Ox O2 Del Method 08/02/24 10:05 67 08/02/24 07:59 36.7 C 66 16 151/75 H 94 Room Air 08/02/24 07:56 Room Air 08/02/24 03:29 36.6 C 58 L 18 163/79 H 96 Room Air Laboratory Results 08/02/24 08/02/24 08/02/24 Range/Units 12:09 08:18 06:15 WBC 10.10 (4.8-10.8) K/ul RBC 4.01 L (4.70-6.10) M/uL Hgb 11.2 L (14.0-18.0) g/dl Hct 32.6 L (42.0-52.0) % MCV 81.3 (80.0-100.0) fL MCH 27.9 (25.0-34.0) pg MCHC 34.4 (32.0-36.0) g/dL RDW Std Deviation 47.7 H (36.4-46.3) fL RDW Coeff of Adi 16.0 H (11.5-14.5) % Plt Count 270 (130-400) K/uL MPV 11.1 (9.4-12.4) fL Immature Gran % (Auto) 0.3 % Neut % (Auto) 77.5 % Lymph % (Auto) 10.4 % Bath % (Auto) 9.0 % Eos % (Auto) 2.3 % Baso % (Auto) 0.5 % Neut # (Auto) 7.83 H (1.40-6.50) K/uL Lymph # (Auto) 1.05 L (1.20-3.40) K/uL Bath # (Auto) 0.91 H (0.11-0.59) K/uL Eos # (Auto) 0.23 (0.00-0.50) K/uL Baso # (Auto) 0.05 (0.00-0.20) K/uL Immature Gran # (Auto) 0.03 (0.01-0.20) K/uL Sodium 129 L (136-145) mmol/L Potassium 3.6 (3.5-5.1) mmol/L Chloride 94 L (98-107) mmol/L Carbon Dioxide 25 (21-32) mmol/L Anion Gap 10 (3-11) BUN 33 H (6-23) mg/dl Creatinine 2.72 H (0.6-1.4) mg/dl Est Cr Clr Drug Dosing 46.4 ml/min eGFR 25.29 BUN/Creatinine Ratio 12.1 (10-20) Glucose 175 H (70-99(Fasting)) mg/dl POC Glucose 199 H 170 H (70-99) mg/dl Lactate 1.1 (0.4-2.0) mmol/L Calcium 8.1 L (8.6-10.3) mg/dl Procalcitonin 0.23 (0-0.5) ng/ml 08/01/24 08/01/24 Range/Units 20:20 17:24 WBC (4.8-10.8) K/ul RBC (4.70-6.10) M/uL Hgb (14.0-18.0) g/dl Hct (42.0-52.0) % MCV (80.0-100.0) fL MCH (25.0-34.0) pg MCHC (32.0-36.0) g/dL RDW Std Deviation (36.4-46.3) fL RDW Coeff of Adi (11.5-14.5) % Plt Count (130-400) K/uL MPV (9.4-12.4) fL Immature Gran % (Auto) % Neut % (Auto) % Lymph % (Auto) % Bath % (Auto) % Eos % (Auto) % Baso % (Auto) % Neut # (Auto) (1.40-6.50) K/uL Lymph # (Auto) (1.20-3.40) K/uL Bath # (Auto) (0.11-0.59) K/uL Eos # (Auto) (0.00-0.50) K/uL Baso # (Auto) (0.00-0.20) K/uL Immature Gran # (Auto) (0.01-0.20) K/uL Sodium (136-145) mmol/L Potassium (3.5-5.1) mmol/L Chloride (98-107) mmol/L Carbon Dioxide (21-32) mmol/L Anion Gap (3-11) BUN (6-23) mg/dl Creatinine (0.6-1.4) mg/dl Est Cr Clr Drug Dosing ml/min eGFR BUN/Creatinine Ratio (10-20) Glucose (70-99(Fasting)) mg/dl POC Glucose 179 H 126 H (70-99) mg/dl Lactate (0.4-2.0) mmol/L Calcium (8.6-10.3) mg/dl Procalcitonin (0-0.5) ng/ml
[2024-08-02] MEDS: POLYETHYLENE (MIRALAX) 17 GM PACK PO SCH (15:16)
[2024-08-02] MEDS: bisacodyL 10 MG SUPP PR SCH (21:42)
--- NOTE | 2024-08-03 05:52 | Surgery Progress Note ---
Date of Service August 03, 2024 Assessment & Plan (1) Stercoral colitis: Plan: he seems to be improving, and had good results with soapsuds enema would continue with aggressive regimen of enemas Would recommend possible colonoscopic lavage vs barium enema to help with the significant stercoral impaction. avoid oral bowel prep given colonic distention and significant impaction No acute surgical intervention recommended continue medical management Admission and Anticipated Discharge Date Admission Date: July 31, 2024 Subjective Feeling somewhat improved. Is passing some flatus. Had soapsuds enema with large amount of stool return last evening. No fevers or chills. No nausea or vomiting. Physical Exam Physical Exam: NAD, A&O x 3 AFVSS NCAT Abdomen: Soft, distended Minimal tenderness to palpation diffusely Results & Data Vital Signs (Past 12 Hours) Vital Signs Temp Pulse Pulse Resp BP BP Pulse Ox 08/03/24 03:56 36.6 C 58 L 18 151/73 H 96 08/02/24 23:56 08/02/24 23:37 35.9 C L 57 L 18 127/64 93 08/02/24 22:25 62 08/02/24 19:50 36.5 C 67 14 147/74 H 95 08/02/24 17:58 62 O2 Del Method 08/03/24 03:56 Room Air 08/02/24 23:56 Room Air 08/02/24 23:37 Room Air 08/02/24 22:25 08/02/24 19:50 Room Air 08/02/24 17:58 Laboratory Results 08/02/24 08/02/24 08/02/24 Range/Units 20:07 17:03 12:09 WBC (4.8-10.8) K/ul RBC (4.70-6.10) M/uL Hgb (14.0-18.0) g/dl Hct (42.0-52.0) % MCV (80.0-100.0) fL MCH (25.0-34.0) pg MCHC (32.0-36.0) g/dL RDW Std Deviation (36.4-46.3) fL RDW Coeff of Adi (11.5-14.5) % Plt Count (130-400) K/uL MPV (9.4-12.4) fL Immature Gran % (Auto) % Neut % (Auto) % Lymph % (Auto) % Mclean % (Auto) % Eos % (Auto) % Baso % (Auto) % Neut # (Auto) (1.40-6.50) K/uL Lymph # (Auto) (1.20-3.40) K/uL Mclean # (Auto) (0.11-0.59) K/uL Eos # (Auto) (0.00-0.50) K/uL Baso # (Auto) (0.00-0.20) K/uL Immature Gran # (Auto) (0.01-0.20) K/uL Sodium (136-145) mmol/L Potassium (3.5-5.1) mmol/L Chloride (98-107) mmol/L Carbon Dioxide (21-32) mmol/L Anion Gap (3-11) BUN (6-23) mg/dl Creatinine (0.6-1.4) mg/dl Est Cr Clr Drug Dosing ml/min eGFR BUN/Creatinine Ratio (10-20) Glucose (70-99(Fasting)) mg/dl POC Glucose 155 H 183 H 199 H (70-99) mg/dl Lactate (0.4-2.0) mmol/L Calcium (8.6-10.3) mg/dl Procalcitonin (0-0.5) ng/ml 08/02/24 08/02/24 Range/Units 08:18 06:15 WBC 10.10 (4.8-10.8) K/ul RBC 4.01 L (4.70-6.10) M/uL Hgb 11.2 L (14.0-18.0) g/dl Hct 32.6 L (42.0-52.0) % MCV 81.3 (80.0-100.0) fL MCH 27.9 (25.0-34.0) pg MCHC 34.4 (32.0-36.0) g/dL RDW Std Deviation 47.7 H (36.4-46.3) fL RDW Coeff of Adi 16.0 H (11.5-14.5) % Plt Count 270 (130-400) K/uL MPV 11.1 (9.4-12.4) fL Immature Gran % (Auto) 0.3 % Neut % (Auto) 77.5 % Lymph % (Auto) 10.4 % Mclean % (Auto) 9.0 % Eos % (Auto) 2.3 % Baso % (Auto) 0.5 % Neut # (Auto) 7.83 H (1.40-6.50) K/uL Lymph # (Auto) 1.05 L (1.20-3.40) K/uL Mclean # (Auto) 0.91 H (0.11-0.59) K/uL Eos # (Auto) 0.23 (0.00-0.50) K/uL Baso # (Auto) 0.05 (0.00-0.20) K/uL Immature Gran # (Auto) 0.03 (0.01-0.20) K/uL Sodium 129 L (136-145) mmol/L Potassium 3.6 (3.5-5.1) mmol/L Chloride 94 L (98-107) mmol/L Carbon Dioxide 25 (21-32) mmol/L Anion Gap 10 (3-11) BUN 33 H (6-23) mg/dl Creatinine 2.72 H (0.6-1.4) mg/dl Est Cr Clr Drug Dosing 46.4 ml/min eGFR 25.29 BUN/Creatinine Ratio 12.1 (10-20) Glucose 175 H (70-99(Fasting)) mg/dl POC Glucose 170 H (70-99) mg/dl Lactate 1.1 (0.4-2.0) mmol/L Calcium 8.1 L (8.6-10.3) mg/dl Procalcitonin 0.23 (0-0.5) ng/ml
--- NOTE | 2024-08-03 07:16 | Hospitalist Progress Note ---
Date of Service August 03, 2024 Assessment & Plan (1) Sepsis: Plan: Etiology of sepsis, acute catheter-associated UTI and stercoral colitis with obstipation Urine culture (07/29/2024, Providencia stuartii which is recurrent from may [address] abd/pelvis without IV contrast (07/31/2024, 4:41pm) revealing "large amounts of stool and gas in the redundant colon most notable in the rectum with rectosigmoid colitis." ceftriaxone 2g IV daily LD 08/07/2024 brown catheter was last changed at [facility] 06/13/2024, urology consultation advised to keep brown at this time and exchange once Constipation resolved and infection treated Severe Constipation, did have rectal disimpaction 08/02, multiple cathartic agents and enemas. Re eval by [facility] on 08/03 (2) Acute renal failure: Plan: Acute kidney injury on CKD stage III with baseline creatinine range, 1.25 - 1.37 (07/11/2021 - 02/26/2024). prerenal likely ATN, hold bumex 2mg PO bid, and treat sepsis persists with slight improvement, will have 500 nss on 08/03/24 chronic hyponatremia,now 130, seems dehydrated, given ivf chronic inflammatory anemia , concern if abd compartment syndrome affecting renal function Etiology of CKD stage III is probably due to a combination of patient's HTN and insulin-dependent DM2. (3) DM w/o complication type II, uncontrolled: Plan: Long-term glycemic control is poor with HbA1c 8.1% (08/01/2024, 6:17am). 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 (4) Atrial flutter: Plan: currently in NSR continues on metoprolol and anticoagulated with Eliquis Plan chronic stable, hypothyroidism, continue synthroid Chronic morbid obesity with BMI of 49 dvt prevention is eliquis DNR Admission and Anticipated Discharge Date Admission Date: July 31, 2024 Subjective Mr Mahan did have some bowel movements however the KUB looks unchanged and exam is not appreciably improved, will continue Physical Exam Physical Exam: abd is quiet, distended, tender Results & Data Results & Data Vital Signs (Past 12 Hours) Vital Signs Temp Pulse Pulse Resp BP BP Pulse Ox 08/03/24 07:11 58 L 08/03/24 03:56 97.9 F 58 L 18 151/73 H 96 08/02/24 23:56 08/02/24 23:37 96.6 F L 57 L 18 127/64 93 08/02/24 22:25 62 08/02/24 19:50 97.7 F 67 14 147/74 H 95 O2 Del Method 08/03/24 07:11 08/03/24 03:56 Room Air 08/02/24 23:56 Room Air 08/02/24 23:37 Room Air 08/02/24 22:25 08/02/24 19:50 Room Air Laboratory Results reviewed chemistry PG Care Time/CCT Total # of Minutes Spent Total Time Spent with Patient: Total time spent is greater than 50% in coordination of care (as documented) at patient's floor/unit and/or counseling patient: Coding Level of Care Code 88184 SUB INP/OBS CARE 3/50MIN Diagnoses Sepsis with acute renal failure without septic shock, due to unspecified organism, unspecified acute renal failure type A41.9; R65.20; N17.9 Acute renal failure type: unspecified Sepsis acute organ dysfunction status: with acute organ dysfunction Sepsis type: sepsis due to unspecified organism Severe sepsis acute organ dysfunction type: acute renal failure Severe sepsis shock status: without septic shock Acute renal failure N17.9 Uncontrolled type 2 diabetes mellitus with hyperglycemia E11.65 Glycemic state: with hyperglycemia Atrial flutter, unspecified type I48.92 Atrial flutter type: unspecified (1) Sepsis Acute renal failure type: unspecified Sepsis acute organ dysfunction status: with acute organ dysfunction Sepsis type: sepsis due to unspecified organism Severe sepsis acute organ dysfunction type: acute renal failure Severe sepsis shock status: without septic shock Qualified Code(s): A41.9 - Sepsis, unspecified organism; R65.20 - Severe sepsis without septic shock; N17.9 - Acute kidney failure, unspecified (3) DM w/o complication type II, uncontrolled Glycemic state: with hyperglycemia Qualified Code(s): E11.65 - Type 2 diabetes mellitus with hyperglycemia (4) Atrial flutter Atrial flutter type: unspecified Qualified Code(s): I48.92 - Unspecified atrial flutter
[2024-08-03 07:37] LABS: BUN Creatinine Ratio 12.6 (10-20); Calcium 8.3 mg/dl (8.6-10.3); Potassium 3.8 mmol/L (3.5-5.1)
[2024-08-03] MEDS: SODIUM CHLORIDE 0.9% 500 ML IV SCH (08:23)
[2024-08-03] MEDS: LANTUS PER UNIT CHARGE SC SCH (09:00)
--- NOTE | 2024-08-03 09:42 | Gastroenterology Progress Note ---
<Statement entered by Nate Castillo MD - 08/03/24 13:43> Patient seen and examined. Case discussed with Faisal MUSE. Patient improved and had large BMs. Imaging still shows significant fecal retention and dilated colon. Would continue bowel regimen and repeat Abd X-ray in the next 48 hrs or so. Nate Castillo MD Date of Service August 03, 2024 Assessment & Plan (1) Obstipation: Plan: He has been seeing improvement with current bowel regimen. - continue with miralax 17gm TID and dulcolax 5mg BID. - await KUB results. - further recommendations to follow, see append. Admission and Anticipated Discharge Date Admission Date: July 31, 2024 Subjective Patient was able to move bowels last evening. he tells me he is feeling better in regards to his stomach. feels less distended. his main complaint today is his diet. He is to have a KUB today to assess. Review of Systems Review of Systems: All systems reviewed & are unremarkable except as noted in HPI & below Physical Exam Constitutional: WD/WN, vitals as above Respiratory: normal respiratory effort, lungs clear to auscultation Cardiovascular: Rate/Rhythm: regular rate and regular rhythm Gastrointestinal (Abdomen): normal bowel sounds, soft, nontender, no hepatosplenomegaly Psychiatric: Orientation: alert and oriented x 3 Results & Data Results & Data Vital Signs (Past 12 Hours) Vital Signs Temp Pulse Pulse Resp BP BP Pulse Ox 08/03/24 07:38 97.7 F 62 18 142/80 H 94 08/03/24 07:11 58 L 08/03/24 03:56 97.9 F 58 L 18 151/73 H 96 08/02/24 23:56 08/02/24 23:37 96.6 F L 57 L 18 127/64 93 08/02/24 22:25 62 O2 Del Method 08/03/24 07:38 Room Air 08/03/24 07:11 08/03/24 03:56 Room Air 08/02/24 23:56 Room Air 08/02/24 23:37 Room Air 08/02/24 22:25 Coding Level of Care Code 72343 SUB INP/OBS CARE 10/23MIN Diagnoses Obstipation K59.00
--- NOTE | 2024-08-03 13:16 | XRay Report ---
KUB HISTORY: Acute generalized abdominal pain with constipation eval obstipation COMPARISON: CT 08/01/2024 FINDINGS: Limited exam secondary to patient body habitus. Prominent gaseous distention of the large b owel with unchanged moderate to extensive fecal retention. No evidence of a small bowel obstruction. Catheter overlies the midline. No renal calculi. No ureteral calculi. No pneumoperitoneum or pneumat osis. No fracture. IMPRESSION: Unchanged appearance of the constipation with probable colonic ileus. ACT 112: Negative or not required by law. The above report was generated using voice recognition software. It may contain grammatical, syntax o r spelling errors. Electronically signed by: Ajith Nelson M.D. 08/03/2024 1:15 PM
--- NOTE | 2024-08-03 14:18 | Pharmacy Report ---
Pharmacy Glycemic Short Note 2 - Date of Service August 03, 2024 - Glycemic Short BSG Results (Last 24 hours): 08/02/24 08/02/24 08/03/24 17:03 20:07 05:52 Glucose 157 H POC Glucose 183 H 155 H 08/03/24 08/03/24 08:15 12:36 Glucose POC Glucose 181 H 207 H OUTPATIENT ANTIDIABETIC REGIMEN: * Levemir 100 units BID * NovoLog 25 units TID * Metformin 1000mg PO BID * A1c 8.1% 08/01/24 ASSESSMENT: 08/03 * 96 units of insulin total were given yesterday (50 units were basal and 46 units were bolus). * The lantus scale that was ordered on 08/01 was continued through last evening, and he was receiving 25 units for each dose. His BSGs have been trending up (with many being > 180 mg/dL), and his fasting BSG this morning was 181mg/dL. The Lantus was increased to 30units BID starting this morning. His CHO ratio was also slightly tightened starting with dinner tonight. * MACARIO on CKD--Current SCr 2.62 (baseline 1.2-1.3) and continues on ceftriaxone for sepsis treatment. 08/01 * 64 yo M from [facility], presented to the ER with abdominal pain, sepsis, urinary vs. stercoral colitis as source, IV Flagyl + Ceftriaxone. * Surgical consultation, large bowel obstruction severe constipation severe impaction/obstipation of the bowel with significant dilation/distention of the colon and concerns for possibly worsening valve issues, medical management at this time, poor surgical candidate. * Morbid obese type 2 DM on 275 units of insulin per day as outpatient. Patient did take 100 units of Levemir yesterday morning prior to admission. Blood sugars 61-86mg/dl since admission w/o any insulin. Now up to 126mg/dl at lunchtime, patient refused his 3units of NovoLog coverage. Will begin basal at 50% reduced dose now. PLAN FOR INPATIENT GLYCEMIC CONTROL: * Hold outpatient oral diabetes medications * Basal insulin * Lantus 30 units SQ BID * Bolus insulin * NovoLog per scale ACHS or Q6hrs while NPO * Goal Range: Low 110 mg/dL - High 140 mg/dL * Correction Factor: 10 mg/dL/unit * Nutritional / Prandial insulin per carb ratio of 1 unit per 3.5 grams CHO consumed
[2024-08-03] MEDS: POLYETHYLENE (MIRALAX) 17 GM PACK PO SCH (17:41)
[2024-08-04] MEDS: buPROPion SR 150 MG TABCR PO SCH (08:01)
[2024-08-04 08:11] LABS: BUN Creatinine Ratio 11.8 (10-20); Bilirubin,Total 0.3 mg/dl (0.2-1.0); Calcium 8.5 mg/dl (8.6-10.3); Creatinine Clr Calc Pharmacy 54.7 ml/min; Phosphorus 3.1 mg/dl (2.5-4.9); Potassium 4.2 mmol/L (3.5-5.1)
--- NOTE | 2024-08-04 09:41 | Gastroenterology Progress Note ---
<Statement entered by Nate Castillo MD - 08/04/24 14:36> Patient seen and examined. Case discussed with Faisal MUSE. Improving with more bowel movements. Continue bowel regimen and repeat abdominal x-ray. Nate Castillo MD Date of Service August 04, 2024 Assessment & Plan (1) Obstipation: Plan He has been seeing continued improvement with current bowel regimen. He tells me has been moving bowels. - continue with miralax 17gm QID and dulcolax 5mg BID. - further recommendations to follow, see MD ellis. Admission and Anticipated Discharge Date Admission Date: July 31, 2024 Subjective Patient tells me he has continued to move his bowels. tolerating his diet without issues. no nausea, vomiting, abdominal pain. Review of Systems Review of Systems: All systems reviewed & are unremarkable except as noted in HPI & below Physical Exam Constitutional: WD/WN, vitals as above Respiratory: normal respiratory effort, lungs clear to auscultation Cardiovascular: Rate/Rhythm: regular rate and regular rhythm Gastrointestinal (Abdomen): normal bowel sounds, soft, nontender, no hepatosplenomegaly Psychiatric: Orientation: alert and oriented x 3 Affect: euthymic affect Results & Data Results & Data Vital Signs (Past 12 Hours) Vital Signs Temp Pulse Resp BP Pulse Ox O2 Del Method 08/04/24 03:56 97.7 F 55 L 20 133/71 97 Room Air 08/04/24 00:12 97.7 F 59 L 20 136/67 96 Room Air Coding Level of Care Code 46911 SUB INP/OBS CARE 1/25MIN Diagnoses Obstipation K59.00
--- NOTE | 2024-08-04 11:15 | Surgery Progress Note ---
Date of Service August 04, 2024 Assessment & Plan (1) Stercoral colitis: Plan: he seems to be improving, having bowel movements would continue with aggressive bowel regimen per GI recommendations No acute surgical intervention recommended continue medical management our services signing off Dr. Chamberlain has seen and examined patient. Admission and Anticipated Discharge Date Admission Date: July 31, 2024 Subjective feeling better abdomen does not feel as distended tolerating diet still having soft bowel movements Physical Exam Constitutional: WD/WN, vitals as above + morbidly obese, cooperative and comfortable; no acute distress and not ill appearing Gastrointestinal (Abdomen): Inspection/Auscultation: abdomen normal to inspection and + abdomen distended (moderate but improving) Percussion/Palpation: abdomen soft; abdomen nontender, no guarding and abdomen not rigid Skin: no rashes, warm and dry Psychiatric: Orientation: alert and oriented x 3 Results & Data Vital Signs (Past 12 Hours) Vital Signs Temp Pulse Resp BP Pulse Ox O2 Del Method 08/04/24 03:56 36.5 C 55 L 20 133/71 97 Room Air 08/04/24 00:12 36.5 C 59 L 20 136/67 96 Room Air
--- NOTE | 2024-08-04 16:48 | Hospitalist Progress Note ---
Date of Service August 04, 2024 Assessment & Plan (1) Sepsis: Plan: Etiology of sepsis, acute catheter-associated UTI and stercoral colitis with obstipation Urine culture (07/29/2024, Providencia stuartii which is recurrent from may [address] abd/pelvis without IV contrast (07/31/2024, 4:41pm) revealing "large amounts of stool and gas in the redundant colon most notable in the rectum with rectosigmoid colitis." ceftriaxone 2g IV daily LD 08/07/2024 brown catheter was last changed at [facility] 06/13/2024, urology consultation advised to keep brown at this time and exchange once Constipation resolved and infection treated Severe Constipation, did have rectal disimpaction 08/02, multiple cathartic agents and enemas. now with bowel movement will have diet advanced (2) Acute renal failure: Plan: Acute kidney injury on CKD stage III with baseline creatinine range, 1.25 - 1.37 prerenal likely ATN, hold bumex 2mg PO bid, and treat sepsis improvement, after ivf 08/03/24, not restarting lasix yet chronic hyponatremia,now 130, seems dehydrated, given ivf chronic inflammatory anemia , concern if abd compartment syndrome affecting renal function Etiology of CKD stage III is probably due to a combination of patient's HTN and insulin-dependent DM2. (3) DM w/o complication type II, uncontrolled: Plan: Long-term glycemic control is poor with HbA1c 8.1% (08/01/2024, 6:17am). 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 (4) Atrial flutter: Plan: currently in NSR continues on metoprolol and anticoagulated with Eliquis Plan chronic stable, hypothyroidism, continue synthroid Chronic morbid obesity with BMI of 49 dvt prevention is eliquis reduced wellbutrin dose as may cause constipation DNR Admission and Anticipated Discharge Date Admission Date: July 31, 2024 Subjective feeling better, did have soft bowel movements abdomen does not feel as distended, is not as tender tolerating diet-low fiber still having soft bowel movements Physical Exam Physical Exam: abd is quiet, distended, less tense and tender Results & Data Results & Data Vital Signs (Past 12 Hours) Vital Signs Temp Pulse Resp BP Pulse Ox O2 Del Method 08/04/24 15:46 98.2 F 63 18 146/68 H 97 Room Air Laboratory Results review chemisty PG Care Time/CCT Total # of Minutes Spent Total Time Spent with Patient: Total time spent is greater than 50% in coordination of care (as documented) at patient's floor/unit and/or counseling patient: Coding Level of Care Code 86737 SUB INP/OBS CARE 2/35MIN Diagnoses Sepsis with acute renal failure without septic shock, due to unspecified organism, unspecified acute renal failure type A41.9; R65.20; N17.9 Sepsis type: sepsis due to unspecified organism Sepsis acute organ dysfunction status: with acute organ dysfunction Severe sepsis acute organ dysfunction type: acute renal failure Acute renal failure type: unspecified Severe sepsis shock status: without septic shock Acute renal failure N17.9 Uncontrolled type 2 diabetes mellitus with hyperglycemia E11.65 Glycemic state: with hyperglycemia Atrial flutter, unspecified type I48.92 Atrial flutter type: unspecified (1) Sepsis Sepsis type: sepsis due to unspecified organism Sepsis acute organ dysfunction status: with acute organ dysfunction Severe sepsis acute organ dysfunction type: acute renal failure Acute renal failure type: unspecified Severe sepsis shock status: without septic shock Qualified Code(s): A41.9 - Sepsis, unspecified organism; R65.20 - Severe sepsis without septic shock; N17.9 - Acute kidney failure, unspecified (3) DM w/o complication type II, uncontrolled Glycemic state: with hyperglycemia Qualified Code(s): E11.65 - Type 2 diabetes mellitus with hyperglycemia (4) Atrial flutter Atrial flutter type: unspecified Qualified Code(s): I48.92 - Unspecified atrial flutter
[2024-08-05 06:32] LABS: Albumin Globulin Ratio 1.1 (0.9-2); Albumin Level 3.1 gm/dl (3.4-5.0); BUN Creatinine Ratio 10.3 (10-20); Bilirubin,Total 0.3 mg/dl (0.2-1.0); Calcium 8.6 mg/dl (8.6-10.3); Creatinine Clr Calc Pharmacy 55.5 ml/min; Globulin 2.9 gm/dl (2.5-4.0); Phosphorus 3.3 mg/dl (2.5-4.9); Potassium 3.9 mmol/L (3.5-5.1)
--- NOTE | 2024-08-05 09:46 | XRay Report ---
KUB CLINICAL HISTORY: assess stool burden COMPARISON STUDY: CT of the abdomen and pelvis August 01, 2024 and KUB August 03, 2024 FINDINGS: Villasenor catheter within the bladder is incidentally noted. Colonic dilatation is similar to p rior exam. A moderate amount of stool is present. The amount of stool has decreased since prior exami nation. IMPRESSION: 1. Moderate amount stool within the colon and rectum, decreased in amount since prior exam. 2. Persistent colonic dilatation, similar to prior exam. Continued radiographic follow-up is recommen ded. ACT 112: Negative or not required by law. Electronically signed by: Pako Gifford M.D. 08/05/2024 9:44 AM
--- NOTE | 2024-08-05 10:05 | Gastroenterology Progress Note ---
<Statement entered by Nate Castillo MD - 08/05/24 14:22> Patient seen and examined. Case discussed with ALMAZ Malone. Doing well on bowel regimen. Rec: Continue and repeat Abd series as OP in about a week. IP GI Service will sign off. Date of Service August 05, 2024 Assessment & Plan (1) Obstipation: Plan Patient has continued to move bowels with bowel regimen. discussed case with Dr. Castillo. - continue with miralax 17gm QID and dulcolax 5mg BID. - would recommend repeat KUB next week to make sure he is continuing to improve. Admission and Anticipated Discharge Date Admission Date: July 31, 2024 Subjective patient has had continued bowel movements on bowel regimen. he tells me that he feels better since he has passed more stool. no other GI concerns today. KUB 08/05 Moderate amount stool within the colon and rectum, decreased in amount since prior exam. Persistent colonic dilatation, similar to prior exam. Continued radiographic follow-up is recommended. Review of Systems Review of Systems: All systems reviewed & are unremarkable except as noted in HPI & below Physical Exam Respiratory: normal respiratory effort, lungs clear to auscultation Cardiovascular: RRR, no murmur, no edema Gastrointestinal (Abdomen): normal bowel sounds, soft, nontender. Results & Data Results & Data Vital Signs (Past 12 Hours) Vital Signs Temp Pulse Resp BP Pulse Ox O2 Del Method 08/05/24 07:32 98.8 F 62 18 143/61 H 95 Room Air 08/04/24 23:03 98.2 F 61 20 154/66 H 95 Room Air Coding Level of Care Code 13583 SUB INP/OBS CARE 10/23MIN Diagnoses Obstipation K59.00
[2024-08-05] MEDS: LANTUS PER UNIT CHARGE SC SCH (10:45)
[2024-08-05] MEDS: SODIUM CHLORIDE 0.9% 1,000 ML IV SCH (10:51)
--- NOTE | 2024-08-05 16:35 | Hospitalist Progress Note ---
Date of Service August 05, 2024 Assessment & Plan (1) Sepsis: Plan: Etiology of sepsis, acute catheter-associated UTI and stercoral colitis with obstipation Urine culture (07/29/2024, Providencia stuartii which is recurrent from may [address] abd/pelvis without IV contrast (07/31/2024, 4:41pm) revealing "large amounts of stool and gas in the redundant colon most notable in the rectum with rectosigmoid colitis." ceftriaxone 2g IV daily LD 08/07/2024 brown catheter was last changed at [facility] 06/13/2024, urology consultation advised to keep brown at this time and exchange once Constipation resolved and infection treated Severe Constipation, did have rectal disimpaction 08/02, multiple cathartic agents and enemas. now with bowel movement will have diet advanced (2) Acute renal failure: Plan: Acute kidney injury on CKD stage III with baseline creatinine range, 1.25 - 1.37 prerenal likely ATN, hold bumex 2mg PO bid, and treat sepsis improvement, after ivf 08/03/24, not restarting lasix yet chronic hyponatremia,now 130, seems dehydrated, given ivf chronic inflammatory anemia , concern if abd compartment syndrome affecting renal function Etiology of CKD stage III is probably due to a combination of patient's HTN and insulin-dependent DM2. (3) DM w/o complication type II, uncontrolled: Plan: Long-term glycemic control is poor with HbA1c 8.1% (08/01/2024, 6:17am). 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 (4) Atrial flutter: Plan: currently in NSR continues on metoprolol and anticoagulated with Eliquis Plan chronic stable, hypothyroidism, continue synthroid Chronic morbid obesity with BMI of 49 dvt prevention is eliquis reduced wellbutrin dose as may cause constipation DNR Admission and Anticipated Discharge Date Admission Date: July 31, 2024 Subjective clincially the pt is doing better, less pain and distension, intermittently refusing miralax Physical Exam Physical Exam: abd is quiet, distended, less tense and tender Results & Data Results & Data Vital Signs (Past 12 Hours) Vital Signs Temp Pulse Resp BP Pulse Ox O2 Del Method 08/05/24 15:15 98.2 F 57 L 18 153/73 H 96 Room Air 08/05/24 11:42 98.5 F 63 20 159/81 H 96 Room Air 08/05/24 07:32 98.8 F 62 18 143/61 H 95 Room Air Laboratory Results review chemistry review with GI Medicine PG Care Time/CCT Total # of Minutes Spent Total Time Spent with Patient: Total time spent is greater than 50% in coordination of care (as documented) at patient's floor/unit and/or counseling patient: Coding Level of Care Code 52035 SUB INP/OBS CARE 2/35MIN Diagnoses Sepsis with acute renal failure without septic shock, due to unspecified organism, unspecified acute renal failure type A41.9; R65.20; N17.9 Sepsis type: sepsis due to unspecified organism Sepsis acute organ dysfunction status: with acute organ dysfunction Severe sepsis acute organ dysfunction type: acute renal failure Acute renal failure type: unspecified Severe sepsis shock status: without septic shock Acute renal failure N17.9 Uncontrolled type 2 diabetes mellitus with hyperglycemia E11.65 Glycemic state: with hyperglycemia Atrial flutter, unspecified type I48.92 Atrial flutter type: unspecified (1) Sepsis Sepsis type: sepsis due to unspecified organism Sepsis acute organ dysfunction status: with acute organ dysfunction Severe sepsis acute organ dysfunction type: acute renal failure Acute renal failure type: unspecified Severe sepsis shock status: without septic shock Qualified Code(s): A41.9 - Sepsis, unspecified organism; R65.20 - Severe sepsis without septic shock; N17.9 - Acute kidney failure, unspecified (3) DM w/o complication type II, uncontrolled Glycemic state: with hyperglycemia Qualified Code(s): E11.65 - Type 2 diabetes mellitus with hyperglycemia (4) Atrial flutter Atrial flutter type: unspecified Qualified Code(s): I48.92 - Unspecified atrial flutter
[2024-08-06 07:38] LABS: Albumin Globulin Ratio 1.1 (0.9-2); Albumin Level 3.1 gm/dl (3.4-5.0); BUN Creatinine Ratio 9.1 (10-20); Bilirubin,Total 0.2 mg/dl (0.2-1.0); Calcium 8.5 mg/dl (8.6-10.3); Creatinine Clr Calc Pharmacy 66.7 ml/min; Globulin 2.9 gm/dl (2.5-4.0); Phosphorus 3.1 mg/dl (2.5-4.9); Potassium 3.8 mmol/L (3.5-5.1)
--- NOTE | 2024-08-06 08:11 | XRay Report ---
KUB HISTORY: Acute generalized abdominal pain with constipation eval obstipation COMPARISON: CT 08/01/2024 FINDINGS: Catheter overlies the midline pelvis. No small bowel obstruction. Gaseous distention of the colon demonstrated mildly improved. Moderate fecal retention, generally unchanged. No renal calculi . No ureteral calculi. No pneumoperitoneum or pneumatosis. No fracture. IMPRESSION: 1. Persistent and mild improvement of the colonic gaseous distention. 2. Moderate fecal retention redemonstrated. ACT 112: Negative or not required by law. The above report was generated using voice recognition software. It may contain grammatical, syntax o r spelling errors. Electronically signed by: Ajith Nelson M.D. 08/06/2024 8:08 AM
--- NOTE | 2024-08-06 12:40 | Pharmacy Report ---
Pharmacy Glycemic Short Note 2 - Date of Service August 06, 2024 - Glycemic Short BSG Results (Last 24 hours): 08/05/24 08/05/24 08/06/24 17:02 20:01 06:42 Glucose 164 H POC Glucose 141 H 172 H 08/06/24 08/06/24 08:12 12:10 Glucose POC Glucose 178 H 176 H OUTPATIENT ANTIDIABETIC REGIMEN: * Levemir 100 units BID * NovoLog 25 units TID * Metformin 1000mg PO BID * A1c 8.1% 08/01/24 ASSESSMENT: 08/06 * A total of 113 units of insulin were given yesterday (70 units were basal and 43units were bolus) * Most BSGs have been elevated, so the lantus was increased to 35 units bid starting yesterday morning which is still far less than his outpatient requirements. * His CHO ratio was tightened slightly starting with the lunch dose today in an attempt to further decrease prandial BSGs. * Renal function starting to improve (SCr=1.86 today) and continues on ceftriaxone. 08/03 * 96 units of insulin total were given yesterday (50 units were basal and 46 units were bolus). * The lantus scale that was ordered on 08/01 was continued through last evening, and he was receiving 25 units for each dose. His BSGs have been trending up (with many being > 180 mg/dL), and his fasting BSG this morning was 181mg/dL. The Lantus was increased to 30units BID starting this morning. His CHO ratio was also slightly tightened starting with dinner tonight. * MACARIO on CKD--Current SCr 2.62 (baseline 1.2-1.3) and continues on ceftriaxone for sepsis treatment. 08/01 * 64 yo M from [facility], presented to the ER with abdominal pain, sepsis, urinary vs. stercoral colitis as source, IV Flagyl + Ceftriaxone. * Surgical consultation, large bowel obstruction severe constipation severe impaction/obstipation of the bowel with significant dilation/distention of the colon and concerns for possibly worsening valve issues, medical management at this time, poor surgical candidate. * Morbid obese type 2 DM on 275 units of insulin per day as outpatient. Patient did take 100 units of Levemir yesterday morning prior to admission. Blood sugars 61-86mg/dl since admission w/o any insulin. Now up to 126mg/dl at lunchtime, patient refused his 3units of NovoLog coverage. Will begin basal at 50% reduced dose now. PLAN FOR INPATIENT GLYCEMIC CONTROL: * Hold outpatient oral diabetes medications * Basal insulin * Lantus 35 units SQ BID * Bolus insulin * NovoLog per scale ACHS or Q6hrs while NPO * Goal Range: Low 110 mg/dL - High 140 mg/dL * Correction Factor: 10 mg/dL/unit * Nutritional / Prandial insulin per carb ratio of 1 unit per 3 grams CHO consumed
--- NOTE | 2024-08-06 16:26 | Hospitalist Progress Note ---
Date of Service August 06, 2024 Assessment & Plan (1) Sepsis: Plan: Etiology of sepsis, acute catheter-associated UTI and stercoral colitis with obstipation Urine culture (07/29/2024, Providencia stuartii which is recurrent from may [address] abd/pelvis without IV contrast (07/31/2024, 4:41pm) revealing "large amounts of stool and gas in the redundant colon most notable in the rectum with rectosigmoid colitis." ceftriaxone 2g IV daily LD 08/07/2024 brown catheter was last changed at [facility] 06/13/2024, urology consultation advised to keep brown at this time and exchange once Constipation resolved and infection treated Severe Constipation, did have rectal disimpaction 08/02, multiple cathartic agents and enemas. now with bowel movement will have diet advanced (2) Acute renal failure: Plan: Acute kidney injury on CKD stage III with baseline creatinine range, 1.25 - 1.37 prerenal likely ATN, hold bumex 2mg PO bid, and treat sepsis improvement, after ivf 08/03/24, not restarting lasix yet chronic hyponatremia,now 130, seems dehydrated, given ivf chronic inflammatory anemia , concern if abd compartment syndrome affecting renal function Etiology of CKD stage III is probably due to a combination of patient's HTN and insulin-dependent DM2. (3) DM w/o complication type II, uncontrolled: Plan: Long-term glycemic control is poor with HbA1c 8.1% (08/01/2024, 6:17am). 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 (4) Atrial flutter: Plan: currently in NSR continues on metoprolol and anticoagulated with Eliquis Plan chronic stable, hypothyroidism, continue synthroid Chronic morbid obesity with BMI of 49 dvt prevention is eliquis reduced wellbutrin dose as may cause constipation DNR Admission and Anticipated Discharge Date Admission Date: July 31, 2024 Subjective clincially the pt is doing better, less pain and distension, intermittently refusing miralax jennifer has improved if continues anticipate discharge 08/07/24 discussion of depression directed meds and adr of constipation associated with them, pt agreeable to tapering some Physical Exam Physical Exam: abd is quiet, distended, much less tense and tender Results & Data Results & Data Vital Signs (Past 12 Hours) Vital Signs Temp Pulse Resp BP Pulse Ox O2 Del Method 08/06/24 15:53 98.1 F 60 20 176/72 H 96 Room Air 08/06/24 12:16 99.3 F 62 20 161/71 H 96 Room Air 08/06/24 10:13 97.9 F 67 20 162/76 H 95 Room Air 08/06/24 07:54 98.2 F 62 16 179/72 H 95 Room Air Laboratory Results review chemistry review lft PG Care Time/CCT Total # of Minutes Spent Total Time Spent with Patient: Total time spent is greater than 50% in coordination of care (as documented) at patient's floor/unit and/or counseling patient: Coding Level of Care Code 49662 SUB INP/OBS CARE 2/35MIN Diagnoses Sepsis with acute renal failure without septic shock, due to unspecified organism, unspecified acute renal failure type A41.9; R65.20; N17.9 Sepsis type: sepsis due to unspecified organism Sepsis acute organ dysfunction status: with acute organ dysfunction Severe sepsis acute organ dysfunction type: acute renal failure Acute renal failure type: unspecified Severe sepsis shock status: without septic shock Acute renal failure N17.9 Uncontrolled type 2 diabetes mellitus with hyperglycemia E11.65 Glycemic state: with hyperglycemia Atrial flutter, unspecified type I48.92 Atrial flutter type: unspecified (1) Sepsis Sepsis type: sepsis due to unspecified organism Sepsis acute organ dysfunction status: with acute organ dysfunction Severe sepsis acute organ dysfunction type: acute renal failure Acute renal failure type: unspecified Severe sepsis shock status: without septic shock Qualified Code(s): A41.9 - Sepsis, unspecified organism; R65.20 - Severe sepsis without septic shock; N17.9 - Acute kidney failure, unspecified (3) DM w/o complication type II, uncontrolled Glycemic state: with hyperglycemia Qualified Code(s): E11.65 - Type 2 diabetes mellitus with hyperglycemia (4) Atrial flutter Atrial flutter type: unspecified Qualified Code(s): I48.92 - Unspecified atrial flutter
--- NOTE | 2024-08-07 05:59 | Communication Note ---
Date of Service: August 07, 2024 Patient is refusing telemetry and bowel regimen despite education and discussion. Resident Activity Tracking Resident Involvement: Resident Care Provided Care Provided: Adult [facility] Medicine
[2024-08-07 07:24] LABS: Hematocrit (blood only) 32.4 % (42.0-52.0); Hemoglobin 10.9 g/dl (14.0-18.0); Mean Corpuscular Hemoglobin 27.8 pg (25.0-34.0); Mean Corpuscular Hgb Conc 33.6 g/dL (32.0-36.0); Mean Corpuscular Volume 82.7 fL (80.0-100.0); Mean Platelet Volume 10.7 fL (9.4-12.4); Platelet Count 320 K/uL (130-400); RDW Coefficient of Variation 16.6 % (11.5-14.5); RDW Standard Deviation 49.5 fL (36.4-46.3); Red Blood Count 3.92 M/uL (4.70-6.10); White Blood Count 7.71 K/ul (4.8-10.8)
[2024-08-07 07:33] VITALS: BP 189/71; PULSE 58; RESP 16; TEMP 98.1; O2SAT 96
[2024-08-07] MEDS: buPROPion SR 100 MG TABCR PO SCH (09:38)
--- NOTE | 2024-08-07 15:01 | Discharge Summary ---
Discharge Summary Date of Service August 07, 2024 Principal Dx & Hospital Course #1 = Principal Diagnosis (1) Sepsis: Etiology of sepsis, acute catheter-associated UTI and stercoral colitis with obstipation Urine culture (07/29/2024, Providencia stuartii which is recurrent from may [address] abd/pelvis without IV contrast (07/31/2024, 4:41pm) revealing "large amounts of stool and gas in the redundant colon most notable in the rectum with rectosigmoid colitis." ceftriaxone 2g IV daily completed course in hospital brown catheter was last changed at [facility] 06/13/2024, Change brown at discharge Severe Constipation, did have rectal disimpaction 08/02, multiple cathartic agents and enemas. will need to keep eye on bowel output at snf (2) Acute renal failure: Acute kidney injury on CKD stage III with baseline creatinine range, 1.25 - 1.37 prerenal likely ATN, improvement, after ivf 08/03/24, restart bumex at lower dose chronic hyponatremia,now 138 chronic inflammatory anemia , concern if abd compartment syndrome affecting renal function Etiology of CKD stage III is probably due to a combination of patient's HTN and insulin-dependent DM2. (3) DM w/o complication type II, uncontrolled: Long-term glycemic control is poor with HbA1c 8.1% (08/01/2024, 6:17am). 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 (4) Atrial flutter: currently in NSR continues on metoprolol and anticoagulated with Eliquis Plan chronic stable, hypothyroidism, continue synthroid Chronic morbid obesity with BMI of 49 dvt prevention is eliquis reduced wellbutrin dose as may cause constipation DNR Notes For Next Care Provider Patient had antidepressants reduced. Certainly watching his constipation will be an issue. Patient also has his Bumex restarted lower dose due to MACARIO that he occurred during his hospital stay. Admission HPI Per Admitting Provider Bishop Mahan is a 64 year old male from [facility] correction who presents to the ER with abdominal pain. Symptoms started Friday with lower abdominal cramping, severity currently 5/10 on inspiration but 10/10 at worseStarted friday stomach. Nasuea and vomiting following this. bilateral lower pain. Severity 5/10 on inspiraton, 10/10 at worse. Cramping waves. last BM today. Do esn't go the best, sure not diarrhea. No fever or chills. No chestpain shortnss of breath. No current nausea. Started Pridium today turned urine organge. ER dictation hand over note from [facility]: Abdomen firm and distended, under treatment for UTI but Macrobid resistant, decreased urination, indwelling catheter, bladder scan for 63 ml. Discharge Exam Patient awake alert and appropriate. He is no distress. Cardiac exam is regular lungs are distant abdomen NABS soft he is obese he is not tender or protuberant Discharge Plan Discharge Items Patient Disposition: Transfer Usp Fac Reason For Visit: SEPSIS Discharge Diagnosis: stercoral colitis with sepsis severe constipation uti poa-treated with ceftriaxone Activity: Resume your previous activity Non-emergency contact: Primary Care Provider Call non-emergency contact if: your symptoms worsen Follow-up/Referrals: [facility] [Primary Care Provider] - Diet: Carb Consistent or DM2 Addtl Attending Provider Instructions: pt presented with Catheter associated UTi, treated severe constipation with concern for stercoral colitis, medications that affect constipation ammended Pending Studies at Discharge: No Stand-Alone Forms: My [facility] Skilled Items Patient informed of condition?: Yes DNR: Yes Discharge Level of Care: Other Communicable Disease: No Discharge Prognosis: Stable Lines: None Urinary Catheter: Yes Medications and DC Order Prescriptions: Continued (DME) blood-glucose meter Kit See Rx Instructions .ROUTE .MEDSUPPLY Qty: 1 0RF Rx Instructions: As directed (DME) OneTouch Verio test strips Strip See Rx Instructions .Route Qty: 100 4RF Rx Instructions: testing 3 times daily Eliquis 5 mg tablet 5 mg PO BID Qty: 60 5RF metoprolol tartrate 100 mg tablet 100 mg PO BID Qty: 60 5RF atorvastatin 80 mg tablet 80 mg PO QDD pantoprazole 40 mg tablet,delayed release (DR/EC) 40 mg PO DAILYBB acetaminophen 650 mg Tablet Extended Release 650 mg PO Q6H PRN (Reason: Pain) ondansetron HCl 4 mg Tablet 4 mg PO Q6H PRN (Reason: Nausea) sennosides-docusate sodium [Senokot-S] 8.6-50 mg Tablet 1 tab PO BID phenazopyridine [Pyridium] 200 mg tablet 200 mg PO Q8H PRN (Reason: pain) Qty: 10 0RF levothyroxine 175 mcg tablet 175 mcg PO DAILYBB insulin glargine [Lantus U-100 Insulin] 100 unit/mL solution 100 unit SUBCUT BID polyethylene glycol 3350 [Miralax] 17 gram Powder In Packet 17 g PO DAILY magnesium hydroxide 400 mg/5 mL Suspension 30 ml PO DAILY PRN (Reason: Constipation) bisacodyl [Dulcolax (bisacodyl)] 10 mg Suppository 10 mg FL DAILY PRN (Reason: Constipation) Fleet Enema 19-7 gram/118 mL Enema 118 ml FL DAILY PRN (Reason: Constipation) insulin lispro [Humalog U-100 Insulin] 100 unit/mL solution See Rx Instructions .ROUTE .COMPLEX Rx Instructions: 350-400 = 8 units, 401-450 = 12 units, 451-500 = 16 units, 501-550 = 18 units, 551 - 1000 = 20 units metformin 500 mg tablet extended release 24 hr 1,000 mg PO BID Multivitamin 50 Plus Tablet 1 tab PO DAILY methyl salicylate-menthol 15-10 % Cream 1 applic TOPICAL QID PRN (Reason: Left shoulder and knee pain) insulin lispro [Humalog U-100 Insulin] 100 unit/mL solution 25 unit subcut AC Rx Instructions: Hold dose if BG < 100 or pt eats < 25% of meal. Held bumetanide 2 mg tablet 2 mg PO BID Hold Instructions: Resume on 08/09/24. Discontinued bupropion HCl 150 mg tablet sustained-release 12 hr 150 mg PO BID hydrocodone-acetaminophen 5-325 mg Tablet 1 tab PO Q6H PRN (Reason: Pain 5-10) nitrofurantoin monohyd/m-cryst 100 mg capsule 100 mg PO BID Rx Instructions: Started 07/30/2024 oxybutynin chloride 5 mg tablet extended release 24hr 5 mg PO DAILY gabapentin 100 mg capsule 200 mg PO TID Discharge Orders: Discharge Order (Routine); Ordered 08/07/24 Ordered By: Justino Bennett/Other Patient Handouts: Hypoglycemia (Low Blood Sugar), Managing Type 2 Diabetes Admission Data Admit Date/Time: 07/31/24 19:14 Attending Provider: Justino Guerra Admit Provider: Vicente Perry Primary Care Provider: [facility] Other Providers: Vicente Perry; Jay Schmitz; Fabian Rivera; Nate Castillo Other Interventions: Discharge Summary Assessment (RN) Last Done: 08/07/24 10:53 Hospital Stay Data Consultations 07/31/24 18:53 ED Decision to Admit Stat 07/31/24 21:09 Consult Urology Routine 08/01/24 09:16 Consult General Surgery Stat 08/01/24 13:22 Consult Gastroenterology Routine Diagnostic Imagining Performed 07/31/24 16:41 CT Abd and Pelvis [CT abd pelvis wo con] Stat 08/01/24 06:29 CT Abdomen and Pelvis [CT abd pelvis wo con] Stat Pending Results Patient Have Any Pending Studies at Discharge: No Discharge Instructions Given to Patient (Per Discharging Provider) pt presented with Catheter associated UTi, treated severe constipation with concern for stercoral colitis, medications that affect constipation ammended Total Time Total Time Spent Total Time Spent (In Minutes): It required greater than 30 minutes to prepare this patient for discharge. Coding Level of Care Code 95530 INP/OBS DISCH >30 MIN Diagnoses Sepsis with acute renal failure without septic shock, due to unspecified organism, unspecified acute renal failure type A41.9; R65.20; N17.9 Sepsis type: sepsis due to unspecified organism Sepsis acute organ dysfunction status: with acute organ dysfunction Severe sepsis acute organ dysfunction type: acute renal failure Acute renal failure type: unspecified Severe sepsis shock status: without septic shock Acute renal failure N17.9 Uncontrolled type 2 diabetes mellitus with hyperglycemia E11.65 Glycemic state: with hyperglycemia Atrial flutter, unspecified type I48.92 Atrial flutter type: unspecified
== END 2024-08-07 12:32 | DRG 871 ==
LOC: ED 16:06 → SUATTDRO 19:14 → 2N 19:14